=== PATIENT | male | born 1955 | race Caucasian/White ===

== ENCOUNTER → 2018-06-18 14:52 | Outpatient (POV) | payer MEDICARE, SELFPAY | DX: Z00.00 Encounter for general adult medical examination without abnormal findings (principal) ==

== ENCOUNTER 2019-03-17 19:58 | Observation (INO) ==
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
[2019-03-17 20:36] LABS: Basophils # 0.1 K/mm3 (0-0.2); Basophils % 0.9 % (0.1-2.0); Eosinophils # 0.1 K/mm3 (0.0-0.4); Eosinophils % 1.9 % (0.1-12.0); Hematocrit 51.6 % (42.0-52.0); Lymphocytes # 2.5 K/mm3 (0.7-4.5); Mean Corpuscular Volume 99.4 fl (80-94); Mean Platelet Volume 6.4 fl (7.4-10.4); Monocytes # 0.6 K/mm3 (0.1-1.0); Monocytes % 7.9 % (1.7-9.3); Neutrophils # 3.7 K/mm3 (1.8-7.8); Neutrophils % 53.3 % (37.0-80.0); Platelet Count 293 K/mm3 (142-424); Red Blood Count 5.19 M/mm3 (4.60-6.20); Red Cell Distribution Width 13.3 % (11.5-17.5)
[2019-03-17 20:40] LABS: Anion Gap 15.5 mEq/L (5-15); Calcium 9.8 mg/dL (8.5-10.1)
[2019-03-17 20:50] LABS: Ethyl Alcohol 288 mg/dL (0-99)
[2019-03-17 20:51] LABS: C-Reactive Protein < 0.2 mg/dL (0.0-0.9)
[2019-03-17 20:52] LABS: Albumin Level 4.2 gm/dL (3.4-5.0); Bilirubin,Direct 0.1 mg/dL (0.0-0.2); Bilirubin,Indirect 0.3 mg/dL (0.0-0.9); Bilirubin,Total 0.4 mg/dL (0.2-1.0); Total Protein,Serum 8.7 gm/dL (6.4-8.2)
[2019-03-17 20:53] LABS: Amphetamine/Metha Screen,Urine Negative ng/mL (<1000); Barbiturates Screen,Urine Negative ng/mL (<200); Benzodiazepines Screen,Urine Negative ng/mL (<200); Cannabinoid Screen,Urine Negative ng/mL (<50); Cocaine Screen,Urine Negative ng/mL (<300); Methadone Screen,Urine Negative ng/mL (<300); Opiate Screen,Urine Negative ng/mL (<300); Phencyclidine Screen,Urine Negative ng/mL (<25)
[2019-03-17 21:25] LABS: Chol/HDL Ratio 2.9 (1-3.5)
[2019-03-18 06:44] LABS: Eosinophils % 2.8 % (0.1-12.0); Hematocrit 44.8 % (42.0-52.0); Lymphocytes # 1.5 K/mm3 (0.7-4.5); Lymphocytes % 35.6 % (10-50); Mean Corpuscular HGB Conc 32.9 g/dL (31.8-35.4); Mean Corpuscular Volume 99.7 fl (80-94); Mean Platelet Volume 6.7 fl (7.4-10.4); Monocytes % 10.7 % (1.7-9.3); Neutrophils # 2.1 K/mm3 (1.8-7.8); Neutrophils % 49.9 % (37.0-80.0); Platelet Count 266 K/mm3 (142-424); Red Blood Count 4.49 M/mm3 (4.60-6.20); Red Cell Distribution Width 13.5 % (11.5-17.5); White Blood Count 4.2 K/mm3 (4.8-10.8)
[2019-03-18 07:01] LABS: Anion Gap 13.4 mEq/L (5-15)
[2019-03-18 07:04] LABS: Eosinophils # 0.1 K/mm3 (0.0-0.4); Monocytes # 0.4 K/mm3 (0.1-1.0)
[2019-03-18 07:16] LABS: Hemoglobin 14.8 g/dL (14.1-18.0)
[2019-03-18 07:18] LABS: Calcium 8.6 mg/dL (8.5-10.1)
--- NOTE | 2019-03-18 09:11 | Pharmacy Consult Notes ---
[facility] Pharmacy VTE Monitoring - Patient Demographics Admission date: 03/18/19 Report Date: 03/18/19 Time: 09:10 Allergies/Adverse Reactions: Patient Allergies Penicillins Allergy (Severe, Verified 03/18/19 08:09) Anaphylaxis codeine [CODEINE] Allergy (Mild, Verified 03/17/19 22:21) Rash Height: 1.73 m Weight: 71.356 kg Patient Problems: Current Active Problems Elevated ETOH level (Acute) Chest pain (Acute) Chronic obstructive airway disease (Acute) Tobacco dependence syndrome (Acute) History of coronary artery bypass graft (Acute) - VTE Risk Labs: VTE Related Lab Results Hgb 14.8 g/dL (14.1-18.0) D 03/18/19 05:24 Hct 44.8 % (42.0-52.0) 03/18/19 05:24 Plt Count 266 K/mm3 (142-424) 03/18/19 05:24 BUN 7 mg/dL (7-18) 03/18/19 05:24 Creatinine 0.74 mg/dL (0.70-1.30) 03/18/19 05:24 Estimated Creat Clear 78 mL/min (50-200) 03/18/19 05:24 VTE Score: 8 VTE Risk Level: Moderate Risk - Prophylaxis Types of VTE Prophylaxis: TEDS Knee High (STEPHANY HOSE ORDERED)
--- NOTE | 2019-03-18 10:19 | Consult Report ---
History of Present Illness Consult date: 03/18/19 Requesting physician: Eris Amezcua Consult reason: chest pain Chief complaint: Chest pain Additional Medical History:: 1. Coronary artery disease 2. Hypertension 3. Hyperlipidemia 4. Medical noncompliance 5. Alcoholism 6. Marijuana smoker 7. Tobacco user 8. COPD History of present illness: This is a 63-year-old gentleman who was admitted to the hospital with chest pain. The patient came into the hospital with a 3-day history of chest pressure and tightness in the center of his chest. The patient states that it did not radiate. His chest pain was associated with shortness of breath and diaphoresis. The patient states that it was constant and moderate in intensity. The patient states that he did take nitroglycerin at home to help improve the pain. He states that this did help but then he lost the nitroglycerin and was unable to take it again. The patient states that he has not taken his medication properly for the last several months. He states that he forgets to take his medicine and so he just stopped taking it. He also reports that he has been drinking alcohol heavily for the last 3 months. He also reports smoking marijuana and smoking 1 pack/day of cigarettes. The patient reports that he is just not been taking really good care of himself. He denies any fever, chills, nausea, vomiting, diarrhea, PND or orthopnea. He denies any edema. The patient does report a history of coronary artery disease with stenting back in 2016. His first 2 troponins are negative and has ruled out for an NE. [facility] History I have reviewed the patient's past medical history: Yes Medical History: Reports:: Chronic Obstructive Pulmonary Disease (COPD), Coronary Artery Disease, Hyperlipidemia, Hypertension Denies:: Diabetes Mellitus Type 1, Diabetes Mellitus Type 2, Internal Pacemaker *Have you ever received a pneumonia vaccine?: No *Have you received a flu vaccine this season?: No Laterality Cases: Bilateral: Arthroscopy Shoulder Other Surgeries: Yes: Other ([facility] 2016, Shoulder Sx, B wrist sx, Cyst removed). No: Pacemaker Amputation: No Fractures: No - *Social History Educational Level: Completed College Smoking Status: Current every day smoker Tobacco Type: cigarettes # Packs/Day (cigarettes): 1 Alcohol Intake: current Alcohol Intake Frequency:: 3 or more drinks per day Substance Use Type: marijuana *Occupational Status:: disabled *Travel in the last 8 weeks: None Family Hx:: Coronary Artery Disease, Diabetes Meds Home Medications Medication Instructions Recorded Confirmed Type furosemide 20 mg tablet 20 mg PO DAILY 07/29/17 03/18/19 History ipratropium bromide 17 2 inh INHALATION QID 07/29/17 03/17/19 History mcg/actuation HFA aerosol inhaler lisinopril 20 mg tablet 20 mg PO DAILY 07/29/17 03/18/19 History nitroglycerin 0.4 mg sublingual 0.4 mg SUBLINGUAL Q5MINP PRN 07/29/17 03/18/19 History tablet ondansetron HCl 4 mg tablet 4 mg PO Q8HP PRN tab 07/29/17 03/18/19 History Albuterol Sulfate [Albuterol HFA 2 puff INHALATION Q6H 03/17/19 03/17/19 History Inhaler] Aspirin [Low Dose Aspirin EC] 81 mg PO DAILY 03/17/19 03/17/19 History Carvedilol [Carvedilol 3.125mg Tab] 3.125 mg PO BID 03/17/19 03/17/19 History Clopidogrel Bisulfate [Plavix 75mg 75 mg PO DAILY 03/17/19 03/17/19 History Tab] Potassium Chloride [K-Tab ER 20 20 meq PO DAILY 03/17/19 03/17/19 History mEq] Allergies Allergy/AdvReac Type Severity Reaction Status Date / Time Penicillins Allergy Severe Anaphylaxis Verified 03/18/19 08:09 codeine [CODEINE] Allergy Mild Rash Verified 03/17/19 22:21 Review of Systems - Review of Systems Review of systems:: pertinent systems reviewed and negative unless documented below - *Cardiovascular Reports chest pain, Reports chest pain at rest, Reports chest pain with activity, Reports excessive sweating, Reports shortness of breath, Reports shortness of breath with activity - *Respiratory Reports shortness of breath, Reports shortness of breath with activity - *Neurologic Denies seizure-like activity Exam Vital signs and Labs for Last 24 Hours: Temp Pulse Resp BP Pulse Ox 98.2 F 84 17 149/57 H 95 03/18/19 08:00 03/18/19 08:00 03/18/19 08:00 03/18/19 08:00 03/18/19 08:00 Laboratory Results - last 24 hr 03/17/19 20:27: ESR 1 03/17/19 20:27: Troponin I < 0.02, C-Reactive Protein < 0.2, Plasma/Serum Al cohol 288 H 03/17/19 20:27: WBC 7.0, RBC 5.19, Hgb 17.0, Hct 51.6, MCV 99.4 H, MCH 32.8 H, MCHC 33.0, RDW 13.3, Plt Count 293, MPV 6.4 L, Neut % (Auto) 53.3, Lymph % (Auto) 36.0, [place] % (Auto) 7.9, Eos % (Auto) 1.9, Baso % (Auto) 0.9, Neut # (Auto) 3.7, Lymph # (Auto) 2.5, [place] # (Auto) 0.6, Eos # (Auto) 0.1, Baso # (Auto) 0.1 03/17/19 20:27: Sodium 141, Potassium 3.5, Chloride 101, Carbon Dioxide 28, Anion Gap 15.5 H, BUN 8, Creatinine 0.85, Estimated Creat Clear 77, Estimated GFR 92, Est GFR ( Amer) 111, Glucose 105, Calcium 9.8 03/17/19 20:27: Urine Opiates Screen Negative, Urine Methadone Screen Negative, Ur Barbituates Screen Negative, Ur Phencyclidine Scrn Negative, Ur Amphetamines Screen Negative, U Benzodiazepines Scrn Negative, Urine Cocaine Screen Negative, U Marijuana (THC) Screen Negative 03/17/19 20:27: Total Bilirubin 0.4, Direct Bilirubin 0.1, Indirect Bilirubin 0.3, AST 77 H, ALT 94 H, Alkaline Phosphatase 106, Total Protein 8.7 H, Albumin 4.2 03/17/19 20:27: Triglycerides 243 H, Cholesterol 232 H, LDL Cholesterol 102, VLDL Cholesterol 49 H, HDL Cholesterol 81 H, Cholesterol/HDL Ratio 2.9 03/18/19 00:35: Troponin I < 0.02 03/18/19 03:23: Troponin I 0.02 03/18/19 05:24: WBC 4.2 L D, RBC 4.49 L, Hgb 14.8 D, Hct 44.8, MCV 99.7 H, MCH 32.8 H, MCHC 32.9, RDW 13.5, Plt Count 266, MPV 6.7 L, Neut % (Auto) 49.9, Lymph % (Auto) 35.6, [place] % (Auto) 10.7 H, Eos % (Auto) 2.8, Baso % (Auto) 1.0, Neut # (Auto) 2.1, Lymph # (Auto) 1.5, [place] # (Auto) 0.4, Eos # (Auto) 0.1, Baso # (Auto) 0.0 03/18/19 05:24: Sodium 143, Potassium 3.4 L, Chloride 105, Carbon Dioxide 28, Anion Gap 13.4, BUN 7, Creatinine 0.74, Estimated Creat Clear 78, Estimated GFR 108, Est GFR ( Amer) 130, Glucose 88, Calcium 8.6 D, Magnesium 1.8 I & O for Last 24 hours: Intake & Output 03/15/19 03/16/19 03/17/19 03/18/19 23:59 23:59 23:59 23:59 Intake Total 338 / 338 Balance 338 / 338 Weight 157 lb 5 oz 157 lb 5 oz Narrative: EKG is sinus rhythm with incomplete right bundle branch block and nonspecific T wave abnormalities with a rate of 92. Preliminary echocardiogram shows an ejection fraction greater than 55%. - Constitutional no acute distress, average body habitus - *Routine HEENT Exam Head: Present: normocephalic, atraumatic Eye: Present: EOMI, PERRL ENT: Present: mucous membranes moist - *Routine Neck Exam Present: supple, full ROM, normal carotid upstroke. Absent: JVD, carotid bruit, lymphadenopathy - *Routine Respiratory Exam Present: decreased breath sounds, wheezes (Expiratory) - *Routine Cardiovascular Exam Present: RRR, Normal S1, Normal S2. Absent: murmur - *Routine Abdominal Exam Present: soft, normoactive bowel sounds. Absent: tenderness, distended - *Routine Extremities Exam Present: full ROM, pulses intact, normal capillary refill. Absent: cyanosis, clubbing, edema - *Routine Skin Exam Present: intact, warm. Absent: erythema, rash - *Routine Neurological Exam Present: alert, oriented X3, CN II-XII intact. Absent: sensory deficit, motor deficit - Routine Psychiatric Exam Present: normal affect, normal thought process - Detailed Eye Exam Eyelids: Left normal inspection Assessment and Plan (1) Angina pectoris Current visit: Yes Status: Acute Category: Medical Code(s): I20.9 - Angina pectoris, unspecified (2) Coronary artery disease Current visit: Yes Status: Acute Category: Medical Code(s): I25.10 - Atherosclerotic heart disease of [place] coronary artery without angina pectoris (3) Hypertension Current visit: Yes Status: Acute Category: Medical Code(s): I10 - Essential (primary) hypertension (4) Chronic obstructive airway disease Current visit: Yes Status: Acute Qualifiers: COPD type: unspecified COPD Qualified Code(s): J44.9 - Chronic obstructive pulmonary disease, unspecified Category: Medical Code(s): J44.9 - Chronic obstructive pulmonary disease, unspecified (5) Elevated ETOH level Current visit: Yes Status: Acute Qualifiers: Blood alcohol level: 240 mg/100 ml or more Qualified Code(s): Y90.8 - Blood alcohol level of 240 mg/100 ml or more Category: Medical Code(s): R78.0 - Finding of alcohol in blood (6) History of coronary artery bypass graft Current visit: Yes Status: Acute Category: Surgical Code(s): Z95.1 - Presence of aortocoronary bypass graft (7) Tobacco dependence syndrome Current visit: Yes Status: Acute Category: Medical Code(s): F17.200 - Nicotine dependence, unspecified, uncomplicated (8) Hyperlipidemia Current visit: No Status: Acute Category: Medical Code(s): E78.5 - Hyperlipidemia, unspecified - Assessment and plan all Dx Assessment and Plan for all problems:: Plan: 1. The patient was admitted to the hospital with chest pain. He is ruled out for an NE. No plans for invasive cardiac testing at this time. 2. The patient does have history of known coronary artery disease with his last work-up in 2016. The patient has been noncompliant with his medications for the last several months. He reports that he just forgets to take his medicine so he stopped taking them all. 3. The patient is having angina but he is off of all of his cardiac medications. He is ruled out for myocardial infarction. Dr. Zapien recommends getting the patient restarted on his cardiac medications to see if his symptoms improve and he would likely benefit from an ischemic evaluation on an outpatient basis. 4. Recommend aspirin 81 mg daily and Plavix 75 mg daily for dual antiplatelet therapy. 5. Stop Pravachol and start Lipitor 80 mg p.o. nightly. 6. Continue current dose of carvedilol. 7. Start isosorbide mononitrate 30 mg daily for angina. 8. Start Norvasc 5 mg daily for angina and better blood pressure control. 9. His preliminary EF shows an ejection fraction greater than 55%. 10. Tobacco cessation is highly advised and counseled. 11. Alcohol cessation is highly advised and counseled. 12. As mentioned above from a cardiac standpoint, recommend getting the patient restarted on all of his cardiac medications. As long as he is tolerating these medications well the patient can be discharged home today from a cardiac standpoint. We do recommend an outpatient ischemic evaluation. The patient should follow-up in outpatient cardiology clinic in 1 to 2 weeks. 13. No further recommendations at this time from cardiac standpoint. Thank you for the opportunity to help participate in care of this patient.
--- NOTE | 2019-03-18 11:22 | H&P/Discharge Summary ---
General - General Admission date:: 03/17/19 Discharge date: 03/18/19 *Admission Date: 03/18/19 *Chief complaint: chest pain *History of present illness: this wm presented to [facility] with 3 day af ant chest pain with hx of cad -stated has been having intense chest pain for the last 3 days. ptr described it as a pressure/tightness in the middle of his chestr. pt stated he has been drinking for the last 3 months straight and hasnt been taking his medications. pt stated he took a nitro pill a couple of days ago and got relief but he cant find them now. pt stated he is under the influence now wm with onset of episodes of chest pain over the last 3 days with pressure sensation - pt with tob use and etoh use and hx of cabg 2011 - pt was admitted for eval and serial enz [facility] History I have reviewed the patient's past medical history: Yes Medical History: Reports:: Chronic Obstructive Pulmonary Disease (COPD), Coronary Artery Disease, Hyperlipidemia, Hypertension Denies:: Diabetes Mellitus Type 1, Diabetes Mellitus Type 2, Internal Pacemaker *Have you ever received a pneumonia vaccine?: No *Have you received a flu vaccine this season?: No Laterality Cases: Bilateral: Arthroscopy Shoulder Other Surgeries: Yes: Other ([facility] 2016, Shoulder Sx, B wrist sx, Cyst removed). No: Pacemaker Amputation: No Fractures: No - *Social History Educational Level: Completed College Smoking Status: Current every day smoker Tobacco Type: cigarettes # Packs/Day (cigarettes): 1 Alcohol Intake: current Alcohol Intake Frequency:: 3 or more drinks per day Substance Use Type: marijuana *Occupational Status:: disabled *Travel in the last 8 weeks: None Family Hx:: Coronary Artery Disease, Diabetes Review of Systems - Review of Systems Review of systems:: pertinent systems reviewed and negative unless documented below - Constitutional Denies fever(s) - Eyes Denies change in vision - ENT Denies sore throat - *Cardiovascular Reports chest pain at rest - *Respiratory Denies cough - *Gastrointestinal Denies abdominal pain - *Genitourinary Denies blood in urine - *Musculoskeletal Denies joint swelling - Integumentary/Breasts Denies rash - *Neurologic Denies headache(s), Denies seizure-like activity - Psychiatric Denies anxiety Exam Vital signs and Labs for Last 24 Hours: Temp Pulse Resp BP Pulse Ox 98.2 F 84 17 149/57 H 95 03/18/19 08:00 03/18/19 08:00 03/18/19 08:00 03/18/19 08:00 03/18/19 08:00 Laboratory Results - last 24 hr 03/17/19 20:27: ESR 1 03/17/19 20:27: Troponin I < 0.02, C-Reactive Protein < 0.2, Plasma/Serum Alcohol 288 H 03/17/19 20:27: WBC 7.0, RBC 5.19, Hgb 17.0, Hct 51.6, MCV 99.4 H, MCH 32.8 H, MCHC 33.0, RDW 13.3, Plt Count 293, MPV 6.4 L, Neut % (Auto) 53.3, Lymph % (Auto) 36.0, [place] % (Auto) 7.9, Eos % (Auto) 1.9, Baso % (Auto) 0.9, Neut # (Auto) 3.7, Lymph # (Auto) 2.5, [place] # (Auto) 0.6, Eos # (Auto) 0.1, Baso # (Auto) 0.1 03/17/19 20:27: Sodium 141, Potassium 3.5, Chloride 101, Carbon Dioxide 28, Anion Gap 15.5 H, BUN 8, Creatinine 0.85, Estimated Creat Clear 77, Estimated GFR 92, Est GFR ( Amer) 111, Glucose 105, Calcium 9.8 03/17/19 20:27: Urine Opiates Screen Negative, Urine Methadone Screen Negative, Ur Barbituates Screen Negative, Ur Phencyclidine Scrn Negative, Ur Amphetamines Screen Negative, U Benzodiazepines Scrn Negative, Urine Cocaine Screen Negative, U Marijuana (THC) Screen Negative 03/17/19 20:27: Total Bilirubin 0.4, Direct Bilirubin 0.1, Indirect Bilirubin 0.3, AST 77 H, ALT 94 H, Alkaline Phosphatase 106, Total Protein 8.7 H, Albumin 4.2 03/17/19 20:27: Triglycerides 243 H, Cholesterol 232 H, LDL Cholesterol 102, VLDL Cholesterol 49 H, HDL Cholesterol 81 H, Cholesterol/HDL Ratio 2.9 03/18/19 00:35: Troponin I < 0.02 03/18/19 03:23: Troponin I 0.02 03/18/19 05:24: WBC 4.2 L D, RBC 4.49 L, Hgb 14.8 D, Hct 44.8, MCV 99.7 H, MCH 32.8 H, MCHC 32.9, RDW 13.5, Plt Count 266, MPV 6.7 L, Neut % (Auto) 49.9, Lymph % (Auto) 35.6, [place] % (Auto) 10.7 H, Eos % (Auto) 2.8, Baso % (Auto) 1.0, Neut # (Auto) 2.1, Lymph # (Auto) 1.5, [place] # (Auto) 0.4, Eos # (Auto) 0.1, Baso # (Auto) 0.0 03/18/19 05:24: Sodium 143, Potassium 3.4 L, Chloride 105, Carbon Dioxide 28, Anion Gap 13.4, BUN 7, Creatinine 0.74, Estimated Creat Clear 78, Estimated GFR 108, Est GFR ( Amer) 130, Glucose 88, Calcium 8.6 D, Magnesium 1.8 I & O for Last 24 hours: Intake & Output 03/15/19 03/16/19 03/17/19 03/18/19 11:59 11:59 11:59 11:59 Intake Total 338 / 338 Balance 338 / 338 Weight 157 lb 5 oz - Constitutional no acute distress - *Routine HEENT Exam Head: Present: normocephalic Eye: Present: EOMI, PERRL ENT: Present: mucous membranes dry - *Routine Neck Exam Absent: JVD - *Routine Respiratory Exam Present: CTA bilaterally - *Routine Cardiovascular Exam Present: RRR, murmur. Absent: rubs - *Routine Abdominal Exam Present: soft - *Routine Extremities Exam Present: full ROM - *Routine Skin Exam Present: intact - *Routine Neurological Exam Present: alert, oriented X3, CN II-XII intact - Routine Psychiatric Exam Present: normal affect Hospital Course Hospital Course: pt did well through night and has neg card enz - he was seen by card -oronary artery disease 2. Hypertension 3. Hyperlipidemia 4. Medical noncompliance 5. Alcoholism 6. Marijuana smoker 7. Tobacco user 8. COPD History of present illness: This is a 63-year-old gentleman who was admitted to the hospital with chest pa in. The patient came into the hospital with a 3-day history of chest pressure and tightness in the center of his chest. The patient states that it did not radiate. His chest pain was associated with shortness of breath and diaphoresis. The patient states that it was constant and moderate in intensity. The patient states that he did take nitroglycerin at home to help improve the pain. He states that this did help but then he lost the nitroglycerin and was unable to take it again. The patient states that he has not taken his medication properly for the last several months. He states that he forgets to take his medicine and so he just stopped taking it. He also reports that he has been drinking alcohol heavily for the last 3 months. He also reports smoking marijuana and smoking 1 pack/day of cigarettes. The patient reports that he is just not been taking really good care of himself. He denies any fever, chills, nausea, vomiting, diarrhea, PND or orthopnea. He denies any edema. The patient does report a history of coronary artery disease with stenting back in 2016. His first 2 troponins are negative and has ruled out for an CT. The patient was admitted to the hospital with chest pain. He is ruled out for an CT. No plans for invasive cardiac testing at this time. 2. The patient does have history of known coronary artery disease with his last work-up in 2016. The patient has been noncompliant with his medications for the last several months. He reports that he just forgets to take his medicine so he stopped taking them all. 3. The patient is having angina but he is off of all of his cardiac medications. He is ruled out for myocardial infarction. Dr. Zapien recommends getting the patient restarted on his cardiac medications to see if his symptoms improve and he would likely benefit from an ischemic evaluation on an outpatient basis. 4. Recommend aspirin 81 mg daily and Plavix 75 mg daily for dual antiplatelet therapy. 5. Stop Pravachol and start Lipitor 80 mg p.o. nightly. 6. Continue current dose of carvedilol. 7. Start isosorbide mononitrate 30 mg daily for angina. 8. Start Norvasc 5 mg daily for angina and better blood pressure control. 9. His preliminary EF shows an ejection fraction greater than 55%. 10. Tobacco cessation is highly advised and counseled. 11. Alcohol cessation is highly advised and counseled. 12. As mentioned above from a cardiac standpoint, recommend getting the patient restarted on all of his cardiac medications. As long as he is tolerating these medications well the patient can be discharged home today from a cardiac standpoint. We do recommend an outpatient ischemic evaluation. The patient should follow-up in outpatient cardiology clinic in 1 to 2 weeks. 13. No further recommendations at this time from cardiac standpoint. Results Labs on day of discharge: Labs from last 24 hours 03/18/19 03/18/19 03/18/19 05:24 05:24 03:23 WBC 4.2 L D RBC 4.49 L Hgb 14.8 D Hct 44.8 MCV 99.7 H MCH 32.8 H MCHC 32.9 RDW 13.5 Plt Count 266 MPV 6.7 L Neut % (Auto) 49.9 Lymph % (Auto) 35.6 [place] % (Auto) 10.7 H Eos % (Auto) 2.8 Baso % (Auto) 1.0 Neut # (Auto) 2.1 Lymph # (Auto) 1.5 [place] # (Auto) 0.4 Eos # (Auto) 0.1 Baso # (Auto) 0.0 ESR Sodium 143 Potassium 3.4 L Chloride 105 Carbon Dioxide 28 Anion Gap 13.4 BUN 7 Creatinine 0.74 Estimated Creat Clear 78 Estimated GFR 108 Est GFR ( Amer) 130 Glucose 88 Calcium 8.6 D Magnesium 1.8 Total Bilirubin Direct Bilirubin Indirect Bilirubin AST ALT Alkaline Phosphatase Troponin I 0.02 C-Reactive Protein Total Protein Albumin Triglycerides Cholesterol LDL Cholesterol VLDL Cholesterol HDL Cholesterol Cholesterol/HDL Ratio Urine Opiates Screen Urine Methadone Screen Ur Barbituates Screen Ur Phencyclidine Scrn Ur Amphetamines Screen U Benzodiazepines Scrn Urine Cocaine Screen U Marijuana (THC) Screen Plasma/Serum Alcohol 03/18/19 03/17/19 03/17/19 00:35 20:27 20:27 WBC RBC Hgb Hct MCV MCH MCHC RDW Plt Count MPV Neut % (Auto) Lymph % (Auto) [place] % (Auto) Eos % (Auto) Baso % (Auto) Neut # (Auto) Lymph # (Auto) [place] # (Auto) Eos # (Auto) Baso # (Auto) ESR Sodium Potassium Chloride Carbon Dioxide Anion Gap BUN Creatinine Estimated Creat Clear Estimated GFR Est GFR ( Amer) Glucose Calcium Magnesium Total Bilirubin 0.4 Direct Bilirubin 0.1 Indirect Bilirubin 0.3 AST 77 H ALT 94 H Alkaline Phosphatase 106 Troponin I < 0.02 C-Reactive Protein Total Protein 8.7 H Albumin 4.2 Triglycerides 243 H Cholesterol 232 H LDL Cholesterol 102 VLDL Cholesterol 49 H HDL Cholesterol 81 H Cholesterol/HDL Ratio 2.9 Urine Opiates Screen Urine Methadone Screen Ur Barbituates Screen Ur Phencyclidine Scrn Ur Amphetamines Screen U Benzodiazepines Scrn Urine Cocaine Screen U Marijuana (THC) Screen Plasma/Serum Alcohol 03/17/19 03/17/19 03/17/19 20:27 20:27 20:27 WBC 7.0 RBC 5.19 Hgb 17.0 Hct 51.6 MCV 99.4 H MCH 32.8 H MCHC 33.0 RDW 13.3 Plt Count 293 MPV 6.4 L Neut % (Auto) 53.3 Lymph % (Auto) 36.0 [place] % (Auto) 7.9 Eos % (Auto) 1.9 Baso % (Auto) 0.9 Neut # (Auto) 3.7 Lymph # (Auto) 2.5 [place] # (Auto) 0.6 Eos # (Auto) 0.1 Baso # (Auto) 0.1 ESR Sodium 141 Potassium 3.5 Chloride 101 Carbon Dioxide 28 Anion Gap 15.5 H BUN 8 Creatinine 0.85 Estimated Creat Clear 77 Estimated GFR 92 Est GFR ( Amer) 111 Glucose 105 Calcium 9.8 Magnesium Total Bilirubin Direct Bilirubin Indirect Bilirubin AST ALT Alkaline Phosphatase Troponin I C-Reactive Protein Total Protein Albumin Triglycerides Cholesterol LDL Cholesterol VLDL Cholesterol HDL Cholesterol Cholesterol/HDL Ratio Urine Opiates Screen Negative Urine Methadone Screen Negative Ur Barbituates Screen Negative Ur Phencyclidine Scrn Negative Ur Amphetamines Screen Negative U Benzodiazepines Scrn Negative Urine Cocaine Screen Negative U Marijuana (THC) Screen Negative Plasma/Serum Alcohol 03/17/19 03/17/19 20:27 20:27 WBC RBC Hgb Hct MCV MCH MCHC RDW Plt Count MPV Neut % (Auto) Lymph % (Auto) [place] % (Auto) Eos % (Auto) Baso % (Auto) Neut # (Auto) Lymph # (Auto) [place] # (Auto) Eos # (Auto) Baso # (Auto) ESR 1 Sodium Potassium Chloride Carbon Dioxide Anion Gap BUN Creatinine Estimated Creat Clear Estimated GFR Est GFR ( Amer) Glucose Calcium Magnesium Total Bilirubin Direct Bilirubin Indirect Bilirubin AST ALT Alkaline Phosphatase Troponin I < 0.02 C-Reactive Protein < 0.2 Total Protein Albumin Triglycerides Cholesterol LDL Cholesterol VLDL Cholesterol HDL Cholesterol Cholesterol/HDL Ratio Urine Opiates Screen Urine Methadone Screen Ur Barbituates Screen Ur Phencyclidine Scrn Ur Amphetamines Screen U Benzodiazepines Scrn Urine Cocaine Screen U Marijuana (THC) Screen Plasma/Serum Alcohol 288 H DS: Diagnosis - Discharge Diagnosis (1) Angina pectoris Status: Acute (2) Coronary artery disease Status: Acute (3) Hypertension Status: Acute (4) Chronic obstructive airway disease Status: Acute (5) Elevated ETOH level Status: Acute (6) History of coronary artery bypass graft Status: Acute (7) Tobacco dependence syndrome Status: Acute (8) Hyperlipidemia Status: Acute Discharge Plan - Patient Discharge Instructions ACTIVITY: Continue current activity DIET: continue same diet Patient Instructions: Blood Alcohol Level, Cigarette Addiction (Alternative Therapy), Chronic Obstructive Pulmonary Disease, DI for Chronic Obstructive Pulmonary Disease, DI for Chest Pain, How to Quit Tobacco Products - Follow up Plan Disposition: Home, Self-Alf Medications: Home Medications Medication Instructions Recorded Confirmed Type furosemide 20 mg tablet 20 mg PO DAILY 07/29/17 03/18/19 History ipratropium bromide 17 2 inh INHALATION QID 07/29/17 03/17/19 History mcg/actuation HFA aerosol inhaler lisinopril 20 mg tablet 20 mg PO DAILY 07/29/17 03/18/19 History nitroglycerin 0.4 mg sublingual 0.4 mg SUBLINGUAL Q5MINP PRN 07/29/17 03/18/19 History tablet ondansetron HCl 4 mg tablet 4 mg PO Q8HP PRN tab 07/29/17 03/18/19 History Albuterol Sulfate [Albuterol HFA 2 puff INHALATION Q6H 03/17/19 03/17/19 History Inhaler] Aspirin [Low Dose Aspirin EC] 81 mg PO DAILY 03/17/19 03/17/19 History Carvedilol [Carvedilol 3.125mg Tab] 3.125 mg PO BID 03/17/19 03/17/19 History Clopidogrel Bisulfate [Plavix 75mg 75 mg PO DAILY 03/17/19 03/17/19 History Tab] Potassium Chloride [K-Tab ER 20 20 meq PO DAILY 03/17/19 03/17/19 History mEq] Amlodipine Besylate [Norvasc 5mg 5 mg PO DAILY #90 tab 03/18/19 Rx tablet] Aspirin [Aspirin 81mg EC Tab] 81 mg PO DAILY #90 tablet. 03/18/19 Rx Atorvastatin Calcium [Lipitor 40mg 80 mg PO HS #90 tab 03/18/19 Rx Tablet] Carvedilol [Coreg 3.125mg Tablet] 3.125 mg PO BID #60 tab 03/18/19 Rx Clopidogrel Bisulfate [Plavix 75mg 75 mg PO DAILY #90 tab 03/18/19 Rx Tab] Isosorbide Mononitrate [Imdur 30mg 30 mg PO DAILY #90 tab 03/18/19 Rx ER tablet] Nicotine [Nicoderm 21mg/24hr 21 mg TD DAILYP PRN #30 patch.td24 03/18/19 Rx patch] Prescriptions/Medication Reconciliation: New Aspirin [Aspirin 81mg EC Tab] 81 mg PO DAILY #90 tablet. Carvedilol [Coreg 3.125mg Tablet] 3.125 mg PO BID #60 tab Isosorbide Mononitrate [Imdur 30mg ER tablet] 30 mg PO DAILY #90 tab Atorvastatin Calcium [Lipitor 40mg Tablet] 80 mg PO HS #90 tab Nicotine [Nicoderm 21mg/24hr patch] 21 mg TD DAILYP PRN #30 patch.td24 PRN Reason: Nicotine Cravings Amlodipine Besylate [Norvasc 5mg tablet] 5 mg PO DAILY #90 tab Clopidogrel Bisulfate [Plavix 75mg Tab] 75 mg PO DAILY #90 tab Continued ipratropium bromide 17 mcg/actuation HFA aerosol inhaler 2 inh INHALATION QID nitroglycerin 0.4 mg sublingual tablet 0.4 mg SUBLINGUAL Q5MINP PRN PRN Reason: chest pain Clopidogrel Bisulfate [Plavix 75mg Tab] 75 mg PO DAILY Carvedilol [Carvedilol 3.125mg Tab] 3.125 mg PO BID Aspirin [Low Dose Aspirin EC] 81 mg PO DAILY Albuterol Sulfate [Albuterol HFA Inhaler] 2 puff INHALATION Q6H Discontinued lisinopril 20 mg tablet 20 mg PO DAILY furosemide 20 mg tablet 20 mg PO DAILY ondansetron HCl 4 mg tablet 4 mg PO Q8HP PRN tab PRN Reason: Nausea Potassium Chloride [K-Tab ER 20 mEq] 20 meq PO DAILY - Problem Reconciliation Problems Reviewed?: Yes
--- NOTE | 2019-03-19 17:02 | Cardiology Report ---
APPROVED REPORT EXAM: Comprehensive 2D, Doppler, and color-flow Echocardiogram [employer] Attendant: Carrie Sosa CRT Ht: 5 ft 8 in Wt: 155lbs BSA: 1.83 BP: 160/101 mmHg Indications: Chest Pain, COPD, Hyperlipidemia, Hypertension/HDD, CABG x 3, alcohol binge x 3 months 2D Dimensions LVOT 2.00 cm (M/F) 1.5-2.5 M-Mode Dimensions RVDd 2.90 cm (0.9-2.6)LA Diam 4.00 cm (1.9-4.0) LVDd 4.50 cm (3.5-5.7)Ao Diam 3.40 cm (2.0-3.7) LVDs 2.80 cm (3.5-5.7)AV Cusp 2.00 cm (1.5-2.6) IVSd 1.40 cm (0.6-1.1)PWd 0.90 cm (0.6-1.1) EF (Teich) 68.00% FS 37.80% EDV (Teich) 92.40 mLESV (Teich) 29.60 mL LV Diastology E/A Ratio 0.90MED E' 8.08 (< 7 cm/sec) E'/MED E' Ratio8.20 (>14)LAT E' 8.38 (<10 cm/sec) E/LAT E' Ratio 7.90 (>14) Aortic Valve AoV Peak Billy. 109.00 (50-130 cm/s)AO Peak GR. 5.00 mmHg Mitral Valve MV E Max Billy. 66.60 (40-130 cm/s)MV A Velocity 71.10 (40-130 cm/s) E/A Ratio 0.90 Pulmonary Valve VA End VMAX 121.00 cm/s PA Accel Time 95.00 (>120 msec) Tricuspid Valve TR P. Jqhppelo149.00 cm/sRAP Estimate 10.00 mmHg RVSP 38.00 mmHg Left Ventricle Left atrium is mildly enlarged, left ventricle is normal size, mild concentric left ventricular hypertrophy, visually estimated ejection fraction 55% with no regional wall motion abnormality, grade 1 diastolic dysfunction seen without tissue Doppler evidence of raise left atrial pressure. Right Ventricle Right atrium and right ventricular mildly enlarged with normal contractility. Aortic Valve Aortic valve is minimally thickened and fibrosed. There is no aortic stenosis aortic insufficiency. Mitral Valve Mitral valve leaflets are minimally thickened, there is no mitral stenosis, there is mild mitral regurgitation. Tricuspid Valve Tricuspid valve is grossly normal, there is mild tricuspid regurgitation, calculated right ventricular systolic pressure is 41 mmHg which is moderately elevated. Inferior vena cava is normal size with normal inspiratory collapse. Pulmonic Valve Pulmonic valve is poorly visualized. Great Vessels Aortic root is normal size. Pericardium No significant pericardial effusion noted. Conclusion 1. Biatrial enlargement, normal left ventricular size, mild concentric left ventricular hypertrophy, visually estimated ejection fraction 55% with no regional wall motion abnormality, grade 1 diastolic dysfunction seen without tissue Doppler evidence of raise left atrial pressure. 2. Mildly enlarged right ventricle with normal contractility. 3. Mild mitral and tricuspid regurgitation, moderately elevated right ventricular systolic pressure of 41 mmHg. 4. Inferior vena cava is normal size with normal inspiratory collapse. 5. No significant pericardial effusion noted. Electronically signed by : Eyad Monroy, 03/19/2019 17:02:34
--- NOTE | 2019-03-19 21:09 | Electrocardiograph Report ---
APPROVED REPORT Exam: Resting ECG HR:92 bpm ECG Measurements Heart Rate 92 AXES CA 154 P 69 QRSd 98 QRS 76 QT 368 T-31 QTc 455 <Conclusion> Normal sinus rhythm Incomplete right bundle branch block Abnormal QRS-T angle, consider primary T wave abnormality Abnormal ECG Electronically signed by : Cornelio Shea, 03/19/2019 21:08:58
== END 2019-03-18 13:25 | disposition home or self-care (01) ==
LOC: 2ND 19:58 → ER 19:58 → 2ND 21:42
PROVIDERS: ADMIT Emergency Medicine; ATTEND Emergency Medicine
DX: R07.9 Chest pain, unspecified; I10 Essential (primary) hypertension; Z95.1 Presence of aortocoronary bypass graft; Z72.0 Tobacco use; Y90.8 Blood alcohol level of 240 mg/100 ml or more; J44.9 Chronic obstructive pulmonary disease, unspecified; I25.118 Atherosclerotic heart disease of native coronary artery with other forms of angina pectoris; F10.20 Alcohol dependence, uncomplicated
CPT/HCPCS: 36415; 71020; 71046; 80048; 80061; 80076; 80305; 82607; 82746; 83735; 84484; 85025; 85651; 86140; 93005; 93306; 99282; G0378

== ENCOUNTER → 2019-04-23 07:36 | Outpatient (CLI) | payer MEDICARE, SELFPAY ==
--- NOTE | 2019-04-23 | CA_ITS ---
APPROVED REPORT Exam: Pharmacologic Technologist: Rebel Huerta, Ht: 5 ft 8 in Wt: 152 lbs BSA: 1.82 m2 HR: 80 bpm BP: 151/93 mmHg Rhythm: NSR,RAD ICRBBB,ST-T ABNORMALITIES Indications: SOA, CHest pain, fatigue Medical History Medical History: Hyperlipidemia, HTN, Smoking Medications: Amiodarone,,,,, Potassium Chloride,,,,, Asa,,,,, Carvedilol,,,,, Montelukast,,,,, CloPIdogrel,,,,, AtorvastaIN,,,,, AmlodiNPINE,,,,, Isisorbide,,,,, Allergies: PCN,CODEINE Cardiac Risk Factors: HTN, Hyperlipidemia, FHX of CAD, Smoking Stress Test Details Test: LEXISCAN HR Resting HR: 79 bpm Max Heart Rate (APMHR): 158 bpm Max HR Achieved: 93 bpm Target HR (85% APMHR): 134 bpm % of APMHR: 58 Recovery HR: 85 bpm BP Resting BP: 151.0/93.0 mmHg Max BP: 151.0/93.0 mmHg Recovery BP: 141.0/78.0 mmHg ECG Resting ECG: NSR,RAD,ICRBBB,ST-TABNORMALITES Clinical Exercise duration: 04:01 min Highest Stage Achieved: Stress ECG Conclusion DURING INFUSION PATIENT HAD MILD MALAISE. NO CHEST PAIN. RARE PVC. EXAGGERATION OF BASELINE ST-T ABNORMALITIES. NON-DIAGNOSTIC LEXISCAN STRESS. MYOVIEW IMAGES REPORTED SEPARATELY Test Summary . . . . . Stop exercise at 04:01 . . . . Electronically signed by : Eyad Monroy, 04/23/2019 15:16:49
--- NOTE | 2019-04-23 07:37 | NM_ITS ---
APPROVED REPORT Exam: Nuclear Stress Test Indication: CHEST PAIN, SHORT OF AIR, FATIGUE Patient Location: Outpatient Stress Tech: Lorrie Weemsnkson [place] Tech:MORENO Burr RT(R)(N) Ht: 5 ft 8 in Wt: 165 lbs HR: 80 bpm BP: 151/93 mmHg BSA: 1.88 m2 BMI: 25.0 History: CHEST PAIN, SHORT OF AIR, FATIGUE Procedure: Patient received a 0.4 mg of intravenous Lexiscan, resting heart rate 80 bpm, resting blood pressure 151/93 mmHg, with Lexiscan maximum heart rate achived was 82 bpm which is Less than 85 % of the maximum predicted heart rate and blood pressure was 134/79 mmHg. Electrocardiogram Resting electro cardiogram showed sinus rhythm, with Lexiscan there is less than 1.[address] segment depression noted from the baseline EKG. The EKG portion of the Lexiscan Myoview is nondiagnostic. Cardiac Stress and Resting SPECT Images: Cardiac Stress and Resting SPECT images were obtained using technetium 99m Myoview 29.8 mCi stress and 10.74 mCi at rest. Gated SPECT with analysis of segmental wall motion and calculation of the ejection fraction also done. Cardiac stress and resting SPECT images show uniform myocardial activity without segmental perfusion abnormality, computer derived ejection fraction is over 65% with no regional wall motion abnormality, right ventricle is normal size and contractility. Conclusion: 1. The EKG portion of the Lexiscan Myoview is nondiagnostic. 2. No scintigraphic evidence of reversible ischemia seen, computer derived ejection fraction is over 65% with no regional wall motion abnormality, right ventricle is normal size and contractility. 3. Normal Lexiscan Myoview study. Electronically signed by : Eyad Monroy, 04/23/2019 15:20:24
--- NOTE | 2019-04-23 10:48 | HMH.ITSHM ---
Current Home Medications as stated by this patient Esteban Ramires or direct customer service representative. [] asa amlodipine clopidogrel paroxetine montelukast isisrbide carvedilol
== END ==
PROVIDERS: PCP Emergency Medicine; Visit Provider Nurse Practitioner Family
DX: R07.89 Other chest pain (principal)
CPT/HCPCS: 78452; 93017; A9502; J2785

== ENCOUNTER → 2019-06-09 11:55 | Outpatient (CLI) | payer MEDICARE, SELFPAY ==
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
== END ==
PROVIDERS: PCP Emergency Medicine; Visit Provider Emergency Medicine
DX: Z72.0 Tobacco use (principal)
CPT/HCPCS: 71250

== ENCOUNTER 2019-07-20 07:26 | Observation (INO) ==
[2019-07-20 07:42] LABS: Basophils % 0.5 % (0.1-2.0); Eosinophils # 0.4 K/mm3 (0.0-0.4); Eosinophils % 5.4 % (0.1-12.0); Hematocrit 42.7 % (42.0-52.0); Hemoglobin 14.3 g/dL (14.1-18.0); Lymphocytes # 2.3 K/mm3 (0.7-4.5); Lymphocytes % 30.4 % (10-50); Mean Corpuscular HGB Conc 33.5 g/dL (31.8-35.4); Mean Corpuscular Volume 95.4 fl (80-94); Mean Platelet Volume 7.8 fl (7.4-10.4); Monocytes # 0.4 K/mm3 (0.1-1.0); Neutrophils # 4.5 K/mm3 (1.8-7.8); Neutrophils % 58.7 % (37.0-80.0); Platelet Count 143 K/mm3 (142-424); Red Blood Count 4.48 M/mm3 (4.60-6.20); Red Cell Distribution Width 12.2 % (11.5-17.5); White Blood Count 7.7 K/mm3 (4.8-10.8)
[2019-07-20 07:53] LABS: Alanine Aminotransferase 34 U/L (12-78); Albumin Level 3.6 gm/dL (3.4-5.0); Alkaline Phosphatase 84 U/L (46-116); Anion Gap 16.2 mEq/L (5-15); Aspartate Amino Transferase 32 U/L (15-37); Bilirubin,Direct 0.2 mg/dL (0.0-0.2); Bilirubin,Indirect 0.2 mg/dL (0.0-0.9); Bilirubin,Total 0.4 mg/dL (0.2-1.0); Blood Urea Nitrogen 18 mg/dL (7-18); Calcium 8.6 mg/dL (8.5-10.1); Carbon Dioxide 23 mmol/L (21.0-32.0); Chloride 91 mmol/L (98-107); Ethyl Alcohol 290 mg/dL (0-99); Glucose 156 mg/dL (74-106); Sodium 127 mmol/L (136-145); Total Protein,Serum 7.5 gm/dL (6.4-8.2)
--- NOTE | 2019-07-20 07:57 | Emergency Department Note ---
ED Disposition Clinical Impression: Tobacco dependence syndrome, Falls frequently, Hyponatremia Chest pain Qualifiers: Chest pain type: precordial pain Qualified Code(s): R07.2 - Precordial pain Chronic obstructive airway disease Qualifiers: COPD type: unspecified COPD Qualified Code(s): J44.9 - Chronic obstructive pulmonary disease, unspecified Elevated ETOH level Qualifiers: Blood alcohol level: 240 mg/100 ml or more Qualified Code(s): Y90.8 - Blood alcohol level of 240 mg/100 ml or more Disposition: Admitted as Observation Condition on Discharge: Fair Referrals: Provider,Referral, [Referring] - - Critical Care Critical Care Time: No Attestation: On 07/20/19, the high probability of a clinically significant, sudden or life threatening deterioration of the following system(s) required my full and direct attention, intervention and personal management. The time I documented below is in addition to time spent performing reported procedures but includes the following listed in this critical care notation. Medical Decision Making - Medical Records Medical records reviewed: Yes: I reviewed the patient's medical records. - Juve Inquiry Pt receiving controlled substance: No Vital Signs: 07/20/19 07:28 07/20/19 08:32 Temperature 98.4 F Temperature Source Oral Pulse Rate [Left Radial] 85 78 Respiratory Rate 16 Blood Pressure [Right Arm] 124/61 130/78 Blood Pressure Mean [Right Arm] 82 95 Blood Pressure Position [Right Arm] Sitting 02 Sat by Pulse Oximetry 98 99 Oxygen Delivery Method Room Air - Lab Data Lab results reviewed: Yes: I reviewed the patient's lab results. Lab Results 07/20/19 07:31: WBC 7.7, RBC 4.48 L, Hgb 14.3, Hct 42.7, MCV 95.4 H, MCH 31.9 H, MCHC 33.5, RDW 12.2, Plt Count 143, MPV 7.8, Neut % (Auto) 58.7, Lymph % (Auto) 30.4, [place] % (Auto) 5.0, Eos % (Auto) 5.4, Baso % (Auto) 0.5, Neut # (Auto) 4.5, Lymph # (Auto) 2.3, [place] # (Auto) 0.4, Eos # (Auto) 0.4, Baso # (Auto) 0.0 07/20/19 07:31: Sodium 127 L, Potassium 3.2 L, Chloride 91 L, Carbon Dioxide 23, Anion Gap 16.2 H, BUN 18, Creatinine 0.95, Estimated Creat Clear 80, Estimated GFR 80, Est GFR ( Amer) 97, Glucose 156 H, Calcium 8.6, Total Bilirubin 0.4, Direct Bilirubin 0.2, Indirect Bilirubin 0.2, AST 32, ALT 34, Alkaline Phos phatase 84, Troponin I < 0.02, Total Protein 7.5, Albumin 3.6, Plasma/Serum Alcohol 290 H 07/20/19 07:31: PT 9.8, INR 0.94 Result diagrams: 07/20/19 07:31 07/20/19 07:31 Orders (Tests/Meds): ED MEDICATIONS Discontinued Medications Generic Name Dose Route Start Last Admin Trade Name Freq PRN Reason Stop Dose Admin Aspirin 324 mg 07/20/19 07:35 07/20/19 07:36 Aspirin 81mg Chewable Tablet PO 07/20/19 07:36 324 mg ONCE ONE Administration Nitroglycerin 1 gm 07/20/19 07:37 07/20/19 07:45 Nitroglycerin 1 Inch Oint Udp TD 07/20/19 07:38 1 gm ONCE ONE Administration ORDERS Category Date Time Status CT head/brain wo con Stat Cat Scan 07/20/19 07:34 Taken XR chest 2V Stat Exams 07/20/19 07:34 Ordered XR pelvis 1-2V Stat Exams 07/20/19 07:53 Ordered Troponin I Q3H Lab 07/20/19 10:45 Ordered Troponin I Q3H Lab 07/20/19 13:45 Ordered UA [Urinalysis and Microscopic] Stat Lab 07/20/19 08:31 Ordered UDS [Drug Screen,Urine] Stat Lab 07/20/19 08:01 Ordered - CT Data CT Scan: Head Time Received: 08:[address] Reviewed: Yes: I have viewed the radiologist's interpretation Preliminary Findings: Normal/NAD - ECG Data Tracing #1 Normal Sinus Rhythm: Yes Ischemic changes: non-specific ST-T wave changes Chest Pain HPI - General Chief Complaint: Chest Pain Stated Complaint: chest pain Time Seen by Provider: 07/20/19 07:30 Mode of Arrival: EMS Source of Information: Patient, EMS, Medical Record Limitations: No Limitations Description of Symptoms (Recalled from ER Triage Doc. by RN): to ed per squad with c/o chest pain x 3 days radiation lt arm, back, and neck , +sob starting today, +nausea, +diphoresis. pt admits to freq falls at home. pt admits to etoh use today. pt states he took 2 nitro and 1 81mg asa at home [employer] with no relief of pain. squad reports nitro x 2 pt denies any relief of symptoms. pt with bruising noted to lt eye and lt side chest from fall yesterday. - History of Present Illness HPI narrative: pt with lt sided chest pain over the last 3 days and worse today - no relief with ntg - pt has hx of freq falls and etoh abuse - pt has prev neg gxt - MD complaint: chest pain indicative of cardiac Onset (ago): day(s) Duration: intermittent Activity at onset: during rest Pain location: left chest Severity: moderate Treatments prior to or on arrival for Cardiac Chest Pain: aspirin, nitroglycerin - MARYLU Score for Non-Stemi Age of Patient: 60-69 years old Heart Rate: 70-89 bpm Systolic Blood Pressure: 120-139 mmhg Serum Creatinine: 0.80-1.19 mg/dl CHF [place] Class: I-No CHF Other Risk Factors: None Non-Stemi Risk Score: 108 - Related Data Prior Cardiac Testing/Procedures: Stress Test Home Medications Medication Instructions Recorded Confirmed nitroglycerin 0.4 mg sublingual 0.4 mg SUBLINGUAL Q5MINP PRN 07/29/17 07/20/19 tablet Clopidogrel Bisulfate [Plavix 75mg 75 mg PO DAILY 03/17/19 07/20/19 Tab] Amlodipine Besylate [Amlodipine 5 mg PO DAILY 07/20/19 07/20/19 5mg tab] Aspirin [Aspirin 81mg EC Tab] 81 mg PO DAILY 07/20/19 07/20/19 Atorvastatin Calcium [Lipitor 40mg 80 mg PO HS 07/20/19 07/20/19 Tablet] Fluticasone/Vilanterol [Breo 1 inh INHALATION DAILY 07/20/19 07/20/19 Ellipta] Gabapentin 600 mg PO TID 07/20/19 07/20/19 Isosorbide Mononitrate [Imdur 60mg 60 mg PO DAILY 07/20/19 07/20/19 ER tablet] Montelukast Sodium [Montelukast 10 mg PO QPM 07/20/19 07/20/19 10mg Tab] Previous Rx's Medication Instructions Recorded albuterol sulfate 90 mcg/actuation 2 puff INHALATION QID #18 g 04/06/19 aerosol inhaler carvedilol 3.125 mg tablet 3.125 mg PO BID #180 tab 06/03/19 Allergies Allergy/AdvReac Type Severity Reaction Status Date / Time Penicillins Allergy Severe Anaphylaxis Verified 06/24/19 14:20 codeine [CODEINE] Allergy Mild Rash Verified 06/24/19 14:20 [facility] History - Hepatitis A Screen Drug use history?: No High risk sexual behaviors?: No History of sexually transmitted infection?: No Currently employed?: No Childcare worker?: No Do you have indoor plumbing?: Yes Do you have electricity?: Yes Attestation statement:: This patient has been screened for Hepatitis A risk factors. I have reviewed the patient's past medical history: Yes Medical History: Reports:: Chronic Obstructive Pulmonary Disease (COPD), Coronary Artery Disease, Hyperlipidemia, Hypertension Denies:: Diabetes Mellitus Type 1, Diabetes Mellitus Type 2, Internal Pacemaker Laterality Cases: Bilateral: Arthroscopy Shoulder Other Surgeries: Yes: Cardiac Catheterization, Cardiac Surgery, Other ([facility] 2016, Shoulder Sx, B wrist sx, Cyst removed). No: Pacemaker Amputation: No Fractures: No Comment: cyst removal - Social History Smoking Status: Current every day smoker Tobacco Type: cigarettes # Packs/Day (cigarettes): 1 Alcohol Intake: current Alcohol Intake Frequency:: 3 or more drinks per day Substance Use Type: marijuana Occupational Status: disabled Family Hx:: Coronary Artery Disease, Diabetes ROS Obtained: Yes All systems reviewed & no additional complaints - Constitutional Constitutional: Denies fever(s) - Eyes Eyes: Denies change in vision - ENT Ears, Nose, Mouth, and Throat: Denies sore throat - Cardiovascular Cardiovascular: Reports as per HPI, Reports chest pain, Denies dyspnea - Respiratory Respiratory: No cough - Gastrointestinal Gastrointestingal: Reports: as per HPI. Denies: abdominal pain, nausea, vomiting - Genitourinary Male Genitourinary: Denies hematuria - Musculoskeletal Musculoskeletal: Denies joint pain, Denies joint swelling - Integumentary/Breasts Skin/Breast: Denies rash - Neurologic Neurologic: Reports as per HPI, Denies focal weakness, Reports frequent falls, Denies loss of vision, Denies seizure-like activity Physical Exam - General General appearance: alert - Head Head exam: normocephalic - Eye Eye exam: Present: PERRL, EOMI. Absent: scleral icterus, nystagmus - ENT ENT exam: Present: mucous membranes dry - Neck Neck exam: Present: trachea midline - Respiratory Respiratory exam: Present: normal lung sounds bilaterally. Absent: respiratory distress - Cardiovascular Cardiovascular exam: Present: regular rate, systolic murmur. Absent: +S4 - Abdominal Exam Abdominal exam: Present: soft. Absent: tenderness - Extremities Exam Extremities exam: Present: full ROM - Neurological Exam Neurological exam: Present: alert, CN II-XII intact - Psychiatric Psychiatric exam: Present: anxious - Skin Skin exam: Present: other (ecchymosis). Absent: rash
[2019-07-20 08:08] LABS: INR 0.94 (0.9-1.1); Prothrombin Time 9.8 seconds (9.4-11.8)
[2019-07-20 08:37] LABS: Microscopic, Urine URINE MICROSCOPIC (MICROSCOPIC)
[2019-07-20 08:40] LABS: Appearance,Urine CLEAR (Clear); Bilirubin,Urine Negative (Negative); Blood, Urine Negative (Negative); Color,Urine YELLOW (Yellow); Glucose,Urine (UA) Negative (Negative); Ketones,Urine Negative (Negative); Leukocyte Esterase,Urine Negative (Negative); Protein,Urine Negative (Negative); Specific Gravity, Urine <= 1.005 (1.005-1.030); Urobilinogen,Urine 0.2 EU/dl (0.2)
[2019-07-20 08:47] LABS: Amphetamine/Metha Screen,Urine Negative ng/mL (<1000); Barbiturates Screen,Urine Negative ng/mL (<200); Benzodiazepines Screen,Urine Negative ng/mL (<200); Cannabinoid Screen,Urine Negative ng/mL (<50); Cocaine Screen,Urine Negative ng/mL (<300); Methadone Screen,Urine Negative ng/mL (<300); Opiate Screen,Urine Negative ng/mL (<300); Phencyclidine Screen,Urine Negative ng/mL (<25)
[2019-07-20 09:19] LABS: Bacteria,Urine 1+ /lpf; Squamous Epithelial Cell,Urine Occasional #/hpf (0-5); WBC,Urine Occasional #/hpf (0-3)
--- NOTE | 2019-07-20 11:02 | Consult Report ---
History of Present Illness Consult date: 07/20/19 Requesting physician: Eris Amezcua Consult reason: chest pain Chief complaint: chest pain Additional Medical History:: 1. 4 Vessel CABG, 2013 A. Abnormal stress test, 02/2016 B. LHC, 02/2016, ANGIOGRAPHIC RESULTS: 1. The left main artery is a small caliber vessel with an ostial 80% stenosis 2. The left anterior descending artery proximally occluded 3. The circumflex artery is nondominant and gives rise to 2 small obtuse marginal arteries. Proximally the circumflex artery has long 90% stenosis. 4. The right coronary artery is a large dominant vessel has proximal 50-60% stenosis mid vessel 70% followed by an additional 80-90% stenosis followed by distal 80-90% stenosis. The posterior descending artery does not fill via antegrade flow. 5. The URIBE ventriculogram reveals normal 65% 6. The left ventricular end-diastolic pressure normal 10 mmHg 7. The left internal mammary artery is widely patent graft onto the mid LAD 8. The saphenous vein graft to the right coronary artery is a widely patent graft the makes its anastomosis on to the proximal posterior descending artery which then backfills a large posterior lateral ventricular branch. The [place] PDA has proximal mid vessel 50% stenoses 9. The saphenous vein graft to the circumflex system is widely patent IMPRESSION: 1. Severe [place] three-vessel coronary artery disease as described above 2. Complete surgical revascularization with patent ANN to LAD patent saphenous vein graft to the right coronary artery and patent saphenous vein graft to circumflex artery 3. Normal ejection fraction 4. Normal left ventricular end-diastolic pressure C. Sloan myoview, 04/2019, normal LVEF without ischemia 2. Tobacco use A. COPD 3. ETOH use 4. History of medication non-compliance 5. HTN 6. HLD 7. Marijuana use 8. Degenerative disc disease A. UE neuropathy 9. Dizziness/loss of balance/frequent falls, 07/[address] of head, 07/2019, periventricular ischemic gliotic changes of white matter. No acute findings. History of present illness: 64-year-old white male with known coronary artery disease and bypass surgery in 2013 with patent bypass arteries by cardiac cath in 2015 and recent stress test 04/2019 showed no ischemia with normal ejection fraction presented to the emergency department via ambulance for recurrent chest pain. Patient states chest pain will come on and last for days or weeks at a time without appreciable aggravating or alleviating factors. Pain was severe this morning with bilateral upper extremity numbness which prompted call to EMS and transportation to the hospital. Currently he is pain-free. His main complaint at this time seems to be related to dizziness/balance instability and frequent falls that have been occurring over the last 4 months and more frequently in the last month. Patient does continue to drink both beer and liquor excessively (he does not want to quantify). Initial EKG is sinus rhythm, right bundle branch block and nonspecific ST-T abnormalities with initial troponin normal. Patient was admitted for further evaluation. Patient relates not taking his medications from July 07, 2019 through July 15, 2019 due to a GI illness with associated loose stools (up to 10/day). He began feeling better and resumed medications on July 16, 2019. Being back on his medications did not seem to affect his chest pain or dizziness. Manual blood pressure sitting was 132/78 mmHg and did not drop with standing. [facility] History Medical History: Reports:: Chronic Obstructive Pulmonary Disease (COPD), Coronary Artery Disease, Hyperlipidemia, Hypertension Denies:: Diabetes Mellitus Type 1, Diabetes Mellitus Type 2, Internal Pacemaker *Have you ever received a pneumonia vaccine?: No *Have you received a flu vaccine this season?: Yes Laterality Cases: Bilateral: Arthroscopy Shoulder Other Surgeries: Yes: Cardiac Catheterization, Cardiac Surgery, Other ([facility] 2016, Shoulder Sx, B wrist sx, Cyst removed). No: Pacemaker Amputation: No Fractures: No - *Social History Smoking Status: Current every day smoker Tobacco Type: cigarettes # Packs/Day (cigarettes): 1 Alcohol Intake: current Alcohol Intake Frequency:: 3 or more drinks per day Substance Use Type: marijuana *Occupational Status:: disabled *Travel in the last 8 weeks: None Family Hx:: Coronary Artery Disease, Diabetes Meds Home Medications Medication Instructions Recorded Confirmed Type nitroglycerin 0.4 mg sublingual 0.4 mg SUBLINGUAL Q5MINP PRN 07/29/17 07/20/19 History tablet Clopidogrel Bisulfate [Plavix 75mg 75 mg PO DAILY 03/17/19 07/20/19 History Tab] albuterol sulfate 90 mcg/actuation 2 puff INHALATION QID #18 g 04/06/19 07/20/19 Rx aerosol inhaler carvedilol 3.125 mg tablet 3.125 mg PO BID #180 tab 06/03/19 07/20/19 Rx Amlodipine Besylate [Amlodipine 5 mg PO DAILY 07/20/19 07/20/19 History 5mg tab] Aspirin [Aspirin 81mg EC Tab] 81 mg PO DAILY 07/20/19 07/20/19 History Atorvastatin Calcium [Lipitor 40mg 40 mg PO HS 07/20/19 07/20/19 History Tablet] Fluticasone/Vilanterol [Breo 1 inh INHALATION DAILY 07/20/19 07/20/19 History Ellipta] Gabapentin 600 mg PO TID 07/20/19 07/20/19 History Isosorbide Mononitrate [Imdur 60mg 60 mg PO DAILY 07/20/19 07/20/19 History ER tablet] Montelukast Sodium [Montelukast 10 mg PO QPM 07/20/19 07/20/19 History 10mg Tab] Allergies Allergy/AdvReac Type Severity Reaction Status Date / Time Penicillins Allergy Severe Anaphylaxis Verified 06/24/19 14:20 codeine [CODEINE] Allergy Mild Rash Verified 06/24/19 14:20 Review of Systems - Review of Systems Review of systems:: pertinent systems reviewed and negative unless documented below - *Cardiovascular Reports chest pain, Reports shortness of breath with activity - *Respiratory Reports shortness of breath, Reports shortness of breath with activity - *Gastrointestinal Reports loose stools, Denies abdominal pain, Denies vomiting - *Genitourinary Denies blood in urine - *Musculoskeletal Reports joint pain, Reports back pain, Reports neck pain - *Neurologic Reports frequent falls, Denies localized weakness, Denies loss of vision, Denies seizure-like activity Exam Vital signs and Labs for Last 24 Hours: Temp Pulse Resp BP Pulse Ox 97.7 F 90 18 141/90 H 99 07/20/19 10:26 07/20/19 10:26 07/20/19 10:26 07/20/19 10:26 07/20/19 10:26 Laboratory Results - last 24 hr 07/20/19 07:31: WBC 7.7, RBC 4.48 L, Hgb 14.3, Hct 42.7, MCV 95.4 H, MCH 31.9 H, MCHC 33.5, RDW 12.2, Plt Count 143, MPV 7.8, Neut % (Auto) 58.7, Lymph % (Auto) 30.4, [place] % (Auto) 5.0, Eos % (Auto) 5.4, Baso % (Auto) 0.5, Neut # (Auto) 4.5, Lymph # (Auto) 2.3, [place] # (Auto) 0.4, Eos # (Auto) 0.4, Baso # (Auto) 0.0 07/20/19 07:31: Sodium 127 L, Potassium 3.2 L, Chloride 91 L, Carbon Dioxide 23, Anion Gap 16.2 H, BUN 18, Creatinine 0.95, Estimated Creat Clear 80, Estimated GFR 80, Est GFR ( Amer) 97, Glucose 156 H, Calcium 8.6, Total Bilirubin 0.4, Direct Bilirubin 0.2, Indirect Bilirubin 0.2, AST 32, ALT 34, Alkaline Phosphatase 84, Troponin I < 0.02, Total Protein 7.5, Albumin 3.6, Plasma/Serum Alcohol 290 H 07/20/19 07:31: PT 9.8, INR 0.94 07/20/19 08:30: Urine Color Yellow, Urine Appearance Clear, Urine pH 6.0, Ur Specific [place] <= 1.005, Urine Protein Negative, Urine Glucose (UA) Negative, Urine Ketones Negative, Urine Blood Negative, Urine Nitrate Negative, Urine Bilirubin Negative, Urine Urobilinogen 0.2, Ur Leukocyte Esterase Negative, Urine WBC Occasional, Ur Squamous Epith Cells Occasional, Urine Bacteria 1+ 07/20/19 08:30: Urine Opiates Screen Negative, Urine Methadone Screen Negative, Ur Barbituates Screen Negative, Ur Phencyclidine Scrn Negative, Ur Amphetamines Screen Negative, U Benzodiazepines Scrn Negative, Urine Cocaine Screen Negative, U Marijuana (THC) Screen Negative I & O for Last 24 hours: Intake & Output 07/17/19 07/18/19 07/19/19 07/20/19 11:59 11:59 11:59 11:59 Weight 163 lb - Constitutional thin, disheveled Comments: Patient smells of alcohol and body odor - *Routine HEENT Exam Head: Present: normocephalic Eye: Present: EOMI, PERRL ENT: Present: mucous membranes moist - *Routine Neck Exam Present: supple. Absent: JVD, carotid bruit - *Routine Respiratory Exam Present: CTA bilaterally, diminished air movement. Absent: accessory muscle use, rales, rhonchi, wheezes - *Routine Cardiovascular Exam Present: RRR. Absent: murmur, gallop, rubs - *Routine Abdominal Exam Present: soft. Absent: tenderness, distended, guarding - *Routine Extremities Exam Absent: edema, calf tenderness - *Routine Neurological Exam Present: alert, oriented X3, moving all extremities Assessment and Plan (1) Chest pain Current visit: Yes Status: Acute Qualifiers: Chest pain type: precordial pain Qualified Code(s): R07.2 - Precordial pain Category: Medical Code(s): R07.9 - Chest pain, unspecified (2) Chronic obstructive airway disease Current visit: Yes Status: Acute Qualifiers: COPD type: unspecified COPD Qualified Code(s): J44.9 - Chronic obstructive pulmonary disease, unspecified Category: Medical Code(s): J44.9 - Chronic obstructive pulmonary disease, unspecified (3) Elevated ETOH level Current visit: Yes Status: Acute Qualifiers: Blood alcohol level: 240 mg/100 ml or more Qualified Code(s): Y90.8 - Blood alcohol level of 240 mg/100 ml or more Category: Medical Code(s): R78.0 - Finding of alcohol in blood (4) Falls frequently Current visit: Yes Status: Acute Category: Medical Code(s): R29.6 - Repeated falls (5) Hyponatremia Current visit: Yes Status: Acute Category: Medical Code(s): E87.1 - Hypo- osmolality and hyponatremia (6) Tobacco dependence syndrome Current visit: Yes Status: Acute Category: Medical Code(s): F17.200 - Nicotine dependence, unspecified, uncomplicated (7) Atypical chest pain Current visit: No Status: Acute Category: Medical Code(s): R07.89 - Other chest pain (8) Coronary artery disease Current visit: No Status: Acute Qualifiers: Coronary Disease-Associated Artery/Lesion type: [place] artery [place] vs. transplanted heart: [place] heart Associated angina: with other forms of angina Qualified Code(s): I25.118 - Atherosclerotic heart disease of [place] coronary artery with other forms of angina pectoris Category: Medical Code(s): I25.10 - Atherosclerotic heart disease of [place] coronary artery without angina pectoris (9) History of coronary artery bypass graft Current visit: No Status: Acute Category: Surgical Code(s): Z95.1 - Presence of aortocoronary bypass graft (10) Hyperlipidemia Current visit: No Status: Acute Qualifiers: Hyperlipidemia type: mixed hyperlipidemia Qualified Code(s): E78.2 - Mixed hyperlipidemia Category: Medical Code(s): E78.5 - Hyperlipidemia, unspecified (11) Hypertension Current visit: No Status: Acute Category: Medical Code(s): I10 - Essential (primary) hypertension - Assessment and plan all Dx Assessment and Plan for all problems:: 1. Atypical chest pain in a patient with known coronary artery disease. Patient's recent stress test 3 months ago shows no ischemia with normal ejection fraction. With no acute EKG changes and normal initial troponin, would not recommend proceeding with cardiac testing at this time but rather continue serial enzymes. Would only pursue cardiac catheterization if troponins returned abnormal. Patient's CT of the chest does show coronary calcifications which is consistent with known coronary disease and prior bypass surgery. Echocardiogram has been performed and results are pending but with preliminary reading showing preserved ejection fraction and no significant valvular heart disease. Continue current medications including Coreg, Norvasc, isosorbide mononitrate, statin therapy, aspirin and Plavix. 2. Dizziness and recurrent falls with no evidence of orthostatic hypotension at this time. Questionable old CVA changes noted on CT of the head. Consider neurology evaluation and/or ENT evaluation. EKG with RBBB but unchanged since 03/2019 tracing. Continue telemetry to assess for higher grade arrhythmias. 3. Medication noncompliance and history of alcohol abuse complicates patient care. 4. Hypertension, controlled 5. Hyperlipidemia, on statin therapy
--- NOTE | 2019-07-20 11:17 | Pharmacy Consult Notes ---
[facility] Pharmacy VTE Monitoring - Patient Demographics Admission date: 07/20/19 Report Date: 07/20/19 Time: 11:17 Allergies/Adverse Reactions: Patient Allergies Penicillins Allergy (Severe, Verified 06/24/19 14:20) Anaphylaxis codeine [CODEINE] Allergy (Mild, Verified 06/24/19 14:20) Rash Height: 1.73 m Weight: 73.936 kg Patient Problems: Current Active Problems Elevated ETOH level (Acute) Chest pain (Acute) Falls frequently (Acute) Hyponatremia (Acute) Chronic obstructive airway disease (Acute) Tobacco dependence syndrome (Acute) - VTE Risk Labs: VTE Related Lab Results Hgb 14.3 g/dL (14.1-18.0) 07/20/19 07:31 Hct 42.7 % (42.0-52.0) 07/20/19 07:31 Plt Count 143 K/mm3 (142-424) 07/20/19 07:31 PT 9.8 seconds (9.4-11.8) 07/20/19 07:31 INR 0.94 (0.9-1.1) 07/20/19 07:31 BUN 18 mg/dL (7-18) 07/20/19 07:31 Creatinine 0.95 mg/dL (0.70-1.30) 07/20/19 07:31 Estimated Creat Clear 80 mL/min (50-200) 07/20/19 07:31 Clinical Trial Participant: No - Prophylaxis VTE Prophylaxis Ordered?: Yes Types of VTE Prophylaxis: TEDS Knee High
--- NOTE | 2019-07-20 22:43 | History & Physical Report ---
*Admission Date: 07/20/19 *Chief complaint: chest pain *History of present illness: this wm presented to the ed with chest pain -pt reports ongoing for a few days - worse this am- he has etoh and tob use - pt poor historian at this time - to ed per squad with c/o chest pain x 3 days radiation lt arm, back, and neck , +sob starting today, +nausea, +diphoresis. pt admits to freq falls at home. pt admits to etoh use today. 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 squad reports nitro x 2 pt denies any relief of symptoms. pt with bruising noted to lt eye and lt side chest from fall yesterday. pt with lt sided chest pain over the last 3 days and worse today - no relief with ntg - pt has hx of freq falls and etoh abuse - pt has prev neg gxt - pt was admitted for eval [facility] History I have reviewed the patient's past medical history: Yes Medical History: Reports:: Chronic Obstructive Pulmonary Disease (COPD), Coronary Artery Disease, Hyperlipidemia, Hypertension Denies:: Diabetes Mellitus Type 1, Diabetes Mellitus Type 2, Internal Pacemaker *Have you ever received a pneumonia vaccine?: No *Have you received a flu vaccine this season?: Yes Laterality Cases: Bilateral: Arthroscopy Shoulder Other Surgeries: Yes: Cardiac Catheterization, Cardiac Surgery, Other ([facility] 2016, Shoulder Sx, B wrist sx, Cyst removed). No: Pacemaker Amputation: No Fractures: No - *Social History Educational Level: Attended College Smoking Status: Current every day smoker Tobacco Type: cigarettes # Packs/Day (cigarettes): 2 Alcohol Intake: current Alcohol Intake Frequency:: 3 or more drinks per day Substance Use Type: marijuana *Occupational Status:: disabled *Travel in the last 8 weeks: None Family Hx:: Coronary Artery Disease, Diabetes Review of Systems - Review of Systems Review of systems:: pertinent systems reviewed and negative unless documented below - Constitutional Denies fever(s) - Eyes Denies change in vision - ENT Denies sore throat - *Cardiovascular Reports chest pain at rest, Reports shortness of breath - *Respiratory Denies cough - *Gastrointestinal Denies abdominal pain - *Genitourinary Denies blood in urine - *Musculoskeletal Denies joint pain, Denies joint swelling - Integumentary/Breasts Denies rash - *Neurologic Reports frequent falls, Denies localized weakness, Denies loss of vision, Denies seizure-like activity - Psychiatric Denies anxiety Meds Home Medications Medication Instructions Recorded Confirmed Type nitroglycerin 0.4 mg sublingual 0.4 mg SUBLINGUAL Q5MINP PRN 07/29/17 07/20/19 History tablet Clopidogrel Bisulfate [Plavix 75mg 75 mg PO DAILY 03/17/19 07/20/19 History Tab] albuterol sulfate 90 mcg/actuation 2 puff INHALATION QID #18 g 04/06/19 07/20/19 Rx aerosol inhaler carvedilol 3.125 mg tablet 3.125 mg PO BID #180 tab 06/03/19 07/20/19 Rx Albuterol Sulfate [Albuterol 2.5 mg IH QIDP PRN 07/20/19 07/20/19 History 0.083% 2.5mg/3mL neb] Amlodipine Besylate [Amlodipine 5 mg PO DAILY 07/20/19 07/20/19 History 5mg tab] Aspirin [Aspirin 81mg EC Tab] 81 mg PO DAILY 07/20/19 07/20/19 History Atorvastatin Calcium [Lipitor 40mg 40 mg PO HS 07/20/19 07/20/19 History Tablet] Fluticasone/Vilanterol [Breo 1 inh INHALATION DAILY 07/20/19 07/20/19 History Ellipta] Gabapentin 600 mg PO TID 07/20/19 07/20/19 History Isosorbide Mononitrate [Imdur 60mg 60 mg PO DAILY 07/20/19 07/20/19 History ER tablet] Montelukast Sodium [Montelukast 10 mg PO QPM 07/20/19 07/20/19 History 10mg Tab] PARoxetine HCl [Paxil] 20 mg PO DAILY 07/20/19 07/20/19 History Allergies Allergy/AdvReac Type Severity Reaction Status Date / Time Penicillins Allergy Severe Anaphylaxis Verified 06/24/19 14:20 codeine [CODEINE] Allergy Mild Rash Verified 06/24/19 14:20 Exam Vital signs and Labs for Last 24 Hours: Temp Pulse Resp BP Pulse Ox 99.0 F 97 H 18 116/72 95 07/20/19 20:00 07/20/19 20:00 07/20/19 20:00 07/20/19 20:00 07/20/19 20:00 Laboratory Results - last 24 hr 07/20/19 07:31: WBC 7.7, RBC 4.48 L, Hgb 14.3, Hct 42.7, MCV 95.4 H, MCH 31.9 H, MCHC 33.5, RDW 12.2, Plt Count 143, MPV 7.8, Neut % (Auto) 58.7, Lymph % (Auto) 30.4, [place] % (Auto) 5.0, Eos % (Auto) 5.4, Baso % (Auto) 0.5, Neut # (Auto) 4.5, Lymph # (Auto) 2.3, [place] # (Auto) 0.4, Eos # (Auto) 0.4, Baso # (Auto) 0.0 07/20/19 07:31: Sodium 127 L, Potassium 3.2 L, Chloride 91 L, Carbon Dioxide 23, Anion Gap 16.2 H, BUN 18, Creatinine 0.95, Estimated Creat Clear 80, Estimated GFR 80, Est GFR ( Amer) 97, Glucose 156 H, Calcium 8.6, Total Bilirubin 0.4, Direct Bilirubin 0.2, Indirect Bilirubin 0.2, AST 32, ALT 34, Alkaline Phosphatase 84, Troponin I < 0.02, Total Protein 7.5, Albumin 3.6, Plasma/Serum Alcohol 290 H 07/20/19 07:31: PT 9.8, INR 0.94 07/20/19 08:30: Urine Color Yellow, Urine Appearance Clear, Urine pH 6.0, Ur Specific [place] <= 1.005, Urine Protein Negative, Urine Glucose (UA) Negative, Urine Ketones Negative, Urine Blood Negative, Urine Nitrate Negative, Urine Bilirubin Negative, Urine Urobilinogen 0.2, Ur Leukocyte Esterase Negative, Urine WBC Occasional, Ur Squamous Epith Cells Occasional, Urine Bacteria 1+ 07/20/19 08:30: Urine Opiates Screen Negative, Urine Methadone Screen Negative, Ur Barbituates Screen Negative, Ur Phencyclidine Scrn Negative, Ur Amphetamines Screen Negative, U Benzodiazepines Scrn Negative, Urine Cocaine Screen Negative, U Marijuana (THC) Screen Negative 07/20/19 10:45: Troponin I < 0.02 07/20/19 13:42: Troponin I < 0.02 I & O for Last 24 hours: Intake & Output 07/18/19 07/19/19 07/20/19 07/21/19 11:59 11:59 11:59 11:59 Intake Total 2197 / 2197 Output Total 2400 / 2400 Balance -203 / -203 Weight 163 lb - Constitutional no acute distress - *Routine HEENT Exam Head: Present: normocephalic Eye: Present: EOMI, PERRL ENT: Present: mucous membranes dry - *Routine Neck Exam Absent: JVD - *Routine Respiratory Exam Present: CTA bilaterally - *Routine Cardiovascular Exam Present: RRR, murmur - *Routine Abdominal Exam Present: soft - *Routine Extremities Exam Absent: calf tenderness - *Routine Skin Exam Present: intact - *Routine Neurological Exam Present: alert, CN II-XII intact - Routine Psychiatric Exam Present: normal affect Assessment and Plan (1) Chest pain Current visit: Yes Status: Acute Qualifiers: Chest pain type: precordial pain Qualified Code(s): R07.2 - Precordial pain Category: Medical Code(s): R07.9 - Chest pain, unspecified (2) Chronic obstructive airway disease Current visit: Yes Status: Acute Qualifiers: COPD type: unspecified COPD Qualified Code(s): J44.9 - Chronic obstructive pulmonary disease, unspecified Category: Medical Code(s): J44.9 - Chronic obstructive pulmonary disease, unspecified (3) Elevated ETOH level Current visit: Yes Status: Acute Qualifiers: Blood alcohol level: 240 mg/100 ml or more Qualified Code(s): Y90.8 - Blood alcohol level of 240 mg/100 ml or more Category: Medical Code(s): R78.0 - Finding of alcohol in blood (4) Falls frequently Current visit: Yes Status: Acute Category: Medical Code(s): R29.6 - Repeated falls (5) Hyponatremia Current visit: Yes Status: Acute Category: Medical Code(s): E87.1 - Hypo- osmolality and hyponatremia (6) Tobacco dependence syndrome Current visit: Yes Status: Acute Category: Medical Code(s): F17.200 - Nicotine dependence, unspecified, uncomplicated (7) Atypical chest pain Current visit: No Status: Acute Category: Medical Code(s): R07.89 - Other chest pain (8) Coronary artery disease Current visit: No Status: Acute Qualifiers: Coronary Disease-Associated Artery/Lesion type: [place] artery [place] vs. transplanted heart: [place] heart Associated angina: with other forms of angina Qualified Code(s): I25.118 - Atherosclerotic heart disease of [place] coronary artery with other forms of angina pectoris Category: Medical Code(s): I25.10 - Atherosclerotic heart disease of [place] coronary artery without angina pectoris (9) History of coronary artery bypass graft Current visit: No Status: Acute Category: Surgical Code(s): Z95.1 - Presence of aortocoronary bypass graft (10) Hyperlipidemia Current visit: No Status: Acute Qualifiers: Hyperlipidemia type: mixed hyperlipidemia Qualified Code(s): E78.2 - Mixed hyperlipidemia Category: Medical Code(s): E78.5 - Hyperlipidemia, unspecified (11) Hypertension Current visit: No Status: Acute Category: Medical Code(s): I10 - Essential (primary) hypertension
[2019-07-21 05:40] LABS: Basophils % 0.6 % (0.1-2.0); Eosinophils # 0.2 K/mm3 (0.0-0.4); Eosinophils % 3.5 % (0.1-12.0); Hematocrit 41.2 % (42.0-52.0); Hemoglobin 13.8 g/dL (14.1-18.0); Lymphocytes # 1.9 K/mm3 (0.7-4.5); Lymphocytes % 32.2 % (10-50); Mean Corpuscular HGB Conc 33.5 g/dL (31.8-35.4); Mean Corpuscular Volume 94.7 fl (80-94); Mean Platelet Volume 8.1 fl (7.4-10.4); Monocytes # 0.5 K/mm3 (0.1-1.0); Monocytes % 8.6 % (1.7-9.3); Neutrophils # 3.3 K/mm3 (1.8-7.8); Platelet Count 131 K/mm3 (142-424); Red Blood Count 4.35 M/mm3 (4.60-6.20); Red Cell Distribution Width 12.3 % (11.5-17.5)
[2019-07-21 05:46] LABS: Anion Gap 12.5 mEq/L (5-15); Calcium 8.3 mg/dL (8.5-10.1); Chol/HDL Ratio 2.5 (1-3.5)
--- NOTE | 2019-07-21 06:00 | Cardiology Report ---
APPROVED REPORT EXAM: Comprehensive 2D, Doppler, and color-flow Echocardiogram Director Decision Support: Carrie Sosa CRT Ht: 5 ft 9 in Wt: 163lbs BSA: 1.89 BP: 130/78 mmHg Indications: CP, COPD, SMOKER, HTN, HLD, CABG X3, ETOH ABUSE 2D Dimensions LVOT 1.84 cm (M/F) 1.5-2.5 M-Mode Dimensions RVDd 3.29 cm (0.9-2.6)LVDd 4.62 cm (3.5-5.7) LVDs 2.68 cm (3.5-5.7)IVSd 1.41 cm (0.6-1.1) PWd 0.65 cm (0.6-1.1)EF (Teich) 73.00% FS 42.00% EDV (Teich) 98.30 mL ESV (Teich) 26.50 mL LV Diastology E/A Ratio 1.16 Mitral Valve MV A Velocity 61.00 (40-130 cm/s) Left Ventricle Left atrium is mildly enlarged, left ventricle is normal size, mild concentric left ventricular hypertrophy, visually estimated ejection fraction 50%, there is mild hypokinesis involving the distal septum and apical wall. Grade 1 diastolic dysfunction seen without tissue Doppler evidence of raise left atrial pressure. Right Ventricle Right atrium and right ventricle mildly enlarged with normal contractility. Aortic Valve Aortic valve is thickened and calcified leaflet chordae display mobility, there is no aortic stenosis or aortic insufficiency. Mitral Valve Mitral valve is grossly normal, there is mild mitral regurgitation. Tricuspid Valve Tricuspid valve is grossly normal, there is mild tricuspid regurgitation, calculated right ventricular systolic pressure is 37 mmHg. Pulmonic Valve Pulmonic valve is poorly visualized. Great Vessels Aortic root is normal size. Pericardium No significant pericardial effusion noted. Conclusion 1. Mild biatrial enlargement, normal left ventricular size, mild concentric left ventricular hypertrophy, visually estimated ejection fraction 50% with segmental wall motion abnormality described above, grade 1 diastolic dysfunction seen without tissue Doppler evidence of raise left atrial pressure. 2. Mildly enlarged right ventricle with normal contractility. 3. Thickened and calcified aortic valve without aortic stenosis or aortic insufficiency. 4. Mild mitral and tricuspid regurgitation, calculated right ventricular systolic pressure is 37 mmHg. 5. No significant pericardial effusion noted. Electronically signed by : Eyad Monroy, 07/21/2019 06:00:41
--- NOTE | 2019-07-21 08:57 | Discharge Summary ---
General - General Admission date:: 07/20/19 Discharge date: 07/21/19 HPI HPI: 64-year-old male patient lying in bed resting quietly. He states that he did have a little discomfort in the chest during the night, but nothing like when he came to the ER. Importance of alcohol cessation and medication compliance stressed. Patient will be discharged home today and is in agreement with this. 64-year-old white male with known coronary artery disease and bypass surgery in 2013 with patent bypass arteries by cardiac cath in 2015 and recent stress test 04/2019 showed no ischemia with normal ejection fraction presented to the emergency department via ambulance for recurrent chest pain. Patient states chest pain will come on and last for days or weeks at a time without appreciable aggravating or alleviating factors. Pain was severe this morning with bilateral upper extremity numbness which prompted call to EMS and transportation to the hospital. Currently he is pain-free. His main complaint at this time seems to be related to dizziness/balance instability and frequent falls that have been occurring over the last 4 months and more frequently in the last month. Patient does continue to drink both beer and liquor excessively (he does not want to quantify). Initial EKG is sinus rhythm, right bundle branch block and nonspecific ST-T abnormalities with initial troponin normal. Patient was admitted for further evaluation. Patient relates not taking his medications from July 07, 2019 through July 15, 2019 due to a GI illness with associated loose stools (up to 10/day). He began feeling better and resumed medications on July 16, 2019. Being back on his medications did not seem to affect his chest pain or dizziness. Manual blood pressure sitting was 132/78 mmHg and did not drop with standing (Per Kathryn MORALEZ). Hospital Course Hospital Course: 64-year-old white male with known coronary artery disease and bypass surgery in 2013 with patent bypass arteries by cardiac cath in 2015 and recent stress test 04/2019 showed no ischemia with normal ejection fraction presented to the emergency department via ambulance for recurrent chest pain. Patient states chest pain will come on and last for days or weeks at a time without appreciable aggravating or alleviating factors. Pain was severe this morning with bilateral upper extremity numbness which prompted call to EMS and transportation to the hospital. Currently he is pain-free. His main complaint at this time seems to be related to dizziness/balance instability and frequent falls that have been occurring over the last 4 months and more frequently in the last month. Patient does continue to drink both beer and liquor excessively (he does not want to quantify). Initial EKG is sinus rhythm, right bundle branch block and nonspecific ST-T abnormalities with initial troponin normal. Patient was admitted for further evaluation. Patient relates not taking his medications from July 07, 2019 through July 15, 2019 due to a GI illness with associated loose stools (up to 10/day). He began feeling better and resumed medications on July 16, 2019. Being back on his medications did not seem to affect his chest pain or dizziness. Manual blood pressure sitting was 132/78 mmHg and did not drop with standing (Per Kathryn MORALEZ). 07/20 CXR: IMPRESSION: Chronic changes, no change with no acute finding Dictated by: Dr. Gamble 07/20 ECHO: Conclusion 1. Mild biatrial enlargement, normal left ventricular size, mild concentric left ventricular hypertrophy, visually estimated ejection fraction 50% with segmental wall motion abnormality described above, grade 1 diastolic dysfunction seen without tissue Doppler evidence of raise left atrial pressure. 2. Mildly enlarged right ventricle with normal contractility. 3. Thickened and calcified aortic valve without aortic stenosis or aortic insufficiency. 4. Mild mitral and tricuspid regurgitation, calculated right ventricular systolic pressure is 37 mmHg. 5. No significant pericardial effusion noted. Electronically signed by : Eyad Monroy Troponins been negative x3, Cards has seen and Rec: 1. Atypical chest pain in a patient with known coronary artery disease. Patient's recent stress test 3 months ago shows no ischemia with normal ejection fraction. With no acute EKG changes and normal initial troponin, would not rec ommend proceeding with cardiac testing at this time but rather continue serial enzymes. Would only pursue cardiac catheterization if troponins returned abnormal. Patient's CT of the chest does show coronary calcifications which is consistent with known coronary disease and prior bypass surgery. Echocardiogram has been performed and results are pending but with preliminary reading showing preserved ejection fraction and no significant valvular heart disease. Continue current medications including Coreg, Norvasc, isosorbide mononitrate, statin therapy, aspirin and Plavix. 2. Dizziness and recurrent falls with no evidence of orthostatic hypotension at this time. Questionable old CVA changes noted on CT of the head. Consider neurology evaluation and/or ENT evaluation. EKG with RBBB but unchanged since 03/2019 tracing. Continue telemetry to assess for higher grade arrhythmias. 3. Medication noncompliance and history of alcohol abuse complicates patient care. 4. Hypertension, controlled 5. Hyperlipidemia, on statin therapy Objective Vital signs: Temp Pulse Resp BP Pulse Ox 98.2 F 78 18 153/93 H 96 07/21/19 08:00 07/21/19 08:00 07/21/19 08:00 07/21/19 08:00 07/21/19 08:00 no acute distress - *Routine HEENT Exam Head: Present: normocephalic, atraumatic Eye: Present: EOMI, PERRL, normal accommodation ENT: Present: mucous membranes moist - *Routine Neck Exam Present: supple, full ROM, trachea midline. Absent: tracheal deviation - *Routine Respiratory Exam Present: accessory muscle use, CTA bilaterally, diminished air movement. Absent: wheezes - *Routine Cardiovascular Exam Present: RRR, murmur. Absent: JVD - *Routine Abdominal Exam Present: soft, normoactive bowel sounds. Absent: tenderness, firm - *Routine Extremities Exam Present: full ROM, pulses intact. Absent: calf tenderness - Routine Back/Spine/Pelvis Exam Back/Spine: Present: full ROM. Absent: CVA tenderness - *Routine Skin Exam Present: intact, warm. Absent: erythema - *Routine Neurological Exam Present: alert, oriented X3, CN II-XII intact. Absent: altered mental status - Routine Psychiatric Exam Present: normal affect, normal thought process. Absent: suicidal ideation, homicidal ideation Results Labs on day of discharge: Labs from last 24 hours 07/21/19 07/21/19 07/20/19 05:10 05:10 13:42 WBC 6.0 RBC 4.35 L Hgb 13.8 L Hct 41.2 L MCV 94.7 H MCH 31.7 H MCHC 33.5 RDW 12.3 Plt Count 131 L MPV 8.1 Neut % (Auto) 55.0 Lymph % (Auto) 32.2 [place] % (Auto) 8.6 Eos % (Auto) 3.5 Baso % (Auto) 0.6 Neut # (Auto) 3.3 Lymph # (Auto) 1.9 [place] # (Auto) 0.5 Eos # (Auto) 0.2 Baso # (Auto) 0.0 Sodium 138 Potassium 3.5 Chloride 103 Carbon Dioxide 26 Anion Gap 12.5 BUN 11 D Creatinine 0.62 L D Estimated Creat Clear 80 Estimated GFR 131 Est GFR ( Amer) 159 D Glucose 95 D Calcium 8.3 L Magnesium 2.3 H Troponin I < 0.02 Triglycerides 24 L Cholesterol 158 LDL Cholesterol 90 VLDL Cholesterol 5 HDL Cholesterol 63 Cholesterol/HDL Ratio 2.5 Urine WBC Ur Squamous Epith Cells Urine Bacteria 07/20/19 07/20/19 10:45 08:30 WBC RBC Hgb Hct MCV MCH MCHC RDW Plt Count MPV Neut % (Auto) Lymph % (Auto) [place] % (Auto) Eos % (Auto) Baso % (Auto) Neut # (Auto) Lymph # (Auto) [place] # (Auto) Eos # (Auto) Baso # (Auto) Sodium Potassium Chloride Carbon Dioxide Anion Gap BUN Creatinine Estimated Creat Clear Estimated GFR Est GFR ( Amer) Glucose Calcium Magnesium Troponin I < 0.02 Triglycerides Cholesterol LDL Cholesterol VLDL Cholesterol HDL Cholesterol Cholesterol/HDL Ratio Urine WBC Occasional Ur Squamous Epith Cells Occasional Urine Bacteria 1+ - Additional Comments Rounded with Dr. Amezcua, all orders per Dr. Amezcua 1. We will discharge home today 2. We will follow-up in office in 2 weeks DS: Diagnosis - Discharge Diagnosis (1) Chest pain Status: Acute (2) Chronic obstructive airway disease Status: Acute (3) Elevated ETOH level Status: Acute (4) Falls frequently Status: Acute (5) Hyponatremia Status: Acute (6) Tobacco dependence syndrome Status: Acute (7) Atypical chest pain Status: Acute (8) Coronary artery disease Status: Acute (9) History of coronary artery bypass graft Status: Acute (10) Hyperlipidemia Status: Acute (11) Hypertension Status: Acute Discharge Plan - Patient Discharge Instructions ACTIVITY: Continue current activity DIET: continue same diet Patient Instructions: How to Prevent Falls, DI for Chest Pain - Follow up Plan Follow up with: Santo Alfaro APRN [Advanced Practice Nurse] - Disposition: Home, Self-Retirement Medications: Home Medications Medication Instructions Recorded Confirmed Type nitroglycerin 0.4 mg sublingual 0.4 mg SUBLINGUAL Q5MINP PRN 07/29/17 07/20/19 History tablet Clopidogrel Bisulfate [Plavix 75mg 75 mg PO DAILY 03/17/19 07/20/19 History Tab] albuterol sulfate 90 mcg/actuation 2 puff INHALATION QID #18 g 04/06/19 07/20/19 Rx aerosol inhaler carvedilol 3.125 mg tablet 3.125 mg PO BID #180 tab 06/03/19 07/20/19 Rx Albuterol Sulfate [Albuterol 2.5 mg IH QIDP PRN 07/20/19 07/20/19 History 0.083% 2.5mg/3mL neb] Amlodipine Besylate [Amlodipine 5 mg PO DAILY 07/20/19 07/20/19 History 5mg tab] Aspirin [Aspirin 81mg EC Tab] 81 mg PO DAILY 07/20/19 07/20/19 History Atorvastatin Calcium [Lipitor 40mg 40 mg PO HS 07/20/19 07/20/19 History Tablet] Fluticasone/Vilanterol [Breo 1 inh INHALATION DAILY 07/20/19 07/20/19 History Ellipta] Gabapentin 600 mg PO TID 07/20/19 07/20/19 History Isosorbide Mononitrate [Imdur 60mg 60 mg PO DAILY 07/20/19 07/20/19 History ER tablet] Montelukast Sodium [Montelukast 10 mg PO QPM 07/20/19 07/20/19 History 10mg Tab] PARoxetine HCl [Paxil] 20 mg PO DAILY 07/20/19 07/20/19 History Prescriptions/Medication Reconciliation: Continued nitroglycerin 0.4 mg sublingual tablet 0.4 mg SUBLINGUAL Q5MINP PRN PRN Reason: chest pain albuterol sulfate 90 mcg/actuation aerosol inhaler 2 puff INHALATION QID #18 g carvedilol 3.125 mg tablet 3.125 mg PO BID #180 tab Clopidogrel Bisulfate [Plavix 75mg Tab] 75 mg PO DAILY Montelukast Sodium [Montelukast 10mg Tab] 10 mg PO QPM Isosorbide Mononitrate [Imdur 60mg ER tablet] 60 mg PO DAILY Fluticasone/Vilanterol [Breo Ellipta] 1 inh INHALATION DAILY Amlodipine Besylate [Amlodipine 5mg tab] 5 mg PO DAILY Albuterol Sulfate [Albuterol 0.083% 2.5mg/3mL neb] 2.5 mg IH QIDP PRN PRN Reason: BRONCHOSPASM PARoxetine HCl [Paxil] 20 mg PO DAILY Gabapentin 600 mg PO TID Atorvastatin Calcium [Lipitor 40mg Tablet] 40 mg PO HS Aspirin [Aspirin 81mg EC Tab] 81 mg PO DAILY - Problem Reconciliation Problems Reviewed?: Yes
--- NOTE | 2019-07-21 09:08 | Electrocardiograph Report ---
APPROVED REPORT Exam: Resting ECG HR:85 bpm ECG Measurements Heart Rate 85 AXES OK 166 P 80 QRSd 96 QRS 76 QT 402 T85 QTc 478 <Conclusion> Normal sinus rhythm Incomplete right bundle branch block Nonspecific ST abnormality Abnormal ECG Electronically signed by : Rakesh Dillard, 07/21/2019 09:08:20
== END 2019-07-21 10:54 | disposition home or self-care (01) ==
LOC: 2ND 07:26 → ER 07:26 → 2ND 09:43
PROVIDERS: ADMIT Emergency Medicine; ATTEND Emergency Medicine
CPT/HCPCS: 36415; 70450; 71020; 71046; 72170; 80048; 80061; 80076; 80305; 81001; 83735; 84484; 85025; 85610; 93005; 93306; 96374; 99284; G0378

== ENCOUNTER 2019-08-04 10:56 | Outpatient (RCR) | payer MEDICARE, SELFPAY ==
--- NOTE | 2019-08-04 11:31 | [facility].PTOPEV ---
PT Outpatient Evaluation Rehab PT Outpatient Evaluation Start: 08/04/19 11:18 Freq: Status: Active Protocol: Document 08/04/19 11:19 JOSE J (Rec: 08/04/19 11:30 JOSE J [id number]) Electronically Signed By Bakari Hill, PT 08/04/19 11:19 Outpatient Therapy Subjective History Subjective History Pt reports recurrent falls since 2016, reports ~15 falls in the last 6 months. Pt reports 'sometimes it feels like my legs just quit working . They think I might be having mini strokes'. Pt reports decreased standing/walking endurance due to B LE weakness , and reports h/o chronic B knee pain and LBP. Chief Complaint Pain,Gives out/Unstable, Weakness Symptom Type Ache,Throb,Sharp,Dull,Stabbing ,Burning,Numbness,Tingling Symptoms Relieved By Nothing Symptoms Aggravated By Standing,Physical Activity, Walking Prior Functional Limitations Housework,Standing,Walking, Stairs,Balance Current Functional Limitations Housework,Standing,Walking, Stairs,Balance Hip/Knee Eval Gait Observation General Gait Pattern Observation Wide Based Gait,Ataxic Gait, Shuffling Step Assistive Device Assistive Devices Standard Walker MMT bilateral Hip Flexion Strength Grade 3+ Fair+ Hip Abduction Strength Grade 4- Good- Hip Adduction Strength Grade 4- Good- Hip Extension Strength Grade 4- Good- Knee Extension Strength Grade 4- Good- Knee Flexion Strength Grade 4- Good- Tinetti Sitting Balance Sitting Balance Steady, safe Arising from Chair Ability to Arise Able, w/o using arms Attempts to Arise Arises on 1st attempt Standing Balance Immediate Standing Balance Steady with support Standing Balance Steady, wide stance Nudged Response Staggers, catches self Standing with Eyes Closed Unsteady Turning Step Pattern Turning 360 Degrees Discontinuous steps Stability Turning 360 Degrees Unsteady, grabs/staggers Sitting Down Sitting Down Safe, steady Gait and Step Initiation of Gait Hesitancy, mult. attempts Right Foot Step Length Does pass stance foot Right Foot Step Height Completely clears floor Left Foot Step Length Does pass stance foot Left Foot Step Height Completely clears floor Step Description St
== END 2019-08-04 10:58 | disposition home or self-care (01) ==
LOC: PT 10:56
PROVIDERS: PCP Emergency Medicine; Visit Provider Emergency Medicine
DX: R29.6 Repeated falls (principal)
CPT/HCPCS: 97110; 97163

== ENCOUNTER → 2019-08-08 11:22 | Outpatient (CLI) | payer MEDICARE, SELFPAY ==
[2019-08-08 11:35] LABS: Basophils # 0.1 K/mm3 (0-0.2); Basophils % 1.8 % (0.1-2.0); Eosinophils # 0.3 K/mm3 (0.0-0.4); Eosinophils % 4.9 % (0.1-12.0); Hemoglobin 16.7 g/dL (14.1-18.0); Lymphocytes # 2.6 K/mm3 (0.7-4.5); Lymphocytes % 42.3 % (10-50); Mean Corpuscular HGB Conc 31.6 g/dL (31.8-35.4); Mean Corpuscular Hemoglobin 31.9 pg (27.0-31.2); Mean Platelet Volume 6.9 fl (7.4-10.4); Monocytes # 0.4 K/mm3 (0.1-1.0); Monocytes % 6.3 % (1.7-9.3); Neutrophils # 2.7 K/mm3 (1.8-7.8); Neutrophils % 44.7 % (37.0-80.0); Platelet Count 345 K/mm3 (142-424); Red Blood Count 5.25 M/mm3 (4.60-6.20); Red Cell Distribution Width 12.9 % (11.5-17.5); White Blood Count 6.1 K/mm3 (4.8-10.8)
[2019-08-08 11:45] LABS: INR 1.01 (0.9-1.1); Prothrombin Time 10.5 seconds (9.4-11.8)
[2019-08-08 15:00] LABS: Alanine Aminotransferase 22 U/L (12-78); Albumin Level 4.3 gm/dL (3.4-5.0); Albumin/Globulin Ratio 1.2 (1.1-1.8); Alkaline Phosphatase 65 U/L (46-116); Anion Gap 14.7 mEq/L (5-15); Aspartate Amino Transferase 15 U/L (15-37); Bilirubin,Total 0.2 mg/dL (0.2-1.0); Blood Urea Nitrogen 13 mg/dL (7-18); Calcium 8.7 mg/dL (8.5-10.1); Carbon Dioxide 27 mmol/L (21.0-32.0); Chloride 106 mmol/L (98-107); Creatinine,Serum 0.96 mg/dL (0.70-1.30); Estimated Glomerular Filt Rate 79 ml/min (>60); GFR (African American) 96 ML/MIN (>60); Globulin 3.5 gm/dl (1.3-3.2); Glucose 111 mg/dL (74-106); Potassium 4.7 mmoL/L (3.5-5.1); Sodium 143 mmol/L (136-145); Total Protein,Serum 7.8 gm/dL (6.4-8.2)
== END ==
PROVIDERS: Visit Provider Surgery
DX: R10.9 Unspecified abdominal pain (principal); L72.3 Sebaceous cyst
CPT/HCPCS: 36415; 80053; 85025; 85610

== ENCOUNTER 2019-09-09 17:56 | Observation (INO) ==
--- NOTE | 2019-09-09 18:33 | Emergency Department Note ---
ED Disposition Clinical Impression: Dehydration, Alcoholic encephalopathy Alcohol intoxication Qualifiers: Complication of substance-induced condition: uncomplicated Qualified Code(s): F10.920 - Alcohol use, unspecified with intoxication, uncomplicated Disposition: Admitted as Observation Condition on Discharge: Fair Time of Disposition: 19:41 - Critical Care Critical Care Time: No Attestation: On 09/09/19, the high probability of a clinically significant, sudden or life threatening deterioration of the following system(s) required my full and direct attention, intervention and personal management. The time I documented below is in addition to time spent performing reported procedures but includes the following listed in this critical care notation. Medical Decision Making - Juve Inquiry Pt receiving controlled substance: No Vital Signs: 09/09/19 17:57 09/09/19 19:57 09/09/19 21:00 Temperature 98 F Temperature Source Oral Pulse Rate Pulse Rate [Left Radial] 84 90 Respiratory Rate 18 16 Blood Pressure Blood Pressure [Right Arm] 140/82 149/86 H Blood Pressure Mean [Right Arm] 101 107 Blood Pressure Source Blood Pressure Source [Right Arm] Automatic Cuff Automatic Cuff Blood Pressure Position Blood Pressure Position [Right Arm] Sitting Sitting 02 Sat by Pulse Oximetry 98 100 Oxygen Delivery Method Room Air Room Air Room Air 09/09/19 21:06 Temperature 98.2 F Temperature Source Oral Pulse Rate 86 Pulse Rate [Left Radial] Respiratory Rate 16 Blood Pressure 146/87 H Blood Pressure [Right Arm] Blood Pressure Mean [Right Arm] Blood Pressure Source Automatic Cuff Blood Pressure Source [Right Arm] Blood Pressure Position Sitting Blood Pressure Position [Right Arm] 02 Sat by Pulse Oximetry Oxygen Delivery Method Room Air - Lab Data Lab results reviewed: Yes: I reviewed the patient's lab results. Lab Results 09/09/19 18:00: WBC 5.0, RBC 5.48, Hgb 17.3, Hct 53.2 H, MCV 96.9 H, MCH 31.6 H, MCHC 32.6, RDW 13.2, Plt Count 296, MPV 7.0 L, Neut % (Auto) 44.3, Lymph % (Auto) 41.1, [place] % (Auto) 8.5, Eos % (Auto) 4.7, Baso % (Auto) 1.4, Neut # (Auto) 2.2, Lymph # (Auto) 2.1, [place] # (Auto) 0.4, Eos # (Auto) 0.2, Baso # (Auto) 0.1 09/09/19 18:00: Sodium 145, Potassium 3.8, Chloride 106, Carbon Dioxide 30, Anion Gap 12.8, BUN 5 L D, Creatinine 0.70, Estimated Creat Clear 82, Estimated GFR 114, Est GFR ( Amer) 138, Glucose 114 H D, Calcium 8.9, Total Bilirubin 0.3, AST 35, ALT 23, Alkaline Phosphatase 59, Total Protein 8.2, Albumin 4.6, Globulin 3.6 H, Albumin/Globulin Ratio 1.3 09/09/19 18:00: Plasma/Serum Alcohol 341 H 09/09/19 18:00: Troponin I < 0.01, Lipase 28 09/09/19 18:00: PT 10.0, INR 0.96 Result diagrams: 09/10/19 06:15 09/10/19 06:15 Orders (Tests/Meds): ED MEDICATIONS Generic Name Dose Route Start Last Admin Trade Name Freq PRN Reason Stop Dose Admin Al Hydrox/Mg Hydrox/Simethicone 30 ml 09/09/19 20:33 Maalox 30ml Udc PO 10/09/19 20:32 QIDP PRN Dyspepsia Nicotine 21 mg 09/09/19 21:00 09/09/19 22:13 Nicoderm 21mg/24hr Patch TD 10/09/19 20:59 21 mg DAILY MAZIN Administration Ondansetron HCl 4 mg 09/09/19 20:33 Zofran 4mg/2ml Vial IV 10/09/19 20:32 Q8HP PRN Nausea Pantoprazole Sodium 40 mg 09/09/19 20:33 09/09/19 22:13 Protonix 40mg Tablet PO 10/09/19 20:32 40 mg DAILY MAZIN Administration Sodium Chloride 10 ml 09/10/19 07:50 Saline Flush 10ml Syringe IV 10/10/19 07:49 NEEDED PRN Maintain IV Site Discontinued Medications Generic Name Dose Route Start Last Admin Trade Name Freq PRN Reason Stop Dose Admin Folic Acid 1 mg 09/09/19 18:34 09/09/19 18:46 Folic Acid 1mg Tablet PO 09/09/19 18:35 1 mg ONCE ONE Administration Folic Acid 1 mg 09/09/19 23:30 03/04/20 22:30 Folic Acid 1mg Tablet PO 09/09/19 23:31 1 mg ONCE ONE Administration Multivitamins 10 ml/ Thiamine 1,015 mls @ 150 mls/hr 09/09/19 18:45 09/09/19 18:46 HCl 100 mg/ Magnesium Sulfate IV 09/10/19 01:30 150 mls/hr 2 gm/ Lactated Ringer's .Q6H46M MAZIN Administration Multivitamins 10 ml/ Thiamine 1,015 mls @ 150 mls/hr 09/09/19 20:33 09/09/19 20:49 HCl 100 mg/ Magnesium Sulfate IV 09/10/19 01:30 Not Given 2 gm/ Lactated Ringer's .Q6H46M MAZIN Magnesium Sulfate 2 gm/ 1,015 mls @ 125 mls/hr 09/09/19 23:30 09/09/19 22:30 Thiamine HCl 100 mg/ IV 09/10/19 07:37 125 mls/hr Multivitamins 10 ml/ Lactated ONCE ONE Administration Ringer's ORDERS Category Date Time Status ECG Request by /Nse Stat Y 09/09/19 19:34 Stop Req - Physician Consults Physician Consulted: Dr. Amezcua Time: 19:30 Reason -: Admission Comment/Response: Discussed with Dr. Amezcua regarding the patient and plan to get the patient admitted to the floor. - Reevaluation(s) Time: 19:30 Reevaluation #1: Patient has been stable while in the emergency department. His blood alcohol level is too high to be discharged home from the emergency department. I do not feel it is safe for him to be going home right now. I would prefer to discuss the case with the primary care provider and plan to admit the patient for observation. Discussed the lab findings with the patient and plan to get the patient admitted to the floor. Weakness HPI - General Chief complaint: Weakness Stated complaint: WEAKNESS Time Seen by Provider: 09/09/19 18:15 Mode of Arrival: EMS Source of Information: Patient Limitations: No Limitations Description of Symptoms (Recalled from ER Triage Doc. by RN): TO ED PER SQUAD WITH C/O "I DON'T FEEL GOOD" PT CAN'T GIVE ANY DETAILS ON C/O. PT SMELLS OF ETOH STATES ONLY DRANK 2 BEERS TODAY. PT ALERT AND ORIENTED X 4. - History of Present Illness HPI Narrative: 64-year-old male presents with chief complaint of having generalized weakness and not feeling well. He was in the emergency department yesterday and his blood alcohol was 390. He went home and started drinking again. According to t he he has not been feeling well. The thinks that the patient needs to be admitted in the hospital and does not feel he safe to be at home. Patient is not a good historian. Complains of having some chest discomfort. MD Complaint: generalized weakness Onset (ago): day(s) - Related Data Home Medications Medication Instructions Recorded Confirmed Atorvastatin Calcium [Lipitor 40mg 40 mg PO HS 07/20/19 09/09/19 Tablet] Gabapentin 600 mg PO TID 07/20/19 09/09/19 Albuterol Sulfate [Albuterol HFA 2 puffs INHALATION Q4HP PRN 09/10/19 09/10/19 Inhaler] Amlodipine Besylate [Amlodipine 5 mg PO DAILY 09/10/19 09/09/19 5mg tab] Montelukast Sodium [Singulair] 10 mg PO HS 09/10/19 09/10/19 carvediloL [Carvedilol 3.125mg Tab] 3.125 mg PO BID 09/10/19 09/09/19 Previous Rx's Medication Instructions Recorded aspirin 81 mg tablet,delayed 81 mg PO DAILY #90 tab 07/31/19 release clopidogrel 75 mg tablet 75 mg PO DAILY #90 tab 07/31/19 isosorbide mononitrate 60 mg 60 mg PO DAILY #30 tab 07/31/19 tablet,extended release 24 hr paroxetine HCl 20 mg tablet 20 mg PO DAILY #90 tab 07/31/19 Allergies Allergy/AdvReac Type Severity Reaction Status Date / Time Penicillins Allergy Severe Anaphylaxis Verified 09/04/19 13:33 codeine [CODEINE] Allergy Mild Rash Verified 09/04/19 13:33 [facility] History - Hepatitis A Screen Drug use history?: No High risk sexual behaviors?: No History of sexually transmitted infection?: No Currently employed?: No Childcare worker?: No Do you have indoor plumbing?: Yes Do you have electricity?: Yes Attestation statement:: This patient has been screened for Hepatitis A risk factors. I have reviewed the patient's past medical history: Yes Medical History: Reports:: Cancer, Chronic Obstructive Pulmonary Disease (COPD), Coronary Artery Disease, Hyperlipidemia, Hypertension Denies:: Diabetes Mellitus Type 1, Diabetes Mellitus Type 2, Internal Pacemaker, MRSA, Seizures Other Medical History: Denies: Blood Transfusion Reaction Laterality Cases: Bilateral: Arthroscopy Shoulder, Tonsillectomy Other Surgeries: Yes: Cardiac Catheterization, Cardiac Surgery, Cholecystectomy, Other. No: Pacemaker Amputation: No Fractures: No Comment: MAYELIN wrist cyst removal and back, bypass, nose sx - Social History Smoking Status: Current every day smoker Tobacco Type: cigarettes # Packs/Day (cigarettes): 1 Alcohol Intake: current Alcohol Intake Frequency:: 3 or more drinks per day Substance Use Type: marijuana Occupational Status: other Family Hx:: Coronary Artery Disease, Diabetes ROS Obtained: Yes unobtainable due to mental condition Physical Exam - General General appearance: appears intoxicated, other (Patient is drowsy. He follows commands well. He smells of alcohol.) - Head Head exam: atraumatic, normocephalic, normal inspection - Eye Eye exam: Present: normal appearance, PERRL, EOMI - ENT ENT exam: Present: normal exam, normal oropharynx, mucous membranes moist, normal external ear exam - Neck Neck exam: Present: normal inspection, full ROM, trachea midline - Chest Chest inspection: Present: normal inspection, symmetric chest wall rise. Absent: tenderness - Respiratory Respiratory exam: Present: normal lung sounds bilaterally. Absent: respiratory distress - Cardiovascular Cardiovascular exam: Present: regular rate, normal rhythm. Absent: JVD - Abdominal Exam Abdominal exam: Present: soft, normal bowel sounds. Absent: distention, tenderness, guarding - Extremities Exam Extremities exam: Present: normal inspection, full ROM, normal capillary refill. Absent: calf tenderness - Back Exam Back exam: Present: normal inspection, full ROM. Absent: tenderness - Neurological Exam Neurological exam: Present: alert, oriented X3, CN II-XII intact - Psychiatric Psychiatric exam: Present: depressed - Skin Skin exam: Present: warm, dry, intact, normal color
[2019-09-09 18:38] LABS: Basophils # 0.1 K/mm3 (0-0.2); Basophils % 1.4 % (0.1-2.0); Eosinophils # 0.2 K/mm3 (0.0-0.4); Eosinophils % 4.7 % (0.1-12.0); Hematocrit 53.2 % (42.0-52.0); Hemoglobin 17.3 g/dL (14.1-18.0); Lymphocytes # 2.1 K/mm3 (0.7-4.5); Lymphocytes % 41.1 % (10-50); Mean Corpuscular HGB Conc 32.6 g/dL (31.8-35.4); Mean Corpuscular Volume 96.9 fl (80-94); Monocytes # 0.4 K/mm3 (0.1-1.0); Monocytes % 8.5 % (1.7-9.3); Neutrophils # 2.2 K/mm3 (1.8-7.8); Neutrophils % 44.3 % (37.0-80.0); Platelet Count 296 K/mm3 (142-424); Red Blood Count 5.48 M/mm3 (4.60-6.20); Red Cell Distribution Width 13.2 % (11.5-17.5)
[2019-09-09 18:47] LABS: Albumin Level 4.6 g/dl (3.5-5.0); Albumin/Globulin Ratio 1.3 (1.1-1.8); Anion Gap 12.8 mEq/L (5-15); Bilirubin,Total 0.3 mg/dl (0.2-1.3); Calcium 8.9 mg/dl (8.4-10.2); Globulin 3.6 g/dL (1.3-3.2); Total Protein,Serum 8.2 g/dl (6.3-8.2)
[2019-09-09 20:51] LABS: INR 0.96 (0.9-1.1)
[2019-09-10 06:48] LABS: Basophils # 0.1 K/mm3 (0-0.2); Eosinophils # 0.3 K/mm3 (0.0-0.4); Eosinophils % 4.5 % (0.1-12.0); Hematocrit 50.2 % (42.0-52.0); Hemoglobin 16.4 g/dL (14.1-18.0); Lymphocytes # 1.7 K/mm3 (0.7-4.5); Lymphocytes % 27.7 % (10-50); Mean Corpuscular HGB Conc 32.6 g/dL (31.8-35.4); Mean Corpuscular Volume 98.4 fl (80-94); Mean Platelet Volume 7.2 fl (7.4-10.4); Monocytes # 0.6 K/mm3 (0.1-1.0); Monocytes % 9.1 % (1.7-9.3); Neutrophils # 3.6 K/mm3 (1.8-7.8); Neutrophils % 57.7 % (37.0-80.0); Platelet Count 282 K/mm3 (142-424); Red Cell Distribution Width 13.3 % (11.5-17.5); White Blood Count 6.2 K/mm3 (4.8-10.8)
[2019-09-10 06:53] LABS: Anion Gap 11.6 mEq/L (5-15); Calcium 8.4 mg/dl (8.4-10.2)
--- NOTE | 2019-09-10 08:35 | H&P/Discharge Summary ---
General - General Admission date:: 09/09/19 Discharge date: 09/10/19 *Admission Date: 09/09/19 *Chief complaint: weakness *History of present illness: this wm presented to the ed with weakness and not feeling well- 64-year-old male presents with chief complaint of having generalized weakness and not feeling well. He was in the emergency department yesterday and his blood alcohol was 390. He went home and started drinking again. According to the he has not been feeling well. The thinks that the patient needs to be admitted in the hospital and does not feel he safe to be at home. Patient is not a good historian. Complains of having some chest discomfort.pt with weakness and admits to ongoing etoh issues and reports wants help - we will have social service see pt to help and asked pt to use AA also- [facility] History I have reviewed the patient's past medical history: Yes Medical History: Reports:: Cancer, Chronic Obstructive Pulmonary Disease (COPD), Coronary Artery Disease, Hyperlipidemia, Hypertension Denies:: Diabetes Mellitus Type 1, Diabetes Mellitus Type 2, Internal Pacemaker, MRSA, Seizures *Have you ever received a pneumonia vaccine?: Yes *Have you received a flu vaccine this season?: Yes Other Medical History: Denies: Blood Transfusion Reaction Laterality Cases: Bilateral: Arthroscopy Shoulder, Tonsillectomy Other Surgeries: Yes: Cardiac Catheterization, Cardiac Surgery, Cholecystectomy, Other. No: Pacemaker Amputation: No Fractures: No - *Social History Educational Level: Completed College Smoking Status: Current every day smoker Tobacco Type: cigarettes # Packs/Day (cigarettes): 1 Alcohol Intake: current Alcohol Intake Frequency:: 3 or more drinks per day Substance Use Type: marijuana *Occupational Status:: disabled *Travel in the last 8 weeks: None Family Hx:: Cancer, Coronary Artery Disease Review of Systems - Review of Systems Review of systems:: pertinent systems reviewed and negative unless documented below - Constitutional Reports weakness, Denies chills, Denies fever(s), Denies headache(s) - Eyes Denies change in vision - ENT Denies ear discharge, Denies headache(s) - *Cardiovascular Reports chest pain at rest, Denies shortness of breath, Denies leg sores, Denies radiating jaw, neck or arm pain - *Respiratory Denies cough, Denies shortness of breath with activity - *Gastrointestinal Denies abdominal pain - *Genitourinary Denies blood in urine - *Musculoskeletal Denies joint pain, Denies joint swelling, Denies neck pain - Integumentary/Breasts Denies hair loss, Denies lesions, Denies rash - *Neurologic Denies confusion, Denies dizziness, Denies localized weakness, Denies lack of coordination, Denies loss of vision, Denies seizure-like activity - Psychiatric Reports other (etoh use daily) Exam Vital signs and Labs for Last 24 Hours: Temp Pulse Resp BP Pulse Ox 97.9 F 95 H 20 175/96 H 99 09/10/19 08:00 09/10/19 08:00 09/10/19 08:00 09/10/19 08:00 09/10/19 08:00 Laboratory Results - last 24 hr 09/09/19 18:00: WBC 5.0, RBC 5.48, Hgb 17.3, Hct 53.2 H, MCV 96.9 H, MCH 31.6 H, MCHC 32.6, RDW 13.2, Plt Count 296, MPV 7.0 L, Neut % (Auto) 44.3, Lymph % (Auto) 41.1, [place] % (Auto) 8.5, Eos % (Auto) 4.7, Baso % (Auto) 1.4, Neut # (Auto) 2.2, Lymph # (Auto) 2.1, [place] # (Auto) 0.4, Eos # (Auto) 0.2, Baso # (Auto) 0.1 09/09/19 18:00: Sodium 145, Potassium 3.8, Chloride 106, Carbon Dioxide 30, Anion Gap 12.8, BUN 5 L D, Creatinine 0.70, Estimated Creat Clear 82, Estimated GFR 114, Est GFR ( Amer) 138, Glucose 114 H D, Calcium 8.9, Total Bilirubin 0.3, AST 35, ALT 23, Alkaline Phosphatase 59, Total Protein 8.2, Albumin 4.6, Globulin 3.6 H, Albumin/Globulin Ratio 1.3 09/09/19 18:00: Plasma/Serum Alcohol 341 H 09/09/19 18:00: Troponin I < 0.01, Lipase 28 09/09/19 18:00: PT 10.0, INR 0.96 09/09/19 23:01: Troponin I < 0.01 09/10/19 01:35: Troponin I < 0.01 09/10/19 06:15: WBC 6.2, RBC 5.10, Hgb 16.4, Hct 50.2, MCV 98.4 H, MCH 32.1 H, MCHC 32.6, RDW 13.3, Plt Count 282, MPV 7.2 L, Neut % (Auto) 57.7, Lymph % (Auto) 27.7, [place] % (Auto) 9.1, Eos % (Auto) 4.5, Baso % (Auto) 1.0, Neut # (Auto) 3.6, Lymph # (Auto) 1.7, [place] # (Auto) 0.6, Eos # (Auto) 0.3, Baso # (Auto) 0.1 09/10/19 06:15: Sodium 139, Potassium 3.6, Chloride 103, Carbon Dioxide 28, Anion Gap 11.6, BUN 4 L, Creatinine 0.70, Estimated Creat Clear 81, Estimated GFR 114, Est GFR ( Amer) 138, Glucose 96, Calcium 8.4, Magnesium 2.4 H I & O for Last 24 hours: Intake & Output 09/07/19 09/08/19 09/09/19 09/10/19 11:59 11:59 11:59 11:59 Intake Total 840 / 840 Balance 840 / 840 Weight 165 lb - Constitutional no acute distress - *Routine HEENT Exam Head: Present: normocephalic Eye: Present: EOMI, PERRL. Absent: conjunctival icterus, nystagmus ENT: Present: mucous membranes dry - *Routine Neck Exam Present: supple. Absent: JVD - *Routine Respiratory Exam Present: decreased breath sounds - *Routine Cardiovascular Exam Present: RRR, murmur, S4. Absent: rubs - *Routine Abdominal Exam Present: soft. Absent: tenderness, organomegaly - *Routine Extremities Exam Present: full ROM - *Routine Skin Exam Present: intact - *Routine Neurological Exam Present: alert, oriented X3, CN II-XII intact. Absent: altered mental status - Routine Psychiatric Exam Absent: suicidal ideation, auditory hallucinations, visual hallucinations, tactile hallucinations, good insight Hospital Course Hospital Course: pt with ivf and feels better this am - discussed with social service and declined to go to rehab [facility], [facility] - will encourage op treatment and AA-appears at baseline - no chest pain this am and has neg serial enz -stable vital signs and labs Results Labs on day of discharge: Labs from last 24 hours 09/10/19 09/10/19 09/10/19 06:15 06:15 01:35 WBC 6.2 RBC 5.10 Hgb 16.4 Hct 50.2 MCV 98.4 H MCH 32.1 H MCHC 32.6 RDW 13.3 Plt Count 282 MPV 7.2 L Neut % (Auto) 57.7 Lymph % (Auto) 27.7 [place] % (Auto) 9.1 Eos % (Auto) 4.5 Baso % (Auto) 1.0 Neut # (Auto) 3.6 Lymph # (Auto) 1.7 [place] # (Auto) 0.6 Eos # (Auto) 0.3 Baso # (Auto) 0.1 PT INR Sodium 139 Potassium 3.6 Chloride 103 Carbon Dioxide 28 Anion Gap 11.6 BUN 4 L Creatinine 0.70 Estimated Creat Clear 81 Estimated GFR 114 Est GFR ( Amer) 138 Glucose 96 Calcium 8.4 Magnesium 2.4 H Total Bilirubin AST ALT Alkaline Phosphatase Troponin I < 0.01 Total Protein Albumin Globulin Albumin/Globulin Ratio Lipase Plasma/Serum Alcohol 09/09/19 09/09/19 09/09/19 23:01 18:00 18:00 WBC RBC Hgb Hct MCV MCH MCHC RDW Plt Count MPV Neut % (Auto) Lymph % (Auto) [place] % (Auto) Eos % (Auto) Baso % (Auto) Neut # (Auto) Lymph # (Auto) [place] # (Auto) Eos # (Auto) Baso # (Auto) PT 10.0 INR 0.96 Sodium Potassium Chloride Carbon Dioxide Anion Gap BUN Creatinine Estimated Creat Clear Estimated GFR Est GFR ( Amer) Glucose Calcium Magnesium Total Bilirubin AST ALT Alkaline Phosphatase Troponin I < 0.01 < 0.01 Total Protein Albumin Globulin Albumin/Globulin Ratio Lipase 28 Plasma/Serum Alcohol 09/09/19 09/09/19 09/09/19 18:00 18:00 18:00 WBC 5.0 RBC 5.48 Hgb 17.3 Hct 53.2 H MCV 96.9 H MCH 31.6 H MCHC 32.6 RDW 13.2 Plt Count 296 MPV 7.0 L Neut % (Auto) 44.3 Lymph % (Auto) 41.1 [place] % (Auto) 8.5 Eos % (Auto) 4.7 Baso % (Auto) 1.4 Neut # (Auto) 2.2 Lymph # (Auto) 2.1 [place] # (Auto) 0.4 Eos # (Auto) 0.2 Baso # (Auto) 0.1 PT INR Sodium 145 Potassium 3.8 Chloride 106 Carbon Dioxide 30 Anion Gap 12.8 BUN 5 L D Creatinine 0.70 Estimated Creat Clear 82 Estimated GFR 114 Est GFR ( Amer) 138 Glucose 114 H D Calcium 8.9 Magnesium Total Bilirubin 0.3 AST 35 ALT 23 Alkaline Phosphatase 59 Troponin I Total Protein 8.2 Albumin 4.6 Globulin 3.6 H Albumin/Globulin Ratio 1.3 Lipase Plasma/Serum Alcohol 341 H DS: Diagnosis - Discharge Diagnosis (1) Alcohol intoxication Status: Acute (2) Tobacco dependence syndrome Status: Acute (3) Alcoholic Status: Chronic Discharge Plan - Patient Discharge Instructions Patient Instructions: DI for Dehydration -- Adult - Follow up Plan Home Medications: Home Medications Medication Instructions Recorded Confirmed Type Atorvastatin Calcium [Lipitor 40mg 40 mg PO HS 07/20/19 09/09/19 History Tablet] Gabapentin 600 mg PO TID 07/20/19 09/09/19 History aspirin 81 mg tablet,delayed 81 mg PO DAILY #90 tab 07/31/19 09/09/19 Rx release clopidogrel 75 mg tablet 75 mg PO DAILY #90 tab 07/31/19 09/09/19 Rx isosorbide mononitrate 60 mg 60 mg PO DAILY #30 tab 07/31/19 09/09/19 Rx tablet,extended release 24 hr paroxetine HCl 20 mg tablet 20 mg PO DAILY #90 tab 07/31/19 09/09/19 Rx Albuterol Sulfate [Albuterol HFA 2 puffs INHALATION Q4HP PRN 09/10/19 09/10/19 History Inhaler] Amlodipine Besylate [Amlodipine 5 mg PO DAILY 09/10/19 09/09/19 History 5mg tab] Montelukast Sodium [Singulair] 10 mg PO HS 09/10/19 09/10/19 History carvediloL [Carvedilol 3.125mg Tab] 3.125 mg PO BID 09/10/19 09/09/19 History Prescriptions/Medication Reconciliation: No Action aspirin 81 mg tablet,delayed release 81 mg PO DAILY #90 tab paroxetine HCl 20 mg tablet 20 mg PO DAILY #90 tab clopidogrel 75 mg tablet 75 mg PO DAILY #90 tab isosorbide mononitrate 60 mg tablet,extended release 24 hr 60 mg PO DAILY #30 tab Albuterol Sulfate [Albuterol HFA Inhaler] 2 puffs INHALATION Q4HP PRN PRN Reason: SHORTNESS OF AIR carvediloL [Carvedilol 3.125mg Tab] 3.125 mg PO BID Amlodipine Besylate [Amlodipine 5mg tab] 5 mg PO DAILY Gabapentin 600 mg PO TID Atorvastatin Calcium [Lipitor 40mg Tablet] 40 mg PO HS Montelukast Sodium [Singulair] 10 mg PO HS - Problem Reconciliation Problems Reviewed?: Yes
== END 2019-09-10 11:24 | disposition home or self-care (01) ==
LOC: 2ND 17:56 → ER 17:56 → 2ND 21:08
PROVIDERS: ADMIT Emergency Medicine; ATTEND Emergency Medicine
CPT/HCPCS: 36415; 80048; 80053; 80305; 81001; 83690; 83735; 84484; 85025; 85610; 96365; 99282; 99283; G0378

== ENCOUNTER 2019-12-13 03:34 | Emergency (ER) | payer MEDICARE, MEDICAID, SELFPAY ==
[2019-12-13 03:20] VITALS: BP 118/74; PULSE 68; RESP 14; TEMP 36.6; O2SAT 96; BMI 25.0
--- NOTE | 2019-12-13 03:57 | [facility].EDNVD ---
ED Disposition Clinical Impression: Cholecystitis Alcohol intoxication Qualifiers: Complication of substance-induced condition: uncomplicated Qualified Code(s): F10.920 - Alcohol use, unspecified with intoxication, uncomplicated Disposition: Home, Self-Care Condition on Discharge: Good Instructions: DI for General Gallbladder Conditions Additional Instructions: see pcp saturday Referrals: Eris Amezcua MD [Primary Care Provider] - - Critical Care Critical Care Time: No Attestation: On 12/13/19, the high probability of a clinically significant, sudden or life threatening deterioration of the following system(s) required my full and direct attention, intervention and personal management. The time I documented below is in addition to time spent performing reported procedures but includes the following listed in this critical care notation. Medical Decision Making - Medical Records Medical records reviewed: Yes: I reviewed the patient's medical records. - Juve Inquiry Pt receiving controlled substance: No Vital Signs: 12/13/19 03:20 Temperature 97.9 F Temperature Source Oral Pulse Rate [Right Radial] 68 Respiratory Rate 14 Blood Pressure [Right Arm] 118/74 Blood Pressure Mean [Right Arm] 88 Blood Pressure Source [Right Arm] Automatic Cuff Blood Pressure Position [Right Arm] Supine 02 Sat by Pulse Oximetry 96 Oxygen Delivery Method Room Air - Lab Data Lab results reviewed: Yes: I reviewed the patient's lab results. Lab Results 12/13/19 03:15: WBC 8.3, RBC 4.79, Hgb 15.9, Hct 47.4, MCV 99.0 H, MCH 33.3 H, MCHC 33.6, RDW 13.8, Plt Count 311, MPV 6.8 L, Neut % (Auto) 56.3, Lymph % (Auto) 28.6, [place] % (Auto) 6.3, Eos % (Auto) 7.5, Baso % (Auto) 1.2, Neut # (Auto) 4.7, Lymph # (Auto) 2.4, [place] # (Auto) 0.5, Eos # (Auto) 0.6 H, Baso # (Auto) 0.1 12/13/19 03:15: Sodium 143, Potassium 3.7, Chloride 105, Carbon Dioxide 24, Anion Gap 17.7 H, BUN 9, Creatinine 0.70, Estimated Creat Clear 81, Estimated GFR 114, Est GFR ( Amer) 138, Glucose 243 H, Calcium 8.8, Total Bilirubin 0.3, AST 34, ALT 18, Alkaline Phosphatase 66, Troponin I < 0.01, Total Protein 7.9, Albumin 4.5, Globulin 3.4 H, Albumin/Globulin Ratio 1.3, Amylase 44, Lipase 41 12/13/19 03:15: Plasma/Serum Alcohol 242 H 12/13/19 05:20: Urine Color Yellow, Urine Appearance Clear, Urine pH 6.5, Ur Specific [place] 1.020, Urine Protein Negative, Urine Glucose (UA) Negative, Urine Ketones Negative, Urine Blood Negative, Urine Nitrate Negative, Urine Bilirubin Negative, Urine Urobilinogen 2.0, Ur Leukocyte Esterase Negative, Urine WBC Occasional, Amorphous Sediment Trace Result diagrams: 12/13/19 03:15 12/13/19 03:15 Orders (Tests/Meds): ED MEDICATIONS Discontinued Medications Generic Name Dose Route Start Last Admin Trade Name Freq PRN Reason Stop Dose Admin Ioversol 75 ml 12/13/19 05:30 12/13/19 05:31 Rad-Optiray 350 100ml Vial IV 12/13/19 05:31 75 ml ONCE ONE Administration Protocol Ketorolac Tromethamine 30 mg 12/13/19 03:59 12/13/19 04:05 Toradol 30mg/Ml Vial IV 12/13/19 04:00 30 mg ONCE ONE Administration Sodium Chloride 10 ml 12/13/19 05:30 12/13/19 05:31 Rad-Saline Flush 10ml Syringe IV 12/13/19 05:31 10 ml ONCE ONE Administration ORDERS Category Date Time Status CT abdomen pelvis w con Stat Cat Scan 12/13/19 04:04 Taken Troponin I Q3H Lab 12/13/19 07:15 Ordered Troponin I Q3H Lab 12/13/19 10:15 Ordered - CT Data CT Scan: Abdomen, Pelvis Time Received: 06:[address] Reviewed: Yes: I have viewed the radiologist's interpretation Preliminary Findings: Abnormal Nausea/Vomiting/Diarrhea HPI - General Chief complaint: Abdominal Pain Stated complaint: abdominal pain with radiation to back Time Seen by Provider: 12/13/19 03:35 Mode of Arrival: EMS Source of Information: Patient, EMS, Medical Record Limitations: No Limitations Description of Symptoms (Recalled from ER Triage
--- NOTE | 2019-12-13 04:04 | CT_ITS ---
PROCEDURE: CT ABDOMEN PELVIS W CON CLINICAL INDICATION: ABDOMINAL PAIN Right-sided posterior abdominal pain, previous smoker COMPARISON: No exams were available for comparison TECHNIQUE: IV Contrast: 75ML OPTIRAY 350 Oral Contrast none given Axial images obtained with sagittal and coronal reformats. All CT scans at the facility use one or more dose reduction, viz: automated exposure control, ma/kV adjustment per patient size (including targeted exams where dose is matched to indication, i.e. head), or iterative reconstruction technique. FINDINGS: Lower thorax: The lower lung kaba are clear except for minimal atelectasis at the left base. Sternal wire sutures are seen, there is mild or borderline cardiomegaly. There is prominent coronary artery calcification. ABDOMEN: Liver: The liver is normal in size. There are few scattered small hypodense lesions likely representing hepatic cysts. Gallbladder: The gallbladder is normal in size showing mild diffuse enhancement of the gallbladder wall. There is subtle heterogenic appearance to the bile raising the possibility of biliary sludge or possibly nonopaque stones. Pancreas: No masses or peripancreatic fluid collections. Spleen: unremarkable Adrenals: unremarkable Kidneys/ureters: The kidneys are normal size and show symmetrical function with a small benign-appearing cortical cyst midpole right kidney. The kidneys otherwise appear normal. ABDOMEN & PELVIS: Stomach bowel: The stomach and small bowel appear normal. There is moderate scattered stool and gas seen throughout the colon. Peritoneum: No abnormal fluid collections. No obvious inflammatory changes. No free air. There are small bilateral inguinal hernias containing fat only. Lymph nodes: No enlarged lymph nodes apparent. Vasculature: There is prominent diffuse arthrosclerotic calcification of the diarrhea abdominal aorta and proximal common iliac arteries, there is no definite aneurysm identified. Bones: There is an old mild compression fracture of L2 along with mild degenerate disc disease at the L5-S1 level. PELVIS: Reproductive: unremarkable Bladder: The urinary bladder is moderately distended with urine appears normal, the prostate is moderately enlarged. Appendix: Not definitely identified but there are no findings to suggest appendicitis. IMPRESSION: Findings suggesting acute cholecystitis and consider follow-up ultrasound right upper quadrant for additional evaluation Dictated by: Dr. Tyrese Hutchinson MD 12/13/2019 08:[address] Tyrese Hutchinson MD in [place] 12/13/2019 08:51
[2019-12-13 04:23] LABS: Basophils # 0.1 K/mm3 (0-0.2); Basophils % 1.2 % (0.1-2.0); Eosinophils # 0.6 K/mm3 (0.0-0.4); Eosinophils % 7.5 % (0.1-12.0); Hematocrit 47.4 % (42.0-52.0); Hemoglobin 15.9 g/dL (14.1-18.0); Lymphocytes # 2.4 K/mm3 (0.7-4.5); Lymphocytes % 28.6 % (10-50); Mean Corpuscular HGB Conc 33.6 g/dL (31.8-35.4); Mean Corpuscular Hemoglobin 33.3 pg (27.0-31.2); Mean Platelet Volume 6.8 fl (7.4-10.4); Monocytes # 0.5 K/mm3 (0.1-1.0); Monocytes % 6.3 % (1.7-9.3); Neutrophils # 4.7 K/mm3 (1.8-7.8); Neutrophils % 56.3 % (37.0-80.0); Platelet Count 311 K/mm3 (142-424); Red Blood Count 4.79 M/mm3 (4.60-6.20); Red Cell Distribution Width 13.8 % (11.5-17.5); White Blood Count 8.3 K/mm3 (4.8-10.8)
[2019-12-13 04:28] LABS: Ethyl Alcohol 242 mg/dl (0-10)
[2019-12-13 04:29] LABS: Alanine Aminotransferase 18 U/L (12-78); Albumin Level 4.5 g/dl (3.5-5.0); Albumin/Globulin Ratio 1.3 (1.1-1.8); Alkaline Phosphatase 66 U/L (38-126); Amylase 44 U/L (30-110); Anion Gap 17.7 mEq/L (5-15); Aspartate Amino Transferase 34 U/L (17-59); Bilirubin,Total 0.3 mg/dl (0.2-1.3); Blood Urea Nitrogen 9 mg/dl (9-20); Calcium 8.8 mg/dl (8.4-10.2); Carbon Dioxide 24 mmol/L (22.0-30.0); Chloride 105 mmol/L (98-107); Creatinine Clearance Estimated 81 mL/min (50-200); Estimated Glomerular Filt Rate 114 ml/min (>60); GFR (African American) 138 ML/MIN (>60); Globulin 3.4 g/dL (1.3-3.2); Glucose 243 mg/dl (74-100); Lipase 41 U/L (23-300); Potassium 3.7 mmoL/L (3.5-5.1); Sodium 143 mmol/L (136-145); Total Protein,Serum 7.9 g/dl (6.3-8.2)
--- NOTE | 2019-12-13 05:13 | PC.NURSE ---
Pt back from CT
[2019-12-13 05:32] LABS: Troponin I < 0.01 ng/ml (0.00-0.034)
[2019-12-13 05:33] LABS: Appearance,Urine CLEAR (Clear); Bilirubin,Urine Negative (Negative); Blood, Urine Negative (Negative); Color,Urine YELLOW (Yellow); Glucose,Urine (UA) Negative (Negative); Ketones,Urine Negative (Negative); Leukocyte Esterase,Urine Negative (Negative); Microscopic, Urine URINE MICROSCOPIC (MICROSCOPIC); Nitrate,Urine Negative (Negative); PH,Urine 6.5 (5.0-8.5); Protein,Urine Negative (Negative)
[2019-12-13 05:38] LABS: Amorphous Sediment,Urine Trace /lpf; WBC,Urine Occasional #/hpf (0-3)
[2019-12-13 06:55] VITALS: BP 118/74; PULSE 68; RESP 14; TEMP 36.6; O2SAT 96
--- NOTE | 2019-12-13 06:57 | PC.NURSE ---
PATIENT AMBULATORY WITH A STEADY GATE
== END 2019-12-13 06:58 | disposition home or self-care (01) ==
PROVIDERS: Emergency Provider Emergency Medicine; PCP Emergency Medicine
DX: K81.9 Cholecystitis, unspecified (principal); F10.920 Alcohol use, unspecified with intoxication, uncomplicated; J44.9 Chronic obstructive pulmonary disease, unspecified; I25.10 Atherosclerotic heart disease of native coronary artery without angina pectoris; I10 Essential (primary) hypertension; E78.5 Hyperlipidemia, unspecified; F17.210 Nicotine dependence, cigarettes, uncomplicated
CPT/HCPCS: 74177; 80053; 81001; 82150; 83690; 84484; 85025; 96365; 96374; 96375; 99283; Q9967

== ENCOUNTER → 2019-12-21 08:55 | Outpatient (CLI) | payer MEDICARE, MEDICAID, SELFPAY ==
--- NOTE | 2019-12-21 10:07 | US_ITS ---
PROCEDURE: US ABDOMEN COMPLETE CLINICAL INDICATION: Abdominal pain COMPARISON: CT ABDOMEN PELVIS W CON from 12/13/2019 FINDINGS: PANCREAS: Pancreas is not well delineated due to overlying bowel gas. CT or MRI without and with contrast with pancreatic protocol may provide further evaluation if clinically desired. LIVER: No focal liver lesions demonstrated. Homogeneous echogenicity. No intrahepatic biliary ductal dilatation evident. There is appropriate direction of blood flow within a non dilated portal vein RIGHT KIDNEY: Unremarkable. Normal size and echogenicity. No hydronephrosis LEFT KIDNEY: Unremarkable. Normal size and echogenicity. No hydronephrosis GALLBLADDER: No gallstones, gallbladder wall thickening, pericholecystic fluid, or biliary dilatation. AORTA: No evidence of aneurysmal dilatation. SPLEEN: Unremarkable. Normal size and echogenicity ASCITES: None demonstrated. IMPRESSION: Unremarkable ultrasound the abdomen. Poor visualization of the pancreas due to overlying bowel gas Dictated by: Addison Gamble MD 12/21/2019 17:39 Electronically signed by Addison Gamble MD in [place] 12/21/2019 17:39
== END ==
PROVIDERS: PCP Emergency Medicine; Visit Provider Emergency Medicine
DX: R10.9 Unspecified abdominal pain (principal)
CPT/HCPCS: 76700

== ENCOUNTER → 2019-12-25 14:49 | Outpatient (CLI) | payer MEDICARE, MEDICAID, SELFPAY ==
--- NOTE | 2019-12-25 14:55 | CT_ITS ---
PROCEDURE: CT CHEST WO CON CLINICAL INDICATION: lung nodule Follow-up lung nodule COMPARISON: CT CHEST WO CON from 06/09/2019 CT ABDOMEN PELVIS W CON from 12/13/2019 TECHNIQUE: Axial images obtained with sagittal and coronal reformats. All CT scans at the facility use one or more dose reduction, viz: automated exposure control, ma/kV adjustment per patient size (including targeted exams where dose is matched to indication, i.e. head), or iterative reconstruction technique. FINDINGS: HEART AND MEDIASTINAL STRUCTURES: Prior CABG. Extensive coronary artery calcifications. No mediastinal or hilar mass or adenopathy LUNGS AND PLEURAL SPACES: COPD. there is nodularity in the subpleural region in the right upper lobe anteriorly unchanged. Pleural thickening/pleural plaque also noted in the left upper lobe anterior laterally unchanged. There is calcified granuloma in the left lower lobe. There is a noncalcified 8 mm nodule in the left lower lobe in the extreme lung base along the hemidiaphragm not significantly changed. There are 2 smaller nodules in this region as well at approximately 3 and 4 mm unchanged. No effusions or infiltrates. No new nodules apparent BONY STRUCTURES: There are old bilateral rib fractures UPPER ABDOMEN: Slight increased density within the gallbladder is could be due to sludge and/or small stones. There is a 7 mm hypodensity in the right hepatic lobe anteriorly unchanged. Hypodensity right kidney posteriorly at 1 cm not indeterminate. ADDITIONAL FINDINGS: No other significant abnormalities. IMPRESSION: 1. Overall stable CT appearance of the chest. There are multiple small subpleural nodules. The 8 mm nodule in the left lung base represents a subpleural nodule and is unchanged. There are some pleural plaques also noted. Is there an lung occupational exposure history? 2. COPD with extensive coronary artery calcifications and other nonacute findings as described above. 3. Increased density of the gallbladder which may be due to sludge and/or stones Dictated by: Addison Gamble MD 12/26/2019 05:58 Electronically signed by Addison Gamble MD in [place] 12/26/2019 05:58
== END ==
PROVIDERS: PCP Emergency Medicine; Visit Provider Emergency Medicine
DX: R91.1 Solitary pulmonary nodule (principal)
CPT/HCPCS: 71250

== ENCOUNTER → 2020-01-19 17:57 | Outpatient (CLI) | payer MEDICARE, MEDICAID, SELFPAY ==
[2020-01-19 19:01] LABS: Basophils % 0.5 % (0.1-2.0); Eosinophils # 0.2 K/mm3 (0.0-0.4); Eosinophils % 2.1 % (0.1-12.0); Hematocrit 50.3 % (42.0-52.0); Hemoglobin 17.3 g/dL (14.1-18.0); Lymphocytes # 1.3 K/mm3 (0.7-4.5); Lymphocytes % 16.5 % (10-50); Mean Corpuscular HGB Conc 34.5 g/dL (31.8-35.4); Mean Corpuscular Hemoglobin 32.2 pg (27.0-31.2); Mean Corpuscular Volume 93.4 fl (80-94); Mean Platelet Volume 7.8 fl (7.4-10.4); Monocytes # 0.4 K/mm3 (0.1-1.0); Monocytes % 5.3 % (1.7-9.3); Neutrophils # 5.7 K/mm3 (1.8-7.8); Neutrophils % 75.5 % (37.0-80.0); Platelet Count 188 K/mm3 (142-424); Red Blood Count 5.39 M/mm3 (4.60-6.20); Red Cell Distribution Width 13.6 % (11.5-17.5); White Blood Count 7.6 K/mm3 (4.8-10.8)
[2020-01-19 19:06] LABS: Chloride 95 mmol/L (98-107); Sodium 138 mmol/L (136-145)
[2020-01-19 19:09] LABS: Alanine Aminotransferase 60 U/L (12-78); Albumin Level 4.8 g/dl (3.5-5.0); Albumin/Globulin Ratio 1.1 (1.1-1.8); Alkaline Phosphatase 121 U/L (38-126); Aspartate Amino Transferase 67 U/L (17-59); Bilirubin,Total 1.1 mg/dl (0.2-1.3); Blood Urea Nitrogen 7 mg/dl (9-20); Calcium 9.3 mg/dl (8.4-10.2); Carbon Dioxide 30 mmol/L (22.0-30.0); Estimated Glomerular Filt Rate 114 ml/min (>60); GFR (African American) 138 ML/MIN (>60); Globulin 4.2 g/dL (1.3-3.2); Glucose 126 mg/dl (74-100)
[2020-01-21 11:18] LABS: Hep A Ab, IgM Negative (Negative); Hep A Ab, Total Positive (Negative); Hep B Core Ab, Total Negative (Negative)
[2020-01-21 12:34] LABS: HIV Screen 4th Generation wRfx Non Reactive (Non Reactive); Hep B Surface Ab, Qual Non Reactive (.); Hepatitis C Antibody <0.1 s/co ratio (0.0-0.9)
== END ==
LOC: LAB.CARL 17:57 → LAB.DROPOF 01-20 08:47
PROVIDERS: Physician Assistant; Visit Provider Emergency Medicine
DX: F10.20 Alcohol dependence, uncomplicated (principal); R53.83 Other fatigue; R10.9 Unspecified abdominal pain; R73.09 Other abnormal glucose; Z11.4 Encounter for screening for human immunodeficiency virus [HIV]
CPT/HCPCS: 80053; 83036; 85025; 86703; 86704; 86706; 86708; 87380; G0432

== ENCOUNTER 2020-04-15 16:26 | Emergency (ER) | payer MEDICARE, MEDICAID, SELFPAY ==
[2020-04-15 16:27] VITALS: BP 143/86; PULSE 89; RESP 19; TEMP 36.8; O2SAT 94; BMI 25.0
--- NOTE | 2020-04-15 16:40 | HMH.EDGENADL ---
ED Disposition Clinical Impression: Pain, dental, Loose, teeth, Dental caries, Periodontal disease Disposition: Home, Self-Care Condition on Discharge: Good Instructions: DI for Tooth Decay, DI for Dental Pain Additional Instructions: Follow-up with a dentist, call for appointment (Dr. Bravo's info provided). Dental balls as needed. Ibuprofen for pain. Clindamycin (antibiotic) as prescribed Additional instructions for DENTAL PROBLEMS: See a dentist as soon as possible for further evaluation. Return immediately if you have an uncontrollable fever greater than 102 degrees, difficulty breathing or shortness of breath, persistent vomiting, or inability to swallow. Prescriptions: Ibuprofen [Ibuprofen 600mg Tab] 600 mg PO Q6HP PRN #20 tab PRN Reason: Moderate Pain Transmission Status: Received by [facility] clindamycin HCL [Clindamycin HCl 300mg Cap] 300 mg PO Q6 #40 cap Transmission Status: Received by [facility] Referrals: Casey Bravo [Referring] - - Critical Care Critical Care Time: No Attestation: On , the high probability of a clinically significant, sudden or life threatening deterioration of the following system(s) required my full and direct attention, intervention and personal management. The time I documented below is in addition to time spent performing reported procedures but includes the following listed in this critical care notation. Medical Decision Making - Medical Records Medical records reviewed: Yes: I reviewed the patient's medical records. - Juve Inquiry Pt receiving controlled substance: No Vital Signs: 04/15/20 16:27 Temperature 98.2 F Temperature Source Oral Pulse Rate [Left Radial] 89 Respiratory Rate 19 Blood Pressure [Right Arm] 143/86 H Blood Pressure Mean [Right Arm] 105 Blood Pressure Source [Right Arm] Automatic Cuff Blood Pressure Position [Right Arm] Sitting 02 Sat by Pulse Oximetry 94 L Oxygen Delivery Method Room Air Orders (Tests/Meds): ED MEDICATIONS Discontinued Medications Generic Name Dose Route Start Last Admin Trade Name Freq PRN Reason Stop Dose Admin Benzocaine/Butamben/Tetracaine HCl 1 gm 04/15/20 16:38 04/15/20 16:55 Tetracaine/Benzocaine/Butamben 56 Gm Foley TP 04/15/20 16:39 1 gm ONCE ONE Administration Clindamycin HCl 300 mg 04/15/20 16:47 04/15/20 16:56 Clindamycin 150mg Capsule PO 04/15/20 16:48 300 mg ONCE ONE Administration Protocol Ketorolac Tromethamine 30 mg 04/15/20 16:38 04/15/20 16:56 Ketorolac 30mg/Ml Vial IV 04/15/20 16:39 Not Given ONCE ONE Ketorolac Tromethamine 60 mg 04/15/20 16:47 04/15/20 16:51 Ketorolac 60mg/2ml Vial IM 04/15/20 16:48 60 mg ONCE ONE Administration Lidocaine HCl 15 ml 04/15/20 16:38 04/15/20 16:55 Lidocaine 2% Viscous Earnestine 15ml Udc PO 04/15/20 16:39 15 ml ONCE ONE Administration General Adult HPI - General Chief complaint: Dental/Oral Stated complaint: dental pain Time Seen by Provider: 04/15/20 16:41 Mode of Arrival: EMS Limitations: No Limitations Description of Symptoms (Recalled from ER Triage Doc. by RN): c/o dental pain in his front bottom teeth. States they started hurting this am and has increased with pain t/o the day. He has been drinking alcohol to try to relieve the pain but it hasnt helped - History of Present Illness HPI narrative: Brought in by ambulance for dental pain. States that his 4 bottom anterior teeth have been hurting all day. Tender to touch. No facial or gum swelling. No fever. No drainage. States that he has problems with all of his teeth. He generally pulls them himself with pliers. He says he is pulled for of his bottom right teeth with pliers and 4 of his bottom left teeth with pliers. He has not seen a dentist in many years. He has been drinking alcohol today to try and help the pain. Patient states he does not want any narcotic medication. He has a
[2020-04-15 17:18] VITALS: BP 135/70; PULSE 85; RESP 15; TEMP 36.8; O2SAT 99
== END 2020-04-15 17:18 | disposition home or self-care (01) ==
PROVIDERS: Emergency Provider Emergency Medicine; PCP Emergency Medicine
DX: K05.6 Periodontal disease, unspecified (principal); K02.9 Dental caries, unspecified; F10.10 Alcohol abuse, uncomplicated; J44.9 Chronic obstructive pulmonary disease, unspecified; I25.10 Atherosclerotic heart disease of native coronary artery without angina pectoris; I73.9 Peripheral vascular disease, unspecified; E78.5 Hyperlipidemia, unspecified; I10 Essential (primary) hypertension; Z88.0 Allergy status to penicillin; Z88.5 Allergy status to narcotic agent
CPT/HCPCS: 96372; 99281

== ENCOUNTER 2020-04-17 01:18 | Emergency (ER) | payer MEDICARE, MEDICAID, SELFPAY ==
[2020-04-17 01:18] VITALS: BP 165/99; PULSE 99; RESP 17; TEMP 36.7; O2SAT 97; BMI 25.5
[2020-04-17 01:28] VITALS: BP 157/95; PULSE 95; RESP 17; TEMP 36.7; O2SAT 94
--- NOTE | 2020-04-17 01:29 | HMH.EDDENT ---
ED Disposition Clinical Impression: Dental caries, Alcohol abuse Disposition: Home, Self-Care Condition on Discharge: Good Instructions: DI for Dental Pain Additional Instructions: call pcp for discuss rehab - Critical Care Critical Care Time: No Attestation: On , the high probability of a clinically significant, sudden or life threatening deterioration of the following system(s) required my full and direct attention, intervention and personal management. The time I documented below is in addition to time spent performing reported procedures but includes the following listed in this critical care notation. Medical Decision Making - Medical Records Medical records reviewed: Yes: I reviewed the patient's medical records. - Juve Inquiry Pt receiving controlled substance: No Vital Signs: 04/17/20 01:18 Temperature 98.1 F Temperature Source Oral Pulse Rate [Right Brachial] 99 H Respiratory Rate 17 Blood Pressure [Right Arm] 165/99 H Blood Pressure Mean [Right Arm] 121 Blood Pressure Source [Right Arm] Automatic Cuff Blood Pressure Position [Right Arm] Sitting 02 Sat by Pulse Oximetry 97 Oxygen Delivery Method Room Air Dental HPI - General Chief complaint: Dental/Oral Stated complaint: Dental pain Time Seen by Provider: 04/17/20 01:25 Mode of Arrival: EMS Source of Information: Patient, EMS, Medical Record Limitations: No Limitations Description of Symptoms (Recalled from ER Triage Doc. by RN): Patient reports dental pain. Patient was seen in the ED saturday for the same thing. Patient was given toradol, dental balls and an antibiotic but pt reports the medications have not. Pt has not seen or called a dentist because he cant get there. Patient also says he has had 8-10 beers tonight. - History of Present Illness HPI Narrative: pt has ongoing dental issues - pt has hx of etoh use and wants rehab Severity: mild Context: history of dental caries, poor dental care Treatment prior to arrival: none - Related Data Home Medications Medication Instructions Recorded Confirmed cyclobenzaprine 10 mg tablet 10 mg PO BID PRN 01/05/20 01/19/20 Previous Rx's Medication Instructions Recorded albuterol sulfate 90 mcg/actuation 2 inh INHALATION Q4HP PRN #18 g 12/10/19 aerosol inhaler aspirin 81 mg tablet,delayed See Rx Instructions .ROUTE 12/28/19 release .COMPLEX #90 tab carvedilol 3.125 mg tablet See Rx Instructions .ROUTE 01/06/20 .COMPLEX #60 tab amlodipine 5 mg tablet 5 mg PO DAILY #90 tab 01/19/20 loratadine 10 mg tablet 10 mg PO DAILY #90 tab 01/19/20 oxycodone 5 mg tablet 5 mg PO QHS #14 tab 01/19/20 fluticasone furoate 100 1 inh INHALATION DAILY #60 each 01/25/20 mcg-vilanterol 25 mcg/dose inhalation powder isosorbide mononitrate 60 mg 60 mg PO DAILY #90 tab 02/22/20 tablet,extended release 24 hr pantoprazole 40 mg tablet,delayed 40 mg PO DAILY #90 tab 02/23/20 release albuterol sulfate 2.5 mg INHALATION QIDP PRN #180 ml 03/21/20 atorvastatin 40 mg tablet 40 mg PO HS #90 tab 03/21/20 clopidogrel 75 mg tablet 75 mg PO DAILY #90 tab 03/21/20 montelukast 10 mg tablet 10 mg PO HS #90 tab 03/21/20 paroxetine HCl 20 mg tablet 20 mg PO DAILY #90 tab 03/21/20 Ibuprofen [Ibuprofen 600mg Tab] 600 mg PO Q6HP PRN #20 tab 04/15/20 clindamycin HCL [Clindamycin HCl 300 mg PO Q6 #40 cap 04/15/20 300mg Cap] Allergies Allergy/AdvReac Type Severity Reaction Status Date / Time Penicillins Allergy Severe Anaphylaxis Verified 01/19/20 14:41 milk Allergy Intermediate Verified 01/19/20 14:41 codeine [CODEINE] Allergy Mild Rash Verified 01/19/20 14:41 [facility] History - Hepatitis A Screen Drug use history?: No High risk sexual behaviors?: No History of sexually transmitted infection?: No Currently employed?: No Childcare worker?: No Do you have indoor plumbing?: Yes Do you have electricity?: Yes Attestation statement:: This patient has been screened for Hepatitis A risk factors.
== END 2020-04-17 01:45 | disposition home or self-care (01) ==
PROVIDERS: Emergency Provider Emergency Medicine
DX: K02.9 Dental caries, unspecified (principal); F10.10 Alcohol abuse, uncomplicated; J44.9 Chronic obstructive pulmonary disease, unspecified; I25.10 Atherosclerotic heart disease of native coronary artery without angina pectoris; I10 Essential (primary) hypertension; E78.5 Hyperlipidemia, unspecified; F17.210 Nicotine dependence, cigarettes, uncomplicated; Z88.0 Allergy status to penicillin; Z88.5 Allergy status to narcotic agent; Z79.899 Other long term (current) drug therapy; Z90.49 Acquired absence of other specified parts of digestive tract
CPT/HCPCS: 99281

== ENCOUNTER 2021-04-07 16:22 | Emergency (ER) | payer MEDICARE, MEDICAID, SELFPAY ==
[2021-04-07 16:29] VITALS: BP 139/79; PULSE 94; RESP 18; TEMP 37.1; O2SAT 95; BMI 25.0
--- NOTE | 2021-04-07 16:35 | HMH.EDMCLR ---
ED Disposition Clinical Impression: Medical clearance for incarceration Disposition: Home, Self-Care Condition on Discharge: Good Instructions: DI for Alcohol Use Disorder Additional Instructions: see pcp for follow up Referrals: Provider,Referral, [Primary Care Provider] - - Critical Care Critical Care Time: No Attestation: On 04/07/21, the high probability of a clinically significant, sudden or life threatening deterioration of the following system(s) required my full and direct attention, intervention and personal management. The time I documented below is in addition to time spent performing reported procedures but includes the following listed in this critical care notation. Medical Decision Making - Medical Records Medical records reviewed: Yes: I reviewed the patient's medical records. - Juve Inquiry Pt receiving controlled substance: No Vital Signs: 04/07/21 16:29 Temperature 98.7 F Temperature Source Oral Pulse Rate [Left Radial] 94 H Respiratory Rate 18 Blood Pressure [Left Arm] 139/79 Blood Pressure Mean [Left Arm] 99 Blood Pressure Source [Left Arm] Automatic Cuff Blood Pressure Position [Left Arm] Sitting 02 Sat by Pulse Oximetry 95 Oxygen Delivery Method Room Air Medical Clearance HPI - General Chief complaint: Medical Clearance Stated complaint: medical clearance Time Seen by Provider: 04/07/21 16:35 Mode of Arrival: Ambulatory Source of Information: Patient, Medical Record Limitations: No Limitations Description of Symptoms (Recalled from ER Triage Doc. by RN): Pt here for medical clearance r/t ETOH use approx 1 hour ago. pt alert and oriented x3 - History of Present Illness HPI Narrative: no specific c/o per pt at this time complaint: medical clearance requested Onset (ago): hour(s) Reason for Medical Clearance: medical condition Place: home Traumatic Symptoms: denies traumatic injury Associated Symptoms: denies other symptoms Treatments Prior to Arrival: none Home medications: Previous Rx's Medication Instructions Recorded oxycodone 5 mg tablet 5 mg PO QHS #14 tab 01/19/20 Ibuprofen [Ibuprofen 600mg Tab] 600 mg PO Q6HP PRN #20 tab 04/15/20 clindamycin HCL [Clindamycin HCl 300 mg PO Q6 #40 cap 04/15/20 300mg Cap] albuterol sulfate 90 mcg/actuation 2 inh INHALATION Q4HP PRN #18 g 06/13/20 aerosol inhaler amlodipine 5 mg tablet 5 mg PO DAILY #90 tab 06/13/20 aspirin 81 mg tablet,delayed See Rx Instructions .ROUTE 06/13/20 release .COMPLEX #90 tab atorvastatin 40 mg tablet 40 mg PO HS #90 tab 06/13/20 clopidogrel 75 mg tablet 75 mg PO DAILY #90 tab 06/13/20 fluticasone furoate 100 See Rx Instructions .ROUTE 06/13/20 mcg-vilanterol 25 mcg/dose .COMPLEX #28 each inhalation powder isosorbide mononitrate 60 mg 60 mg PO DAILY #90 tab 06/13/20 tablet,extended release 24 hr loratadine 10 mg tablet 10 mg PO DAILY #90 tab 06/13/20 montelukast 10 mg tablet 10 mg PO HS #90 tab 06/13/20 pantoprazole 40 mg tablet,delayed See Rx Instructions .ROUTE 06/13/20 release .COMPLEX #90 tab paroxetine HCl 20 mg tablet 20 mg PO DAILY #90 tab 06/13/20 albuterol sulfate 2.5 mg INHALATION QIDP PRN #180 ml 06/23/20 carvedilol 3.125 mg tablet See Rx Instructions .ROUTE 08/30/20 .COMPLEX #180 tab cyclobenzaprine 10 mg tablet See Rx Instructions .ROUTE 08/30/20 .COMPLEX #60 tab Allergies/Adverse reactions: Allergies Allergy/AdvReac Type Severity Reaction Status Date / Time Penicillins Allergy Severe Anaphylaxis Verified 01/19/20 14:41 milk Allergy Intermediate Verified 01/19/20 14:41 codeine [CODEINE] Allergy Mild Rash Verified 01/19/20 14:41 [facility] History - Hepatitis A Screen Drug use history?: No High risk sexual behaviors?: No History of sexually transmitted infection?: No Currently employed?: No Childcare worker?: No Do you have indoor plumbing?: Yes Do you have electricity?: Yes Attestation statement:: This patient has been screened for Hepati
[2021-04-07 16:48] VITALS: BP 139/79; PULSE 94; RESP 18; TEMP 37.1; O2SAT 95
== END 2021-04-07 16:49 | disposition home or self-care (01) ==
PROVIDERS: Emergency Provider Emergency Medicine
DX: F10.10 Alcohol abuse, uncomplicated (principal); J44.9 Chronic obstructive pulmonary disease, unspecified; I25.10 Atherosclerotic heart disease of native coronary artery without angina pectoris; I10 Essential (primary) hypertension; E78.5 Hyperlipidemia, unspecified; Z79.899 Other long term (current) drug therapy
CPT/HCPCS: 99282

== ENCOUNTER 2021-06-16 14:49 | Emergency (ER) | payer MEDICARE, MEDICAID, SELFPAY ==
[2021-06-16 15:10] VITALS: BP 121/76; PULSE 70; RESP 19; TEMP 36.6; O2SAT 98; BMI 25.0
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
[2021-06-16 16:57] VITALS: BP 121/76; PULSE 70; RESP 19; TEMP 36.6; O2SAT 98
== END 2021-06-16 17:02 | disposition home or self-care (01) ==
PROVIDERS: Emergency Provider Nurse Practitioner Family
DX: S40.212A Abrasion of left shoulder, initial encounter (principal); Y04.0XXA Assault by unarmed brawl or fight, initial encounter; Y92.9 Unspecified place or not applicable; Z23 Encounter for immunization; E78.5 Hyperlipidemia, unspecified; I10 Essential (primary) hypertension; J44.9 Chronic obstructive pulmonary disease, unspecified; F17.210 Nicotine dependence, cigarettes, uncomplicated; Z79.899 Other long term (current) drug therapy; I25.10 Atherosclerotic heart disease of native coronary artery without angina pectoris
CPT/HCPCS: 73000; 73030; 90471; 90715; 99202; G0463

== ENCOUNTER → 2021-10-25 09:32 | Outpatient (CLI) | payer MEDICARE, SELFPAY ==
--- NOTE | 2021-10-25 09:40 | XR_ITS ---
FINAL REPORT CLINICAL HISTORY: hip pain FINDINGS: RIGHT HIP 3 views were obtained. There is no acute fracture or dislocation. There are mild degenerative changes of both hips and the lower lumbar spine. There are mild vascular calcifications. Postoperative changes are seen in the medial left thigh. IMPRESSION: Degenerative changes with no acute bony abnormality. Reviewed, Interpreted and Dictated by Shiv Rico III, MD Transcribed by Romina Blankenship Authenticated by Shiv Rico III, MD on 10/25/2021 01:37:[address] [facility]
== END ==
PROVIDERS: Visit Provider Orthopaedic Surgery
DX: M25.551 Pain in right hip (principal)
CPT/HCPCS: 73502

== ENCOUNTER 2022-09-19 13:44 | Emergency (ER) | payer MEDICARE, SELFPAY ==
--- NOTE | 2022-09-19 14:01 | EXP.UTC ---
Discharge Plan Disposition Patient Disposition: Home, Self-Care Condition: Good Prescriptions Prescriptions: New prednisone 10 mg tablet 10 mg PO DIRECTED 9 Days Qty: 21 0RF Rx Instructions: Take 4 tablets daily for 3 days, then take 2 tablets daily for 3 days, then take 1 tablet daily for 3 days, then stop. azithromycin [Zithromax] 250 mg tablet 250 mg PO UD DOSE PK Qty: 6 0RF Rx Instructions: Take two (2) tablets today, then one (1) tablet days #2 thru #5 No Action oxycodone 5 mg tablet 5 mg PO QHS Qty: 14 0RF albuterol sulfate 90 mcg/actuation HFA aerosol inhaler 2 inh inhalation Q4HP PRN (Reason: SHORTNESS OF AIR) Qty: 18 2RF aspirin 81 mg tablet,delayed release (DR/EC) See Rx Instructions .ROUTE .COMPLEX Qty: 90 3RF Dose Instruction: TAKE ONE TABLET BY MOUTH ONCE A DAY FOR HEART DISEASE Rx Instructions: TAKE ONE TABLET BY MOUTH ONCE A DAY FOR HEART DISEASE atorvastatin 40 mg tablet 40 mg PO HS Qty: 90 0RF clopidogrel 75 mg tablet 75 mg PO DAILY Qty: 90 0RF Breo Ellipta 100-25 mcg/dose blister with device See Rx Instructions .ROUTE .COMPLEX Qty: 28 3RF Dose Instruction: INHALE 1 PUFF BY MOUTH ONCE A DAY Rx Instructions: INHALE 1 PUFF BY MOUTH ONCE A DAY loratadine 10 mg tablet 10 mg PO DAILY Qty: 90 0RF montelukast 10 mg tablet 10 mg PO HS Qty: 90 0RF pantoprazole 40 mg tablet,delayed release (DR/EC) See Rx Instructions .ROUTE .COMPLEX Qty: 90 0RF Dose Instruction: TAKE ONE TABLET BY MOUTH ONCE A DAY FOR GERD Rx Instructions: TAKE ONE TABLET BY MOUTH ONCE A DAY FOR GERD paroxetine HCl 20 mg tablet 20 mg PO DAILY Qty: 90 0RF isosorbide mononitrate 60 mg tablet extended release 24 hr 60 mg PO DAILY Qty: 90 3RF amlodipine 5 mg tablet 5 mg PO DAILY Qty: 90 3RF albuterol sulfate 2.5 mg /3 mL (0.083 %) solution for nebulization 2.5 mg INHALATION QIDP PRN (Reason: Shortness Of Breath) Qty: 180 4RF carvedilol 3.125 mg tablet See Rx Instructions .ROUTE .COMPLEX Qty: 180 0RF Dose Instruction: TAKE ONE TABLET BY MOUTH 2 TIMES A DAY FOR HYPERTENSION Rx Instructions: TAKE ONE TABLET BY MOUTH 2 TIMES A DAY FOR HYPERTENSION cyclobenzaprine 10 mg tablet See Rx Instructions .ROUTE .COMPLEX Qty: 60 2RF Dose Instruction: TAKE ONE TABLET BY MOUTH 2 TIMES A DAY Rx Instructions: TAKE ONE TABLET BY MOUTH 2 TIMES A DAY ibuprofen 600 MG tablet 600 mg PO Q6HP PRN (Reason: Moderate Pain) Qty: 20 0RF mupirocin 22 GM ointment 1 applicatio TP TID 7 Days Qty: 1 0RF Referrals Follow up/Referrals: Provider,Referral, MD [Primary Care Provider] - See instructions Activity Restrictions/Add. Instructions Additional Instructions/Restrictions: Drink plenty of fluids. Take tylenol or ibuprofen for pain or fever. Take the medications as directed. Follow up with your regular doctor. GO TO THE ER FOR ANY WORSENING SYMPTOMS Don't start the oral steroids until tomorrow, since you had the shot here today. Clinical Impressions Clinical Impression: Otitis media Instructions Patient Instructions: Middle Ear Infection Discharge ED [place]: Gurvinder Barron [facility] [place] General Stated complaint: Rt ear and jaw pain Time Seen by Provider: 09/19/22 14:01 History of Present Illness Provider Complaint: He states that for the past 3 days he has had worsening bilateral ear pain and sinus congestion Related Data Previous Rx's Medication Instructions Recorded oxycodone 5 mg tablet 5 mg PO QHS #14 tabs 01/19/20 ibuprofen 600 mg tablet 600 mg PO Q6HP PRN Moderate Pain 04/15/20 #20 tabs albuterol sulfate 90 mcg/actuation 2 inh inhalation Q4HP PRN 06/13/20 aerosol inhaler SHORTNESS OF AIR #18 grams amlodipine 5 mg tablet 5 mg PO DAILY Hypertension #90 tabs 06/13/20 aspirin 81 mg tablet,delayed See Rx Instructions .Route 06/13/20 release .COM
[2022-09-19 14:35] VITALS: BP 149/92; PULSE 79; RESP 20; TEMP 36.7; O2SAT 100; BMI 25.0
[2022-09-19 15:37] VITALS: BP 149/92; PULSE 79; RESP 20; TEMP 36.7; O2SAT 100
== END 2022-09-19 15:37 | disposition home or self-care (01) ==
PROVIDERS: Emergency Provider Nurse Practitioner Family
DX: H66.93 Otitis media, unspecified, bilateral (principal); R68.84 Jaw pain; R50.9 Fever, unspecified; F17.210 Nicotine dependence, cigarettes, uncomplicated; I10 Essential (primary) hypertension; E78.5 Hyperlipidemia, unspecified
CPT/HCPCS: 96372; 99212; 99214; G0463

== ENCOUNTER → 2022-10-02 13:08 | Outpatient (CLI) | payer MEDICARE, SELFPAY ==
[2022-10-02 14:36] LABS: Basophils # 0.1 K/mm3 (0-0.2); Basophils % 1.3 % (0.1-2.0); Eosinophils # 0.1 K/mm3 (0.0-0.4); Eosinophils % 1.2 % (0.1-12.0); Hematocrit 53.8 % (42.0-52.0); Lymphocytes # 2.1 K/mm3 (0.7-4.5); Lymphocytes % 32.4 % (10-50); Mean Corpuscular HGB Conc 31.6 g/dL (31.8-35.4); Mean Corpuscular Volume 101.2 fl (80-94); Mean Platelet Volume 8.1 fl (7.4-10.4); Monocytes # 0.5 K/mm3 (0.1-1.0); Monocytes % 7.2 % (1.7-9.3); Neutrophils # 3.7 K/mm3 (1.8-7.8); Platelet Count 298 K/mm3 (142-424); Red Blood Count 5.32 M/mm3 (4.60-6.20); Red Cell Distribution Width 13.7 % (11.5-17.5); White Blood Count 6.4 K/mm3 (4.8-10.8)
[2022-10-02 15:10] LABS: Alanine Aminotransferase 19 U/L (12-78); Albumin Level 4.4 g/dl (3.5-5.0); Alkaline Phosphatase 44 U/L (38-126); Anion Gap 9.7 mEq/L (5-15); Aspartate Amino Transferase 25 U/L (17-59); Bilirubin,Indirect 0.8 mg/dL (0.0-0.9); Bilirubin,Total 0.8 mg/dl (0.2-1.3); Bilirubin,Unconjugated 0.9 mg/dL (0.0-1.1); Blood Urea Nitrogen 19 mg/dl (9-20); Calcium 8.4 mg/dl (8.4-10.2); Carbon Dioxide 29 mmol/L (22.0-30.0); Chloride 102 mmol/L (98-107); Chol/HDL Ratio 3.9 (1-3.5); Cholesterol 216 mg/dl (140-200); Estimated Glomerular Filt Rate 113 ml/min (>60); GFR (African American) 137 ML/MIN (>60); Glucose 84 mg/dl (74-100); HDL Cholesterol 55 mg/dl (40-60); Magnesium 2.3 mg/dl (1.6-2.3); Potassium 4.7 mmoL/L (3.5-5.1); Sodium 136 mmol/L (136-145); Total Protein,Serum 7.1 g/dl (6.3-8.2); Triglycerides 128 mg/dl (30-150); VLDL Cholesterol 26 mg/dL (0-40)
[2022-10-02 15:21] LABS: Direct LDL Cholesterol 140.86 mg/dL (100-129)
[2022-10-02 15:26] LABS: Free T4 (Free Thyroxine) 0.96 ng/dl (0.78-2.19)
[2022-10-02 15:40] LABS: Thyroid Stimulating Hormone 1.22 uIU/mL (0.465-4.68)
== END ==
PROVIDERS: Visit Provider Physician Assistant
DX: F10.10 Alcohol abuse, uncomplicated (principal); I25.10 Atherosclerotic heart disease of native coronary artery without angina pectoris; Z01.818 Encounter for other preprocedural examination; Z95.1 Presence of aortocoronary bypass graft; I10 Essential (primary) hypertension; F17.200 Nicotine dependence, unspecified, uncomplicated; J44.9 Chronic obstructive pulmonary disease, unspecified
CPT/HCPCS: 36415; 80048; 80061; 80076; 83735; 84439; 84443; 85025

== ENCOUNTER → 2022-10-05 12:16 | Outpatient (CLI) | payer MEDICARE, MEDICAID, SELFPAY ==
--- NOTE | 2022-10-05 12:23 | US_ITS ---
FINAL REPORT CLINICAL HISTORY: current smoker, history of CABG, hyperlipidemia, previous angioplasty, bilateral claudication, bilateral rest pain. FINDINGS: ANKLE-BRACHIAL PRESSURE INDICES Pressure indices are as follows: RIGHT LOWER EXTREMITY: Ankle-brachial pressure index: 0.7 Comments: Abnormally low LEFT LOWER EXTREMITY: Ankle-brachial pressure index: 1.1 Comments: Normal CONCLUSION: 1. Abnormally low ROSIO on the right suggesting mild to moderate peripheral arterial disease. 2. No evidence of significant obstructive peripheral vascular disease of the left lower extremity. Reviewed, Interpreted and Dictated by Kait Phillips MD Transcribed by Afsaneh Lion Authenticated and [facility]
== END ==
PROVIDERS: Visit Provider Physician Assistant
DX: R94.31 Abnormal electrocardiogram [ECG] [EKG] (principal); I70.213 Atherosclerosis of native arteries of extremities with intermittent claudication, bilateral legs
CPT/HCPCS: 93306; 93923

== ENCOUNTER → 2022-10-25 10:59 | Outpatient (CLI) | payer MEDICARE, MEDICAID, SELFPAY ==
--- NOTE | 2022-10-25 11:05 | XR_ITS ---
FINAL REPORT CLINICAL HISTORY: neck pain FINDINGS: CERVICAL SPINE Four views were obtained. There is no acute fracture. There is no malalignment. There are moderate degenerative changes in the lower cervical spine with multilevel osteophytes. There is mild bilateral C6-7 and right C5-6 neural foraminal narrowing. There is a calcification posterior to C5. There is no soft tissue abnormality. IMPRESSION: Degenerative changes with no acute bony abnormality. Reviewed, Interpreted and Dictated by Shiv Rico III, MD Transcribed by Afsaneh Lion Authenticated and [facility]
== END ==
PROVIDERS: PCP Family Medicine; Visit Provider Family Medicine
DX: M54.10 Radiculopathy, site unspecified (principal); M54.2 Cervicalgia
CPT/HCPCS: 72050

== ENCOUNTER 2022-11-06 11:59 | Observation (INO) | payer MEDICARE, MEDICAID, SELFPAY ==
[2022-11-06] VITALS (34 sets, daily range): BP systolic 105–159; BP diastolic 58–93; PULSE 59–79; RESP 15–18; TEMP 36.6–36.8; O2SAT 92–100; BMI 25.7
--- NOTE | 2022-11-06 07:06 | IR_ITS ---
APPROVED REPORT Patient Location: Outpatient PROCEDURES Right femoral arterial access Catheter placement in the abdominal aorta Abdominal aortography with bilateral iliofemoral angiogram Left femoral arterial access Intravascular lithotripsy to the right common iliac artery Bare-metal stent deployment to the distal abdominal aorta extending into the right common iliac artery Bare-metal stent deployment to the distal abdominal aorta extending into the left common iliac artery Reconstruction of the abdominal aortic INDICATION Chronically occluded right common iliac artery, Abnormal ROSIO, Adolfo claudication class III, Severe distal abdominal aortic stenosis, Informed consent was obtained prior to the procedure. COMPLICATIONS None Estimated Blood Loss: Less than 10mls TECHNIQUE 1% lidocaine used anesthetize the left groin left femoral artery was accessed via the Salinger technique and a 5 Turkish sheath is placed in the left femoral artery. A pigtail catheter was advanced to the distal abdominal aorta and abdominal aortography was performed. The catheter was then repositioned and bilateral iliofemoral angiography was performed. Following this 1% lidocaine was used anesthetize the right groin and the right femoral artery was accessed via the Salinger technique. A 7 Turkish sheath was placed in the right femoral artery. Therapeutic heparin was administered giving a therapeutic ACT and a long advantage wire was advanced through the chronically occluded right common iliac artery with the assistance of a trailblazer. The catheter and wire were pushed through the occlusion into the lumen of the distal abdominal aorta. Following this two 8 mm x 57 mm balloon mounted stents were placed in the distal abdominal aorta extending into the right and left common iliac artery respectively. Both stents were deployed at 12 crow. Following this an additional 8 mm x 60 mm self-expanding stent was then placed in the distal portion of the right common iliac artery extending just proximal to the right internal iliac artery and then deployed. An 8 mm x 40 mm balloon was then advanced and deployed at 12 crow to post dilate. Excellent angiographic results were obtained and the apparatus was removed the patient was transferred the postop putting in stable condition ANGIOGRAPHIC RESULTS Bilateral renal arteries are singular normal Distal abdominal aorta is heavily moderately calcified and atheromatous Right common iliac artery is chronically occluded Right internal and external iliac arteries are patent Right common femoral artery is atheromatous and patent with 30% stenosis Left common iliac artery has a concentric ostial 60 to 70% stenosis while the left internal iliac artery is patent as is the left external iliac artery. Left common femoral artery has mild atheromatous plaque IMPRESSION Peripheral artery disease as described above Successful reconstruction of the distal abdominal aorta as described above Successful stenting of the right common iliac artery 10 percent occlusion reduced to 0% with 2 bare-metal stents 1 balloon mounted and the other one self-expanding as described above PLAN 1. Dual antiplatelet therapy 2. LDL less than 55 but she with high intensity statin 3. Avoidance of tobacco products 4. Risk factor modification 5. Admission overnight due to bilateral 7 Turkish sheaths 6. Evaluation for ischemic heart disease if this has not already been obtained Electronically signed by : Sergio Zapien MD 11/06/2022 13:19:33
[2022-11-06 09:04] LABS: Basophils # 0.1 K/mm3 (0-0.2); Basophils % 0.9 % (0.1-2.0); Eosinophils # 0.2 K/mm3 (0.0-0.4); Eosinophils % 2.8 % (0.1-12.0); Hematocrit 48.5 % (42.0-52.0); Lymphocytes # 2.4 K/mm3 (0.7-4.5); Lymphocytes % 36.4 % (10-50); Mean Corpuscular HGB Conc 32.9 g/dL (31.8-35.4); Mean Corpuscular Hemoglobin 32.6 pg (27.0-31.2); Mean Platelet Volume 7.1 fl (7.4-10.4); Monocytes # 0.4 K/mm3 (0.1-1.0); Monocytes % 5.9 % (1.7-9.3); Neutrophils # 3.5 K/mm3 (1.8-7.8); Neutrophils % 54.1 % (37.0-80.0); Platelet Count 282 K/mm3 (142-424); White Blood Count 6.5 K/mm3 (4.8-10.8)
[2022-11-06 09:09] LABS: Chloride 100 mmol/L (98-107); Sodium 140 mmol/L (136-145)
[2022-11-06 09:12] LABS: Blood Urea Nitrogen 11 mg/dl (9-20); Creatinine Clearance Estimated 80 mL/min (50-200); Estimated Glomerular Filt Rate 97 ml/min (>60); GFR (African American) 117 ML/MIN (>60)
[2022-11-06 09:13] LABS: Calcium 8.7 mg/dl (8.4-10.2); Carbon Dioxide 27 mmol/L (22.0-30.0); Glucose 99 mg/dl (74-100)
[2022-11-06 13:48] LABS: CATHL Activated Clotting Time 326 SEC (74-125)
--- NOTE | 2022-11-06 14:24 | EXP.HP ---
History of Present Illness *Admission Date: 11/06/22 *Reason for visit:: PAD, post procedural monitoring *History of present illness: Patient is a 67-year-old male with history of tobacco use, alcohol dependence, and significant peripheral artery disease. Taken to the [facility] Support Specialist earlier today for stenting of iliac and femoral arteries to treat peripheral artery disease. No complications during procedure. However given the need for observation, extensive use of contrast, and need for patient to lay flat for an extended period of time, cardiology requested admission for observation overnight and close monitoring with serial labs in the morning. Patient denies any chest pain or shortness of breath. Does complain of some back pain lying flat. He is hemodynamically stable at the time of evaluation. On room air. [facility] Disclaimer: The information contained in this section may have been updated after the patient was seen, as this information can be updated by other users. Medical History Arteriosclerosis of coronary artery Chest pain Chronic obstructive pulmonary disease COPD (chronic obstructive pulmonary disease) Coronary artery disease Dehydration Diastolic dysfunction Eustachian tube dysfunction Hearing loss Hyperlipidemia Hypertension Otalgia, right ear Pulmonary hypertension Recurrent falls Rheumatoid arthritis Tinnitus TMJ dysfunction Surgical History History of coronary artery bypass surgery Hx of tonsillectomy S/P colonoscopy Family History Diabetes Father Coronary artery disease Father Hyperlipidemia Father Heart attack Father Cancer Mother Stroke Mother Social History Smoking Status: Current every day smoker tobacco type: cigarettes packs per day: 1 years smoked: 57 alcohol intake: current substance use type: marijuana current occupational status: other Travel in the last 8 weeks: None household members: none housing: other marital status: number of children: 3 caffeine: Yes Review of Systems Review of Systems Review of systems (narrative): 14 point review of systems performed, pertinent positives and negatives as per [facility] Meds Home Medications and Allergies Home Medications Medication Instructions Recorded Confirmed Type calcium carbonate 600 mg calcium 600 mg PO DAILY . 10/05/22 11/06/22 History (1,500 mg) tablet (Calcium) cyanocobalamin (vitamin B-12) 1,000 mcg PO DAILY . 10/05/22 11/06/22 History 1,000 mcg tablet,extended release (Vitamin B-12 ER) multivitamin 1 tab PO DAILY . 10/05/22 11/06/22 History nitroglycerin 0.4 mg sublingual 0.4 mg sublingual Q5M PRN chest 10/11/22 11/06/22 Rx tablet pain #20 tabs ascorbic acid (vitamin C) 500 mg 500 mg PO DAILY Supplement 10/25/22 11/06/22 History tablet,extended release methocarbamol 750 mg tablet 750 mg PO Q8H PRN neck pain #60 10/25/22 11/06/22 Rx tabs Saccharomyces boulardii 250 mg 250 mg PO DAILY . 11/02/22 11/06/22 History capsule (Daily Probiotic (S. boulardii)) vitamin E (dl, acetate) 450 mg 600 mg PO DAILY . 11/02/22 11/06/22 History (1,000 unit) capsule aspirin 81 mg tablet,delayed See Rx Instructions .Route 11/06/22 11/06/22 History release .COMPLEX . atorvastatin 40 mg tablet (Lipitor) 40 mg PO DAILY . 11/06/22 11/06/22 History clopidogrel 75 mg tablet (Plavix) 75 mg PO DAILY 30 days #30 tabs 11/06/22 Rx desloratadine 5 mg tablet 5 mg PO DAILY . 11/06/22 11/06/22 History fluticasone propionate 50 2 spray intranasal DAILY . 11/06/22 11/06/22 History mcg/actuation nasal spray,suspension (Flonase Allergy Relief) New Prescriptions to Start Prescriptions: clopidogrel [Plavix] Sergio Zapien Allergies Allergy/AdvReac Type Se
[2022-11-06 16:20] LABS: Coronavirus 19, PCR Not Detected (NotDetected); Influenza A, PCR Not Detected (NotDetected); Influenza B, PCR Not Detected (NotDetected)
--- NOTE | 2022-11-06 18:10 | PC.NURSE ---
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 He is alert and oriented x4. Lungs are clear, he remains on RA. Dressings to right and left groin are clean, dry and intact. Some dried blood noted to skin under dressings. +1 bilateral pedal pulses noted. He reports chronic back pain that is rated never less than an 8. . MD notified. PRN pain meds ordered and administered x1. Pt was resting with his eyes closed on reassessment. He is currently lying in bed with his significant other at the bedside. His bed is locked and in the lowest position, call light is within reach.
[2022-11-07] VITALS: BP 128/76; PULSE 83; PULSE 84; RESP 18; TEMP 37.2; O2SAT 95
[2022-11-07 04:00] VITALS: BP 112/74; PULSE 73; PULSE 79; RESP 18; TEMP 37.1; O2SAT 97; BMI 25.6
--- NOTE | 2022-11-07 04:56 | PC.NURSE ---
Pt c/o pain 8/10 in bilateral groin sites, prn norco administered per SEP. Upon reassessment pt resting quietly with eyes closed.
[2022-11-07 06:47] LABS: Basophils # 0.1 K/mm3 (0-0.2); Basophils % 0.5 % (0.1-2.0); Eosinophils # 0.1 K/mm3 (0.0-0.4); Eosinophils % 1.6 % (0.1-12.0); Lymphocytes # 2.2 K/mm3 (0.7-4.5); Lymphocytes % 23.1 % (10-50); Mean Corpuscular Hemoglobin 31.8 pg (27.0-31.2); Mean Corpuscular Volume 99.4 fl (80-94); Mean Platelet Volume 7.1 fl (7.4-10.4); Monocytes # 0.9 K/mm3 (0.1-1.0); Monocytes % 9.6 % (1.7-9.3); Neutrophils # 6.1 K/mm3 (1.8-7.8); Neutrophils % 65.2 % (37.0-80.0); Platelet Count 260 K/mm3 (142-424); Red Blood Count 4.73 M/mm3 (4.60-6.20); Red Cell Distribution Width 12.8 % (11.5-17.5); White Blood Count 9.3 K/mm3 (4.8-10.8)
[2022-11-07 06:53] LABS: Chloride 98 mmol/L (98-107); Sodium 136 mmol/L (136-145)
[2022-11-07 06:55] LABS: Blood Urea Nitrogen 11 mg/dl (9-20); Creatinine Clearance Estimated 80 mL/min (50-200); Estimated Glomerular Filt Rate 85 ml/min (>60); GFR (African American) 102 ML/MIN (>60)
[2022-11-07 06:56] LABS: Alanine Aminotransferase 18 U/L (12-78); Albumin/Globulin Ratio 1.5 (1.1-1.8); Alkaline Phosphatase 49 U/L (38-126); Aspartate Amino Transferase 22 U/L (17-59); Bilirubin,Total 0.6 mg/dl (0.2-1.3); Calcium 8.4 mg/dl (8.4-10.2); Carbon Dioxide 29 mmol/L (22.0-30.0); Globulin 2.7 g/dL (1.3-3.2); Glucose 98 mg/dl (74-100); Total Protein,Serum 6.7 g/dl (6.3-8.2)
--- NOTE | 2022-11-07 07:37 | HMH.PHAINT1 ---
Pharmacy Intervention Comments: MEDICATION RECONCILIATION COMPLETED ON PATIENT USING EXTERNAL FILL HISTORY FROM PHARMACY AND LIST FROM PCP OFFICE. -MON[place]NA CALHOUN, AVINASHD
--- NOTE | 2022-11-07 07:43 | EXP.DC.SUM ---
General Admission date:: 11/06/22 Discharge date: 11/07/22 HPI HPI HPI: Patient is a 67-year-old male with history of tobacco use, alcohol dependence, and significant peripheral artery disease. Taken to the [facility] Phys[facility] earlier today for stenting of iliac and femoral arteries to treat peripheral artery disease. No complications during procedure. However given the need for observation, extensive use of contrast, and need for patient to lay flat for an extended period of time, cardiology requested admission for observation overnight and close monitoring with serial labs in the morning. Patient denies any chest pain or shortness of breath. Does complain of some back pain lying flat. He is hemodynamically stable at the time of evaluation. On room air. Hospital Course Hospital Course Hospital Course: 67-year-old male admitted for monitoring after stenting lower extremities for peripheral artery disease.? Problems addressed as follows: Peripheral artery disease Hypertension Hyperlipidemia -Successful reconstruction of distal abdominal aorta and stenting of right common iliac artery. Continue Plavix and aspirin. History of coronary artery disease. Denies any chest pain at this time. No plan for invasive left heart cath. Continue statin for cholesterol control. LDL goal less than 55. Repeat labs when follows up with cardiology. Discussed tobacco cessation. Patient is a daily smoker and does not have any plan to quit at this time. Kidney function remained stable during admission. Creatinine 0.9 on day of discharge. Plan to follow-up with cardiology in 1 to 2 weeks for repeat labs and reevaluation. Stable for discharge home. Alcohol dependence: Daily drinker, monitored for signs of withdrawal during admission. No signs of tremor or withdrawal symptoms. Exam Data for Last 24 hours Vital signs and Labs for Last 24 Hours: Temp Pulse Resp BP Pulse Ox 98.7 F 79 18 112/74 97 11/07/22 04:00 11/07/22 04:00 11/07/22 04:00 11/07/22 04:00 11/07/22 04:00 Laboratory Results - last 24 hr 11/06/22 09:00: WBC 6.5, RBC 4.90, Hgb 16.0, Hct 48.5, MCV 99.0 H, MCH 32.6 H, MCHC 32.9, RDW 13.0, Plt Count 282, MPV 7.1 L, Neut % (Auto) 54.1, Lymph % (Auto) 36.4, Florence % (Auto) 5.9, Eos % (Auto) 2.8, Baso % (Auto) 0.9, Neut # (Auto) 3.5, Lymph # (Auto) 2.4, Florence # (Auto) 0.4, Eos # (Auto) 0.2, Baso # (Auto) 0.1 11/06/22 09:00: Sodium 140, Potassium 4.0, Chloride 100, Carbon Dioxide 27, Anion Gap 17.0 H, BUN 11, Creatinine 0.80, Estimated Creat Clear 80, Estimated GFR 97, Est GFR ( Amer) 117, Glucose 99, Calcium 8.7 11/06/22 11:31: Activated Clotting Time 326 H* 11/06/22 16:00: SARS-CoV-2 (PCR) Not detected, Influenza A Untype (PCR) Not detected, Influenza Type B (PCR) Not detected 11/07/22 05:44: WBC 9.3 D, RBC 4.73, Hgb 15.0, Hct 47.0, MCV 99.4 H, MCH 31.8 H, MCHC 32.0, RDW 12.8, Plt Count 260, MPV 7.1 L, Neut % (Auto) 65.2, Lymph % (Auto) 23.1, Florence % (Auto) 9.6 H, Eos % (Auto) 1.6, Baso % (Auto) 0.5, Neut # (Auto) 6.1, Lymph # (Auto) 2.2, Florence # (Auto) 0.9, Eos # (Auto) 0.1, Baso # (Auto) 0.1 11/07/22 05:44: Sodium 136, Potassium 4.0, Chloride 98, Carbon Dioxide 29, Anion Gap 13.0, BUN 11, Creatinine 0.90, Estimated Creat Clear 80, Estimated GFR 85, Est GFR ( Amer) 102, Glucose 98, Calcium 8.4, Magnesium 2.0, Total Bilirubin 0.6, AST 22, ALT 18, Alkaline Phosphatase 49, Total Protein 6.7, Albumin 4.0, Globulin 2.7, Albumin/Globulin Ratio 1.5 I & O for Last 24 hours: Intake & Output 11/04/22 11/05/22 11/06/22 11/07/22 23:59 23:59 23:59 23:59 Intake Total 240 / 240 Output Total 1125 / 1125 0 / 0 Balance -885 / -885 0 / 0 Weight 76.657 kg 76.6 kg Constitutional Constitutional: no acute distress and average body habitus *Routine HEENT Exam Head: Present normocephalic Eye: Present EOMI and PERRL ENT: Present mucous membranes moist *Routine Neck Exam Neck: Present supple; Absent lymphadenopathy *Routine Resp
[2022-11-07 08:00] VITALS: BP 124/71; PULSE 79; PULSE 80; RESP 18; TEMP 36.8; O2SAT 95
--- NOTE | 2022-11-07 08:28 | SW/DCPLANNER ---
I have provided a resource list to this patient and his family. Patient/family had no further questions at this time.
--- NOTE | 2022-11-07 10:18 | EXP.CARD.PN ---
Subjective Subjective Date: 11/07/22 Time: 08:30 Principal diagnosis: PAD s/p stenting Interval history: This is a 67-year-old white gentleman who presented to [facility] for outpatient runoff. The patient underwent reconstruction of the distal abdominal aorta and stenting to the right common iliac artery. The patient tolerated the procedure well. However, he was given an excessive amount of contrast and was kept overnight to get IV fluids to avoid contrast nephropathy. This morning the patient denies any chest pain or pressure. He denies any shortness of breath or edema. He denies any fever, chills, nausea, vomiting, diarrhea, PND orthopnea. He denies any leg pain at this time. Exam Data for Last 24 hours Vital signs and Labs for Last 24 Hours: Temp Pulse Resp BP Pulse Ox 98.2 F 79 18 124/71 95 11/07/22 08:00 11/07/22 08:00 11/07/22 08:00 11/07/22 08:00 11/07/22 08:00 Laboratory Results - last 24 hr 11/06/22 11:31: Activated Clotting Time 326 H* 11/06/22 16:00: SARS-CoV-2 (PCR) Not detected, Influenza A Untype (PCR) Not detected, Influenza Type B (PCR) Not detected 11/07/22 05:44: WBC 9.3 D, RBC 4.73, Hgb 15.0, Hct 47.0, MCV 99.4 H, MCH 31.8 H, MCHC 32.0, RDW 12.8, Plt Count 260, MPV 7.1 L, Neut % (Auto) 65.2, Lymph % (Auto) 23.1, Noble % (Auto) 9.6 H, Eos % (Auto) 1.6, Baso % (Auto) 0.5, Neut # (Auto) 6.1, Lymph # (Auto) 2.2, Noble # (Auto) 0.9, Eos # (Auto) 0.1, Baso # (Auto) 0.1 11/07/22 05:44: Sodium 136, Potassium 4.0, Chloride 98, Carbon Dioxide 29, Anion Gap 13.0, BUN 11, Creatinine 0.90, Estimated Creat Clear 80, Estimated GFR 85, Est GFR ( Amer) 102, Glucose 98, Calcium 8.4, Magnesium 2.0, Total Bilirubin 0.6, AST 22, ALT 18, Alkaline Phosphatase 49, Total Protein 6.7, Albumin 4.0, Globulin 2.7, Albumin/Globulin Ratio 1.5 I & O for Last 24 hours: Intake & Output 11/04/22 11/05/22 11/06/22 11/07/22 23:59 23:59 23:59 23:59 Intake Total 240 / 240 480 / 480 Output Total 1125 / 1125 0 / 0 Balance -885 / -885 480 / 480 Weight 169 lb 168 lb 13.985 oz Constitutional Constitutional: no acute distress and average body habitus *Routine HEENT Exam Head: Present normocephalic and atraumatic ENT: Present mucous membranes moist *Routine Neck Exam Neck: Present supple, full ROM and normal carotid upstroke; Absent JVD, carotid bruit or lymphadenopathy *Routine Respiratory Exam Respiratory: Present CTA bilaterally, normal respiratory effort, able to speak in complete sentences and symmetric chest movement *Routine Cardiovascular Exam Cardiovascular: Present RRR, Normal S1 and Normal S2; Absent murmur or gallop *Routine Abdominal Exam Abdominal: Present soft and normoactive bowel sounds; Absent tenderness, distended or organomegaly *Routine Extremities Exam Extremities: Present full ROM, pulses intact and normal capillary refill; Absent cyanosis, clubbing or edema *Routine Skin Exam Skin: Present intact and warm; Absent erythema *Routine Neurological Exam Neurological: Present alert, oriented X3 and CN II-XII intact; Absent sensory deficit or motor deficit Routine Psychiatric Exam Psychiatric: Present normal affect Progress Note: A&P Assessment and plan (1) Peripheral arterial disease: Status: Acute (2) Hypertensive disorder: Status: Chronic (3) Hyperlipidemia: Status: Chronic (4) History of coronary artery bypass graft: Status: Chronic (5) Coronary artery disease: Status: Chronic (6) Chronic obstructive airway disease: Status: Chronic (7) Tobacco dependence syndrome: Status: Chronic Assessment and Plan Assessment and Plan for All Diagnoses:: Plan: 1. This is a 67-year-old gentleman who presented to the hospital to undergo runoff. The patient had reconstruction of the distal abdominal aorta and stenting to the right common iliac artery. The patient will be on Plavix and aspirin for dual antiplatelet therapy. 2. The patient does
--- NOTE | 2022-11-09 10:53 | CARE MANAGER ---
Attempted to contact patient x2 related to hospital discharge. No VM option. NEHA Gutierrez
== END 2022-11-07 11:17 | disposition home or self-care (01) ==
LOC: 2ND 12:00
PROVIDERS: Internal Medicine; Admitting Provider Internal Medicine Adolescent Medicine; PCP Family Medicine; Visit Provider Internal Medicine Adolescent Medicine
DX: I10 Essential (primary) hypertension (principal); F17.210 Nicotine dependence, cigarettes, uncomplicated; Z95.1 Presence of aortocoronary bypass graft; J44.9 Chronic obstructive pulmonary disease, unspecified; I25.10 Atherosclerotic heart disease of native coronary artery without angina pectoris; I77.1 Stricture of artery; I70.211 Atherosclerosis of native arteries of extremities with intermittent claudication, right leg; Z79.899 Other long term (current) drug therapy; R29.6 Repeated falls; I27.20 Pulmonary hypertension, unspecified; Z20.822 Contact with and (suspected) exposure to COVID-19; I77.811 Abdominal aortic ectasia
CPT/HCPCS: G0378; 36415; 37221; 80048; 80053; 83735; 85025; 85347; 99152; 99153; C1725; C1769; C1876; C1894; C9765; C9803; J1644; J2720; Q9967; U0003; U0005

== ENCOUNTER → 2022-11-13 13:13 | Outpatient (CLI) | payer MEDICARE, MEDICAID, SELFPAY ==
[2022-11-13 14:24] LABS: Alanine Aminotransferase 18 U/L (12-78); Albumin Level 3.9 g/dl (3.5-5.0); Albumin/Globulin Ratio 1.5 (1.1-1.8); Alkaline Phosphatase 51 U/L (38-126); Anion Gap 15.1 mEq/L (5-15); Aspartate Amino Transferase 23 U/L (17-59); Bilirubin,Total 0.6 mg/dl (0.2-1.3); Blood Urea Nitrogen 12 mg/dl (9-20); Calcium 8.4 mg/dl (8.4-10.2); Carbon Dioxide 27 mmol/L (22.0-30.0); Chloride 101 mmol/L (98-107); Chol/HDL Ratio 2.6 (1-3.5); Cholesterol 131 mg/dl (140-200); Estimated Glomerular Filt Rate 113 ml/min (>60); GFR (African American) 137 ML/MIN (>60); Globulin 2.6 g/dL (1.3-3.2); Glucose 93 mg/dl (74-100); HDL Cholesterol 51 mg/dl (40-60); Potassium 4.1 mmoL/L (3.5-5.1); Sodium 139 mmol/L (136-145); Total Protein,Serum 6.5 g/dl (6.3-8.2); Triglycerides 83 mg/dl (30-150); VLDL Cholesterol 17 mg/dL (0-40)
[2022-11-13 14:26] LABS: Basophils # 0.1 K/mm3 (0-0.2); Basophils % 0.6 % (0.1-2.0); Eosinophils # 0.5 K/mm3 (0.0-0.4); Eosinophils % 6.8 % (0.1-12.0); Hematocrit 44.5 % (42.0-52.0); Hemoglobin 14.6 g/dL (14.1-18.0); Lymphocytes # 2.3 K/mm3 (0.7-4.5); Lymphocytes % 28.6 % (10-50); Mean Corpuscular HGB Conc 32.8 g/dL (31.8-35.4); Mean Corpuscular Hemoglobin 32.2 pg (27.0-31.2); Mean Corpuscular Volume 98.1 fl (80-94); Mean Platelet Volume 7.2 fl (7.4-10.4); Monocytes # 0.5 K/mm3 (0.1-1.0); Monocytes % 6.6 % (1.7-9.3); Neutrophils # 4.5 K/mm3 (1.8-7.8); Neutrophils % 57.3 % (37.0-80.0); Platelet Count 342 K/mm3 (142-424); Red Blood Count 4.53 M/mm3 (4.60-6.20); Red Cell Distribution Width 12.7 % (11.5-17.5); White Blood Count 7.9 K/mm3 (4.8-10.8)
[2022-11-13 14:35] LABS: Direct LDL Cholesterol 70.59 mg/dL (100-129)
[2022-11-13 14:54] LABS: Prostate Specific Ag Screen 1.5 ng/ml (0.0-4.0)
== END ==
PROVIDERS: PCP Family Medicine; Visit Provider Family Medicine
DX: I25.10 Atherosclerotic heart disease of native coronary artery without angina pectoris; Z12.5 Encounter for screening for malignant neoplasm of prostate; Z00.00 Encounter for general adult medical examination without abnormal findings; M54.9 Dorsalgia, unspecified
CPT/HCPCS: 36415; 80053; 80061; 85025; G0103

== ENCOUNTER → 2022-11-14 12:55 | Outpatient (CLI) | payer MEDICARE, MEDICAID, SELFPAY ==
[2022-11-14 12:58] LABS: Microscopic, Urine URINE MICROSCOPIC (MICROSCOPIC)
[2022-11-14 13:10] LABS: Appearance,Urine CLEAR (Clear); Bilirubin,Urine Negative (Negative); Blood, Urine Negative (Negative); Color,Urine YELLOW (Yellow); Glucose,Urine (UA) Negative (Negative); Ketones,Urine Negative (Negative); Leukocyte Esterase,Urine Negative (Negative); Nitrate,Urine Negative (Negative); Protein,Urine Negative (Negative); Urobilinogen,Urine 0.2 EU/dl (0.2)
[2022-11-14 13:44] LABS: Bacteria,Urine Trace /lpf; Squamous Epithelial Cell,Urine Occasional #/hpf (0-5)
== END ==
PROVIDERS: PCP Family Medicine; Visit Provider Family Medicine
DX: M54.9 Dorsalgia, unspecified (principal); Z00.00 Encounter for general adult medical examination without abnormal findings
CPT/HCPCS: 81001; 87086

== ENCOUNTER → 2022-11-19 08:30 | Outpatient (CLI) | payer MEDICARE, MEDICAID, SELFPAY ==
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
--- NOTE | 2022-11-19 08:53 | XR_ITS ---
FINAL REPORT TECHNIQUE: Bone densitometry calculations of the lumbar spine and left hip were obtained. CLINICAL HISTORY: back fractures FINDINGS: Using L1-4, the bone mineral density of the spine is 1.069 g/cm2, corresponding to T-score of -0.2. This is within the normal range but likely falsely elevated secondary to hypertrophic changes peer Using the left hip, the bone mineral density of the femoral neck is 0.696 g/cm2, corresponding to a T-score of -1.7. NOTE: T-score: Standard deviation compared with peak bone mass of young adult mean. *Following the recommendations of the International Society of Bone densitometry, classification of hip BMD is based on the lower of two T-scores; total hip or femoral neck. IMPRESSION: Normal bone mineral density of the lumbar spine may be falsely elevated secondary to hypertrophic changes. Low bone density in the left hip. Reviewed, Interpreted and Dictated by Shiv Rico III, MD Transcribed by Romina Blankenship Authenticated and [facility]
== END ==
PROVIDERS: PCP Family Medicine; Visit Provider Family Medicine
DX: Z87.891 Personal history of nicotine dependence (principal); M85.88 Other specified disorders of bone density and structure, other site; Z12.2 Encounter for screening for malignant neoplasm of respiratory organs
CPT/HCPCS: 71271; 77080

== ENCOUNTER → 2022-11-23 13:39 | Outpatient (CLI) | payer MEDICARE, MEDICAID, SELFPAY ==
--- NOTE | 2022-11-23 13:50 | XR_ITS ---
FINAL REPORT CLINICAL HISTORY: bilateral hand pain for awhile, increased last night FINDINGS: Left hand Three views were obtained. There is no acute fracture or dislocation. There are mild degenerative changes. There is chronic calcification lateral to the 1st carpometacarpal joint. A cyst is seen in the distal pole of the scaphoid. IMPRESSION: Degenerative and chronic appearing findings. Reviewed, Interpreted and Dictated by Shiv Rico III, MD Transcribed by Heather Damon Authenticated and [facility]
--- NOTE | 2022-11-23 13:50 | XR_ITS ---
FINAL REPORT CLINICAL HISTORY: bilateral hand pain for awhile, increase last night FINDINGS: Right hand Three views were obtained. There is no acute fracture or dislocation. There are mild and moderate degenerative changes, worst involving the 1st metacarpophalangeal. There is chronic deformity of the distal 5th metacarpal, may represent sequela of prior fracture. There is chronic calcification at the dorsal aspect of the wrist. IMPRESSION: Degenerative and chronic appearing findings. Reviewed, Interpreted and Dictated by Shiv Rico III, MD Transcribed by Heather Damon Authenticated and [facility]
[2022-11-23 14:59] LABS: Uric Acid 5.1 mg/dl (3.5-8.5)
[2022-11-23 15:04] LABS: C-Reactive Protein 2.1 mg/L (0-4)
[2022-11-23 17:17] LABS: Erythrocyte Sedimentation Rate 19 mm/hr (0-20)
[2022-11-25 08:12] LABS: RA Latex Turbid. <10.0 IU/mL (<14.0)
[2022-11-26 15:09] LABS: Anti-Centromere B Antibodies <0.2 AI (0.0-0.9); Anti-DNA (DS) Ab Qn <1 IU/mL (0-9); Anti-Jo-1 <0.2 AI (0.0-0.9); Anti-Smith Antibody <0.2 AI (0.0-0.9); Antichromatin Antibodies <0.2 AI (0.0-0.9); Antiscleroderma-70 Antibodies <0.2 AI (0.0-0.9); RNP Antibodies 0.4 AI (0.0-0.9); Sjogren's Anti-SS-A <0.2 AI (0.0-0.9); Sjogren's Anti-SS-B <0.2 AI (0.0-0.9)
[2022-11-27 12:23] LABS: Antinuclear Antibodies, IFA Negative (.)
== END ==
PROVIDERS: PCP Family Medicine; Visit Provider Family Medicine
DX: M79.641 Pain in right hand (principal); M79.642 Pain in left hand
CPT/HCPCS: 36415; 73130; 84550; 85651; 86038; 86140; 86225; 86235; 86431

== ENCOUNTER → 2022-11-27 11:38 | Outpatient (CLI) | payer MEDICARE, MEDICAID, SELFPAY ==
--- NOTE | 2022-11-27 | CA_ITS ---
APPROVED REPORT Exam: Pharmacologic Technologist: NIC MARTINEZ, Ht: 5 ft 8 in Wt: 174 lbs BSA: 1.93 m2 HR: 63 bpm BP: 154/83 mmHg Rhythm: NSR, incomplete RBBB Indications: CAD SOA ABN EKG OH HTN HLP Medical History Medications: Asa,,,,, Flonase,,,,, Lipitor,,,,, Calcium,,,,, Plavix,,,,, Vit e,,,,, Vit C,,,,, Vit B12,,,,, CoQ10,,,,, Nitro,,,,, Desloratadine,,,,, Methocarbomol,,,,, Cardiac Risk Factors: HTN, Hyperlipidemia, Smoking Stress Test Details Test: LEXISCAN HR Resting HR: 64 bpm Max Heart Rate (APMHR): 155 bpm Max HR Achieved: 83 bpm Target HR (85% APMHR): 132 bpm % of APMHR: 54 Recovery HR: 78 bpm BP Resting BP: 154/83 mmHg Max BP: 154/83 mmHg Recovery BP: 141.0/78.0 mmHg ECG Resting ECG: NSR, incomplete RBBB Stress ECG: No change Clinical Exercise duration: 03:59 min Highest Stage Achieved: Stress ECG Conclusion During lexiscan pt experinced mild stomach discomfort. No CP noted. No arrhythmias noted. No significant ST changes. Unremarkable lexiscan stress. Myoview images reported separately. Test Summary REST . . . . . . . Resting Sitting REST 05:42 . . 64 . 154/ 83 . . Stage 1 01:00 . . 73 . . . . Stage 2 01:00 . . 81 . 143/ 81 . . Stage 3 01:00 . . 79 . 134/ 85 . . Stage 4 00:59 . . 76 . 121/ 79 . Stop exercise at 03:59 RECOVERY 01:00 . . 78 . . . . RECOVERY 02:00 . . 74 . . . . RECOVERY 03:00 . . 75 . 141/ 78 . . RECOVERY 04:00 . . 73 . 141/ 78 . . Electronically signed by : Lolita Small, 11/27/2022 23:40:53
--- NOTE | 2022-11-27 11:38 | NM_ITS ---
APPROVED REPORT Exam: Nuclear Stress Test Indication: soa..fatigue Patient Location: Outpatient Stress Tech: Geneva Escudero [place] Tech:MORENO Song RT (R)(N)(M) Ht: 5 ft 8 in Wt: 173 lbs HR: 63 bpm BP: 154/83 mmHg BSA: 1.92 m2 TID: 1.06 BMI: 26.3 History: soa..fatigue Procedure: Patient received 0.4 mg of intravenous Lexiscan, resting heart rate 63 bpm, resting blood pressure 154/83 mmHg, with Lexiscan maximum heart rate achieved was 81 bpm which is 85 % of the maximum predicted heart rate and blood pressure was 143/81 mmHg. With Lexiscan, patient denied any complaint of chest pain. Cardiac Stress and Resting SPECT Images: Cardiac Stress and Resting SPECT images were obtained using technetium 99m Myoview 32.1 mCi stress and 10.98 mCi at rest. Resting and stress imaging in both supine and prone positions demonstrate a medium-sized, mild, fixed perfusion defect in the basal to mid inferoseptal LV wall. Gated imaging demonstrates a low-normal global LV systolic function. There is mild hypokinesis in the basal to mid inferoseptal LV wall. LVEF is calculated at 50%. There is RV dilation on planar imaging Conclusion: Medium-sized, mild, fixed perfusion defect in the basal to mid inferoseptal LV wall. No evidence of reversible Low-normal global LV systolic function with mild hypokinesis in the basal to mid inferoseptal LV wall. LVEF is calculated at 50%. RV dilation is present Electronically signed by : Lolita Small, 11/27/2022 23:59:18
== END ==
PROVIDERS: PCP Family Medicine; Visit Provider Nurse Practitioner
DX: F17.200 Nicotine dependence, unspecified, uncomplicated (principal); I25.10 Atherosclerotic heart disease of native coronary artery without angina pectoris; I73.9 Peripheral vascular disease, unspecified; R68.89 Other general symptoms and signs; Z01.810 Encounter for preprocedural cardiovascular examination; Z95.1 Presence of aortocoronary bypass graft
CPT/HCPCS: 78452; 93017; 93306; A9502; J2785

== ENCOUNTER 2022-12-27 08:19 | Day surgery (SDC) | payer MEDICARE, MEDICAID, SELFPAY ==
[2022-12-27] VITALS (16 sets, daily range): BP systolic 115–154; BP diastolic 70–91; PULSE 62–75; RESP 16–18; O2SAT 94–99; BMI 26.6
--- NOTE | 2022-12-27 07:03 | IR_ITS ---
APPROVED REPORT Patient Location: Outpatient PROCEDURES Right heart catheterization Left heart catheterization Left ventriculogram Selective coronary angiogram Left internal mammary angiography Selective engagement of saphenous vein graft to circumflex artery Selective engage the saphenous vein graft to the right coronary INDICATION Coronary artery disease, Pulmonary artery hypertension, History of coronary artery bypass surgery, Angina pectoris Informed consent was obtained prior to the procedure. COMPLICATIONS NONE Estimated Blood Loss: LESS THAN 10 ML TECHNIQUE One percent lidocaine was used to anesthetize the right groin. The right femoral artery was accessed via the Seldinger technique. A 4-Mauritian and 7 chinese sheath was placed in the right femoral artery and vein respectfully. A 7 Mauritian sheath was introduced and a Lowell-Nevaeh catheter was floated using hemodynamic waveforms in the pulmonary artery, right ventricle , and right atrium. Saturations were obtained in the pulmonary artery and the right atrium. The JR-4 and JL-4 catheter was also used to perform left heart catheterization, left ventriculography and selective coronary angiogram. At the end of the procedure the patient was transferred to the post-op holding area in stable condition for arterial sheath removal. ANGIOGRAPHIC RESULTS The left main artery Distally occluded The right coronary artery Is dominant and subtotally occluded in its proximal to mid segment The URIBE ventriculogram reveals Preserved at 55% The left ventricular end-diastolic pressure 20 mmHg ANN graft to LAD is widely patent makes anastomosis on the small caliber mid LAD and then skips to a medium sized first diagonal artery Saphenous vein graft circumflex artery widely patent Saphenous vein graft to distal right coronary widely patent Right atrial pressure 15 mmHg Pulmonary pressure 42/22 mmHg Pulmonary occlusion pressure 20 mmHg Hemoglobin 15.4 Aortic saturation 98% Pulmonary saturation 87% Right atrial saturation 89% Cardiac output 10.6 Cardiac index 5.5 IMPRESSION Adequate four-vessel coronary bypass surgery revascularization as described above Preserved ejection fraction Moderately elevated LVEDP Evidence of diastolic dysfunction based on elevated left-sided filling pressures High cardiac output PLAN 1. Standard therapy for ischemic heart disease 2. Diuretics to treat diastolic dysfunction 3. LDL less than 55 to be achieved with high intensity statin 4. Recommend multivitamin daily 5. Have additional discussion with patient to determine if significant alcohol usage is present and then treat accordingly 6. Recommend sleep study Electronically signed by : Sergio Zapien MD 12/27/2022 12:21:52
[2022-12-27 09:02] LABS: Basophils # 0.1 K/mm3 (0-0.2); Basophils % 0.9 % (0.1-2.0); Eosinophils # 0.3 K/mm3 (0.0-0.4); Eosinophils % 5.5 % (0.1-12.0); Hematocrit 47.2 % (42.0-52.0); Hemoglobin 15.4 g/dL (14.1-18.0); Mean Corpuscular HGB Conc 32.5 g/dL (31.8-35.4); Mean Corpuscular Hemoglobin 31.8 pg (27.0-31.2); Mean Corpuscular Volume 97.7 fl (80-94); Mean Platelet Volume 7.5 fl (7.4-10.4); Monocytes # 0.4 K/mm3 (0.1-1.0); Monocytes % 7.8 % (1.7-9.3); Neutrophils # 2.7 K/mm3 (1.8-7.8); Neutrophils % 49.8 % (37.0-80.0); Platelet Count 229 K/mm3 (142-424); Red Blood Count 4.83 M/mm3 (4.60-6.20); Red Cell Distribution Width 12.9 % (11.5-17.5); White Blood Count 5.5 K/mm3 (4.8-10.8)
[2022-12-27 09:07] LABS: Chloride 105 mmol/L (98-107)
[2022-12-27 09:08] LABS: Potassium 4.2 mmoL/L (3.5-5.1); Sodium 140 mmol/L (136-145)
[2022-12-27 09:11] LABS: Anion Gap 12.2 mEq/L (5-15); Blood Urea Nitrogen 15 mg/dl (9-20); Calcium 8.3 mg/dl (8.4-10.2); Carbon Dioxide 27 mmol/L (22.0-30.0); Creatinine Clearance Estimated 83 mL/min (50-200); Estimated Glomerular Filt Rate 113 ml/min (>60); GFR (African American) 137 ML/MIN (>60); Glucose 90 mg/dl (74-100)
[2022-12-27 09:13] LABS: INR 1.04 (0.9-1.1); Prothrombin Time 11.2 seconds (10.1-12.5)
[2022-12-27 14:52] LABS: CATHL Arterial O2 SAT 87.1 % (90-100); CATHL Venous O2 SAT 89.4 % (75-80)
== END 2022-12-27 16:17 | disposition home or self-care (01) ==
PROVIDERS: PCP Family Medicine; Visit Provider Internal Medicine
DX: I25.118 Atherosclerotic heart disease of native coronary artery with other forms of angina pectoris (principal); I27.20 Pulmonary hypertension, unspecified; R94.39 Abnormal result of other cardiovascular function study; E78.5 Hyperlipidemia, unspecified; F17.200 Nicotine dependence, unspecified, uncomplicated; I73.9 Peripheral vascular disease, unspecified
CPT/HCPCS: 80048; 82810; 85025; 85610; 93460; 99152; C1725; C1769; C1894; Q9967

== ENCOUNTER 2022-12-28 23:13 | Emergency (ER) | payer MEDICARE, MEDICAID, SELFPAY ==
[2022-12-28 23:13] VITALS: BP 152/83; PULSE 77; RESP 19; TEMP 36.8; O2SAT 98; BMI 25.0
--- NOTE | 2022-12-28 23:15 | ECG_ITS ---
APPROVED REPORT Exam: Resting ECG HR:77 bpm ECG Measurements Heart Rate 77 AXES VT 189 P 55 QRSd 146 QRS 78 QT 412 T 57 QTc 443 Conclusion SINUS RHYTHM RIGHT BUNDLE BRANCH BLOCK [120+ ms QRS DURATION, UPRIGHT V1, 40+ ms S IN I/aVL/V4/V5/V6] ABNORMAL ECG UNCONFIRMED REPORT Electronically signed by : Cornelio Shea MD 12/29/2022 07:47:18
[2022-12-28 23:23] VITALS: BMI 25.0
--- NOTE | 2022-12-28 23:24 | XR_ITS ---
PROCEDURE INFORMATION: Exam: XR Chest Exam date and time: 12/28/2022 11:25 PM Age: 67 years old Clinical indication: Pain; Chest pressure; Additional info: Cp TECHNIQUE: Imaging protocol: Radiologic exam of the chest. Views: 2 views. COMPARISON: CT LUNG SCREENING 11/19/2022 8:41 AM FINDINGS: Lungs: Unremarkable. No consolidation. Calcified lower lobar pulmonary granulomata. Pleural spaces: Unremarkable. No pleural effusion. No pneumothorax. Heart/Mediastinum: Unremarkable. No cardiomegaly. Bones/joints: Unremarkable. Soft tissues: Radiopaque foreign body projected over left axillary region. IMPRESSION: No acute findings. Radiopaque foreign body projected over left axillary region.
[2022-12-28 23:31] VITALS: BP 128/79; PULSE 77; RESP 14; O2SAT 95
--- NOTE | 2022-12-28 23:33 | PC.NURSE ---
patient gone to RAD at this time.
[2022-12-28 23:34] LABS: Basophils # 0.1 K/mm3 (0-0.2); Basophils % 0.8 % (0.1-2.0); Eosinophils # 0.3 K/mm3 (0.0-0.4); Eosinophils % 5.5 % (0.1-12.0); Hematocrit 47.3 % (42.0-52.0); Hemoglobin 15.2 g/dL (14.1-18.0); Lymphocytes # 2.8 K/mm3 (0.7-4.5); Lymphocytes % 45.8 % (10-50); Mean Corpuscular HGB Conc 32.1 g/dL (31.8-35.4); Mean Corpuscular Hemoglobin 31.6 pg (27.0-31.2); Mean Corpuscular Volume 98.7 fl (80-94); Mean Platelet Volume 7.3 fl (7.4-10.4); Monocytes # 0.4 K/mm3 (0.1-1.0); Monocytes % 6.6 % (1.7-9.3); Neutrophils # 2.6 K/mm3 (1.8-7.8); Neutrophils % 41.3 % (37.0-80.0); Platelet Count 222 K/mm3 (142-424); Red Blood Count 4.79 M/mm3 (4.60-6.20); Red Cell Distribution Width 12.8 % (11.5-17.5); White Blood Count 6.2 K/mm3 (4.8-10.8)
[2022-12-28 23:35] LABS: Blood Urea Nitrogen 10 mg/dl (9-20); Calcium 8.7 mg/dl (8.4-10.2); Carbon Dioxide 29 mmol/L (22.0-30.0); Chloride 103 mmol/L (98-107); Creatinine Clearance Estimated 78 mL/min (50-200); Estimated Glomerular Filt Rate 85 ml/min (>60); GFR (African American) 102 ML/MIN (>60); Glucose 105 mg/dl (74-100); Sodium 143 mmol/L (136-145)
--- NOTE | 2022-12-28 23:35 | HMH.EDCP ---
Discharge Plan Disposition Patient Disposition: Home, Self-Care Prescriptions Prescriptions: New isosorbide mononitrate 30 mg tablet extended release 24 hr 30 mg PO DAILY Qty: 30 0RF No Action cyanocobalamin (vitamin B-12) [Vitamin B-12] 1,000 mcg tablet extended release 1,000 mcg PO DAILY multivitamin Tablet 1 tab PO DAILY calcium carbonate [Calcium 600] 600 mg calcium (1,500 mg) tablet 1,200 mg PO DAILY ascorbic acid (vitamin C) 500 mg tablet extended release 500 mg PO DAILY methocarbamol 750 mg tablet 750 mg PO Q8H PRN (Reason: neck pain) Qty: 60 0RF nitroglycerin 0.4 mg tablet, sublingual 0.4 mg sublingual Q5M PRN (Reason: chest pain) Qty: 20 0RF Rx Instructions: do not exceed 3 doses per episode Saccharomyces boulardii [Daily Probiotic (S. boulardii)] 250 mg capsule 250 mg PO DAILY vitamin E (dl, acetate) 450 mg (1,000 unit) capsule 800 mg PO DAILY coenzyme Q10 [Co Q-10] 200 mg capsule 200 mg PO DAILY clopidogrel [Plavix] 75 mg tablet 75 mg PO DAILY diclofenac sodium 1 % gel 2 g topical QID Rx Instructions: apply to bilateral hands to includes palm/fingers/back of hand atorvastatin [Lipitor] 40 mg tablet 40 mg PO DAILY aspirin 81 mg tablet,delayed release (DR/EC) 81 mg PO DAILY desloratadine 5 mg tablet 5 mg PO DAILY fluticasone propionate [Flonase Allergy Relief] 50 mcg/actuation spray,suspension 2 spray intranasal DAILY Referrals Follow up/Referrals: Nemo Cox DO [Primary Care Provider] - See instructions Sergio Zapien MD [Staff Physician] - See instructions Clinical Impressions Clinical Impression: Coronary artery disease, Angina pectoris Instructions Patient Instructions: DI for Angina Discharge ED Provider: Goldie (ED)Eris Chest Pain HPI General Chief Complaint: Chest Pain Stated Complaint: cp Time Seen by Provider: 12/28/22 23:20 Mode of Arrival: Family Vehicle Source of Information: Patient and Medical Record Limitations: No Limitations Description of Symptoms (Recalled from ER Triage Doc. by RN): Pt c/o left sided chest pain and left arm pain that radiates up to the L side of his neck. Reports the pain began 2 hrs ago and he took 2 nitros tablets that were relieving his pain, he took the 2nd tab @ 2245. Pt had a heart cath yesterday, no stents placed. He also reports another cath were Dr Zapien placed 3 stents, 2 stents to the R common iliac artery and 1 to his distal ABD aorta. History of Present Illness HPI narrative: pt with lt sided chest pain with rad to lt upper ext - took ntg at home with some relief MD complaint: chest pain indicative of cardiac Onset (ago): hour(s) Duration: intermittent Activity at onset: during rest Pain location: left chest Severity: moderate Quality: tightness Pain radiation: LUE Relieving factors: nitroglycerin Risk Factors for CAD: Hypertension, Family Hx of CAD and Smoking Treatments prior to or on arrival for Cardiac Chest Pain: none MARYLU Score for Non-Stemi Age of Patient: 60-69 years old Heart Rate: 70-89 bpm Systolic Blood Pressure: 140-159 mmHg Serum Creatinine: 0.80-1.19 mg/dl CHF Killip Class: I-No CHF Other Risk Factors: None Non-Stemi Risk Score: 98 Risk Stratification: 1-108 = Low Risk Related Data Prior Cardiac Testing/Procedures: Cardiac Angiogram and CABG Home Medications Medication Instructions Recorded Confirmed cyanocobalamin (vitamin B-12) 1,000 mcg PO DAILY Supplement 10/05/22 12/28/22 1,000 mcg tablet,extended release (Vitamin B-12 ER) multivitamin 1 tab PO DAILY Supplement 10/05/22 12/28/22 ascorbic acid (vitamin C) 500 mg 500 mg PO DAILY Supplement 10/25/22 12/28/22 tablet,extended release Saccharomyces boulardii 250 mg 250 mg PO DAILY PROBIOTIC 11/02/22 12/28/22 capsule (Daily Probiotic (S. boulardii)) aspirin 81 mg tablet,delayed 81 mg PO DAILY HEART HEALTH 11/06/22 12/28/22
--- NOTE | 2022-12-28 23:37 | PC.NURSE ---
patient back in room at this time.
--- NOTE | 2022-12-28 23:40 | PC.NURSE ---
pt's pain is decreasing with nitro paste, reports it to be 5/10 now. Also he was given a warm blanket for comfort. He asked staff to get her girlfriend as she was waiting in her car.
[2022-12-28 23:47] LABS: Troponin I < 0.01 ng/ml (0.00-0.034)
[2022-12-29] VITALS: BP 132/79; PULSE 74; RESP 13; O2SAT 94
--- NOTE | 2022-12-29 | PC.NURSE ---
Dr. Amezcua s/w Dr. Zapien
[2022-12-29 00:28] VITALS: BP 123/79; PULSE 70; PULSE 80; RESP 19; TEMP 36.7; O2SAT 99
== END 2022-12-29 00:30 | disposition home or self-care (01) ==
PROVIDERS: Emergency Provider Emergency Medicine; PCP Family Medicine
DX: I25.10 Atherosclerotic heart disease of native coronary artery without angina pectoris (principal); I45.19 Other right bundle-branch block; F17.210 Nicotine dependence, cigarettes, uncomplicated; J44.9 Chronic obstructive pulmonary disease, unspecified; I10 Essential (primary) hypertension; E78.5 Hyperlipidemia, unspecified; R07.89 Other chest pain
CPT/HCPCS: 71046; 80048; 84484; 85025; 93005; 99284

== ENCOUNTER → 2023-03-13 09:20 | Outpatient (CLI) | payer MEDICARE, SELFPAY ==
[2023-03-13 10:01] LABS: Basophils # 0.3 K/mm3 (0-0.2); Basophils % 5.5 % (0.1-2.0); Eosinophils # 0.2 K/mm3 (0.0-0.4); Eosinophils % 3.8 % (0.1-12.0); Hematocrit 57.7 % (42.0-52.0); Hemoglobin 17.3 g/dL (14.1-18.0); Lymphocytes # 2.4 K/mm3 (0.7-4.5); Lymphocytes % 39.3 % (10-50); Mean Corpuscular Hemoglobin 29.5 pg (27.0-31.2); Mean Corpuscular Volume 98.1 fl (80-94); Mean Platelet Volume 7.2 fl (7.4-10.4); Monocytes # 0.6 K/mm3 (0.1-1.0); Neutrophils # 2.9 K/mm3 (1.8-7.8); Neutrophils % 47.8 % (37.0-80.0); Platelet Count 242 K/mm3 (142-424); Red Blood Count 5.88 M/mm3 (4.60-6.20); Red Cell Distribution Width 13.5 % (11.5-17.5); White Blood Count 6.1 K/mm3 (4.8-10.8)
[2023-03-13 10:07] LABS: INR 1.06 (0.9-1.1); Prothrombin Time 11.4 seconds (10.1-12.5)
[2023-03-13 11:09] LABS: Alanine Aminotransferase 24 U/L (12-78); Albumin Level 4.5 g/dl (3.5-5.0); Albumin/Globulin Ratio 1.3 (1.1-1.8); Alkaline Phosphatase 53 U/L (38-126); Anion Gap 11.4 mEq/L (5-15); Aspartate Amino Transferase 29 U/L (17-59); Bilirubin,Total 0.7 mg/dl (0.2-1.3); Blood Urea Nitrogen 14 mg/dl (9-20); Calcium 9.2 mg/dl (8.4-10.2); Carbon Dioxide 27 mmol/L (22.0-30.0); Chloride 104 mmol/L (98-107); Estimated Glomerular Filt Rate 85 ml/min (>60); GFR (African American) 102 ML/MIN (>60); Globulin 3.4 g/dL (1.3-3.2); Glucose 98 mg/dl (74-100); Potassium 4.4 mmoL/L (3.5-5.1); Sodium 138 mmol/L (136-145); Total Protein,Serum 7.9 g/dl (6.3-8.2)
[2023-03-13 11:31] LABS: Erythrocyte Sedimentation Rate 6 mm/hr (0-20)
[2023-03-13 11:39] LABS: Thyroid Stimulating Hormone 2.08 uIU/mL (0.465-4.68)
[2023-03-13 12:29] LABS: Folate > 20.00 ng/mL; Vitamin B12 > 1000 pg/mL (239-931)
[2023-03-14 12:14] LABS: Rapid Plasma Reagin Ab Titer Non Reactive (NonRea<1:1)
[2023-03-16 11:34] LABS: Vitamin B1 141.2 nmol/L (66.5-200.0)
[2023-03-25 11:51] LABS: Antinuclear Antibodies (ANA) Negative
== END ==
LOC: LAB 09:21
PROVIDERS: PCP Nurse Practitioner Family; Visit Provider Specialist
DX: F10.10 Alcohol abuse, uncomplicated (principal); F15.11 Other stimulant abuse, in remission; H92.09 Otalgia, unspecified ear; R51.9 Headache, unspecified; I10 Essential (primary) hypertension; I25.10 Atherosclerotic heart disease of native coronary artery without angina pectoris
CPT/HCPCS: 36415; 80053; 82607; 82746; 84425; 84443; 85025; 85610; 85651; 86038; 86140; 86225; 86235; 86593

== ENCOUNTER → 2023-03-26 15:33 | Outpatient (CLI) | payer MEDICARE, SELFPAY ==
--- NOTE | 2023-03-26 15:38 | XR_ITS ---
FINAL REPORT CLINICAL HISTORY: Cervical occipital neuralgia FINDINGS: SPINE CERVICAL COMPLETE/FLEXION & EXT Seven views demonstrate no acute fracture. There is moderate disc space narrowing at C5-6 and C6-7. There is small anterior and posterior osteophyte formation. Mild neural foraminal narrowing is seen bilaterally. There is no malalignment. IMPRESSION: Degenerative changes as detailed above. Reviewed, Interpreted and Dictated by Jose Rafael Perez MD Transcribed by Heather Damon Authenticated and [facility]
== END ==
PROVIDERS: PCP Nurse Practitioner Family; Visit Provider Specialist
DX: M54.81 Occipital neuralgia (principal)
CPT/HCPCS: 72052

== ENCOUNTER → 2023-03-28 12:56 | Outpatient (CLI) | payer MEDICARE, SELFPAY | PROVIDERS: PCP Nurse Practitioner Family; Visit Provider Internal Medicine Pulmonary Disease | DX: R06.09 Other forms of dyspnea (principal) | CPT/HCPCS: 94060; 94618; 94726; 94729 ==

== ENCOUNTER → 2023-03-29 08:47 | Outpatient (CLI) | payer MEDICARE, SELFPAY ==
--- NOTE | 2023-03-29 08:47 | CT_ITS ---
FINAL REPORT TECHNIQUE: Thin-section axial CT images were performed through the temporal bones before and after contrast administration. Coronal and sagittal reformatted images were submitted. This study was performed with techniques to keep radiation doses as low as reasonably achievable, (ALARA). Individualized dose reduction techniques using automated exposure control or adjustment of mA and/or kV according to the patient's size were employed. CLINICAL HISTORY: new headache, mastoid pain COMPARISON: None FINDINGS: Right: The internal and external auditory canals are normal. The inner ear structures are within normal limits. The middle ear cavity is unremarkable. The ossicles are intact. The mastoid antrum and mastoid air cells are unremarkable. There is advanced osteoarthritic change in the right temporomandibular joint with sclerosis and degenerative cyst formation. These are best seen on images 155 through 165. Left: The internal and external auditory canals are normal. The inner ear structures are within normal limits. The middle ear cavity is unremarkable. The ossicles are intact. There is sclerosis in the mastoid air cells, worrisome for chronic mastoiditis.. IMPRESSION: Sclerosis in the left mastoid air cells, likely chronic mastoiditis. Advanced osteoarthritic change right TMJ. Reviewed, Interpreted and Dictated by Jose Rafael Perez MD Transcribed by Yesi Stack Authenticated and [facility]
--- NOTE | 2023-03-29 08:47 | CT_ITS ---
FINAL REPORT TECHNIQUE: thin section axial CT with and without IV contrast supplemented with multiplanar 3-D reconstruction of the head. This study was performed with techniques to keep radiation doses as low as reasonably achievable, (ALARA)individualized dose reduction techniques using automated exposure control or adjustment of mA and/or kV according to the patient's size were employed. CLINICAL HISTORY: . headaches, dizziness COMPARISON: None FINDINGS: HEAD CT: The ventricles are normal in size. There is no evidence of hemorrhage. No masses are identified. No extra-axial fluid is seen. The sinuses are normal. CTA: The cranial circulation is unremarkable. There is no significant stenosis, aneurysm or occlusion. IMPRESSION: No acute process. Reviewed, Interpreted and Dictated by Jose Rafael Perez MD Transcribed by Yesi Stack Authenticated and [facility]
== END ==
PROVIDERS: PCP Nurse Practitioner Family; Visit Provider Specialist
DX: F10.10 Alcohol abuse, uncomplicated (principal); F15.11 Other stimulant abuse, in remission; H92.09 Otalgia, unspecified ear; R51.9 Headache, unspecified
CPT/HCPCS: 70470; 70496; Q9967

== ENCOUNTER → 2023-04-11 14:45 | Outpatient (POV) | payer MEDICARE, SELFPAY ==
[2023-04-11 15:34] VITALS: BP 143/89; PULSE 76; RESP 20; O2SAT 96; BMI 28.1
--- NOTE | 2023-04-11 15:40 | EXP.PAIN.OV ---
HPI Data of Consult Patient: new to practice Consult date: 04/11/23 Requesting Physician: Caridad Sorenson APRN Primary Care Provider: Krissy Khan APRN Consult Narrative Reason for consult: Neck pain, headache, back pain, right thumb pain History of present illness: Mr. Ramires is a 68 year old male who presents today as a new patient. He is a referral from Dr. Bull's office. Today he rates his pain a 9 out of 10. Patient states his pain is worse in his neck along the right side and into the back of his head and does cause significant headaches. Patient states this has been going on for the last 3 months and unrelated to any specific injury or trauma. Patient does describe it as a throbbing, achy sensation with occasional sharp shooting pains. He states that nothing seems to help. He has tried [id number] Tylenol and ibuprofen along with heat and ice and topicals with no additional relief. Patient denies any previous surgery or injection history. Patient does also state in the past he has had a back fracture at 3 different places and does have chronic pain in this area. He also states that he has had previous fractures in his right thumb and does have daily aches and pains in this location and believes it is related to arthritis. Patient is not on any scheduled medications. His Juve is [phone]. Its been reviewed and appropriate. CC: Caridad Sorenson APRN [facility] Disclaimer: The information contained in this section may have been updated after the patient was seen, as this information can be updated by other users. Medical History (Updated 04/11/23 @ 15:43 by Caridad Sorenson APRN) Abnormal cardiovascular stress test Alcoholic encephalopathy Angina pectoris Annual physical exam Arteriosclerosis of coronary artery Asthma Bleeding from right ear Chest pain Chronic obstructive pulmonary disease COPD (chronic obstructive pulmonary disease) Coronary artery disease Dehydration Diastolic dysfunction Dyspnea on exertion Encounter for pre-operative cardiovascular clearance Eustachian tube dysfunction Family history of asthma Headache Hearing loss History of asthma Hyperlipidemia Hypertension Living will, counseling/discussion Methamphetamine intoxication Multiple lung nodules on CT Nodule of left lung Otalgia of right ear Otalgia, right ear Pulmonary emphysema Pulmonary hypertension Pulmonary hypertension Recurrent falls Rheumatoid arthritis Screening for AAA (abdominal aortic aneurysm) Screening for colon cancer Screening for lung cancer Screening for prostate cancer Tinnitus TMJ (temporomandibular joint disorder) TMJ dysfunction Trauma of ear canal Surgical History History of coronary artery bypass surgery Hx of tonsillectomy S/P colonoscopy Family History Father Heart attack Hyperlipidemia Coronary artery disease Diabetes Mother Cancer brain Stroke Social History (Updated 04/11/23 @ 15:35 by Maria Esther Vinson RN) Smoking Status: Current every day smoker tobacco type: cigarettes packs per day: 1 years smoked: 57 alcohol intake: current substance use type: marijuana current occupational status: other Travel in the last 8 weeks: None household members: none housing: other marital status: number of children: 3 caffeine: Yes Review of Systems Review of Systems Review of systems:: pertinent systems reviewed and negative unless documented below Review of systems (narrative): Review of Systems: General: No recent weight changes, no fever, no sleep disturbances Respiratory: No cough, no shortness of air, no recurring pulmonary infections Cardiovascular/peripheral vascular: No chest pain, no palpitations, no edema, no shortness of breath Gastrointestinal: No new onset incontinence, normal bowel movements reported Genitourinary: No new onset incontinen
== END ==
PROVIDERS: PCP Nurse Practitioner Family; Visit Provider Nurse Practitioner Family
DX: M50.30 Other cervical disc degeneration, unspecified cervical region (principal); R51.9 Headache, unspecified; M54.81 Occipital neuralgia; M79.18 Myalgia, other site; M54.50 Low back pain, unspecified; G89.29 Other chronic pain
CPT/HCPCS: 99202; G0463

== ENCOUNTER 2023-04-30 11:08 | Day surgery (SDC) | payer MEDICARE, SELFPAY ==
[2023-04-30 11:30] VITALS: BP 138/87; PULSE 67; RESP 16; TEMP 36.5; O2SAT 97; BMI 27.6
[2023-04-30 11:35] VITALS: BP 144/93; PULSE 63; PULSE 66; RESP 18; O2SAT 95
[2023-04-30 11:40] VITALS: BP 147/85; PULSE 62; RESP 18; O2SAT 97
--- NOTE | 2023-04-30 12:04 | EXP.PAIN.PRO ---
Procedure Date: 04/30/23 Time: 11:50 Anesthesiologist:: Lisandro Seo CRNA Complications:: None Pre-procedure Diagnosis:: Right occipital neuralgia. Post-procedure Diagnosis:: Same. Indications for Procedure:: Patient is a very pleasant 68-year-old male who comes our clinic today for a right occipital nerve block. Patient complains of right occipital headaches that he describes as intermittent, dull, sharp. Patient has normal flexion, extension, left and right rotation of the cervical spine. He rates his pain 8/10. Procedure Details:: Details of the procedure explained to the patient. The patient taken to procedure room placed in the sitting position. The area over the right greater occipital nerve was cleaned using chlorhexidine as a cleansing solution. The area of the right occipital nerve was accessed using a 25-gauge inch needle. In a fanning fashion the area was injected after negative aspiration with 8 mL of a solution containing 0.25% Marcaine +1% lidocaine and 40 mg of Depo-Medrol. Patient tolerated the procedure without difficulty. There are no complications. Plan and Disposition:: Patient was discharged without incident.
== END 2023-04-30 11:40 | disposition home or self-care (01) ==
LOC: SC.PAINP 11:09
PROVIDERS: PCP Nurse Practitioner Family; Visit Provider Nurse Anesthetist, Certified Registered
DX: M54.81 Occipital neuralgia (principal)
CPT/HCPCS: 64405; J1040

== ENCOUNTER → 2023-05-02 10:06 | Outpatient (CLI) | payer MEDICARE, SELFPAY ==
[2023-05-02 12:57] LABS: Chol/HDL Ratio 4.2 (1-3.5); Cholesterol 207 mg/dl (140-200); HDL Cholesterol 49 mg/dl (40-60); Triglycerides 78 mg/dl (30-150); VLDL Cholesterol 16 mg/dL (0-40)
[2023-05-02 13:08] LABS: Direct LDL Cholesterol 142.67 mg/dL (100-129)
== END ==
PROVIDERS: PCP Nurse Practitioner Family; Visit Provider Physician Assistant
DX: E78.5 Hyperlipidemia, unspecified (principal); F17.200 Nicotine dependence, unspecified, uncomplicated; I10 Essential (primary) hypertension; I25.10 Atherosclerotic heart disease of native coronary artery without angina pectoris; I27.20 Pulmonary hypertension, unspecified; I73.9 Peripheral vascular disease, unspecified; Z95.1 Presence of aortocoronary bypass graft
CPT/HCPCS: 36415; 80061

== ENCOUNTER → 2023-05-15 13:29 | Outpatient (POV) | payer MEDICARE, SELFPAY ==
--- NOTE | 2023-05-15 14:04 | EXP.PAIN.SOA ---
[facility] Pain Management SOAP Note Subjective:: Patient is a pleasant 68-year-old male who presents today for follow-up of right occipital nerve block on 04/30/2023. We are currently treating the patient for degenerative disc disease of cervical spine with cervical radiculopathy symptoms, low back pain, right thumb pain, headache, occipital neuralgia. Today he rates his pain an 8 out of 10. Patient denies any new trauma or change to the location or type of pain he experiences. He does state that he had approximately 80% relief following his right occipital nerve block. He states he had improved pain symptoms and had no headaches lasting approximately a week and a half. Patient does state today he is back to his baseline and states it is a throbbing, achy sensation with occasional sharp shooting pains. He does state the pain interferes with his ability perform activities of daily living such as cooking and cleaning. He does state the headaches have also came back and do feel like they are along both sides of his head. Patient also states he continues to have significant pain in his right. Patient denies any previous orthopedic intervention for this digit. He has tried and failed conservative therapy such as oral medications, heat and ice, topicals, at home stretching exercise for longer than 6 weeks. At her last visit we did order compounded cream however he states this was not covered by his insurance and he did not proceed forward with it. His Juve has been reviewed and is appropriate. Review of Systems: General: No recent weight changes, no fever, no sleep disturbances Respiratory: No cough, no shortness of air, no recurring pulmonary infections Cardiovascular/peripheral vascular: No chest pain, no palpitations, no edema, no shortness of breath Gastrointestinal: No new onset incontinence, normal bowel movements reported Genitourinary: No new onset incontinence Musculoskeletal: Neck pain, headache Psychiatric: [Normal mood/affect] Neurological: [Denies weakness in extremities], [denies balance issues] Objective:: Physical Exam: General: Alert and oriented x3, no acute distress, pleasant and cooperative Lungs: Respirations even and unlabored, symmetrical chest expansion Eyes: PERRL Musculoskeletal: Flexion and extension of cervical [spine] somewhat guarded secondary to pain, [antalgic gait noted] Neurological: Speech clear, no gross sensory deficit Assessment:: Degenerative disc disease of cervical spine with cervical radiculopathy symptoms, low back pain, right thumb pain, headache, occipital neuralgia Plan:: Patient is back to his baseline today with significant pain in his neck and headache. Patient did have limited range of motion of his cervical spine during today's visit. I have discussed with the patient since he did get significant improvement of at least 80% with his occipital nerve block that he may benefit from repeat injection. Risk and benefits were discussed with patient and he would like to proceed forward with this plan of care. I will also send him to a hand specialist for possible intervention for his right thumb pain. Patient will be scheduled for bilateral occipital nerve block. Patient has been instructed to contact the clinic with any concerns before the next appointment. Dr. Felix has reviewed this note and agrees with this plan of care. This note was dictated using voice recognition software and make contain errors or omissions. [facility] Disclaimer: The information contained in this section may have been updated after the patient was seen, as this information can be updated by other users. Medical History Abnormal cardiovascular stress test Alcoholic encephalopathy Angina pectoris Annual physical exam Arteriosclerosis of coronary artery Asthma Bleeding from right ear Chest pain Chronic obstructive pulmonary disease COPD (chronic obstructive pulmonary disease) C
[2023-05-15 15:21] VITALS: BP 129/85; PULSE 73; RESP 18; O2SAT 95; BMI 28.1
== END ==
PROVIDERS: PCP Nurse Practitioner Family; Visit Provider Nurse Practitioner Family
DX: M54.81 Occipital neuralgia (principal); M50.10 Cervical disc disorder with radiculopathy, unspecified cervical region; M79.644 Pain in right finger(s); R51.9 Headache, unspecified
CPT/HCPCS: 99212; G0463

== ENCOUNTER 2023-05-24 11:21 | Day surgery (SDC) | payer MEDICARE, SELFPAY ==
[2023-05-24 11:37] VITALS: BP 139/75; PULSE 82; RESP 18; TEMP 36.5; O2SAT 97; BMI 28.1
[2023-05-24 11:47] VITALS: RESP 20
[2023-05-24 11:48] VITALS: BP 121/73; PULSE 73; RESP 16; O2SAT 97
--- NOTE | 2023-05-24 15:01 | EXP.PAIN.PRO ---
Procedure Date: 05/24/23 Time: 15:01 Anesthesiologist:: Kenton Felix MD Complications:: None Pre-procedure Diagnosis:: Occipital neuralgia Post-procedure Diagnosis:: Same Indications for Procedure:: The patient is a pleasant 68-year-old white male who we are treating for bilateral occipital neuralgia. He had these injections approximate 1 month ago they provided agent 90% relief his pain is just now starting to return. We will do repeat bilateral occipital nerve blocks today. Procedure Details:: Bilateral occipital nerve block Informed consent was obtained and the risk and benefits of the procedure was explained to the patient. The patient was taken to the procedure room. The occiput was cleansed using ChloraPrep. A 25-gauge needle was used first on the left side and advanced until it contacted the left occiput. After negative aspiration we injected 5 mL bupivacaine 0.25% Depo-Medrol 40 mg. The same was done for the right side again advancing a 25-gauge needle until it contacted occiput. After negative aspiration, we injected 5 mL bupivacaine 0.25% and Depo-Medrol 40 mg. Patient tolerated procedure well with no complications. Plan and Disposition:: We will follow-up with this patient in 2 weeks. Will reevaluate symptoms at that time.
== END 2023-05-24 11:48 | disposition home or self-care (01) ==
LOC: SC.PAINP 11:22
PROVIDERS: PCP Nurse Practitioner Family; Visit Provider Anesthesiology
DX: M54.81 Occipital neuralgia (principal)
CPT/HCPCS: 64405; J1040

== ENCOUNTER → 2023-06-06 09:09 | Outpatient (POV) | payer MEDICARE, SELFPAY ==
--- NOTE | 2023-06-06 09:36 | EXP.PAIN.SOA ---
[facility] Pain Management SOAP Note Subjective:: Patient is a pleasant 68-year-old male who presents today for follow-up of bilateral occipital nerve blocks on 05/24/2023. We are currently treating the patient for occipital neuralgia. Today he rates his pain 4 out of 10. Patient states he has had almost 100% relief and that the injection is still currently providing significant improvement. He states he has been able to increase his activity with decreased pain and decreased headaches. His Juve has been reviewed and is appropriate. Review of Systems: General: No recent weight changes, no fever, no sleep disturbances Respiratory: No cough, no shortness of air, no recurring pulmonary infections Cardiovascular/peripheral vascular: No chest pain, no palpitations, no edema, no shortness of breath Gastrointestinal: No new onset incontinence, normal bowel movements reported Genitourinary: No new onset incontinence Musculoskeletal: Neck pain Psychiatric: [Normal mood/affect] Neurological: [Denies weakness in extremities], [denies balance issues] Objective:: Physical Exam: General: Alert and oriented x3, no acute distress, pleasant and cooperative Lungs: Respirations even and unlabored, symmetrical chest expansion Eyes: PERRL Musculoskeletal: Flexion and extension of cervical [spine] somewhat guarded secondary to pain Neurological: Speech clear, no gross sensory deficit Assessment:: Occipital neuralgia, neck pain Plan:: Patient has had significant improvement following his occipital nerve block and does not require any additional injection therapy. Patient will return to clinic in 1 month for reevaluation of symptoms and plan of care. Patient has been instructed to contact the clinic with any concerns before the next appointment. Dr. Felix has reviewed this note and agrees with this plan of care. This note was dictated using voice recognition software and make contain errors or omissions. [facility] Disclaimer: The information contained in this section may have been updated after the patient was seen, as this information can be updated by other users. Medical History Abnormal cardiovascular stress test Alcoholic encephalopathy Angina pectoris Annual physical exam Arteriosclerosis of coronary artery Asthma Bleeding from right ear Asymptomatic already seen and evaluated by ENT 03/13/2023 Chest pain Chronic obstructive pulmonary disease COPD (chronic obstructive pulmonary disease) Coronary artery disease Dehydration Diastolic dysfunction Dyspnea on exertion Encounter for pre-operative cardiovascular clearance Eustachian tube dysfunction Family history of asthma Headache Hearing loss History of asthma Hyperlipidemia Hypertension Living will, counseling/discussion Methamphetamine intoxication Multiple lung nodules on CT Nodule of left lung Otalgia of right ear Otalgia, right ear Pulmonary emphysema Pulmonary hypertension Pulmonary hypertension Recurrent falls Rheumatoid arthritis Screening for AAA (abdominal aortic aneurysm) Screening for colon cancer Screening for lung cancer Screening for prostate cancer Tinnitus TMJ (temporomandibular joint disorder) TMJ dysfunction Trauma of ear canal Surgical History History of coronary artery bypass surgery Hx of tonsillectomy S/P colonoscopy Family History Father Heart attack Hyperlipidemia Coronary artery disease Diabetes Mother Cancer brain Stroke Social History Smoking Status: Current every day smoker tobacco type: cigarettes packs per day: 1 years smoked: 57 alcohol intake: current substance use type: marijuana current occupational status: other Travel in the last 8 weeks: None household members: none housing: other marital status: number of children: 3 caffeine: Yes
[2023-06-06 10:08] VITALS: BP 137/78; PULSE 65; RESP 18; O2SAT 99; BMI 27.9
[2023-06-06 12:30] LABS: Adenovirus,PCR Not Detected (NotDetected); Coronavirus 19, PCR Not Detected (NotDetected); Coronavirus 229E Not Detected (NotDetected); Coronavirus NL63 Not Detected (NotDetected); Coronavirus OC43 Not Detected (NotDetected); Coronovirus HKU1,PCR Not Detected (NotDetected); Human Metapneumovirus Not Detected (NotDetected); Influenza A, PCR Not Detected (NotDetected); Influenza AH1, 2009 Not Detected (NotDetected); Influenza AH1, PCR Not Detected (NotDetected); Influenza AH3,PCR Not Detected (NotDetected); Influenza B, PCR Not Detected (NotDetected); Parainfluenza 1, PCR Not Detected (NotDetected); Parainfluenza 2, PCR Not Detected (NotDetected); Parainfluenza 3, PCR Not Detected (NotDetected); Parainfluenza 4, PCR Not Detected (NotDetected); Respiratory Syncytial Virus Not Detected (NotDetected); Rhinovirus/Enterovirus Not Detected (NotDetected)
== END ==
LOC: SC.PAIN 09:09
PROVIDERS: Internal Medicine; PCP Nurse Practitioner Family; Visit Provider Nurse Practitioner Family
DX: R05.8 Other specified cough (principal); R09.82 Postnasal drip; R09.89 Other specified symptoms and signs involving the circulatory and respiratory systems; R51.9 Headache, unspecified; R06.02 Shortness of breath; M54.81 Occipital neuralgia; M54.2 Cervicalgia; F17.210 Nicotine dependence, cigarettes, uncomplicated; J44.9 Chronic obstructive pulmonary disease, unspecified
CPT/HCPCS: 87632; 87635; 99212; G0463

== ENCOUNTER → 2023-06-07 14:53 | Outpatient (CLI) | payer MEDICARE, SELFPAY ==
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
== END ==
PROVIDERS: PCP Nurse Practitioner Family; Visit Provider Internal Medicine Pulmonary Disease
DX: R91.8 Other nonspecific abnormal finding of lung field (principal)
CPT/HCPCS: 71250

== ENCOUNTER → 2023-07-02 14:28 | Outpatient (POV) | payer MEDICARE, SELFPAY ==
[2023-07-02 14:48] VITALS: BP 151/86; PULSE 79; RESP 18; O2SAT 95; BMI 27.9
--- NOTE | 2023-07-02 14:49 | A.OFFVIS_ITS ---
[facility] Pain Management SOAP Note Subjective:: Patient is a very pleasant 68-year-old male comes our clinic today for follow-up visit regarding chronic occipital headaches. Patient has had 2 rounds of occipital nerve blocks. The last being 05/24/2023. Patient reports 1 month of significant improvement terms of his overall occipital nerve pain and headache. Patient requesting third round of injections. I think this is reasonable. Patient reports being able to increase ADLs. The patient's Juve #[id number] has been reviewed and appropriate. Objective:: Patient is awake alert Philo x 3. In no acute distress. Flexion-extension cervical spine somewhat guarded secondary to pain. Deep tendon reflexes upper lower extremities normal. Motor strength upper and lower extremities normal. There is no gross sensory deficit. Gait is normal. 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 Assessment:: Occipital neuralgia bilaterally. Chronic headaches. Plan:: We will plan repeat bilateral occipital nerve block. Discussed in detail with the patient regarding the injections. Answered his questions. [facility] Disclaimer: The information contained in this section may have been updated after the patient was seen, as this information can be updated by other users. Medical History (Updated 06/13/23 @ 11:11 by Violet Ramos, RT) Abnormal cardiovascular stress test Alcoholic encephalopathy Angina pectoris Annual physical exam Arteriosclerosis of coronary artery Asthma Bleeding from right ear Chest pain Chronic obstructive pulmonary disease COPD (chronic obstructive pulmonary disease) Coronary artery disease Dehydration Diastolic dysfunction Dyspnea on exertion Encounter for pre-operative cardiovascular clearance Eustachian tube dysfunction Family history of asthma Headache Hearing loss History of asthma Hyperlipidemia Hypertension Living will, counseling/discussion Methamphetamine intoxication Multiple lung nodules on CT Nodule of left lung Otalgia of right ear Otalgia, right ear Pulmonary emphysema Pulmonary hypertension Pulmonary hypertension Recurrent falls Rheumatoid arthritis Screening for AAA (abdominal aortic aneurysm) Screening for colon cancer Screening for lung cancer Screening for prostate cancer Tinnitus TMJ (temporomandibular joint disorder) TMJ dysfunction Trauma of ear canal Surgical History History of coronary artery bypass surgery Hx of tonsillectomy S/P colonoscopy Family History Father Heart attack Hyperlipidemia Coronary artery disease Diabetes Mother Cancer brain Stroke Social History Smoking Status: Current every day smoker tobacco type: cigarettes packs per day: 1 years smoked: 57 alcohol intake: current substance use type: marijuana current occupational status: retired Travel in the last 8 weeks: None household members: none housing: other marital status: number of children: 3 caffeine: Yes
== END ==
LOC: SC.PAIN 14:28
PROVIDERS: PCP Nurse Practitioner Family; Visit Provider Nurse Anesthetist, Certified Registered
DX: M54.81 Occipital neuralgia (principal); R51.9 Headache, unspecified
CPT/HCPCS: 99212; G0463

== ENCOUNTER 2023-08-06 12:02 | Day surgery (SDC) | payer MEDICARE, SELFPAY ==
[2023-08-06 12:11] VITALS: BP 159/89; PULSE 89; RESP 18; TEMP 36.3; O2SAT 98; BMI 29.6
[2023-08-06 12:17] VITALS: BP 149/90; PULSE 77; RESP 16; O2SAT 98
--- NOTE | 2023-08-06 12:20 | P.PCN_ITS ---
Procedure Date: 08/06/23 Time: 12:15 Anesthesiologist:: Lisandro Seo CRNA Complications:: None Pre-procedure Diagnosis:: Bilateral occipital neuralgia Post-procedure Diagnosis:: Same. Indications for Procedure:: Patient is a very pleasant 68-year-old male comes our clinic today for repeat bilateral occipital nerve block. Patient reports 60 to 80% improvement terms of his overall chronic headache since receiving previous occipital nerve blocks. He rates his pain 6/10. However, pain is intermittent. Procedure Details:: Details of the procedure explained to the patient. Patient taken the procedure room placed in the sitting position. The area over the occipital was cleansed using chlorhexidine as a cleansing solution. Using a 25-gauge inch and half needle the left greater occipital nerve was accessed with ease. 6 cc of a solu tion containing 3 cc of 1% lidocaine +3 cc of 0.25% Marcaine and 20 mg of Depo- Medrol was injected after negative aspiration in a fanning fashion over the left greater occipital nerve. The same procedure was carried out over the right occipital nerve in a similar fashion. Patient tolerated the procedure without difficulty. There are no complications. Plan and Disposition:: Patient was discharged without incident.
[2023-08-06] MEDS: BUPIVACAINE 0.25% 10ML INJ 25 MG IJ (12:22)
[2023-08-06 12:23] VITALS: BP 154/89; PULSE 80; RESP 18; O2SAT 97
[2023-08-06] MEDS: LIDOCAINE 1% 5ML PF VIAL 5 ML (12:23)
[2023-08-06] MEDS: methylPREDNISolone ACETATE 80MG/ML VIAL 80 MG (12:23)
[2023-08-06 12:24] VITALS: BP 154/89; PULSE 80; RESP 18; O2SAT 97
== END 2023-08-06 12:17 | disposition home or self-care (01) ==
PROVIDERS: PCP Nurse Practitioner Family; Visit Provider Nurse Anesthetist, Certified Registered
DX: M54.81 Occipital neuralgia (principal); R51.9 Headache, unspecified
CPT/HCPCS: 64405; J1040

== ENCOUNTER 2023-08-14 08:58 | Outpatient (CLI) | payer MEDICARE, SELFPAY ==
--- NOTE | 2023-08-14 09:03 | XR_ITS ---
FINAL REPORT CLINICAL HISTORY: Rt Hip Pain COMPARISON: 10/25/2021 FINDINGS: RIGHT HIP Two views of the right hip demonstrate no acute fracture or dislocation. There is mild degenerative change. The visualized bony structures are well aligned. There are mild vascular calcifications. No acute soft tissue abnormality is seen. IMPRESSION: Mild degenerative change without acute bony abnormality. Reviewed, Interpreted and Dictated by Shiv Rico III, MD Transcribed by Nayely Cotton Authenticated and . [facility]
== END 2023-08-14 23:59 ==
LOC: RAD 09:00
PROVIDERS: PCP Nurse Practitioner Family; Visit Provider Orthopaedic Surgery
DX: M25.551 Pain in right hip (principal)
CPT/HCPCS: 73502

== ENCOUNTER → 2023-08-23 14:27 | Outpatient (POV) | payer MEDICARE, SELFPAY ==
[2023-08-23 15:14] VITALS: BP 143/80; PULSE 82; RESP 18; O2SAT 96; BMI 29.6
--- NOTE | 2023-08-23 15:20 | A.OFFVIS_ITS ---
[facility] Pain Management SOAP Note Subjective:: Patient is a pleasant 68-year-old male who presents today for follow-up of bilateral occipital nerve block on 08/06/2023. We are currently treating the patient for occipital neuralgia bilaterally, chronic headaches. Today he rates his pain a 6 out of 10. Patient denies any new trauma or injury. He does state that he has had significant improvement. He does state that the difference in his headaches went from having 2-3 headaches daily down to only having 1 every so often. He does also feel like overall it does help with his general aches and pains in and around his neck and even down into his hands. Patient states that he is more manageable and feels overall improved function following these injections. He does still state that he feels like occasionally he has increased sweating after having these injections. His Juve has been reviewed and is appropriate. Review of Systems: General: No recent weight changes, no fever, no sleep disturbances Respiratory: No cough, no shortness of air, no recurring pulmonary infections Cardiovascular/peripheral vascular: No chest pain, no palpitations, no edema, no shortness of breath Gastrointestinal: No new onset incontinence, normal bowel movements reported Genitourinary: No new onset incontinence Musculoskeletal: Neck pain Psychiatric: [Normal mood/affect] Neurological: [Denies weakness in extremities], [denies balance issues] Objective:: Physical Exam: General: Alert and oriented x3, no acute distress, pleasant and cooperative Lungs: Respirations even and unlabored, symmetrical chest expansion Eyes: PERRL Musculoskeletal: Flexion and extension of cervical [spine] somewhat guarded secondary to pain, [antalgic gait noted] Neurological: Speech clear, no gross sensory deficit Assessment:: Occipital neuralgia, chronic headaches, neck pain with cervical radiculopathy symptoms Plan:: Patient has had significant improvement following this injection and does not require any additional injection therapy. Patient will return to clinic in 1 month for reevaluation of symptoms and plan of care. Patient has been instructed to contact the clinic with any concerns before the n ext appointment. Dr. Felix has reviewed this note and agrees with this plan of care. This note was dictated using voice recognition software and make contain errors or omissions. [facility] Disclaimer: The information contained in this section may have been updated after the patient was seen, as this information can be updated by other users. Medical History Abnormal ankle brachial index (ROSIO) Abnormal cardiovascular stress test Abnormal leg movement Alcoholic encephalopathy Angina pectoris Annual physical exam Arteriosclerosis of coronary artery Asthma Bilateral hand pain Bleeding from right ear Asymptomatic already seen and evaluated by ENT 03/13/2023 Broken or cracked tooth, nontraumatic Chest pain Chronic obstructive pulmonary disease COPD (chronic obstructive pulmonary disease) Coronary artery disease Dehydration Diastolic dysfunction Dyspnea on exertion Encounter for pre-operative cardiovascular clearance Eustachian tube dysfunction External otitis of right ear Family history of asthma Headache Hearing loss History of amphetamine abuse History of asthma Hyperlipidemia Hypertension Living will, counseling/discussion Low back pain Mastoid pain Methamphetamine intoxication Multiple lung nodules on CT Myofascial pain Nodule of left lung Otalgia of right ear Otalgia, right ear Pain of molar Pulmonary emphysema Pulmonary hypertension Pulmonary hypertension Pulmonary nodules Recurrent falls Rheumatoid arthritis Screening for AAA (abdominal aortic aneurysm) Screening for colon cancer Screening for lung cancer Screening for prostate cancer Tinnitus TMJ (temporomandibular joint disorder) TMJ dysfunction Trauma of ear canal Upper respiratory infection Surgical History History of coronary artery bypass surgery Hx of tonsillectomy S/P colonoscopy Family History Father Heart attack Hyperlipidemia Coronary artery disease Diabetes Mother Cancer brain Stroke Social History Smoking Status: Current every day smoker tobacco type: cigarettes packs per day: 1 years smoked: 57 alcohol intake: current substance use type: marijuana current occupational status: retired Travel in the last 8 weeks: None household members: none housing: other marital status: number of children: 3 caffeine: Yes
== END ==
LOC: SC.PAIN 14:28
PROVIDERS: PCP Nurse Practitioner Family; Visit Provider Nurse Practitioner Family
DX: M54.81 Occipital neuralgia (principal); R51.9 Headache, unspecified; M54.12 Radiculopathy, cervical region
CPT/HCPCS: 99212; G0463

== ENCOUNTER 2023-09-05 12:47 | Outpatient (CLI) | payer MEDICARE, MEDICAID, SELFPAY ==
--- NOTE | 2023-09-05 12:48 | MR_ITS ---
FINAL REPORT CLINICAL HISTORY: Rt Hip Pain chronic pain no injury FINDINGS: Multiplanar and multisequence imaging of the right hip were obtained without contrast. There is no acute fracture. Subchondral foci of T2 abnormality demonstrating subtle double line signs are present along the anterior, subchondral portion of the humeral heads. The necrotic fragment is larger on the right than on the left. There is no subchondral collapse. There is degenerative joint disease. Remaining bone marrow signal intensity is within normal limits. The labrum is intact. No convincing labral tear is identified. Signal intensity within the muscular structure is within normal limits. There is no joint effusion. Remaining soft tissues are without acute abnormality. IMPRESSION: 1. Bilateral mild femoral head AVN, right greater than left without subchondral collapse. 2. Degenerative joint disease. Authenticated and [facility]
== END 2023-09-05 23:59 ==
LOC: RAD 12:48
PROVIDERS: PCP Nurse Practitioner Family; Visit Provider Orthopaedic Surgery
DX: S79.911A Unspecified injury of right hip, initial encounter (principal); M25.551 Pain in right hip
CPT/HCPCS: 73721

== ENCOUNTER 2023-09-17 14:08 | Outpatient (CLI) | payer MEDICARE, MEDICAID, SELFPAY ==
[2023-09-17 15:29] LABS: Blood Urea Nitrogen 14 mg/dl (9-20); Estimated Glomerular Filt Rate 97 ml/min (>60); GFR (African American) 117 ML/MIN (>60)
[2023-09-17 16:02] LABS: Prostate Specific Ag Screen 1.2 ng/ml (0.0-4.0)
== END 2023-09-17 23:59 ==
LOC: LAB 14:09
PROVIDERS: PCP Nurse Practitioner Family; Visit Provider Urology
DX: N40.0 Benign prostatic hyperplasia without lower urinary tract symptoms (principal); Z12.5 Encounter for screening for malignant neoplasm of prostate
CPT/HCPCS: 82565; 84520; G0103

== ENCOUNTER 2023-09-23 13:27 | Outpatient (POV) | payer MEDICARE, SELFPAY ==
--- NOTE | 2023-09-23 13:48 | EXP.PAIN.SOA ---
[facility] Pain Management SOAP Note Subjective:: Patient is a pleasant 68-year-old male who presents today for follow-up. We are currently treating the patient for occipital neuralgia, chronic headaches. Today he rates his pain an 8 out of 10. Patient states that he is back to his baseline and is back to experiencing 2-3 headaches a day. Patient states this is a chronic achy sensation that goes in and around his neck and does affect his ability to perform activities of daily living such as cooking and cleaning. Patient did previously have bilateral occipital nerve blocks back in July and they did provide more than 50% relief including decrease of headaches down from the 2-3 daily to only 1 every so often. Patient is interested in repeating these injections. He does also state that he will be having hip surgery in the future however he does not have a date as of yet. His Juve has been reviewed and is appropriate. Review of Systems: General: No recent weight changes, no fever, no sleep disturbances Respiratory: No cough, no shortness of air, no recurring pulmonary infections Cardiovascular/peripheral vascular: No chest pain, no palpitations, no edema, no shortness of breath Gastrointestinal: No new onset incontinence, normal bowel movements reported Genitourinary: No new onset incontinence Musculoskeletal: Neck pain, headache, pressure Psychiatric: [Normal mood/affect] Neurological: [Denies weakness in extremities], [denies balance issues] Objective:: Physical Exam: General: Alert and oriented x3, no acute distress, pleasant and cooperative Lungs: Respirations even and unlabored, symmetrical chest expansion Eyes: PERRL Musculoskeletal: Flexion and extension of cervical [spine] somewhat guarded secondary to pain Neurological: Speech clear, no gross sensory deficit Assessment:: Bilateral occipital neuralgia, chronic headaches Plan:: Patient is experiencing worsening pain in his neck pressure and headaches daily. I have discussed with the patient that he may benefit from repeat occipital nerve blocks. Risk and benefits were discussed with patient and he would like to proceed forward with this plan of care. Patient has tried and failed conservative therapy. Will schedule the patient for bilateral occipital nerve blocks. He did previously get more than 50% relief from these last injections. Patient has been instructed to contact the clinic with any concerns before the next appointment. Dr. Felix has reviewed this note and agrees with this plan of care. This note was dictated using voice recognition software and make contain errors or omissions. [facility] Disclaimer: The information contained in this section may have been updated after the patient was seen, as this information can be updated by other users. Medical History Upper respiratory infection Broken or cracked tooth, nontraumatic Pain of molar Low back pain Myofascial pain TMJ (temporomandibular joint disorder) Asthma Otalgia of right ear History of amphetamine abuse Mastoid pain Headache Bleeding from right ear Asymptomatic already seen and evaluated by ENT 03/13/2023 Trauma of ear canal External otitis of right ear Dyspnea on exertion Nodule of left lung Multiple lung nodules on CT History of asthma Family history of asthma Pulmonary emphysema Pulmonary hypertension Angina pectoris Abnormal cardiovascular stress test Pulmonary nodules Bilateral hand pain Encounter for pre-operative cardiovascular clearance Abnormal leg movement Living will, counseling/discussion Screening for AAA (abdominal aortic aneurysm) Screening for lung cancer Screening for prostate cancer Screening for colon cancer Annual physical exam Eustachian tube dysfunction Tinnitus TMJ dysfunction Hearing loss Otalgia, right ear Abnormal ankle brachial index (RSOIO) Rheumatoid arthritis Arteriosclerosis of coronary artery Chest pain Chronic obstructive pulmonary disease Coronary artery disease Hyperlipidemia Hypertension Recurrent falls Dehydration Diastolic dysfunction Pulmonary hypertension COPD (chronic obstructive pulmonary disease) Alcoholic encephalopathy Methamphetamine intoxication Surgical History Hx of tonsillectomy S/P colonoscopy History of coronary artery bypass surgery Family History Father Heart attack Hyperlipidemia Coronary artery disease Diabetes Mother Cancer brain Stroke Social History Smoking Status: Current every day smoker tobacco type: cigarettes packs per day: 1 years smoked: 57 alcohol intake: current substance use type: marijuana current occupational status: retired Travel in the last 8 weeks: None household members: none housing: other marital status: number of children: 3 caffeine: Yes
[2023-09-23 14:00] VITALS: BP 146/89; PULSE 92; RESP 18; O2SAT 98; BMI 29.6
== END 2023-09-23 23:59 ==
LOC: SC.PAIN 13:27
PROVIDERS: PCP Nurse Practitioner Family; Visit Provider Nurse Practitioner Family
DX: M54.81 Occipital neuralgia (principal); R51.9 Headache, unspecified
CPT/HCPCS: 99212; G0463

== ENCOUNTER 2023-10-15 10:01 | Day surgery (SDC) | payer MEDICARE, MEDICAID, SELFPAY ==
[2023-10-15 10:20] VITALS: BP 186/107; PULSE 94; RESP 18; TEMP 36.2; O2SAT 97; BMI 29.6
[2023-10-15 10:27] VITALS: BP 159/95; PULSE 75; RESP 20; O2SAT 97
[2023-10-15] MEDS: LIDOCAINE 1% 5ML PF VIAL 5 ML (10:27)
[2023-10-15] MEDS: BUPIVACAINE 0.25% 10ML INJ 25 MG IJ (10:27)
[2023-10-15] MEDS: methylPREDNISolone ACETATE 80MG/ML VIAL 80 MG (10:27)
[2023-10-15 10:42] VITALS: BP 117/87; PULSE 77; RESP 18; O2SAT 97
--- NOTE | 2023-10-15 10:43 | P.PCN_ITS ---
Procedure Date: 10/15/23 Time: 10:35 Anesthesiologist:: Lisandro Seo CRNA Complications:: None Pre-procedure Diagnosis:: Bilateral occipital neuralgia Post-procedure Diagnosis:: Same Indications for Procedure:: Patient is a pleasant 68-year-old male comes to our clinic today for repeat gunner ateral occipital nerve block. He had 2 to 3 months of significant improvement after his initial round of injections. He rates his pain today 7/10. His main complaint is headaches frequently. Procedure Details:: Details of the procedure explained to the patient. Patient taken the procedure room placed in the sitting position. The area over the occipital was cleansed using chlorhexidine as a cleansing solution. Using a 25-gauge inch and half needle the left greater occipital nerve was accessed with ease. 6 cc of a solution containing 3 cc of 1% lidocaine +3 cc of 0.25% Marcaine and 20 mg of Depo-Medrol was injected after negative aspiration in a fanning fashion over the left greater occipital nerve. The same procedure was carried out over the right occipital nerve in a similar fashion. Patient tolerated the procedure without difficulty. There are no complications. Plan and Disposition:: Patient was discharged without incident.
== END 2023-10-15 10:42 | disposition home or self-care (01) ==
PROVIDERS: PCP Nurse Practitioner Family; Visit Provider Nurse Anesthetist, Certified Registered
DX: M54.81 Occipital neuralgia (principal)
CPT/HCPCS: 64405; J1010

== ENCOUNTER 2023-10-30 09:11 | Outpatient (POV) | payer MEDICARE, MEDICAID, SELFPAY ==
[2023-10-30 09:29] VITALS: BP 155/87; PULSE 69; RESP 16; O2SAT 98; BMI 31.9
--- NOTE | 2023-10-30 09:41 | EXP.PAIN.SOA ---
[facility] Pain Management SOAP Note Subjective:: Patient is a pleasant 68-year-old male who presents today for follow-up of bilateral occipital nerve block on 10/15/2023. Today he rates his pain an 8 out of 10. Patient states that he feels like he did not get any relief following these injections. Patient does state his pain is still all related to chronic headaches as well as neck pain with radiating symptoms into his upper extremities and some numbness and tingling to his hands. Patient states the pain is interfering with his ability to perform activities of daily living such as cooking and cleaning. Patient does state that this prevents him from doing a lot due to the pain. He is interested in any help we may be able to provide. Patient has tried and failed conservative therapies such as oral medication, heat and ice, topicals, continued exercise and stretching for longer than 12 weeks. Patient does state today that he is scheduled for follow-up with his orthopedic doctor on December 10 regarding his hip replacement. He states that they do not have a date yet because he had to reschedule the last time he was having this replacement due to other things interfering with the date. Patient does state that he has seen a provider in [place] for this. Patient is currently on Plavix by Dr. Zapien. His Juve has been reviewed and is appropriate. Review of Systems: General: No recent weight changes, no fever, no sleep disturbances Respiratory: No cough, no shortness of air, no recurring pulmonary infections Cardiovascular/peripheral vascular: No chest pain, no palpitations, no edema, no shortness of breath Gastrointestinal: No new onset incontinence, normal bowel movements reported Genitourinary: No new onset incontinence Musculoskeletal: Headaches, neck pain, bilateral arm numbness tingling Psychiatric: [Normal mood/affect] Neurological: [Denies weakness in extremities], [denies balance issues] Objective:: Physical Exam: General: Alert and oriented x3, no acute distress, pleasant and cooperative Lungs: Respirations even and unlabored, symmetrical chest expansion Eyes: PERRL Musculoskeletal: Flexion and extension of cervical [spine] somewhat guarded secondary to pain, [antalgic gait noted] positive Spurling's test Neurological: Speech clear, no gross sensory deficit FINDINGS: CERVICAL SPINE Four views were obtained. There is no acute fracture. There is no malalignment. There are moderate degenerative changes in the lower cervical spine with multilevel osteophytes. There is mild bilateral C6-7 and right C5-6 neural foraminal narrowing. There is a calcification posterior to C5. There is no soft tissue abnormality. IMPRESSION: Degenerative changes with no acute bony abnormality. Reviewed, Interpreted and Dictated by Shiv Rico III, MD Transcribed by Afsaneh Lion Authenticated and . [facility] Assessment:: Degenerative disc disease of cervical spine. Cervical radiculopathy symptoms, chronic headache, occipital neuralgia Plan:: Patient is experiencing worsening pain in his neck with radiating symptoms to his upper extremities and chronic headaches. Patient did have limited range of motion of his cervical spine with a positive Spurling's test. I have discussed with the patient that he may benefit from a cervical epidural steroid injection. Risk and benefits were discussed with the patient and he would like to proceed forward with this plan of care. I have discussed with the patient that we will have to reach out to Dr. Zapien's office and confirm that he can stop this medication prior to this injection. Patient agrees with this plan of care. I also discussed with the patient due to his possible upcoming hip replacement that I do want him to reach out to this provider and confirm that he has no contraindications for the steroid injection. Patient acknowledges understanding and agrees with this plan of care. Will schedule the patient for a KYAW C6-C7 under fluoroscopy. Patient has been instructed to contact the clinic with any concerns before the next appointment. Dr. Felix has reviewed this note and agrees with this plan of care. This note was dictated using voice recognition software and make contain errors or omissions. [facility] Disclaimer: The information contained in this section may have been updated after the patient was seen, as this information can be updated by other users. Medical History Upper respiratory infection Broken or cracked tooth, nontraumatic Pain of molar Low back pain Myofascial pain TMJ (temporomandibular joint disorder) Asthma Otalgia of right ear History of amphetamine abuse Mastoid pain Headache Bleeding from right ear Asymptomatic already seen and evaluated by ENT 03/13/2023 Trauma of ear canal External otitis of right ear Dyspnea on exertion Nodule of left lung Multiple lung nodules on CT History of asthma Family history of asthma Pulmonary emphysema Pulmonary hypertension Angina pectoris Abnormal cardiovascular stress test Pulmonary nodules Bilateral hand pain Encounter for pre-operative cardiovascular clearance Abnormal leg movement Living will, counseling/discussion Screening for AAA (abdominal aortic aneurysm) Screening for lung cancer Screening for prostate cancer Screening for colon cancer Annual physical exam Eustachian tube dysfunction Tinnitus TMJ dysfunction Hearing loss Otalgia, right ear Abnormal ankle brachial index (ROSIO) Rheumatoid arthritis Arteriosclerosis of coronary artery Chest pain Chronic obstructive pulmonary disease Coronary artery disease Hyperlipidemia Hypertension Recurrent falls Dehydration Diastolic dysfunction Pulmonary hypertension COPD (chronic obstructive pulmonary disease) Alcoholic encephalopathy Methamphetamine intoxication Surgical History Hx of tonsillectomy S/P colonoscopy History of coronary artery bypass surgery Family History Father Heart attack Hyperlipidemia Coronary artery disease Diabetes Mother Cancer brain Stroke Social History Smoking Status: Current every day smoker tobacco type: cigarettes packs per day: 1 years smoked: 57 alcohol intake: current substance use type: marijuana current occupational status: other Travel in the last 8 weeks: None household members: none housing: other marital status: number of children: 3 caffeine: Yes
== END 2023-10-30 23:59 | disposition home or self-care (01) ==
LOC: SC.PAIN 09:11
PROVIDERS: PCP Nurse Practitioner Family; Visit Provider Nurse Practitioner Family
DX: M50.123 Cervical disc disorder at C6-C7 level with radiculopathy (principal); R51.9 Headache, unspecified; M54.81 Occipital neuralgia
CPT/HCPCS: 99212; G0463

== ENCOUNTER 2023-11-07 12:00 | Outpatient (CLI) | payer MEDICARE, MEDICAID, SELFPAY ==
[2023-11-07 12:11] LABS: Microscopic, Urine URINE MICROSCOPIC (MICROSCOPIC)
[2023-11-07 12:41] LABS: Appearance,Urine CLEAR (Clear); Basophils # 0.1 K/mm3 (0-0.2); Bilirubin,Urine Negative (Negative); Blood, Urine Negative (Negative); Color,Urine YELLOW (Yellow); Eosinophils # 0.4 K/mm3 (0.0-0.4); Eosinophils % 5.8 % (0.1-12.0); Glucose,Urine (UA) Negative (Negative); Hematocrit 48.5 % (42.0-52.0); Hemoglobin 15.7 g/dL (14.1-18.0); Ketones,Urine Negative (Negative); Leukocyte Esterase,Urine Negative (Negative); Lymphocytes # 2.1 K/mm3 (0.7-4.5); Lymphocytes % 32.3 % (10-50); Mean Corpuscular HGB Conc 32.5 g/dL (31.8-35.4); Mean Corpuscular Hemoglobin 33.4 pg (27.0-31.2); Mean Corpuscular Volume 102.7 fl (80-94); Mean Platelet Volume 7.4 fl (7.4-10.4); Monocytes # 0.4 K/mm3 (0.1-1.0); Monocytes % 6.3 % (1.7-9.3); Neutrophils # 3.5 K/mm3 (1.8-7.8); Neutrophils % 54.6 % (37.0-80.0); Nitrate,Urine Negative (Negative); Platelet Count 229 K/mm3 (142-424); Protein,Urine Negative (Negative); Red Blood Count 4.72 M/mm3 (4.60-6.20); Red Cell Distribution Width 13.7 % (11.5-17.5); Specific Gravity, Urine 1.025 (1.005-1.030); Urobilinogen,Urine 0.2 EU/dl (0.2); White Blood Count 6.5 K/mm3 (4.8-10.8)
[2023-11-07 12:51] LABS: Bacteria,Urine Trace /lpf; Squamous Epithelial Cell,Urine Occasional #/hpf (0-5)
[2023-11-07 13:04] LABS: Alanine Aminotransferase 27 U/L (12-78); Albumin Level 4.4 g/dl (3.5-5.0); Albumin/Globulin Ratio 1.8 (1.1-1.8); Alkaline Phosphatase 55 U/L (38-126); Anion Gap 9.3 mEq/L (5-15); Aspartate Amino Transferase 27 U/L (17-59); Bilirubin,Total 0.9 mg/dl (0.2-1.3); Blood Urea Nitrogen 8 mg/dl (9-20); Calcium 9.4 mg/dl (8.4-10.2); Carbon Dioxide 26 mmol/L (22.0-30.0); Chloride 108 mmol/L (98-107); Chol/HDL Ratio 1.9 (1-3.5); Cholesterol 124 mg/dl (140-200); Estimated Glomerular Filt Rate 97 ml/min (>60); GFR (African American) 117 ML/MIN (>60); Globulin 2.5 g/dL (1.3-3.2); Glucose 99 mg/dl (74-100); HDL Cholesterol 66 mg/dl (40-60); Potassium 4.3 mmoL/L (3.5-5.1); Sodium 139 mmol/L (136-145); Total Protein,Serum 6.9 g/dl (6.3-8.2); Triglycerides 60 mg/dl (30-150); VLDL Cholesterol 12 mg/dL (0-40)
[2023-11-07 13:14] LABS: Hemoglobin A1C 6.1 % (4.0-6.0)
[2023-11-07 13:14] LABS: Iron 123 ug/dL (49-181)
[2023-11-07 13:15] LABS: Direct LDL Cholesterol 63.99 mg/dL (100-129)
[2023-11-07 13:20] LABS: Free T4 (Free Thyroxine) 0.89 ng/dl (0.78-2.19)
[2023-11-07 13:21] LABS: 25-OH Vitamin D, Total 60.4 ng/mL (30-100)
[2023-11-07 13:23] LABS: Total Iron Binding Capacity 345 ug/dL (261-462)
[2023-11-07 13:35] LABS: Thyroid Stimulating Hormone 2.03 uIU/mL (0.465-4.68)
[2023-11-07 14:02] LABS: Vitamin B12 > 1000 pg/mL (239-931)
[2023-11-08 11:33] LABS: HBsAg Screen Negative (Negative); HCV Ab Non Reactive (Non Reactive); HIV Screen 4th Generation wRfx Non Reactive (Non Reactive); Hep A Ab, IGM Negative (Negative); Hep B Core Ab, IgM Negative (Negative); Testosterone,Total 285 ng/dL (264-916)
[2023-11-08 12:30] LABS: Rapid Plasma Reagin Ab Titer Non Reactive titer (NonRea<1:1)
[2023-11-09 08:07] LABS: Neisseria gonorrhoeae, NAA Negative (Negative)
== END 2023-11-07 23:59 | disposition home or self-care (01) ==
LOC: LAB 12:02
PROVIDERS: PCP Nurse Practitioner Family; Visit Provider Physician Assistant
DX: Z11.4 Encounter for screening for human immunodeficiency virus [HIV]; I10 Essential (primary) hypertension; D64.9 Anemia, unspecified; E78.2 Mixed hyperlipidemia; R73.03 Prediabetes; N52.9 Male erectile dysfunction, unspecified; E55.9 Vitamin D deficiency, unspecified; N40.0 Benign prostatic hyperplasia without lower urinary tract symptoms; R33.9 Retention of urine, unspecified
CPT/HCPCS: 80050; 80053; 80061; 80074; 81001; 82306; 82607; 82728; 83036; 83540; 83550; 84156; 84403; 84439; 84443; 85025; 86593; 86703; 87086; 87491; 87591; G0432

== ENCOUNTER 2023-11-11 11:45 | Outpatient (CLI) | payer MEDICARE, MEDICAID, SELFPAY ==
--- NOTE | 2023-11-11 11:52 | NM_ITS ---
APPROVED REPORT Exam: Nuclear Stress Test Indication: pre-op..fatigue Patient Location: Outpatient Stress Tech: Ashleigh Mejia AR Tech:Mita Parker MORENO RT(R)(N) Ht: 5 ft 8 in Wt: 198 lbs HR: 70 bpm BP: 142/85 mmHg BSA: 2.03 m2 TID: 1.29 BMI: 30.1 History: pre-op..fatigue Procedure: Patient received 0.4 mg of intravenous Lexiscan, resting heart rate 70 bpm, resting blood pressure 142/85 mmHg, with Lexiscan maximum heart rate achieved was 85 bpm which is 85 % of the maximum predicted heart rate and blood pressure was 148/77 mmHg. With Lexiscan, patient denied any complaint of chest pain. Cardiac Stress and Resting SPECT Images: Cardiac Stress and Resting SPECT images were obtained using technetium 99m Myoview 31.7 mCi stress and 10.46 mCi at rest. Resting and stress imaging in supine and prone positions demonstrate no evidence of fixed or reversible perfusion defects. There is increased transient ischemic dilatation ratio (TID 1.29), suggestive of possible multivessel disease or balanced ischemia. Gated imaging demonstrates normal global and regional LV systolic function. The septum appears asynchronous. LVEF is calculated at 58%. Conclusion: No evidence of fixed or reversible perfusion defects. There is increased transient ischemic dilatation ratio (TID 1.29), suggestive of possible multivessel disease or balanced ischemia. Gated imaging demonstrates normal global and regional LV systolic function. The septum appears asynchronous. LVEF is calculated at 58%. Electronically signed by : Lolita Small MD 11/13/2023 11:28:27
--- NOTE | 2023-11-11 12:51 | CA_ITS ---
APPROVED REPORT EXAM: Comprehensive 2D, Doppler, and color-flow Echocardiogram Svp Digital [employer] Sales: Luz Guo RDCS Ht: 5 ft 8 in Wt: 202lbs BSA: 2.05 BP: 140/88 mmHg Indications: PRE OPASSESSMENT,CP,PHTN,CABG,COPD,CAD,HTN,HLP,CARTWRIGHT M-Mode Dimensions RVDd 2.98 cm (0.9-2.6) LA Diam 4.35 cm (1.9-4.0) LVDd 4.09 cm (3.5-5.7) LVDs 2.86 cm (3.5-5.7) IVSd 0.86 cm (0.6-1.1) PWd 0.90 cm (0.6-1.1) EF (Teich) 57.90% FS 30.10% EDV (Teich) 73.80 mL ESV (Teich) 31.10 mL LV Diastology E Decel Time 167 (160-240 msec) E/A Ratio 2.1 Aortic Valve MARIBELL Index 1.40 cm2/m2 AoV Peak Billy. 111.0 (50-130 cm/s) AO Peak GR. 5.00 mmHg AO Mean GR. 2.50 (<5 mmHg) AO VTI 20.8 (18-25 cm) MARIBELL (VTI) 2.94 (2.5-4.5 cm2) Mitral Valve MV E Max Billy. 78.0 (40-130 cm/s) MV A Velocity 38.0 (40-130 cm/s) E/A Ratio 2.08 MV PHT 49.0 ms Tricuspid Valve TR P. Velocity 275.00 cm/s RAP Estimate 10.00 mmHg RVSP 40.30 mmHg Left Ventricle The left ventricle is normal size. The left ventricular systolic function is normal. The left ventricular ejection fraction is within the normal range. There is increased LV wall thickness. There is normal LV segmental wall motion. The left ventricular diastolic function is normal. LVEF is 60%. Right Ventricle Right ventricle is mildly dilated. Right ventricle is mildly hypokinetic. Atria The left atrium size is normal. Right atrium is mildly dilated. There is no Doppler evidence of interatrial shunt. Aortic Valve The aortic valve is mildly thickened. There is no aortic valvular stenosis. No aortic regurgitation is present. Mitral Valve The mitral valve is normal in structure. No evidence of mitral valve stenosis. There is no mitral valve regurgitation noted. Tricuspid Valve The tricuspid valve leaflets are thin and pliable. Moderate tricuspid regurgitation. RVSP 30-35 mmHg. Pulmonic Valve The pulmonary valve is normal in structure. Trace pulmonic regurgitation. Great Vessels The aortic root is normal in size. The ascending aorta is normal size. IVC is normal in size and collapses >50% with inspiration. Pericardium There is no pericardial effusion. Other Information Study Quality: Fair Conclusion Normal LV systolic function. Mild RV dilation with mild reduction in RV function. Mild RA dilation. Moderate TR. RVSP 30-35 mmHg. Electronically signed by : Lolita Small MD 11/15/2023 00:49:59
[2023-11-11] MEDS: ISOTOPE MYOVIEW (PER STUDY) 1 DOSE IV (14:06)
[2023-11-11] MEDS: REGADENOSON 0.4MG/5ML SYRINGE 0.400000000000000022 MG IV (14:06)
[2023-11-11] MEDS: SODIUM CHLORIDE 0.9% 10ML SYR (RAD ONLY) 10 ML IV ×2 (14:06)
--- NOTE | 2023-11-11 15:32 | CA_ITS ---
APPROVED REPORT Exam: Pharmacologic Technologist: Ashleigh Mejia Ht: 5 ft 8 in Wt: 202 lbs BSA: 2.05 m2 HR: 69 bpm BP: 142/85 mmHg Indications: Pre Op clearance, shortness of air Medical History Medications: Aspirin,,,,, Vitamin C,,,,, Vitamin E,,,,, Flomax,,,,, Losartan,,,,, Zetia,,,,, Atorvastatin,,,,, Flonase,,,,, Duoneb,,,,, Calcium,,,,, Diclofenac,,,,, Plavix,,,,, Stress Test Details Test: LEXISCAN HR Resting HR: 70 bpm Max Heart Rate (APMHR): 154 bpm Max HR Achieved: 85 bpm Target HR (85% APMHR): 131 bpm % of APMHR: 55 Recovery HR: 82 bpm BP Resting BP: 142.0/85.0 mmHg Max BP: 148.0/77.0 mmHg Recovery BP: 144.0/71.0 mmHg ECG Resting ECG: Normal sinus rhythm Stress ECG: No significant ST changes Arrhythmia: PACs, PVCs Clinical Exercise duration: 03:57 min Highest Stage Achieved: Stress ECG Conclusion Symptoms: No shortness of air or chest pain. Arrhythmias/Ectopy: Rare PVC, Rare PAC ST-T Changes: No significant ST changes Conclusion: Unremarkable Lexiscan stress test. Myoview images reported separately. Test Summary REST . . . . . . . Resting REST 05:51 . . 70 . 142/ 85 . . Stage 1 . . . . . . . Myoview Injected Stage 1 01:00 . . 79 . . . . Stage 2 01:00 . . 82 . 137/ 93 . . Stage 3 01:00 . . 80 . 145/ 75 . . Stage 4 00:57 . . 78 . 143/ 78 . Stop exercise at 03:57 RECOVERY 01:00 . . 79 . . . . RECOVERY 02:00 . . 77 . 148/ 77 . . RECOVERY 03:00 . . 79 . 144/ 71 . . RECOVERY 03:14 . . 78 . 144/ 71 . . Electronically signed by : Lolita Small MD 11/13/2023 11:27:03
== END 2023-11-11 23:59 | disposition home or self-care (01) ==
LOC: RAD 11:46
PROVIDERS: PCP Nurse Practitioner Family; Visit Provider Physician Assistant
DX: Z01.810 Encounter for preprocedural cardiovascular examination (principal); I73.9 Peripheral vascular disease, unspecified; I25.10 Atherosclerotic heart disease of native coronary artery without angina pectoris; F17.200 Nicotine dependence, unspecified, uncomplicated; E78.2 Mixed hyperlipidemia; Z95.1 Presence of aortocoronary bypass graft; I10 Essential (primary) hypertension; I51.89 Other ill-defined heart diseases; I27.20 Pulmonary hypertension, unspecified
CPT/HCPCS: 78452; 93017; 93018; 93306; A9502; J2785

== ENCOUNTER 2023-11-19 08:28 | Day surgery (SDC) | payer MEDICARE, MEDICAID, SELFPAY ==
[2023-11-19 08:44] VITALS: BP 142/82; PULSE 80; RESP 18; TEMP 36.5; O2SAT 96; BMI 30.1
--- NOTE | 2023-11-19 09:13 | P.PCN_ITS ---
Procedure Date: 11/19/23 Time: 09:00 Anesthesiologist:: Lisandro Seo CRNA Complications:: None Pre-procedure Diagnosis:: Degenerative disc cervical spine multilevels. Cervical radiculopathy. Cervical spondylosis. Post-procedure Diagnosis:: Same. Indications for Procedure:: Patient is a very pleasant 68-year-old male comes our clinic today for cervical epidural steroid injection. Patient reports posterior cervical neck pain as well as bilateral arm radicular symptoms to the fingers. He rates his pain 7/10. Procedure Details:: Procedure:Cervical epidural steroid injection Informed consent was obtained and the risks and benefits of the procedure were explained to the patient. The patient was taken to the procedure room and noninvasive monitors placed, including noninvasive blood pressure cuff and pulse oximeter. The neck was prepped using Chloraprep as a cleansing solution. The C6- C7 interspace was viewed using fluroscopy. The skin and subcutaneous tissues were anesthetized using lidocaine 1.5% and a 25-gauge needle. After this an 18- gauge Touhy epidural needle was placed into the C6-C7 interspace under fluroscopy guidance and advanced using loss of resistance to air until the epidural space was encountered. After confirmation of needle placement in the epidural space using contrast dye, a solution containing normal saline, 2 mL and Depo-Medrol 80 mg was incrementally injected into the cervical epidural space.~ The patient tolerated the procedure well with no complications. The patient was observed in the Pain Clinic and then discharged home neurologically intact. Plan and Disposition:: Patient was discharged without incident.
[2023-11-19 09:15] VITALS: BP 156/90; PULSE 78; RESP 18; O2SAT 97
[2023-11-19 09:16] VITALS: BP 156/90; PULSE 78; RESP 18; O2SAT 97
[2023-11-19] MEDS: IOPAMIDOL-200 (41%);10ML VIAL 10 ML IV (09:18)
[2023-11-19 09:20] VITALS: BP 165/96; PULSE 74; RESP 18; O2SAT 96
== END 2023-11-19 09:20 | disposition home or self-care (01) ==
PROVIDERS: PCP Nurse Practitioner Family; Visit Provider Nurse Anesthetist, Certified Registered
DX: M50.123 Cervical disc disorder at C6-C7 level with radiculopathy (principal); M47.22 Other spondylosis with radiculopathy, cervical region
CPT/HCPCS: 62321; Q9966

== ENCOUNTER 2023-12-05 07:48 | Day surgery (SDC) | payer MEDICARE, MEDICAID, SELFPAY ==
[2023-12-05] VITALS (25 sets, daily range): BP systolic 125–163; BP diastolic 73–105; PULSE 54–82; RESP 15–18; TEMP 36.7; O2SAT 92–99; BMI 31.1
--- NOTE | 2023-12-05 07:15 | IR_ITS ---
APPROVED REPORT Patient Location: Outpatient General Sales Manager: MORENO Tejada RT (R) PROCEDURES Left heart catheterization Left ventriculogram Selective coronary angiogram Left internal mammary angiography Selective engagement of the saphenous vein graft to the circumflex artery Selective engagement of saphenous vein graft to the right coronary INDICATION Coronary artery disease, History of coronary artery bypass surgery, Preoperative evaluation Informed consent was obtained prior to the procedure. COMPLICATIONS None Estimated Blood Loss: Less than 10 mls TECHNIQUE One percent lidocaine used to anesthetize the right groin. The right femoral artery was accessed via the Seldinger technique and a 5 Burkinan sheath was placed in the right femoral artery. A JL 4, JR4 catheter were used to perform left heart catheterization, left ventriculogram selective coronary angiography as well as selective engagement of the 2 vein grafts and nonselective engagement of the the left internal mammary artery. At the end of the procedure the patient was transferred to the postop holding area in stable condition for sheath removal. ANGIOGRAPHIC RESULTS The left main artery Ostially occluded The right coronary artery Proximally occluded The URIBE ventriculogram reveals Normal 60% The left ventricular end-diastolic pressure 10 mmHg ANN to LAD patent Saphenous to circumflex artery patent Saphenous to right coronary patent IMPRESSION Coronary disease as described above Normal ejection fraction Normal left ventricular end-diastolic pressure PLAN 1. Patient is a low and acceptable risk to proceed with elective total hip replacement 2. Continue medical management for coronary disease with risk factor modification Electronically signed by : Sergio Zapien MD 12/05/2023 12:00:44
[2023-12-05 08:39] LABS: Basophils # 0.1 K/mm3 (0-0.2); Basophils % 0.8 % (0.1-2.0); Eosinophils # 0.2 K/mm3 (0.0-0.4); Hematocrit 47.5 % (42.0-52.0); Lymphocytes # 1.8 K/mm3 (0.7-4.5); Lymphocytes % 21.9 % (10-50); Mean Corpuscular HGB Conc 31.6 g/dL (31.8-35.4); Mean Corpuscular Hemoglobin 33.4 pg (27.0-31.2); Mean Corpuscular Volume 105.7 fl (80-94); Mean Platelet Volume 7.1 fl (7.4-10.4); Monocytes # 0.6 K/mm3 (0.1-1.0); Monocytes % 7.8 % (1.7-9.3); Neutrophils # 5.5 K/mm3 (1.8-7.8); Neutrophils % 66.4 % (37.0-80.0); Platelet Count 226 K/mm3 (142-424); Red Blood Count 4.49 M/mm3 (4.60-6.20); Red Cell Distribution Width 14.1 % (11.5-17.5); White Blood Count 8.2 K/mm3 (4.8-10.8)
[2023-12-05 08:56] LABS: Chloride 108 mmol/L (98-107); Sodium 141 mmol/L (136-145)
[2023-12-05 08:57] LABS: Potassium 4.1 mmoL/L (3.5-5.1)
[2023-12-05 08:59] LABS: Blood Urea Nitrogen 17 mg/dl (9-20); Creatinine Clearance Estimated 96 mL/min (50-200); Estimated Glomerular Filt Rate 113 ml/min (>60); GFR (African American) 137 ML/MIN (>60)
[2023-12-05 09:00] LABS: Anion Gap 12.1 mEq/L (5-15); Calcium 9.5 mg/dl (8.4-10.2); Carbon Dioxide 25 mmol/L (22.0-30.0); Glucose 121 mg/dl (74-100)
[2023-12-05] MEDS: diphenhydrAMINE 50MG/ML VIAL 50 MG IV (09:38)
[2023-12-05] MEDS: 0.9 % SODIUM CHLORIDE 500 ML 25 ML IV (09:39)
[2023-12-05] MEDS: HEPARIN 1,000 UNITS/500ML NS (CATH LAB) 3000 UNIT IV (09:39)
[2023-12-05] MEDS: MIDAZOLAM HCL 1MG/1ML 5ML VIAL 1 MG IV (10:08)
[2023-12-05] MEDS: FENTANYL 100MCG/2ML VIAL 50 MCG IV (10:08)
--- NOTE | 2023-12-05 11:53 | SUR.PHASEII ---
Patient taken to post op for recovery at this time, report called to benja SOLOMON.
[2023-12-05] MEDS: IOPAMIDOL-370 (76%);100ML BOTTLE 50 ML IV (14:37)
== END 2023-12-05 13:46 | disposition home or self-care (01) ==
PROVIDERS: PCP Nurse Practitioner Family; Visit Provider Internal Medicine
DX: R93.1 Abnormal findings on diagnostic imaging of heart and coronary circulation (principal); Z95.1 Presence of aortocoronary bypass graft; Z79.899 Other long term (current) drug therapy; Z79.01 Long term (current) use of anticoagulants; I25.10 Atherosclerotic heart disease of native coronary artery without angina pectoris; I10 Essential (primary) hypertension; R29.6 Repeated falls; J44.9 Chronic obstructive pulmonary disease, unspecified; F17.210 Nicotine dependence, cigarettes, uncomplicated; I27.20 Pulmonary hypertension, unspecified
CPT/HCPCS: 80048; 85025; 93459; 99152; C1725; C1769; C1894; J1644; Q9967

== ENCOUNTER 2023-12-06 08:59 | Outpatient (POV) | payer MEDICARE, MEDICAID, SELFPAY ==
[2023-12-06 09:16] VITALS: BP 155/83; PULSE 70; RESP 16; O2SAT 97; BMI 31.1
--- NOTE | 2023-12-06 09:32 | A.OFFVIS_ITS ---
[facility] Pain Management SOAP Note Subjective:: Patient is a pleasant 68-year-old male that comes our clinic today for follow-up visit after receiving cervical epidural C6-7 level. Patient reporting 70% improvement terms of his overall posterior cervical neck pain as well as bilateral shoulder and arm radiculopathy. Patient rates his pain today 8/10. However, this is regarding his left hip. Patient is pending left hip replacement within the next 30 days. Otherwise, regarding his cervical spine he is doing very well. He is very pleased with the injection. Patient describes pain prior to the injection as constant, dull, aching in the posterior cervical spine. Also, bilateral shoulder and arm radicular symptoms. Objective:: Patient is awake alert [place] x 3. No acute distress. Flexion-extension cervical lumbar spine normal. Deep tendon reflexes upper lower extremities normal. Motor strength upper and lower extremities normal. There is no gross sensory deficit. Gait is normal. Assessment:: Degenerative disc cervical spine multilevels. Cervical radiculopathy. DJD left hip. Chronic left hip pain. Plan:: Patient will give us a call at the office regarding further injections following hip replacement surgery. [facility] Disclaimer: The information contained in this section may have been updated after the patient was seen, as this information can be updated by other users. Medical History Abnormal nuclear cardiac imaging test Upper respiratory infection Broken or cracked tooth, nontraumatic Pain of molar Low back pain Myofascial pain TMJ (temporomandibular joint disorder) Asthma Otalgia of right ear History of amphetamine abuse Mastoid pain Headache Bleeding from right ear Trauma of ear canal External otitis of right ear Dyspnea on exertion Nodule of left lung Multiple lung nodules on CT History of asthma Family history of asthma Pulmonary emphysema Pulmonary hypertension Angina pectoris Abnormal cardiovascular stress test Pulmonary nodules Bilateral hand pain Encounter for pre-operative cardiovascular clearance Abnormal leg movement Living will, counseling/discussion Screening for AAA (abdominal aortic aneurysm) Screening for lung cancer Screening for prostate cancer Screening for colon cancer Annual physical exam Eustachian tube dysfunction Tinnitus TMJ dysfunction Hearing loss Otalgia, right ear Abnormal ankle brachial index (ROSIO) Rheumatoid arthritis Arteriosclerosis of coronary artery Chest pain Chronic obstructive pulmonary disease Coronary artery disease Hyperlipidemia Hypertension Recurrent falls Dehydration Diastolic dysfunction Pulmonary hypertension COPD (chronic obstructive pulmonary disease) Alcoholic encephalopathy Methamphetamine intoxication Surgical History Hx of tonsillectomy S/P colonoscopy History of coronary artery bypass surgery Family History Father Heart attack Hyperlipidemia Coronary artery disease Diabetes Mother Cancer brain Stroke Social History Smoking Status: Current every day smoker tobacco type: cigarettes packs per day: 1 years smoked: 57 alcohol intake: current alcohol intake frequency: 3 or more drinks per day substance use type: marijuana current occupational status: other Travel in the last 8 weeks: None household members: none housing: other marital status: number of children: 3 caffeine: Yes
== END 2023-12-06 23:59 | disposition home or self-care (01) ==
LOC: SC.PAIN 09:00
PROVIDERS: PCP Nurse Practitioner Family; Visit Provider Nurse Anesthetist, Certified Registered
DX: M50.123 Cervical disc disorder at C6-C7 level with radiculopathy (principal); M16.12 Unilateral primary osteoarthritis, left hip; M25.552 Pain in left hip; G89.29 Other chronic pain
CPT/HCPCS: 99212; G0463

== ENCOUNTER 2024-02-22 13:00 | Emergency (ER) | payer MEDICARE, MEDICAID, SELFPAY ==
[2024-02-22 14:20] VITALS: BP 142/95; PULSE 87; RESP 20; TEMP 36.5; O2SAT 97; BMI 29.2
--- NOTE | 2024-02-22 14:37 | EXP.UTC ---
Discharge Plan Disposition Patient Disposition: Home, Self-Care Condition: Good Prescriptions Prescriptions: New cephalexin 500 mg tablet 500 mg PO BID 10 Days Qty: 20 0RF fluticasone propionate 50 mcg/actuation spray,suspension 1 spray intranasal DAILY Qty: 9.9 0RF omeprazole 20 mg capsule,delayed release(DR/EC) 20 mg PO DAILY Qty: 30 0RF No Action multivitamin Tablet 1 tab PO DAILY calcium carbonate [Calcium 600] 600 mg calcium (1,500 mg) tablet 1,200 mg PO DAILY ascorbic acid (vitamin C) 500 mg tablet extended release 500 mg PO DAILY nortriptyline 10 mg capsule 10 mg PO HS Qty: 90 1RF oxybutynin chloride 10 mg tablet extended release 24hr 10 mg PO DAILY 90 Days Qty: 90 1RF tadalafil [Cialis] 5 mg tablet 5 mg PO DAILY Qty: 30 2RF tamsulosin [Flomax] 0.4 mg capsule 0.4 mg PO DAILY Qty: 30 3RF Gemtesa 75 mg tablet 75 mg PO DAILY Qty: 30 2RF ezetimibe 10 mg tablet 10 mg PO DAILY vitamin E (dl, acetate) 450 mg (1,000 unit) capsule 800 mg PO DAILY coenzyme Q10 [Co Q-10] 200 mg capsule 200 mg PO DAILY ipratropium-albuterol 0.5 mg-3 mg(2.5 mg base)/3 mL solution for nebulization 3 ml inhalation QID PRN (Reason: shortness of breath or wheezing) 90 Days Qty: 270 3RF varenicline [Chantix Continuing Month Box] 1 mg tablet 1 mg PO BID Qty: 56 5RF varenicline [Chantix Starting Month Box] 0.5 mg (11)- 1 mg (42) tablets,dose pack See Rx Instructions PO PER PKG DIR Qty: 53 0RF Rx Instructions: PO PER PKG DIR fluticasone propionate [Flonase Allergy Relief] 50 mcg/actuation spray,suspension 2 spray intranasal DAILY Qty: 16 11RF clopidogrel [Plavix] 75 mg tablet 75 mg PO DAILY Qty: 90 1RF atorvastatin 80 mg tablet 80 mg PO DAILY Qty: 90 1RF losartan 25 mg tablet See Rx Instructions .ROUTE .COMPLEX Qty: 30 0RF Dose Instruction: TAKE ONE TABLET BY MOUTH ONCE A DAY Rx Instructions: TAKE ONE TABLET BY MOUTH ONCE A DAY desloratadine 5 mg tablet See Rx Instructions .ROUTE .COMPLEX Qty: 90 2RF Dose Instruction: TAKE ONE TABLET BY MOUTH ONCE A DAY Rx Instructions: TAKE ONE TABLET BY MOUTH ONCE A DAY diclofenac sodium 1 % gel 2 g topical QID Rx Instructions: apply to bilateral hands to includes palm/fingers/back of hand aspirin 81 mg tablet,delayed release (DR/EC) 81 mg PO DAILY Referrals Follow up/Referrals: Krissy Khan APRN [Primary Care Provider] - See instructions Activity Restrictions/Add. Instructions Additional Instructions/Restrictions: Start antibiotic patient to take as ordered for a full length of time even if you feel better. Sinus infections do not get better overnight. It may take 2-3 days to notice much improvement so be sure to use conservative measures as discussed for symptoms. Flonase 1 spray each nostril daily to help with nasal congestion, sinus and ear pressure/information Increase fluids Humidifier/vaporizer as needed Tylenol and ibuprofen as needed for fever or pain. If symptoms do not improve or get worse return or be seen in the ER Follow-up with primary care this week Clinical Impressions Clinical Impression: Acute maxillary sinusitis, Acid reflux Instructions Patient Instructions: DI for Sinusitis, DI for Gastroesophageal Reflux Disease (GERD) Print Language Print Language: Slovak Discharge ED Provider: Angelina ([facility] [place] HPI General Stated complaint: heartburn, congestion Mode of Arrival: Ambulatory Source of Information: Patient Limitations: No Limitations Time Seen by Provider: 02/22/24 14:37 Description of Symptoms (Recalled from Triage Doc. by RN): PATIENT C/O COUGH X 3 WEEKS, NASAL CONGESTION, AND HEARTBURN X 4 DAYS HEENT Symptoms (Recalled from RN notes): Yes Resp Symptoms (Recalled from RN notes): Yes Skin Symptoms (Recalled from RN notes): No MS Symptoms (Recalled from RN notes): No Functional Status (Recalled from RN notes): WNL History of Present Illness Provider Complaint: 68 yr old male presents for cough x 3 weeks, thick green nasal drainage, congestion, sinus pressure, pain, and increase in acid reflux the last 4-5 days. denies cp,pressure Related Data Home Medications ?Medication ?Instructions ?Recorded ?Confirmed multivitamin 1 tab PO DAILY Supplement 10/05/22 12/26/23 ascorbic acid (vitamin C) 500 mg 500 mg PO DAILY Supplement 10/25/22 12/26/23 tablet,extended release aspirin 81 mg tablet,delayed 81 mg PO DAILY HEART HEALTH 11/06/22 12/26/23 release calcium carbonate (Calcium 600) 1,200 mg PO DAILY Supplement 11/14/22 12/26/23 coenzyme Q10 200 mg capsule (Co 200 mg PO DAILY Supplement 11/14/22 12/26/23 Q-10) vitamin E (dl, acetate) 450 mg 800 mg PO DAILY Supplement 11/14/22 12/26/23 (1,000 unit) capsule diclofenac sodium 1 % topical gel 2 g topical QID Pain 12/28/22 12/26/23 ezetimibe 10 mg tablet 10 mg PO DAILY 12/26/23 12/26/23 Previous Rx's ?Medication ?Instructions ?Recorded ipratropium 0.5 mg-albuterol 3 mg 3 ml inhalation QID PRN shortness 01/07/23 (2.5 mg base)/3 mL nebulization of breath or wheezing 90 days #270 soln mL fluticasone propionate 50 2 spray intranasal DAILY Allergy 04/30/23 mcg/actuation nasal symptoms #16 grams spray,suspension (Flonase Allergy Relief) nortriptyline 10 mg capsule 10 mg PO HS #90 caps 08/27/23 clopidogrel 75 mg tablet (Plavix) 75 mg PO DAILY Blood thinner #90 10/14/23 tabs atorvastatin 80 mg tablet 80 mg PO DAILY #90 tabs 11/13/23 varenicline 0.5 mg (11)-1 mg (42) See Rx Instructions PO PER PKG DIR 12/12/23 tablets in a dose pack (Chantix #53 tabs Starting Month Box) varenicline 1 mg tablet (Chantix 1 mg PO BID #56 tabs 12/12/23 Continuing Month Box) oxybutynin chloride 10 mg 10 mg PO DAILY 90 days #90 tabs 12/23/23 tablet,extended release 24 hr tadalafil 5 mg tablet (Cialis) 5 mg PO DAILY #30 tabs 12/23/23 tamsulosin 0.4 mg capsule (Flomax) 0.4 mg PO DAILY #30 caps 12/23/23 vibegron 75 mg tablet (Gemtesa) 75 mg PO DAILY #30 tabs 12/23/23 losartan 25 mg tablet See Rx Instructions .Route 01/30/24 .COMPLEX #30 tabs desloratadine 5 mg tablet See Rx Instructions .Route 02/10/24 .COMPLEX #90 tabs cephalexin 500 mg tablet 500 mg PO BID 10 days #20 tabs 02/22/24 fluticasone propionate 50 1 spray intranasal DAILY #9.9 mL 02/22/24 mcg/actuation nasal spray,suspension omeprazole 20 mg capsule,delayed 20 mg PO DAILY #30 caps 02/22/24 release Allergies Allergy/AdvReac Type Severity Reaction Status Date / Time Penicillins Allergy Severe Anaphylaxis Verified 12/26/23 08:58 milk Allergy Intermediate Verified 12/26/23 08:58 codeine [CODEINE] Allergy Mild Rash Verified 12/26/23 08:58 Worker's Comp Is this a Worker's Comp case?: No [facility] Disclaimer: The information contained in this section may have been updated after the patient was seen, as this information can be updated by other users. Medical History (Reviewed 02/22/24 @ 14:43 by Santo Alfaro ([facility]), [facility]) Abnormal nuclear cardiac imaging test Upper respiratory infection Broken or cracked tooth, nontraumatic Pain of molar Low back pain Myofascial pain TMJ (temporomandibular joint disorder) Asthma Otalgia of right ear History of amphetamine abuse Mastoid pain Headache Bleeding from right ear Trauma of ear canal External otitis of right ear Dyspnea on exertion Nodule of left lung Multiple lung nodules on CT History of asthma Family history of asthma Pulmonary emphysema Pulmonary hypertension Angina pectoris Abnormal cardiovascular stress test Pulmonary nodules Bilateral hand pain Encounter for pre-operative cardiovascular clearance Abnormal leg movement Living will, counseling/discussion Screening for AAA (abdominal aortic aneurysm) Screening for lung cancer Screening for prostate cancer Screening for colon cancer Annual physical exam Eustachian tube dysfunction Tinnitus TMJ dysfunction Hearing loss Otalgia, right ear Abnormal ankle brachial index (ROSIO) Rheumatoid arthritis Arteriosclerosis of coronary artery Chest pain Chronic obstructive pulmonary disease Coronary artery disease Hyperlipidemia Hypertension Recurrent falls Dehydration Diastolic dysfunction Pulmonary hypertension COPD (chronic obstructive pulmonary disease) Alcoholic encephalopathy Methamphetamine intoxication Surgical History (Reviewed 02/22/24 @ 14:43 by Santo Alfaro ([facility]), [facility]) Hx of tonsillectomy S/P colonoscopy History of coronary artery bypass surgery Family History (Reviewed 02/22/24 @ 14:43 by Santo Alfaro ([facility]), [facility]) Diabetes Father Coronary artery disease Father Hyperlipidemia Father Heart attack Father Cancer Mother Stroke Mother Social History (Reviewed 02/22/24 @ 14:43 by Santo Alfaro ([facility]) Smoking Status: Current every day smoker tobacco type: cigarettes packs per day: 1 years smoked: 57 alcohol intake: current alcohol intake frequency: 3 or more drinks per day substance use type: marijuana current occupational status: other Travel in the last 8 weeks: None household members: none housing: other marital status: number of children: 3 caffeine: Yes ROS Obtained: Yes All systems reviewed & no additional complaints except as documented Constitutional Constitutional: Reports system reviewed and no additional complaints, except as documented and Reports as per HPI Eyes Eyes: Reports system reviewed and no additional complaints, except as documented ENT Ears, Nose, Mouth, and Throat: Reports system reviewed and no additional complaints, except as documented, Reports as per HPI, Reports nasal congestion, Reports nasal discharge, Reports post nasal drip, Reports sinus pain and Reports sinus pressure Cardiovascular Cardiovascular: Reports system reviewed and no additional complaints, except as documented Respiratory Respiratory: Reports system reviewed and no additional complaints, except as documented, Reports as per HPI, Reports chest congestion and Reports cough Gastrointestinal Gastrointestingal: Reports system reviewed and no additional complaints, except as documented, as per HPI and heartburn Musculoskeletal Musculoskeletal: Reports system reviewed and no additional complaints, except as documented Integumentary/Breasts Skin/Breast: Reports system reviewed and no additional complaints, except as documented Neurologic Neurologic: Reports system reviewed and no additional complaints, except as documented Endocrine Endocrine: Reports system reviewed and no additional complaints, except as documented Hematologic/Lymphatic Henatologic/Lymphatic: Reports system reviewed and no additional complaints, except as documented Allergic/Immunologic Allergic/Immunologic: Reports system reviewed and no additional complaints, except as documented Physical Exam General General appearance: alert and in no apparent distress Head Head exam: atraumatic Eye Eye exam: Present normal appearance and PERRL ENT ENT exam: Present normal oropharynx, mucous membranes moist and TM's normal bilaterally Expanded ENT Exam Nose exam: Present sinus tenderness Respiratory Respiratory exam: Present normal lung sounds bilaterally Cardiovascular Cardiovascular exam: Present regular rate and normal rhythm Neurological Exam Neurological exam: Present alert and oriented X3 Skin Skin exam: Present warm and intact Medical Decision Making Medical Records Medical records reviewed: Yes I reviewed the patient's medical records. Juve Inquiry Pt receiving controlled substance: No Juve was queried for this patient: No Vital Signs: 02/22/24 14:20 Temperature 97.7 F Temperature Source Oral Pulse Rate [Left Brachial] 87 Respiratory Rate 20 Blood Pressure [Left Arm] 142/95 H Blood Pressure Mean [Left Arm] 110 Blood Pressure Source [Left Arm] Automatic Cuff Blood Pressure Position [Left Arm] Sitting 02 Sat by Pulse Oximetry 97 Oxygen Delivery Method Room Air Medical Decision Narrative: pt states he does not want to go to ed for eval or have chest xray
[2024-02-22 14:53] VITALS: BP 142/95; PULSE 87; RESP 20; TEMP 36.5; O2SAT 97
== END 2024-02-22 14:56 | disposition home or self-care (01) ==
PROVIDERS: Emergency Provider Nurse Practitioner Family; PCP Nurse Practitioner Family
DX: J01.00 Acute maxillary sinusitis, unspecified (principal); K21.9 Gastro-esophageal reflux disease without esophagitis; R05.9 Cough, unspecified; R09.82 Postnasal drip; R09.81 Nasal congestion
CPT/HCPCS: 99212; 99214; G0463

== ENCOUNTER 2024-03-02 12:57 | Outpatient (CLI) | payer MEDICARE, MEDICAID, SELFPAY ==
--- NOTE | 2024-03-02 13:00 | CT_ITS ---
FINAL REPORT TECHNIQUE: Axial images through the chest were performed by computed tomography. This study was performed with techniques to keep radiation doses as low as reasonably achievable, (ALARA). Individualized dose reduction techniques using automated exposure control or adjustment of mA and/or kV according to the patient's size were employed. CLINICAL HISTORY: 6-month follow-up COMPARISON: 06/07/2023 FINDINGS: CT CHEST WITHOUT CONTRAST: The patient has undergone a prior midline sternotomy. Dense vascular calcifications are noted in the aortic arch and the coronary arteries bilaterally. The heart size is normal. There is no pericardial or pleural effusion. Limited images of the upper abdomen are unremarkable. There is a calcified granuloma present in the medial lung base. There is a noncalcified nodule in the left lung base, contiguous with the diaphragm, that corresponds to the nodule seen on the prior CT of June 2023, stable in size and appearance. Once again this nodule measures 11 mm in size. IMPRESSION: Stable noncalcified nodule in the left lung base when compared to the prior CT of June 2023. Recommend 1 year follow-up CT without contrast for further evaluation. Reviewed, Interpreted and Dictated by Jose Rafael Perez MD Transcribed by Yesi Stack Authenticated and [facility]
== END 2024-03-02 23:59 | disposition home or self-care (01) ==
LOC: RAD 12:58
PROVIDERS: PCP Nurse Practitioner Family; Visit Provider Internal Medicine Pulmonary Disease
DX: R91.8 Other nonspecific abnormal finding of lung field (principal)
CPT/HCPCS: 71250

== ENCOUNTER 2024-03-31 13:52 | Emergency (ER) | payer MEDICARE, MEDICAID, SELFPAY ==
[2024-03-31] VITALS (19 sets, daily range): BP systolic 120–162; BP diastolic 71–96; PULSE 74–93; RESP 18–20; TEMP 36.8; O2SAT 93–97; BMI 29.6
--- NOTE | 2024-03-31 | ECG_ITS ---
APPROVED REPORT Exam: Resting ECG HR:87 bpm ECG Measurements Heart Rate 87 AXES [place] 193 P 106 QRSd 145 QRS 86 QT 380 T 43 QTc 424 Conclusion SINUS RHYTHM WITH FREQUENT SUPRAVENTRICULAR PREMATURE COMPLEXES RIGHT BUNDLE BRANCH BLOCK [120+ ms QRS DURATION, UPRIGHT V1, 40+ ms S IN I/aVL/V4/V5/V6] ABNORMAL ECG UNCONFIRMED REPORT Electronically signed by : Gurvinder Dai, 03/31/2024 15:29:41
--- NOTE | 2024-03-31 14:17 | ED_ITS ---
<Statement entered by Suzie Dai MD - 04/09/24 22:50> I was consulted by the BRENDA, and we discussed the complexity of the problems being addressed. I approved the treatment and management plan for this patient's care in the emergency department, thus performing a substantive portion of the medical decision making. Suzie Dai MD, ADWOA, FACEP Discharge Plan Disposition Patient Disposition: Home, Self-Care Condition: Good Prescriptions Prescriptions: New famotidine 40 mg tablet 40 mg PO DAILY Qty: 14 0RF Rx Instructions: Do not take with omeprazole, taken for GERD type symptoms once daily No Action multivitamin Tablet 1 tab PO DAILY calcium carbonate [Calcium 600] 600 mg calcium (1,500 mg) tablet 1,200 mg PO DAILY ascorbic acid (vitamin C) 500 mg tablet extended release 500 mg PO DAILY fluticasone furoate-vilanterol [Breo Ellipta] 100-25 mcg/dose blister with device 1 inh inhalation DAILY Qty: 90 2RF oxybutynin chloride 10 mg tablet extended release 24hr 10 mg PO DAILY 90 Days Qty: 90 1RF tadalafil [Cialis] 5 mg tablet 5 mg PO DAILY Qty: 30 2RF tamsulosin [Flomax] 0.4 mg capsule 0.4 mg PO DAILY Qty: 30 3RF Gemtesa 75 mg tablet 75 mg PO DAILY Qty: 30 2RF vitamin E (dl, acetate) 450 mg (1,000 unit) capsule 800 mg PO DAILY coenzyme Q10 [Co Q-10] 200 mg capsule 200 mg PO DAILY ipratropium-albuterol 0.5 mg-3 mg(2.5 mg base)/3 mL solution for nebulization 3 ml inhalation QID PRN (Reason: shortness of breath or wheezing) 90 Days Qty: 270 3RF fluticasone propionate [Flonase Allergy Relief] 50 mcg/actuation spray,suspension 2 spray intranasal DAILY Qty: 16 11RF clopidogrel [Plavix] 75 mg tablet 75 mg PO DAILY Qty: 90 1RF atorvastatin 80 mg tablet 80 mg PO DAILY Qty: 90 1RF desloratadine 5 mg tablet See Rx Instructions .ROUTE .COMPLEX Qty: 90 2RF Dose Instruction: TAKE ONE TABLET BY MOUTH ONCE A DAY Rx Instructions: TAKE ONE TABLET BY MOUTH ONCE A DAY ezetimibe 10 mg tablet 10 mg PO DAILY 90 Days Qty: 90 0RF losartan 25 mg tablet See Rx Instructions .ROUTE .COMPLEX Qty: 30 0RF Dose Instruction: TAKE ONE TABLET BY MOUTH ONCE A DAY Rx Instructions: TAKE ONE TABLET BY MOUTH ONCE A DAY nortriptyline 10 mg capsule See Rx Instructions .ROUTE .COMPLEX Qty: 90 1RF Dose Instruction: TAKE ONE CAPSULE BY MOUTH AT BEDTIME Rx Instructions: TAKE ONE CAPSULE BY MOUTH AT BEDTIME diclofenac sodium 1 % gel 2 g topical QID Rx Instructions: apply to bilateral hands to includes palm/fingers/back of hand cephalexin 500 mg tablet 500 mg PO BID 10 Days Qty: 20 0RF fluticasone propionate 50 mcg/actuation spray,suspension 1 spray intranasal DAILY Qty: 9.9 0RF omeprazole 20 mg capsule,delayed release(DR/EC) 20 mg PO DAILY Qty: 30 0RF aspirin 81 mg tablet,delayed release (DR/EC) 81 mg PO DAILY Referrals Follow up/Referrals: Krissy Khan APRN [Primary Care Provider] - See instructions Activity Restrictions/Add. Instructions Additional Instructions/Restrictions: Return to the emergency department any worsening signs or symptoms-,- or any symptoms similar to previous heart attack, follow-up with primary care provider, take new medication as prescribed, do not take with any other antacid medication such as omeprazole. Clinical Impressions Clinical Impression: Acid reflux Qualifiers: Esophagitis presence: without esophagitis Qualified Code(s): K21.9 - Gastro- esophageal reflux disease without esophagitis Instructions Patient Instructions: DI for Shortness of Breath, DI for Gastroesophageal Reflux Disease (GERD), DI for Chest Pain Print Language Print Language: Mauritian Discharge ED Provider: Michael Lee General Adult HPI General Chief complaint: Shortness of Breath/Dyspnea Stated complaint: acid refulx soa clamy Time Seen by Provider: 03/31/24 14:17 Mode of Arrival: Ambulatory Source of Information: Patient Limitations: No Limitations Description of Symptoms (Recalled from ER Triage Doc. by RN): shortness of breath,heartburn History of Present Illness HPI narrative: 69-year-old male presents emergency department with chest tightness, chest pain, shortness of breath, and acid reflux , type symptoms, patient states that started approximately 1 hour ago, patient does have a history of GERD, used to take medicine for this, he cannot remember which kind the medicine is, however he is out of the medication that helps . He denies any fever chills abdominal pain, nausea vomiting, missed constipation, denies urinary type symptomatology, denies any melena, hematochezia, hematemesis. He is a current everyday smoker, admits to current everyday alcohol use, last drink was last night, patient does he drink several beers , denies any drug use for occasional marijuana use. Other past medical history consistent with CABG, BPH, data deficient lung nodule, emphysema, pulmonary hypertension, peripheral artery disease, hyperlipidemia, hypertension, distress vitals grossly unremarkable. Onset (ago): hour(s) Related Data Home Medications ?Medication ?Instructions ?Recorded ?Confirmed multivitamin 1 tab PO DAILY Supplement 10/05/22 03/02/24 ascorbic acid (vitamin C) 500 mg 500 mg PO DAILY Supplement 10/25/22 03/02/24 tablet,extended release aspirin 81 mg tablet,delayed 81 mg PO DAILY HEART HEALTH 11/06/22 03/02/24 release calcium carbonate (Calcium 600) 1,200 mg PO DAILY Supplement 11/14/22 03/02/24 coenzyme Q10 200 mg capsule (Co 200 mg PO DAILY Supplement 11/14/22 03/02/24 Q-10) vitamin E (dl, acetate) 450 mg 800 mg PO DAILY Supplement 11/14/22 03/02/24 (1,000 unit) capsule diclofenac sodium 1 % topical gel 2 g topical QID Pain 12/28/22 03/02/24 Previous Rx's ?Medication ?Instructions ?Recorded ipratropium 0.5 mg-albuterol 3 mg 3 ml inhalation QID PRN shortness 01/07/23 (2.5 mg base)/3 mL nebulization of breath or wheezing 90 days #270 soln mL fluticasone propionate 50 2 spray intranasal DAILY Allergy 04/30/23 mcg/actuation nasal symptoms #16 grams spray,suspension (Flonase Allergy Relief) clopidogrel 75 mg tablet (Plavix) 75 mg PO DAILY Blood thinner #90 10/14/23 tabs atorvastatin 80 mg tablet 80 mg PO DAILY #90 tabs 11/13/23 oxybutynin chloride 10 mg 10 mg PO DAILY 90 days #90 tabs 12/23/23 tablet,extended release 24 hr tadalafil 5 mg tablet (Cialis) 5 mg PO DAILY #30 tabs 12/23/23 tamsulosin 0.4 mg capsule (Flomax) 0.4 mg PO DAILY #30 caps 12/23/23 vibegron 75 mg tablet (Gemtesa) 75 mg PO DAILY #30 tabs 12/23/23 desloratadine 5 mg tablet See Rx Instructions .Route 02/10/24 .COMPLEX #90 tabs cephalexin 500 mg tablet 500 mg PO BID 10 days #20 tabs 02/22/24 fluticasone propionate 50 1 spray intranasal DAILY #9.9 mL 02/22/24 mcg/actuation nasal spray,suspension omeprazole 20 mg capsule,delayed 20 mg PO DAILY #30 caps 02/22/24 release ezetimibe 10 mg tablet 10 mg PO DAILY 90 days #90 tabs 03/02/24 fluticasone furoate 100 1 inh inhalation DAILY #90 ea 03/02/24 mcg-vilanterol 25 mcg/dose inhalation powder (Breo Ellipta) losartan 25 mg tablet See Rx Instructions .Route 03/27/24 .COMPLEX #30 tabs nortriptyline 10 mg capsule See Rx Instructions .Route 03/28/24 .COMPLEX #90 caps famotidine 40 mg tablet 40 mg PO DAILY #14 tabs 03/31/24 Allergies Allergy/AdvReac Type Severity Reaction Status Date / Time Penicillins Allergy Severe Anaphylaxis Verified 03/02/24 13:25 milk Allergy Intermediate Verified 03/02/24 13:25 codeine [CODEINE] Allergy Mild Rash Verified 03/02/24 13:25 [facility] Disclaimer: The information contained in this section may have been updated after the patient was seen, as this information can be updated by other users. Medical History (Updated 03/31/24 @ 18:05 by NAOMY Ramos) Abnormal nuclear cardiac imaging test Upper respiratory infection Broken or cracked tooth, nontraumatic Pain of molar Low back pain Myofascial pain TMJ (temporomandibular joint disorder) Asthma Otalgia of right ear History of amphetamine abuse Mastoid pain Headache Bleeding from right ear Trauma of ear canal External otitis of right ear Dyspnea on exertion Nodule of left lung Multiple lung nodules on CT History of asthma Family history of asthma Pulmonary emphysema Pulmonary hypertension Angina pectoris Abnormal cardiovascular stress test Pulmonary nodules Bilateral hand pain Encounter for pre-operative cardiovascular clearance Abnormal leg movement Living will, counseling/discussion Screening for AAA (abdominal aortic aneurysm) Screening for lung cancer Screening for prostate cancer Screening for colon cancer Annual physical exam Eustachian tube dysfunction Tinnitus TMJ dysfunction Hearing loss Otalgia, right ear Abnormal ankle brachial index (ROSIO) Rheumatoid arthritis Arteriosclerosis of coronary artery Chest pain Chronic obstructive pulmonary disease Coronary artery disease Hyperlipidemia Hypertension Recurrent falls Dehydration Diastolic dysfunction Pulmonary hypertension COPD (chronic obstructive pulmonary disease) Alcoholic encephalopathy Methamphetamine intoxication Surgical History (Updated 03/02/24 @ 13:26 by Lillian Kulkarni) History of hip surgery Hx of tonsillectomy S/P colonoscopy History of coronary artery bypass surgery Family History Father Heart attack Hyperlipidemia Coronary artery disease Diabetes Mother Cancer brain Stroke Social History Smoking Status: Current every day smoker tobacco type: cigarettes packs per day: 1 years smoked: 57 alcohol intake: current alcohol intake frequency: 3 or more drinks per day substance use type: marijuana current occupational status: other Travel in the last 8 weeks: None household members: none housing: other marital status: number of children: 3 caffeine: Yes ROS Obtained: Yes All systems reviewed & no additional complaints except as documented Physical Exam General General appearance: alert and in no apparent distress Head Head exam: atraumatic and normocephalic Eye Eye exam: Present normal appearance, PERRL and EOMI Neck Neck exam: Present full ROM; Absent meningismus Chest Chest inspection: Present normal inspection Respiratory Respiratory exam: Absent respiratory distress, wheezes, stridor, accessory muscle use or prolonged expiratory phase Cardiovascular Cardiovascular exam: Present normal rhythm and other (Pulses equal and symmetric in bilateral upper and lower extremities) Abdominal Exam Abdominal exam: Absent distention, tenderness, guarding, rebound or rigidity Extremities Exam Extremities exam: Absent edema Neurological Exam Neurological exam: Present alert Psychiatric Psychiatric exam: Present normal affect Skin Skin exam: Present warm and dry Medical Decision Making Medical Records Medical records reviewed: Yes I reviewed the patient's medical records. Screening: Per USPSTF and CDC recommendations, given the prevalence of disease in our region, it is our hospital?s policy to screen for HIV and viral Hepatitis for all patients aged 18 and over and those with ongoing risk factors. Juve Inquiry Pt receiving controlled substance: No Vital Signs: 03/31/24 13:54 03/31/24 15:32 03/31/24 15:40 Temperature 98.2 F Temperature Source Oral Pulse Rate 91 H 90 Pulse Rate [Right] 87 Respiratory Rate 20 Blood Pressure 120/86 129/77 Blood Pressure [Right Arm] 162/92 H Blood Pressure Mean [Right Arm] 115 02 Sat by Pulse Oximetry 95 95 94 L Oxygen Delivery Method Room Air Room Air 03/31/24 15:50 03/31/24 16:00 03/31/24 16:10 Temperature Temperature Source Pulse Rate 89 89 91 H Pulse Rate [Right] Respiratory Rate Blood Pressure 124/90 127/80 126/91 H Blood Pressure [Right Arm] Blood Pressure Mean [Right Arm] 02 Sat by Pulse Oximetry 96 94 L 94 L Oxygen Delivery Method 03/31/24 16:20 03/31/24 16:30 03/31/24 16:41 Temperature Temperature Source Pulse Rate 90 93 H 89 Pulse Rate [Right] Respiratory Rate Blood Pressure 147/90 H 141/78 H 148/71 H Blood Pressure [Right Arm] Blood Pressure Mean [Right Arm] 02 Sat by Pulse Oximetry 93 L 95 95 Oxygen Delivery Method 03/31/24 16:50 03/31/24 17:00 Temperature Temperature Source Pulse Rate 87 88 Pulse Rate [Right] Respiratory Rate Blood Pressure 147/90 H 132/96 H Blood Pressure [Right Arm] Blood Pressure Mean [Right Arm] 02 Sat by Pulse Oximetry 94 L 95 Oxygen Delivery Method Lab Data Lab results reviewed: Yes I reviewed the patient's lab results. Lab Results 03/31/24 14:05: WBC 5.5, RBC 5.05, Hgb 15.1, Hct 48.6, MCV 96.1 H, MCH 29.9, M CHC 31.1 L, RDW 14.4, Plt Count 286, MPV 6.3 L, Neut % (Auto) 58.7, Lymph % (Auto) 30.4, [place] % (Auto) 8.2, Eos % (Auto) 2.0, Baso % (Auto) 0.6, Neut # (Auto) 3.2, Lymph # (Auto) 1.7, [place] # (Auto) 0.5, Eos # (Auto) 0.1, Baso # (Auto) 0.0, PT 10.9, INR 0.97, D-Dimer 0.84 H, Sodium 138, Potassium 3.8, C hloride 108 H, Carbon Dioxide 25, Anion Gap 8.8, BUN 15, Creatinine 0.70, Estimated Creat Clear 90, Estimated GFR 112, Est GFR ( Amer) 136, Glucose 133 H, Calcium 9.7, Magnesium 2.0, Total Bilirubin 0.7, AST 35, ALT 30, Alkaline Phosphatase 71, Troponin I < 0.01, NT-Pro-B Natriuret Pep 222 H, Total Protein 7.8, Albumin 4.6, Globulin 3.2, Albumin/Globulin Ratio 1.4, HIV 1&2 Antibody Rapid Nonreactive 03/31/24 16:50: Troponin I < 0.01 03/31/24 14:05 03/31/24 14:05 Orders (Tests/Meds): ED MEDICATIONS Generic Name Dose Route Start Last Admin Trade Name Freq PRN Reason Stop Dose Admin Sodium Chloride 10 ml 03/31/24 14:07 Sodium Chloride 0.9% 10ml Flush Syringe IV 04/30/24 14:06 NEEDED PRN Maintain IV Site Sodium Chloride 10 ml 03/31/24 16:06 Sodium Chloride 0.9% 10ml Vial IV 04/30/24 16:05 NEEDED PRN dilute protonix Discontinued Medications Generic Name Dose Route Start Last Admin Trade Name Freq PRN Reason Stop Dose Admin Belladonna Alkaloids 60 ml 03/31/24 14:26 03/31/24 14:31 Belladonna Alkaloids 60 Ml Ml PO 03/31/24 14:27 60 ml ONCE ONE Administration Pantoprazole Sodium 40 mg 03/31/24 16:06 03/31/24 16:23 Pantoprazole 40mg Vial IV 03/31/24 16:07 40 mg ONCE ONE Administration ORDERS Category Date Time Status XR chest portable Stat Exams 03/31/24 14:22 Completed Complete Blood Count Auto Diff Stat Lab 03/31/24 14:05 Completed Comprehensive Metabolic Panel Stat Lab 03/31/24 14:05 Completed D-Dimer Stat Lab 03/31/24 14:05 Completed HIV (1&2) Antibody Rapid Stat Lab 03/31/24 14:05 Completed Hep C Ab with Reflex to RNA Stat Lab 03/31/24 14:05 Received Magnesium Stat Lab 03/31/24 14:05 Completed NT Pro Brain Natriuretic Pep. Stat Lab 03/31/24 14:05 Completed PT INR [Prothrombin Time INR] Stat Lab 03/31/24 14:05 Completed Troponin I Q3H Lab 03/31/24 16:50 Completed Troponin I Q3H Lab 03/31/24 20:30 Ordered Troponin I Stat Lab 03/31/24 14:05 Completed Medical Decision Narrative: Sixty 9-year-old male presents emergency department with chest pain, chest tightness, acid reflux type symptoms with shortness of breath, for 1 hour, different diagnose include not limited to, ACS, GERD, gastritis, COPD exacerbation, CHF exacerbation, pneumonia, costochondritis, anxiety type reaction, arctic rhythm, electrolyte disturbance. dissCussed patient case with attending physician Dr. Dai and Dr. Lee Obtain CBC CMP, magnesium, proBNP, troponin, EKG, CXR, will give GI cocktail for dyspepsia, D-dimer CBC is notable for elevated MCV at 96.1, mean platelet volume is decreased 6.3, which is appear chronic D-dimer 0.84, utilizing years criteria, pulmonary embolism is excluded Troponin within normal limits CMP notable for elevated minimally proBNP at 222, otherwise unremarkable. I along with the attending physician reviewed the patient's EKG, NSR at 87 bpm, OK within normals, QT interval within normal vascular is no STEMI. There appears to be a chronic right bundle branch block I reviewed the patient's chest x-ray along the corresponding radiologic report, there is no acute abnormality Reassessment the patient, patient states that his dyspepsia/chest pain is improved, after GI cocktail, however it is slowly coming back, will give IV Protonix 40 mg for dyspepsia, his pain is located more in the esophageal region, added to the differential diagnosis esophageal disorder such as esophagitis, reflux esophagitis, pill induced esophagitis. Reexamination of the patient at 6 PM, patient is chest pain-free, his dyspepsia is improved, will prescribe p.o. famotidine as needed for GERD type symptoms, patient will follow with PCP as directed, patient's repeat EKG reviewed by myself and the attending physician, there is no ischemic changes, no ST segment changes, patient normal sinus rhythm, has chronic right bundle branch block. Strict ED return precaution discussed with the patient at the bedside, patient in agreement current treatment plan/discharge plan, and voiced understanding. Critical Care Critical Care Time Critical Care Time: No
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
[2024-03-31] MEDS: BELLADONNA ALKALOIDS 60 ML ML PO (14:31)
[2024-03-31 14:32] LABS: Basophils % 0.6 % (0.1-2.0); Eosinophils # 0.1 K/mm3 (0.0-0.4); Hematocrit 48.6 % (42.0-52.0); Hemoglobin 15.1 g/dL (14.1-18.0); Lymphocytes # 1.7 K/mm3 (0.7-4.5); Lymphocytes % 30.4 % (10-50); Mean Corpuscular HGB Conc 31.1 g/dL (31.8-35.4); Mean Corpuscular Hemoglobin 29.9 pg (27.0-31.2); Mean Corpuscular Volume 96.1 fl (80-94); Mean Platelet Volume 6.3 fl (7.4-10.4); Monocytes # 0.5 K/mm3 (0.1-1.0); Monocytes % 8.2 % (1.7-9.3); Neutrophils # 3.2 K/mm3 (1.8-7.8); Neutrophils % 58.7 % (37.0-80.0); Platelet Count 286 K/mm3 (142-424); Red Blood Count 5.05 M/mm3 (4.60-6.20); Red Cell Distribution Width 14.4 % (11.5-17.5); White Blood Count 5.5 K/mm3 (4.8-10.8)
[2024-03-31 14:36] LABS: Albumin Level 4.6 g/dl (3.5-5.0); Chloride 108 mmol/L (98-107); Potassium 3.8 mmoL/L (3.5-5.1); Sodium 138 mmol/L (136-145)
[2024-03-31 14:38] LABS: INR 0.97 (0.9-1.1); Prothrombin Time 10.9 seconds (10.1-12.5)
[2024-03-31 14:39] LABS: Alanine Aminotransferase 30 U/L (12-78); Albumin/Globulin Ratio 1.4 (1.1-1.8); Alkaline Phosphatase 71 U/L (38-126); Anion Gap 8.8 mEq/L (5-15); Aspartate Amino Transferase 35 U/L (17-59); Bilirubin,Total 0.7 mg/dl (0.2-1.3); Blood Urea Nitrogen 15 mg/dl (9-20); Carbon Dioxide 25 mmol/L (22.0-30.0); Creatinine Clearance Estimated 90 mL/min (50-200); Estimated Glomerular Filt Rate 112 ml/min (>60); GFR (African American) 136 ML/MIN (>60); Globulin 3.2 g/dL (1.3-3.2); Total Protein,Serum 7.8 g/dl (6.3-8.2)
[2024-03-31 14:40] LABS: Calcium 9.7 mg/dl (8.4-10.2); Glucose 133 mg/dl (74-100)
[2024-03-31 14:49] LABS: NT Pro Brain Natriuretic Pep. 222 pg/mL (0-125)
[2024-03-31 14:52] LABS: Troponin I < 0.01 ng/ml (0.00-0.034)
[2024-03-31 14:54] LABS: D-Dimer 0.84 ug/mL (0.0-0.5)
[2024-03-31 15:40] LABS: HIV (1&2) Antibody Rapid NONREACTIVE (NONREACTIVE)
[2024-03-31] MEDS: PANTOPRAZOLE 40MG VIAL 40 MG IV (16:23)
[2024-03-31 17:25] LABS: Troponin I < 0.01 ng/ml (0.00-0.034)
--- NOTE | 2024-03-31 17:57 | ECG_ITS ---
APPROVED REPORT Exam: Resting ECG HR:87 bpm ECG Measurements Heart Rate 87 AXES AL 176 P 43 QRSd 142 QRS 86 QT 387 T 38 QTc 432 Conclusion SINUS RHYTHM Right bundle branch block Electronically signed by : DARLING SHORT, 03/31/2024 21:15:43
[2024-04-03 05:12] LABS: HCV Ab Non Reactive (Non Reactive)
== END 2024-03-31 18:14 | disposition home or self-care (01) ==
PROVIDERS: Physician Assistant; Student in an Organized Health Care Education/Training Program; Emergency Provider Emergency Medicine; PCP Nurse Practitioner Family
DX: R06.02 Shortness of breath (principal); K21.9 Gastro-esophageal reflux disease without esophagitis; R07.89 Other chest pain; I45.19 Other right bundle-branch block
CPT/HCPCS: 71045; 80053; 83735; 83880; 84484; 85025; 85378; 85610; 86803; 87389; 93005; 96374; 99284

== ENCOUNTER 2024-07-21 09:26 | Outpatient (CLI) | payer MEDICARE, MEDICAID, SELFPAY ==
[2024-07-21 09:47] LABS: Basophils # 0.1 K/mm3 (0-0.2); Eosinophils # 0.3 K/mm3 (0.0-0.4); Eosinophils % 4.1 % (0.1-12.0); Hematocrit 47.9 % (42.0-52.0); Hemoglobin 15.6 g/dL (14.1-18.0); Lymphocytes # 1.4 K/mm3 (0.7-4.5); Lymphocytes % 22.8 % (10-50); Mean Corpuscular HGB Conc 32.6 g/dL (31.8-35.4); Mean Corpuscular Hemoglobin 28.9 pg (27.0-31.2); Mean Corpuscular Volume 88.9 fl (80-94); Mean Platelet Volume 8.5 fl (7.4-10.4); Monocytes # 0.8 K/mm3 (0.1-1.0); Monocytes % 12.9 % (1.7-9.3); Neutrophils # 3.7 K/mm3 (1.8-7.8); Platelet Count 242 K/mm3 (142-424); Red Blood Count 5.39 M/mm3 (4.60-6.20); Red Cell Distribution Width 15.7 % (11.5-17.5); White Blood Count 6.3 K/mm3 (4.8-10.8)
[2024-07-21 11:43] LABS: Albumin Level 4.5 g/dl (3.5-5.0); Chloride 101 mmol/L (98-107); Potassium 4.5 mmoL/L (3.5-5.1); Sodium 136 mmol/L (136-145)
[2024-07-21 11:45] LABS: Blood Urea Nitrogen 13 mg/dl (9-20); Estimated Glomerular Filt Rate 96 ml/min (>60); GFR (African American) 117 ML/MIN (>60)
[2024-07-21 11:46] LABS: Alanine Aminotransferase 28 U/L (12-78); Alkaline Phosphatase 69 U/L (38-126); Anion Gap 10.5 mEq/L (5-15); Aspartate Amino Transferase 34 U/L (17-59); Bilirubin,Direct 0.3 mg/dl (0.0-0.4); Bilirubin,Indirect 0.2 mg/dL (0.0-0.9); Bilirubin,Total 0.5 mg/dl (0.2-1.3); Bilirubin,Unconjugated 0.2 mg/dL (0.0-1.1); Calcium 9.2 mg/dl (8.4-10.2); Carbon Dioxide 29 mmol/L (22.0-30.0); Cholesterol 140 mg/dl (140-200); Glucose 104 mg/dl (74-100); HDL Cholesterol 46 mg/dl (40-60); Magnesium 1.8 mg/dl (1.6-2.3); Total Protein,Serum 7.1 g/dl (6.3-8.2); Triglycerides 118 mg/dl (30-150); VLDL Cholesterol 24 mg/dL (0-40)
[2024-07-21 11:50] LABS: Free T4 (Free Thyroxine) 1.11 ng/dl (0.78-2.19)
[2024-07-21 11:58] LABS: Direct LDL Cholesterol 72.05 mg/dL (100-129)
[2024-07-21 12:16] LABS: Thyroid Stimulating Hormone 3.63 uIU/mL (0.465-4.68)
[2024-07-21 13:11] LABS: Coronavirus 19, PCR Not Detected (NotDetected); Human Rhinovirus Not Detected (NotDetected); Influenza A, PCR Not Detected (NotDetected); Influenza B, PCR Not Detected (NotDetected); Respiratory Syncytial Virus Not Detected (NotDetected)
== END 2024-07-21 23:59 | disposition home or self-care (01) ==
PROVIDERS: Nurse Practitioner Family; PCP Nurse Practitioner Family; Visit Provider Physician Assistant
DX: E78.5 Hyperlipidemia, unspecified (principal); Z95.1 Presence of aortocoronary bypass graft; F17.200 Nicotine dependence, unspecified, uncomplicated; I11.9 Hypertensive heart disease without heart failure; I25.10 Atherosclerotic heart disease of native coronary artery without angina pectoris; I27.20 Pulmonary hypertension, unspecified; I73.9 Peripheral vascular disease, unspecified; F10.20 Alcohol dependence, uncomplicated; R05.9 Cough, unspecified; R06.2 Wheezing; R06.02 Shortness of breath; R09.81 Nasal congestion
CPT/HCPCS: 36415; 80048; 80061; 80076; 83735; 84439; 84443; 85025; 87631

== ENCOUNTER 2024-07-27 14:19 | Emergency (ER) | payer MEDICARE, MEDICAID, SELFPAY ==
[2024-07-27] VITALS (21 sets, daily range): BP systolic 105–154; BP diastolic 48–105; PULSE 75–101; RESP 18; TEMP 36.7–36.9; O2SAT 87–97; BMI 31.1
--- NOTE | 2024-07-27 14:37 | ED_ITS ---
Discharge Plan Disposition Patient Disposition: Home, Self-Care Condition: Good Prescriptions Prescriptions: New hydrocodone-acetaminophen 5-325 mg tablet 1 tab PO Q6H PRN (Reason: pain) Qty: 10 0RF ondansetron 4 mg tablet,disintegrating 4 mg PO Q6H PRN (Reason: nausea and vomiting) Qty: 10 0RF No Action multivitamin Tablet 1 tab PO DAILY calcium carbonate [Calcium 600] 600 mg calcium (1,500 mg) tablet 1,200 mg PO DAILY ascorbic acid (vitamin C) 500 mg tablet extended release 500 mg PO DAILY oxybutynin chloride 10 mg tablet extended release 24hr 10 mg PO DAILY 90 Days Qty: 90 1RF tadalafil [Cialis] 5 mg tablet 5 mg PO DAILY Qty: 30 2RF tamsulosin [Flomax] 0.4 mg capsule 0.4 mg PO DAILY Qty: 30 3RF fluticasone furoate-vilanterol [Breo Ellipta] 200-25 mcg/dose blister with device 1 inh inhalation DAILY 90 Days Qty: 90 2RF nicotine (polacrilex) 4 mg lozenge 4 mg buccal Q6H PRN (Reason: nicotine cravings) Qty: 72 0RF vitamin E (dl, acetate) 450 mg (1,000 unit) capsule 800 mg PO DAILY coenzyme Q10 [Co Q-10] 200 mg capsule 200 mg PO DAILY ipratropium-albuterol 0.5 mg-3 mg(2.5 mg base)/3 mL solution for nebulization 3 ml inhalation QID PRN (Reason: shortness of breath or wheezing) 90 Days Qty: 270 3RF azithromycin [Zithromax Z-Ravindra] 250 mg tablet See Rx Instructions PO .COMPLEX Qty: 6 0RF Rx Instructions: For 250 mg dose pack: take 500 mg today (day 1), then 250 mg for 4 days (days 2-5) PO albuterol sulfate 90 mcg/actuation HFA aerosol inhaler 2 puff inhalation 6XD PRN (Reason: shortness of breath or wheezing) Qty: 8.5 0RF levocetirizine [Xyzal] 5 mg tablet 5 mg PO DAILY Qty: 90 3RF guaifenesin [Mucinex] 600 mg tablet extended release 12hr 600 mg PO Q12H PRN (Reason: cough) Qty: 30 0RF nortriptyline 10 mg capsule See Rx Instructions .ROUTE .COMPLEX Qty: 90 1RF Dose Instruction: TAKE ONE CAPSULE BY MOUTH AT BEDTIME Rx Instructions: TAKE ONE CAPSULE BY MOUTH AT BEDTIME Gemtesa 75 mg tablet 75 mg PO DAILY Qty: 30 2RF fluticasone propionate 50 mcg/actuation spray,suspension See Rx Instructions .ROUTE .COMPLEX Qty: 16 5RF Dose Instruction: USE 2 SPRAYS IN EACH NOSTRIL ONCE A DAY FOR ALLERGIES Rx Instructions: USE 2 SPRAYS IN EACH NOSTRIL ONCE A DAY FOR ALLERGIES clopidogrel [Plavix] 75 mg tablet 75 mg PO DAILY Qty: 90 1RF losartan 25 mg tablet See Rx Instructions .ROUTE .COMPLEX Qty: 90 1RF Dose Instruction: TAKE ONE TABLET BY MOUTH ONCE A DAY Rx Instructions: TAKE ONE TABLET BY MOUTH ONCE A DAY atorvastatin 80 mg tablet See Rx Instructions .ROUTE .COMPLEX Qty: 90 3RF Dose Instruction: TAKE ONE TABLET BY MOUTH ONCE A DAY Rx Instructions: TAKE ONE TABLET BY MOUTH ONCE A DAY ezetimibe 10 mg tablet See Rx Instructions .ROUTE .COMPLEX Qty: 90 3RF Dose Instruction: TAKE ONE TABLET BY MOUTH ONCE A DAY Rx Instructions: TAKE ONE TABLET BY MOUTH ONCE A DAY diclofenac sodium 1 % gel 2 g topical QID Rx Instructions: apply to bilateral hands to includes palm/fingers/back of hand aspirin 81 mg tablet,delayed release (DR/EC) 81 mg PO DAILY famotidine 40 mg tablet 40 mg PO DAILY Qty: 14 0RF Rx Instructions: Do not take with omeprazole, taken for GERD type symptoms once daily Referrals Follow up/Referrals: Krissy Khan APRN [Primary Care Provider] - See instructions Clinical Impressions Clinical Impression: Hematoma, Muscle tear Print Language Print Language: Com[place] Discharge ED Provider: Caridad Lindquist General Adult HPI <NAOMY Musa - Last Filed: 07/27/24 22:08> General Chief complaint: PAIN Stated complaint: AO 07/26/24 fell, inj to right leg and pelvic area Time Seen by Provider: 07/27/24 14:37 Mode of Arrival: Ambulatory Source of Information: Patient Limitations: No Limitations Description of Symptoms (Recalled from ER Triage Doc. by RN): PT REPORTS SLIP AND FALL LANGING ON A CHAIR, REPORTS RIGHT GROIN PAIN AND BRUISING History of Present Illness HPI narrative: Patient presents for evaluation of a fall. Patient states that he was standing on a rolling swivel chair to reach something on a high shelf and the chair rolled underneath him causing him to lose his balance. Patient ended up straddling the back of the chair injuring his right medial thigh. He then subsequently fell backwards landing flat on his back. He denies striking his head or losing consciousness. Patient had minimal injuries last night and actually thought he was not hurt. However when he awoke this morning he had significant amount of pain and swelling in the medial aspect of his right lower thigh. It is worse when sitting better when standing or laying flat. Patient is on aspirin and Plavix for stents both in his lower extremity as well as his heart. He denies any numbness tingling loss of motor or sensory reports painful range of motion of the entire right lower extremity. He denies any fever chills hemoptysis hematochezia melena nausea vomiting diarrhea headache or focal neurologic deficits. Related Data Home Medications ?Medication ?Instructions ?Recorded ?Confirmed multivitamin 1 tab PO DAILY Supplement 10/05/22 07/21/24 ascorbic acid (vitamin C) 500 mg 500 mg PO DAILY Supplement 10/25/22 07/21/24 tablet,extended release aspirin 81 mg tablet,delayed 81 mg PO DAILY [facility] 11/06/22 07/21/24 release calcium carbonate (Calcium 600) 1,200 mg PO DAILY Supplement 11/14/22 07/21/24 coenzyme Q10 200 mg capsule (Co 200 mg PO DAILY Supplement 11/14/22 07/21/24 Q-10) vitamin E (dl, acetate) 450 mg 800 mg PO DAILY Supplement 11/14/22 07/21/24 (1,000 unit) capsule diclofenac sodium 1 % topical gel 2 g topical QID Pain 12/28/22 07/21/24 Previous Rx's ?Medication ?Instructions ?Recorded ipratropium 0.5 mg-albuterol 3 mg 3 ml inhalation QID PRN shortness 01/07/23 (2.5 mg base)/3 mL nebulization of breath or wheezing 90 days #270 soln mL oxybutynin chloride 10 mg 10 mg PO DAILY 90 days #90 tabs 12/23/23 tablet,extended release 24 hr tadalafil 5 mg tablet (Cialis) 5 mg PO DAILY #30 tabs 12/23/23 tamsulosin 0.4 mg capsule (Flomax) 0.4 mg PO DAILY #30 caps 12/23/23 nortriptyline 10 mg capsule See Rx Instructions .Route 03/28/24 .COMPLEX #90 caps famotidine 40 mg tablet 40 mg PO DAILY #14 tabs 03/31/24 vibegron 75 mg tablet (Gemtesa) 75 mg PO DAILY #30 tabs 04/06/24 clopidogrel 75 mg tablet (Plavix) 75 mg PO DAILY Blood thinner #90 05/04/24 tabs fluticasone propionate 50 See Rx Instructions .Route 05/04/24 mcg/actuation nasal .COMPLEX #16 grams spray,suspension fluticasone furoate 200 1 inh inhalation DAILY 90 days #90 05/25/24 mcg-vilanterol 25 mcg/dose ea inhalation powder (Breo Ellipta) nicotine (polacrilex) 4 mg buccal 4 mg buccal Q6H PRN nicotine 05/25/24 lozenge cravings #72 ea atorvastatin 80 mg tablet See Rx Instructions .Route 06/08/24 .COMPLEX #90 tabs ezetimibe 10 mg tablet See Rx Instructions .Route 06/08/24 .COMPLEX #90 tabs losartan 25 mg tablet See Rx Instructions .Route 06/08/24 .COMPLEX #90 tabs albuterol sulfate 90 mcg/actuation 2 puff inhalation 6XD PRN 07/21/24 aerosol inhaler shortness of breath or wheezing #8.5 grams azithromycin 250 mg tablet See Rx Instructions PO .COMPLEX #6 07/21/24 (Zithromax Z-Ravindra) tabs guaifenesin 600 mg tablet, 600 mg PO Q12H PRN cough #30 tabs 07/21/24 extended release 12 hr (Mucinex) levocetirizine 5 mg tablet (Xyzal) 5 mg PO DAILY #90 tabs 07/21/24 hydrocodone 5 mg-acetaminophen 325 1 tab PO Q6H PRN pain #10 tabs 07/28/24 mg tablet ondansetron 4 mg disintegrating 4 mg PO Q6H PRN nausea and 07/28/24 tablet vomiting #10 tabs Allergies Allergy/AdvReac Type Severity Reaction Status Date / Time Penicillins Allergy Severe Anaphylaxis Verified 07/21/24 09:45 milk Allergy Intermediate Verified 07/21/24 09:45 codeine (CODEINE) Allergy Mild Rash Verified 07/21/24 09:45 [facility] <NAOMY Musa - Last Filed: 07/27/24 22:08> [facility] Disclaimer: The information contained in this section may have been updated after the patient was seen, as this information can be updated by other users. Medical History (Updated 07/27/24 @ 19:13 by NAOMY Musa) Asthma exacerbation Abnormal nuclear cardiac imaging test Upper respiratory infection Broken or cracked tooth, nontraumatic Pain of molar Low back pain Myofascial pain TMJ (temporomandibular joint disorder) Asthma Otalgia of right ear History of amphetamine abuse Mastoid pain Headache Bleeding from right ear Trauma of ear canal External otitis of right ear Dyspnea on exertion Nodule of left lung Multiple lung nodules on CT History of asthma Family history of asthma Pulmonary emphysema Pulmonary hypertension Angina pectoris Abnormal cardiovascular stress test Pulmonary nodules Bilateral hand pain Encounter for pre-operative cardiovascular clearance Abnormal leg movement Living will, counseling/discussion Screening for AAA (abdominal aortic aneurysm) Screening for lung cancer Screening for prostate cancer Screening for colon cancer Annual physical exam Eustachian tube dysfunction Tinnitus TMJ dysfunction Hearing loss Otalgia, right ear Abnormal ankle brachial index (ROSIO) Rheumatoid arthritis Arteriosclerosis of coronary artery Chest pain Chronic obstructive pulmonary disease Coronary artery disease Hyperlipidemia Hypertension Recurrent falls Dehydration Diastolic dysfunction Pulmonary hypertension COPD (chronic obstructive pulmonary disease) Alcoholic encephalopathy Methamphetamine intoxication Surgical History (Updated 07/21/24 @ 09:52 by Emelia Cardoza CMA) History of right hip replacement History of hip surgery Hx of tonsillectomy S/P colonoscopy History of coronary artery bypass surgery Family History Father Heart attack Hyperlipidemia Coronary artery disease Diabetes Mother Cancer brain Stroke Social History Smoking Status: Current every day smoker tobacco type: cigarettes packs per day: 1 years smoked: 57 alcohol intake: current alcohol intake frequency: 3 or more drinks per day substance use type: marijuana current occupational status: other Travel in the last 8 weeks: None household members: none housing: other marital status: number of children: 3 caffeine: Yes Have you lived/traveled outside [place] in past 30 days?: No Contact w/someone who lives/traveled outside US past 30 days?: No Exposure to someone with infectious disease in past 14 days?: No Do you have a fever (greater than 100.4 F or 38 C)?: No Have you tested positive for COVID-19: No Exposed to someone with COVID-19 in past 14 days?: No Do you have a sore throat?: No Do you have a cough?: No Do you have any weakness?: No Do you have any diarrhea?: No Are you experiencing any unusual bleeding?: No Do you have any muscle aches/pain?: No Do you have any abdominal pain?: No Are you experiencing loss of taste or smell?: No Other Medical History Have you received the Flu Vaccine for this season: No Have you received the Pneumonia Vaccine: Yes <NAOMY Musa - Last Filed: 07/27/24 22:08> ROS Obtained: Yes Systems reviewed as appropriate & no additional complaints except as documented Physical Exam <NAOMY Musa - Last Filed: 07/27/24 22:08> General General appearance: alert and in no apparent distress Neck Neck exam: Absent lymphadenopathy Respiratory Respiratory exam: Present normal lung sounds bilaterally Cardiovascular Cardiovascular exam: Present regular rate, normal rhythm and +S2 Neurological Exam Neurological exam: Present alert and oriented X3 Medical Decision Making <NAOMY Musa - Last Filed: 07/27/24 22:08> Medical Records Medical records reviewed: Yes I reviewed the patient's medical records. Screening: Per USPSTF and CDC recommendations, given the prevalence of disease in our region, it is our hospital?s policy to screen for HIV and viral Hepatitis for all patients aged 18 and over and those with ongoing risk factors. Juve Inquiry Pt receiving controlled substance: No Vital Signs: 07/27/24 14:20 07/27/24 14:33 07/27/24 14:51 Temperature 98.0 F Temperature Source Oral Pulse Rate 94 H 98 H Pulse Rate [Radial] 84 Respiratory Rate 18 Blood Pressure 154/105 H Blood Pressure [Right Arm] 131/68 Blood Pressure Mean Blood Pressure Mean [Right Arm] 89 Blood Pressure Source [Right Arm] Automatic Cuff Blood Pressure Position [Right Arm] Sitting 02 Sat by Pulse Oximetry 96 94 L 96 Oxygen Delivery Method Room Air 07/27/24 15:00 07/27/24 15:15 07/27/24 15:30 Temperature Temperature Source Pulse Rate 92 H 91 H 95 H Pulse Rate [Radial] Respiratory Rate Blood Pressure 123/83 Blood Pressure [Right Arm] Blood Pressure Mean Blood Pressure Mean [Right Arm] Blood Pressure Source [Right Arm] Blood Pressure Position [Right Arm] 02 Sat by Pulse Oximetry 93 L 94 L 94 L Oxygen Delivery Method 07/27/24 16:19 07/27/24 16:30 07/27/24 16:31 Temperature Temperature Source Pulse Rate 101 H 92 H 97 H Pulse Rate [Radial] Respiratory Rate Blood Pressure 112/48 L Blood Pressure [Right Arm] Blood Pressure Mean Blood Pressure Mean [Right Arm] Blood Pressure Source [Right Arm] Blood Pressure Position [Right Arm] 02 Sat by Pulse Oximetry 95 87 L 93 L Oxygen Delivery Method 07/27/24 16:45 07/27/24 17:00 07/27/24 17:15 Temperature Temperature Source Pulse Rate 97 H 94 H 97 H Pulse Rate [Radial] Respiratory Rate Blood Pressure 106/63 L Blood Pressure [Right Arm] Blood Pressure Mean Blood Pressure Mean [Right Arm] Blood Pressure Source [Right Arm] Blood Pressure Position [Right Arm] 02 Sat by Pulse Oximetry 95 95 93 L Oxygen Delivery Method 07/27/24 17:30 07/27/24 17:45 07/27/24 18:00 Temperature Temperature Source Pulse Rate 94 H 97 H Pulse Rate [Radial] Respiratory Rate Blood Pressure 116/71 117/66 Blood Pressure [Right Arm] Blood Pressure Mean 80 Blood Pressure Mean [Right Arm] Blood Pressure Source [Right Arm] Blood Pressure Position [Right Arm] 02 Sat by Pulse Oximetry 93 L 91 L Oxygen Delivery Method 07/27/24 18:15 07/27/24 18:30 07/27/24 18:45 Temperature Temperature Source Pulse Rate 92 H 75 94 H Pulse Rate [Radial] Respiratory Rate Blood Pressure 108/71 L Blood Pressure [Right Arm] Blood Pressure Mean Blood Pressure Mean [Right Arm] Blood Pressure Source [Right Arm] Blood Pressure Position [Right Arm] 02 Sat by Pulse Oximetry 93 L 92 L 94 L Oxygen Delivery Method 07/27/24 19:00 07/27/24 19:30 07/27/24 20:04 Temperature 98.4 F Temperature Source Pulse Rate 91 H 87 Pulse Rate [Radial] Respiratory Rate 18 Blood Pressure 119/62 105/70 L 107/67 L Blood Pressure [Right Arm] Blood Pressure Mean Blood Pressure Mean [Right Arm] Blood Pressure Source [Right Arm] Blood Pressure Position [Right Arm] 02 Sat by Pulse Oximetry 92 L 95 Oxygen Delivery Method Room Air Lab Data Lab results reviewed: Yes I reviewed the patient's lab results. Lab Results 07/27/24 15:15: WBC 8.5, RBC 4.81, Hgb 14.0 L, Hct 42.2, MCV 87.7, MCH 29.1, MCHC 33.2, RDW 15.3, Plt Count 235, MPV 8.8, Neut % (Auto) 65.3, Lymph % (Auto) 19.7, Zavala % (Auto) 13.1 H, Eos % (Auto) 0.5, Baso % (Auto) 0.8, Neut # (Auto) 5.6, Lymph # (Auto) 1.7, Zavala # (Auto) 1.1 H, Eos # (Auto) 0.0, Baso # (Auto) 0.1, PT 10.9, INR 0.99, Sodium 132 L, Potassium 3.7, Chloride 104, Carbon Dioxide 25, Anion Gap 6.7, BUN 11, Creatinine 0.80, Estimated Creat Clear 94, Estimated GFR 96, Est GFR ( Amer) 117, Glucose 114 H, Calcium 9.1, Total Bilirubin 1.1, AST 30, ALT 28, Alkaline Phosphatase 74, Total Protein 7.0, Albumin 4.3, Globulin 2.7, Albumin/Globulin Ratio 1.6, HCV Ab JONE w/Rflx PCR Qn Negative, HIV Ag/Ab Combo Qual Negative, Blood Type A Positive, Antibody Screen Negative 07/27/24 15:30: Urine Color Yellow, Urine Appearance Clear, Urine pH 6.0, Ur Specific Ranson 1.010, Urine Protein Negative, Urine Glucose (UA) Negative, Urine Ketones Negative, Urine Blood Negative, Urine Nitrate Negative, Urine Bilirubin Negative, Urine Urobilinogen 0.2, Ur Leukocyte Esterase Negative, Urine RBC None, Urine WBC Occasional, Ur Squamous Epith Cells None, Urine Bacteria Trace 07/27/24 15:15 07/27/24 15:15 Orders (Tests/Meds): ED MEDICATIONS Discontinued Medications Generic Name Dose Route Start Last Admin Trade Name Freq PRN Reason Stop Dose Admin Acetaminophen 1,000 mg 07/27/24 14:51 07/27/24 15:25 Acetaminophen 500mg Tab PO 07/27/24 14:52 1,000 mg ONCE ONE Administration Doxycycline Hyclate 100 mg 07/27/24 18:41 07/27/24 19:11 Doxycycline Hycl 100 Mg Tablet PO 07/27/24 18:42 Not Given ONCE ONE Furosemide 80 mg 07/27/24 18:40 07/27/24 19:11 Furosemide 40mg/4ml Vial IV 07/27/24 18:41 Not Given ONCE ONE Hydromorphone HCl 1 mg 07/27/24 14:53 07/27/24 15:26 Hydromorphone 2mg/Ml Syringe IV 07/27/24 14:54 1 mg ONCE ONE Administration Lactated Ringer's 1,000 mls @ 999 mls/hr 07/27/24 14:51 07/27/24 15:25 Lactated Ringer's 1000 Ml Bag IV 07/27/24 15:51 999 mls/hr .Q1H1M ONE Administration Iopamidol 200 ml 07/27/24 15:58 07/27/24 15:59 Iopamidol-370 (76%);100ml Bottle IV 07/27/24 15:59 200 ml ONCE ONE Administration Ondansetron HCl 4 mg 07/27/24 15:22 07/27/24 15:25 Ondansetron 4mg/2ml Vial IV 07/27/24 15:23 4 mg ONCE ONE Administration Sodium Chloride 10 ml 07/27/24 15:58 07/27/24 15:59 Sodium Chloride 0.9% 10ml Syr (Rad Only) IV 07/27/24 15:59 10 ml ONCE ONE Administration Sodium Chloride 50 ml 07/27/24 15:58 07/27/24 15:59 0.9 % Sodium Chloride 50 Ml Vial IV 07/27/24 15:59 50 ml ONCE ONE Administration ORDERS Category Date Time Status Type and Screen Stat BBK 07/27/24 15:[address] angio abdomen/femoral Stat Cat Scan 07/27/24 14:[address] angio chest - dissection Stat Cat Scan 07/27/24 14:[address] angio head Stat Cat Scan 07/27/24 14:[address] angio neck Stat Cat Scan 07/27/24 14:[address] bony pelvis Stat Cat Scan 07/27/24 14:[address] cervical spine wo con Stat Cat Scan 07/27/24 14:[address] head/brain wo con Stat Cat Scan 07/27/24 14:[address] lumbar spine wo con Stat Cat Scan 07/27/24 14:[address] thoracic spine wo con Stat Cat Scan 07/27/24 14:55 Completed CBC w/Auto Diff [Complete Blood Count Auto Diff] Stat Lab 07/27/24 15:15 Completed CMP [Comprehensive Metabolic Panel] Stat Lab 07/27/24 15:15 Completed HIV Combo Stat Lab 07/27/24 15:15 Completed Hepatitis C Ab Qual. W/ RFX Stat Lab 07/27/24 15:15 Completed INR [Prothrombin Time INR] Stat Lab 07/27/24 15:15 Completed UA [Urinalysis and Microscopic] Stat Lab 07/27/24 15:30 Completed Medical Decision Narrative: In summary patient is a 69-year-old male who presents to the emergency department for evaluation of a fall. Patient is hemodynamically stable with a blood pressure 131/68 heart rate 84 with normal sinus rhythm on the bedside monitor breathing 18 times a minute satting at 96% on room air upon arrival, and afebrile at 98.0. Physical exam is remarkable for no dorsal spine tenderness no palpable bony deformity in the dorsal spine no C-spine tenderness with full range of motion and patient is cleared by [place] C-spine and head injury rules. Examination of abdomen reveals to be soft nontender without rebound guarding or rigidity. Normal bowel sounds. Breath sounds are clear and equal bilaterally to the bases. There is no chest wall tenderness. Examination of the extremities revealed the bilateral upper extremities are intact wrist exam full range of motion the left lower extremity is intact grossly to exam with full range of motion neurovascular intact distally the right lower extremity has reduced range of motion due to pain in the medial thigh. Examination of that reveals a large hematoma occupying the majority of his medial thigh from the groin to the knee extending nearly 180 degrees anteriorly to posteriorly medially. I marked the borders with an ink pen on examination. It does not cross the inguinal ligament. Patient has no saddle anesthesia. External genitalia exam reveals normal scrotum with no evidence of trauma of the penis or scrotum patient has no bony deformity noted in the right lower extremity and has full range of motion of the knee and ankle is neurovascular intact distally with palpable PT and DP.. Differential diagnosis includes C-spine injury versus dorsal spine injury versus pelvic fracture versus vascular injury versus hematoma versus compartment syndrome versus femur fracture on the right etc. Initial workup will be conducted with trauma scans hematologic labs urinalysis.. Initial interventions include Tylenol Robaxin Dilaudid. Initial workup reviewed by me shows that his hematologic labs are nonactionable including normal H&H and coags and my informal interpretation of his imaging shows no acute bony injury of the head or dorsal spine pelvis or lower extremity. My informal interpretation of his CTAs reviewed by myself shows no intercranial thoracic or abdominal abnormalities from a vascular standpoint however patient has a very large hematoma in the medial thigh arising from the gracilis muscle. The insertion and origin appear to be intact however the hematoma arises from the mid gracilis but there is not evidence of complete disruption prior to radiology read.. Given the significant injury had interactive discussion with Dr. Sorenson of orthopedics regarding patient [place] and findings and patient management. Given that he is approximately 24 hours out from the time of injury, there has been no evidence in his 4-hour stay here in the ER of expansion of his hematoma, there was no evidence on imaging of contrast extravasation the suggestion his bleeding is now controlled. Plan is for close observation for any increased swelling, ice to the affected area for the rest of tonight, temporary hold of his Plavix and aspirin for today and tomorrow and he will be reevaluated by Dr. Sorenson in clinic. Patient has had good pain control and is actually able to bear weight again in the emergency department and his medial thigh compartments remain soft. Given this patient is appropriate for discharge with prescription for opiates and Zofran with strict return precautions for expanding hematoma. Patient verbalized understanding and agreement. <Michael Lee MD - Last Filed: 07/28/24 15:56> Vital Signs: 07/27/24 14:20 07/27/24 14:33 07/27/24 14:51 Temperature 98.0 F Temperature Source Oral Pulse Rate 94 H 98 H Pulse Rate [Radial] 84 Respiratory Rate 18 Blood Pressure 154/105 H Blood Pressure [Right Arm] 131/68 Blood Pressure Mean Blood Pressure Mean [Right Arm] 89 Blood Pressure Source [Right Arm] Automatic Cuff Blood Pressure Position [Right Arm] Sitting 02 Sat by Pulse Oximetry 96 94 L 96 Oxygen Delivery Method Room Air 07/27/24 15:00 07/27/24 15:15 07/27/24 15:30 Temperature Temperature Source Pulse Rate 92 H 91 H 95 H Pulse Rate [Radial] Respiratory Rate Blood Pressure 123/83 Blood Pressure [Right Arm] Blood Pressure Mean Blood Pressure Mean [Right Arm] Blood Pressure Source [Right Arm] Blood Pressure Position [Right Arm] 02 Sat by Pulse Oximetry 93 L 94 L 94 L Oxygen Delivery Method 07/27/24 16:19 07/27/24 16:30 07/27/24 16:31 Temperature Temperature Source Pulse Rate 101 H 92 H 97 H Pulse Rate [Radial] Respiratory Rate Blood Pressure 112/48 L Blood Pressure [Right Arm] Blood Pressure Mean Blood Pressure Mean [Right Arm] Blood Pressure Source [Right Arm] Blood Pressure Position [Right Arm] 02 Sat by Pulse Oximetry 95 87 L 93 L Oxygen Delivery Method 07/27/24 16:45 07/27/24 17:00 07/27/24 17:15 Temperature Temperature Source Pulse Rate 97 H 94 H 97 H Pulse Rate [Radial] Respiratory Rate Blood Pressure 106/63 L Blood Pressure [Right Arm] Blood Pressure Mean Blood Pressure Mean [Right Arm] Blood Pressure Source [Right Arm] Blood Pressure Position [Right Arm] 02 Sat by Pulse Oximetry 95 95 93 L Oxygen Delivery Method 07/27/24 17:30 07/27/24 17:45 07/27/24 18:00 Temperature Temperature Source Pulse Rate 94 H 97 H Pulse Rate [Radial] Respiratory Rate Blood Pressure 116/71 117/66 Blood Pressure [Right Arm] Blood Pressure Mean 80 Blood Pressure Mean [Right Arm] Blood Pressure Source [Right Arm] Blood Pressure Position [Right Arm] 02 Sat by Pulse Oximetry 93 L 91 L Oxygen Delivery Method 07/27/24 18:15 07/27/24 18:30 07/27/24 18:45 Temperature Temperature Source Pulse Rate 92 H 75 94 H Pulse Rate [Radial] Respiratory Rate Blood Pressure 108/71 L Blood Pressure [Right Arm] Blood Pressure Mean Blood Pressure Mean [Right Arm] Blood Pressure Source [Right Arm] Blood Pressure Position [Right Arm] 02 Sat by Pulse Oximetry 93 L 92 L 94 L Oxygen Delivery Method 07/27/24 19:00 07/27/24 19:30 07/27/24 20:04 Temperature 98.4 F Temperature Source Pulse Rate 91 H 87 Pulse Rate [Radial] Respiratory Rate 18 Blood Pressure 119/62 105/70 L 107/67 L Blood Pressure [Right Arm] Blood Pressure Mean Blood Pressure Mean [Right Arm] Blood Pressure Source [Right Arm] Blood Pressure Position [Right Arm] 02 Sat by Pulse Oximetry 92 L 95 Oxygen Delivery Method Room Air Lab Data Lab Results 07/27/24 15:15: WBC 8.5, RBC 4.81, Hgb 14.0 L, Hct 42.2, MCV 87.7, MCH 29.1, MCHC 33.2, RDW 15.3, Plt Count 235, MPV 8.8, Neut % (Auto) 65.3, Lymph % (Auto) 19.7, Zavala % (Auto) 13.1 H, Eos % (Auto) 0.5, Baso % (Auto) 0.8, Neut # (Auto) 5.6, Lymph # (Auto) 1.7, Zavala # (Auto) 1.1 H, Eos # (Auto) 0.0, Baso # (Auto) 0.1, PT 10.9, INR 0.99, Sodium 132 L, Potassium 3.7, Chloride 104, Carbon Dioxide 25, Anion Gap 6.7, BUN 11, Creatinine 0.80, Estimated Creat Clear 94, Estimated GFR 96, Est GFR ( Amer) 117, Glucose 114 H, Calcium 9.1, Total Bilirubin 1.1, AST 30, ALT 28, Alkaline Phosphatase 74, Total Protein 7.0, Albumin 4.3, Globulin 2.7, Albumin/Globulin Ratio 1.6, HCV Ab JONE w/Rflx PCR Qn Negative, HIV Ag/Ab Combo Qual Negative, Blood Type A Positive, Antibody Screen Negative 07/27/24 15:30: Urine Color Yellow, Urine Appearance Clear, Urine pH 6.0, Ur Specific Ranson 1.010, Urine Protein Negative, Urine Glucose (UA) Negative, Urine Ketones Negative, Urine Blood Negative, Urine Nitrate Negative, Urine Bilirubin Negative, Urine Urobilinogen 0.2, Ur Leukocyte Esterase Negative, Urine RBC None, Urine WBC Occasional, Ur Squamous Epith Cells None, Urine Bacteria Trace Orders (Tests/Meds): ED MEDICATIONS Discontinued Medications Generic Name Dose Route Start Last Admin Trade Name Freq PRN Reason Stop Dose Admin Acetaminophen 1,000 mg 07/27/24 14:51 07/27/24 15:25 Acetaminophen 500mg Tab PO 07/27/24 14:52 1,000 mg ONCE ONE Administration Doxycycline Hyclate 100 mg 07/27/24 18:41 07/27/24 19:11 Doxycycline Hycl 100 Mg Tablet PO 07/27/24 18:42 Not Given ONCE ONE Furosemide 80 mg 07/27/24 18:40 07/27/24 19:11 Furosemide 40mg/4ml Vial IV 07/27/24 18:41 Not Given ONCE ONE Hydromorphone HCl 1 mg 07/27/24 14:53 07/27/24 15:26 Hydromorphone 2mg/Ml Syringe IV 07/27/24 14:54 1 mg ONCE ONE Administration Lactated Ringer's 1,000 mls @ 999 mls/hr 07/27/24 14:51 07/27/24 15:25 Lactated Ringer's 1000 Ml Bag IV 07/27/24 15:51 999 mls/hr .Q1H1M ONE Administration Iopamidol 200 ml 07/27/24 15:58 07/27/24 15:59 Iopamidol-370 (76%);100ml Bottle IV 07/27/24 15:59 200 ml ONCE ONE Administration Ondansetron HCl 4 mg 07/27/24 15:22 07/27/24 15:25 Ondansetron 4mg/2ml Vial IV 07/27/24 15:23 4 mg ONCE ONE Administration Sodium Chloride 10 ml 07/27/24 15:58 07/27/24 15:59 Sodium Chloride 0.9% 10ml Syr (Rad Only) IV 07/27/24 15:59 10 ml ONCE ONE Administration Sodium Chloride 50 ml 07/27/24 15:58 07/27/24 15:59 0.9 % Sodium Chloride 50 Ml Vial IV 07/27/24 15:59 50 ml ONCE ONE Administration ORDERS Category Date Time Status Type and Screen Stat BBK 07/27/24 15:[address] angio abdomen/femoral Stat Cat Scan 07/27/24 14:[address] angio chest - dissection Stat Cat Scan 07/27/24 14:[address] angio head Stat Cat Scan 07/27/24 14:[address] angio neck Stat Cat Scan 07/27/24 14:[address] bony pelvis Stat Cat Scan 07/27/24 14:[address] cervical spine wo con Stat Cat Scan 07/27/24 14:[address] head/brain wo con Stat Cat Scan 07/27/24 14:[address] lumbar spine wo con Stat Cat Scan 07/27/24 14:[address] thoracic spine wo con Stat Cat Scan 07/27/24 14:55 Completed CBC w/Auto Diff [Complete Blood Count Auto Diff] Stat Lab 07/27/24 15:15 Completed CMP [Comprehensive Metabolic Panel] Stat Lab 07/27/24 15:15 Completed HIV Combo Stat Lab 07/27/24 15:15 Completed Hepatitis C Ab Qual. W/ RFX Stat Lab 07/27/24 15:15 Completed INR [Prothrombin Time INR] Stat Lab 07/27/24 15:15 Completed UA [Urinalysis and Microscopic] Stat Lab 07/27/24 15:30 Completed Medical Decision Narrative: In summary patient is a 69-year-old male who presents to the emergency department for evaluation of a fall. Patient is hemodynamically stable with a blood pressure 131/68 heart rate 84 with normal sinus rhythm on the bedside monitor breathing 18 times a minute satting at 96% on room air upon arrival, and afebrile at 98.0. Physical exam is remarkable for no dorsal spine tenderness no palpable bony deformity in the dorsal spine no C-spine tenderness with full range of motion and patient is cleared by [facility] C-spine and head injury rules. Examination of abdomen reveals to be soft nontender without rebound guarding or rigidity. Normal bowel sounds. Breath sounds are clear and equal bilaterally to the bases. There is no chest wall tenderness. Examination of the extremities revealed the bilateral upper extremities are intact wrist exam full range of motion the left lower extremity is intact grossly to exam with full range of motion neurovascular intact distally the right lower extremity has reduced range of motion due to pain in the medial thigh. Examination of that reveals a large hematoma occupying the majority of his medial thigh from the groin to the knee extending nearly 180 degrees anteriorly to posteriorly medially. I marked the borders with an ink pen on examination. It does not cross the inguinal ligament. Patient has no saddle anesthesia. External genitalia exam reveals normal scrotum with no evidence of trauma of the penis or scrotum patient has no bony deformity noted in the right lower extremity and has full range of motion of the knee and ankle is neurovascular intact distally with palpable PT and DP.. Differential diagnosis includes C-spine injury versus dorsal spine injury versus pelvic fracture versus vascular injury versus hematoma versus compartment syndrome versus femur fracture on the right etc. Initial workup will be conducted with trauma scans hematologic labs urinalysis.. Initial interventions include Tylenol Robaxin Dilaudid. Initial workup reviewed by me shows that his hematologic labs are nonactionable including normal H&H and coags and my informal interpretation of his imaging shows no acute bony injury of the head or dorsal spine pelvis or lower extremity. My informal interpretation of his CTAs reviewed by myself shows no intercranial thoracic or abdominal abnormalities from a vascular standpoint however patient has a very large hematoma in the medial thigh arising from the gracilis muscle. The insertion and origin appear to be intact however the hematoma arises from the mid gracilis but there is not evidence of complete disruption prior to radiology read.. Given the significant injury had interactive discussion with Dr. Sorenson of orthopedics regarding patient [place] and findings and patient management. Given that he is approximately 24 hours out from the time of injury, there has been no evidence in his 4-hour stay here in the ER of expansion of his hematoma, there was no evidence on imaging of contrast extravasation the suggestion his bleeding is now controlled. Plan is for close observation for any increased swelling, ice to the affected area for the rest of tonight, temporary hold of his Plavix and aspirin for today and tomorrow and he will be reevaluated by Dr. Sorenson in clinic. Patient has had good pain control and is actually able to bear weight again in the emergency department and his medial thigh compartments remain soft. Given this patient is appropriate for discharge with prescription for opiates and Zofran with strict return precautions for expanding hematoma. Patient verbalized understanding and agreement. I was consulted by the BRENDA, and we discussed the complexity of the problems being addressed. I approved the treatment and management plan for this patient's care in the Emergency Department, thus performing a substantive portion of the medical decision making. Michael Lee MD Critical Care <NAOMY Musa - Last Filed: 07/27/24 22:08> Critical Care Time Critical Care Time: Yes Attestation: On 07/27/24, the high probability of a clinically significant, sudden or life threatening deterioration of the following system(s) required my full and direct attention, intervention and personal management. The time I documented below is in addition to time spent performing reported procedures but includes the following listed in this critical care notation. Total Time Total Critical Care Time: 35
--- NOTE | 2024-07-27 14:54 | CT_ITS ---
PROCEDURE INFORMATION: Exam: CTA Abdominal Aorta and Bilateral Lower Extremities (Run-off) With Contrast Exam date and time: 07/27/2024 4:11 PM Age: 69 years old Clinical indication: Injury or trauma; Fall; Blunt trauma; Lower abdominal or back area; Bilateral; Additional info: Fall, trauma TECHNIQUE: Imaging protocol: Computed tomographic angiography of the of the abdominal aorta, pelvis and bilateral lower extremities with contrast. 3D rendering (Not supervised by radiologist): MIP and/or 3D reconstructed images were created by the technologist. Radiation optimization: All CT scans at this facility use at least one of these dose optimization techniques: automated exposure control; mA and/or kV adjustment per patient size (includes targeted exams where dose is matched to clinical indication); or iterative reconstruction. Contrast material: ISOVUE 370; Contrast volume: 80 ml; Contrast route: INTRAVENOUS (IV); COMPARISON: CT ANGIO CHEST 07/27/2024 4:11 PM FINDINGS: Aorta: No aortic aneurysm. No aortic dissection. Aorto bi-iliac endovascular stents are patent. Scattered atherosclerotic calcifications Celiac trunk and mesenteric arteries: No occlusion or significant stenosis. Renal arteries: No occlusion or significant stenosis. Right iliac arteries: No occlusion or significant stenosis. Right femoral/popliteal arteries: No occlusion or significant stenosis. Right infrapopliteal arteries: No occlusion or significant stenosis. Left iliac arteries: No occlusion or significant stenosis. Left femoral/popliteal arteries: No occlusion or significant stenosis. Left infrapopliteal arteries: No occlusion or significant stenosis. Liver: No mass. Gallbladder and biliary ducts: No calcified stones. No ductal dilation. Pancreas: No mass. No ductal dilation. Spleen: No splenomegaly. No masses or surrounding fluid. Adrenal glands: No mass. Kidneys and ureters: No mass. No calcified stones or hydroureteronephrosis. Stomach and bowel: No obstruction. No mucosal or wall thickening. No masses. Appendix: No evidence of appendicitis. Urinary bladder: No mass or wall thickening. Reproductive: No abnormalities. Intraperitoneal space: No free air. No significant fluid collection. Lymph nodes: No lymphadenopathy. Bones/joints: No acute fracture or bone lesions. Right hip prosthesis has no evidence of loosening and causes mild streak artifact across the pelvis Soft tissues: 10 x 7 x 4.5 cm intramuscular mass in the proximal and medial right thigh is slightly hyperdense to skeletal muscle. Stranding of subcutaneous fat is present throughout the medial right thigh and has overlying skin thickening. No skin wounds or radiopaque foreign bodies. No soft tissue gas Other findings: . . IMPRESSION: 1. No acute findings on CTA abdomen, pelvis and lower extremities. Scattered calcified atherosclerotic plaque causes no significant stenoses. Three-vessel runoff to the feet. No evidence of active bleeding. 2. A 10 x 7 x 4.5 cm muscle hematoma in the proximal medial right thigh with stranding fat throughout the medial right thigh and overlying skin thickening. Abscess could have a similar appearance.
--- NOTE | 2024-07-27 14:55 | CT_ITS ---
PROCEDURE INFORMATION: Exam: CT Head Without Contrast Exam date and time: 07/27/2024 3:44 PM Age: 69 years old Clinical indication: Injury or trauma; Fall; Blunt trauma (contusions or hematomas); Additional info: Trauma, critical injury suspected TECHNIQUE: Imaging protocol: Computed tomography of the head without contrast. Radiation optimization: All CT scans at this facility use at least one of these dose optimization techniques: automated exposure control; mA and/or kV adjustment per patient size (includes targeted exams where dose is matched to clinical indication); or iterative reconstruction. COMPARISON: CT HEAD/BRAIN WO/W CON 03/29/2023 9:21 AM FINDINGS: Brain: No hemorrhage. No intra-axial or extra-axial lesions or masses. No midline shift. Cerebral ventricles: No ventriculomegaly. Paranasal sinuses: Visualized sinuses are well aerated. No fluid levels. Mastoid air cells: Visualized mastoid air cells are well aerated. Bones: No acute fractures or bone lesions. Old depressed fracture of the right zygomatic arch is unchanged. Left mastoid is under pneumatized compared to the right. Soft tissues: No abnormalities. IMPRESSION: No acute intracranial abnormalities. . No interval changes since 03/29/2023.
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
--- NOTE | 2024-07-27 14:55 | CT_ITS ---
PROCEDURE INFORMATION: Exam: CTA Neck With Contrast Exam date and time: 07/27/2024 3:58 PM Age: 69 years old Clinical indication: Injury or trauma; Fall; Blunt trauma; Head; Additional info: Trauma, critical injury suspected TECHNIQUE: Imaging protocol: Computed tomographic angiography of the neck with contrast. Exam focused on the cervical segments of the vasculature. 3D rendering (Not supervised by radiologist): MIP and/or 3D reconstructed images were created by the technologist. Radiation optimization: All CT scans at this facility use at least one of these dose optimization techniques: automated exposure control; mA and/or kV adjustment per patient size (includes targeted exams where dose is matched to clinical indication); or iterative reconstruction. Contrast material: ISO 370; Contrast volume: 80 ml; Contrast route: INTRAVENOUS (IV); COMPARISON: CT CERVICAL SPINE WO CON 07/27/2024 3:47 PM FINDINGS: Right common carotid artery: No stenosis. No dissection or occlusion. Right internal carotid artery: Greater than 70% stenosis in the proximal extracranial segment due to calcified plaque. Right external carotid artery: No occlusion or stenosis of the origin. Left common carotid artery: No stenosis. No dissection or occlusion. Left internal carotid artery: No significant stenosis of the extracranial segment. No dissection or occlusion. Calcified plaque causes less than 50% stenosis. Left external carotid artery: No occlusion or stenosis of the origin. Right vertebral artery: No significance stenosis. No dissection or occlusion. Scattered calcified plaque causes less than 50% stenosis. Left vertebral artery: No stenosis. No dissection or occlusion. Paranasal sinuses: Fluid in the left maxillary sinus. Other visualized sinuses are well aerated. Soft tissues: No masses or edema. Bones/joints: No acute fracture, subluxations, or bone lesions. Degenerative disc space narrowing and facet hypertrophy at multiple levels of the cervical spine. IMPRESSION: 1. Greater than 70% stenosis in the proximal right internal carotid artery. 2. No other significant arterial stenoses or occlusions in the neck. 3. Acute sinusitis in the left maxillary sinus. REFERENCES: NASCET CRITERIA. The degree of stenosis in the cervical segment of the internal carotid artery is based on NASCET criteria. Normal is no stenosis. Mild is less than 50% stenosis. Moderate is 50-69% stenosis. Severe is 70% to 99% stenosis. Total occlusion is no detectable patent lumen.
--- NOTE | 2024-07-27 14:55 | CT_ITS ---
PROCEDURE INFORMATION: Exam: CT Pelvis Without Contrast, Skeleton Exam date and time: 07/27/2024 3:55 PM Age: 69 years old Clinical indication: Injury or trauma; Fall; Blunt trauma (contusions or hematomas); Bilateral; Pelvic region; Additional info: Trauma, critical injury suspected TECHNIQUE: Imaging protocol: Computed tomography of the pelvis without contrast. Exam focused on the skeleton. Radiation optimization: All CT scans at this facility use at least one of these dose optimization techniques: automated exposure control; mA and/or kV adjustment per patient size (includes targeted exams where dose is matched to clinical indication); or iterative reconstruction. COMPARISON: CT ABDOMEN PELVIS W CON 12/13/2019 4:58 AM FINDINGS: Bones/joints: No evidence of acute fracture or malalignment. Pubic symphysis and bilateral sacroiliac joints are congruent. Status post right total hip arthroplasty. Hardware appears intact with no evidence of loosening. Soft tissues: Large soft tissue hematoma in the medial compartment of the upper right thigh arising from the gracilis, incompletely imaged. Hematoma measures at least 11 cm in length and approximately 3.5 x 4.5 cm in transverse and AP dimensions. IMPRESSION: 1. No evidence of acute osseous abnormality in the pelvis. 2. Large soft tissue hematoma in the medial compartment of the upper right thigh arising from the gracilis, incompletely imaged. Findings concerning for at least partial muscular tear. 3. Status post right total hip arthroplasty with no evidence of hardware malfunction/failure.
--- NOTE | 2024-07-27 14:55 | CT_ITS ---
PROCEDURE INFORMATION: Exam: CT Cervical Spine Without Contrast Exam date and time: 07/27/2024 3:47 PM Age: 69 years old Clinical indication: Injury or trauma; Fall; Blunt trauma; Additional info: Trauma, critical injury suspected TECHNIQUE: Imaging protocol: Computed tomography of the cervical spine without contrast. Radiation optimization: All CT scans at this facility use at least one of these dose optimization techniques: automated exposure control; mA and/or kV adjustment per patient size (includes targeted exams where dose is matched to clinical indication); or iterative reconstruction. COMPARISON: CT CERVICAL SPINE WO CON 07/27/2024 3:47 PM FINDINGS: Bones: No acute fracture. Normal alignment. No significant disc bulge or herniation. Disc space narrowing and posterior osteophytes at C5-C6 and C6-C7. No severe spinal canal stenosis. No significant neural foraminal narrowing. Lungs: Lung apices are normal. Soft tissues: No paraspinal or prevertebral soft tissue masses. IMPRESSION: No acute findings in the cervical spine.
--- NOTE | 2024-07-27 14:55 | CT_ITS ---
PROCEDURE INFORMATION: Exam: CTA Head With Contrast, Arteriography Exam date and time: 07/27/2024 3:58 PM Age: 69 years old Clinical indication: Injury or trauma; Fall; Blunt trauma; Head; Additional info: Trauma, critical injury suspected TECHNIQUE: Imaging protocol: Computed tomographic angiography of the head with contrast. Exam focused on the arteries. 3D rendering (Not supervised by radiologist): MIP and/or 3D reconstructed images were created by the technologist. Radiation optimization: All CT scans at this facility use at least one of these dose optimization techniques: automated exposure control; mA and/or kV adjustment per patient size (includes targeted exams where dose is matched to clinical indication); or iterative reconstruction. Contrast material: ISOVUE 370; Contrast volume: 80 ml; Contrast route: INTRAVENOUS (IV); COMPARISON: CT ANGIO HEAD 07/27/2024 3:58 PM FINDINGS: ANTERIOR CIRCULATION: Right internal carotid artery: Severe 75% stenosis of the brachiocephalic artery ostium at the arch. Severe stenosis of the right ICA proximal cervical segment estimated 90% or greater. Petrous segment is unremarkable. Cavernous segment demonstrates moderate calcific plaque without significant stenosis. Supraclinoid segment demonstrates moderate-severe calcific plaque with severe 70-80% stenosis. Right middle cerebral artery: Unremarkable. No occlusion or significant stenosis. No aneurysm. Right anterior cerebral artery: Small/hypoplastic right A1 segment, anatomic variant. No occlusion or significant stenosis. No aneurysm. The anterior communicating artery is unremarkable. Left internal carotid artery: The left ICA petrous segment is unremarkable. Of the cavernous segment demonstrates moderate calcific plaque without stenosis. Supraclinoid segment demonstrates severe calcific plaque with moderate 60-70% stenosis. Left middle cerebral artery: Unremarkable. No occlusion or significant stenosis. No aneurysm. Left anterior cerebral artery: Left A1 segment is dominant. No occlusion or significant stenosis. No aneurysm. POSTERIOR CIRCULATION: Right vertebral artery: Moderate-severe calcific plaque in the V1 segment producing moderate short segment 50-60% stenosis. Moderate calcific plaque in the V3 and V4 segments. No occlusion or significant stenosis. No aneurysm. Left vertebral artery: Anatomic variant origin of the left vertebral artery directly from the aortic arch. No occlusion or significant stenosis. No aneurysm. Basilar artery: Unremarkable. No occlusion or significant stenosis. No aneurysm. Right posterior cerebral artery: Unremarkable. No occlusion or significant stenosis. No aneurysm. Left posterior cerebral artery: Short segment moderate 60% stenosis in the left OIL GAUGER P2 segment. No occlusion. No aneurysm. Veins: Technically limited exam due to bolus timing, emphasizing venous enhancement. The dural venous sinuses and major cortical veins enhance appropriately without evidence of thrombosis. Brain: No enhancing brain lesions or vascular malformations are identified. Mild generalized cerebral/cerebellar atrophy. Cerebral ventricles: No ventriculomegaly. Paranasal sinuses: Low-density small volume sinus fluid in the left maxillary sinus with mild mucosal thickening, favor mild sinusitis. Bones/joints: Prior median sternotomy. Moderate cervical spondylosis. Moderate canal stenosis C5-C6. Soft tissues: Unremarkable. IMPRESSION: 1. No evidence of large vessel occlusion. No evidence of arterial dissection or aneurysm/pseudoaneurysm. 2. Right ICA supraclinoid segment demonstrates moderate-severe calcific plaque with severe 70-80% stenosis. 3. Left ICA supraclinoid segment demonstrates severe calcific plaque with moderate 60-70% stenosis. 4. The brachiocephalic artery demonstrates severe ostial/post ostial calcific plaque producing severe 75% stenosis. 5. The right ICA proximal cervical segment demonstrates severe calcific plaque producing severe stenosis of 90% or greater. 6. The left OIL GAUGER P2 segment demonstrates short segment moderate stenosis of 60%. 7. The right vertebral artery V1 segment demonstrates moderate short segment stenosis of 50-60%. 8. Mild technical limitation to the exam due to bolus timing which emphasized venous enhancement. 9. Additional nonemergent findings detailed above.
--- NOTE | 2024-07-27 14:55 | CT_ITS ---
PROCEDURE INFORMATION: Exam: CT Thoracic Spine Without Contrast Exam date and time: 07/27/2024 3:49 PM Age: 69 years old Clinical indication: Injury or trauma; Fall; Blunt trauma (contusions or hematomas); Additional info: Trauma, critical injury suspected TECHNIQUE: Imaging protocol: Computed tomography of the thoracic spine without contrast. Radiation optimization: All CT scans at this facility use at least one of these dose optimization techniques: automated exposure control; mA and/or kV adjustment per patient size (includes targeted exams where dose is matched to clinical indication); or iterative reconstruction. COMPARISON: CT THORACIC SPINE WO CON 07/27/2024 3:49 PM FINDINGS: Bones/joints: No evidence of acute fracture or malalignment. Soft tissues: Unremarkable. IMPRESSION: No evidence of acute osseous abnormality in the thoracic spine.
--- NOTE | 2024-07-27 14:55 | CT_ITS ---
PROCEDURE INFORMATION: Exam: CT Lumbar Spine Without Contrast Exam date and time: 07/27/2024 3:52 PM Age: 69 years old Clinical indication: Injury or trauma; Fall; Blunt trauma (contusions or hematomas); Additional info: Trauma, critical injury suspected TECHNIQUE: Imaging protocol: Computed tomography of the lumbar spine without contrast. Radiation optimization: All CT scans at this facility use at least one of these dose optimization techniques: automated exposure control; mA and/or kV adjustment per patient size (includes targeted exams where dose is matched to clinical indication); or iterative reconstruction. COMPARISON: CT THORACIC SPINE WO CON 07/27/2024 3:49 PM FINDINGS: Bones/joints: There are 5 [id number] vertebral bodies in the lumbar spine. No evidence of acute fracture or malalignment. Soft tissues: Unremarkable. IMPRESSION: No evidence of acute osseous abnormality in the lumbar spine.
[2024-07-27] MEDS: LACTATED RINGERS 1000ML 1,000 ML 999 ML IV (15:25)
[2024-07-27] MEDS: ONDANSETRON 4MG/2ML VIAL 4 MG IV (15:25)
[2024-07-27] MEDS: ACETAMINOPHEN 500MG TAB 1000 MG PO (15:25)
[2024-07-27] MEDS: HYDROMORPHONE 2MG/ML SYRINGE 1 MG IV (15:26)
[2024-07-27 15:27] LABS: Basophils # 0.1 K/mm3 (0-0.2); Basophils % 0.8 % (0.1-2.0); Eosinophils % 0.5 % (0.1-12.0); Hematocrit 42.2 % (42.0-52.0); Lymphocytes # 1.7 K/mm3 (0.7-4.5); Lymphocytes % 19.7 % (10-50); Mean Corpuscular HGB Conc 33.2 g/dL (31.8-35.4); Mean Corpuscular Hemoglobin 29.1 pg (27.0-31.2); Mean Corpuscular Volume 87.7 fl (80-94); Mean Platelet Volume 8.8 fl (7.4-10.4); Monocytes # 1.1 K/mm3 (0.1-1.0); Monocytes % 13.1 % (1.7-9.3); Neutrophils # 5.6 K/mm3 (1.8-7.8); Neutrophils % 65.3 % (37.0-80.0); Platelet Count 235 K/mm3 (142-424); Red Blood Count 4.81 M/mm3 (4.60-6.20); Red Cell Distribution Width 15.3 % (11.5-17.5); White Blood Count 8.5 K/mm3 (4.8-10.8)
[2024-07-27 15:36] LABS: Alanine Aminotransferase 28 U/L (12-78); Albumin Level 4.3 g/dl (3.5-5.0); Albumin/Globulin Ratio 1.6 (1.1-1.8); Alkaline Phosphatase 74 U/L (38-126); Aspartate Amino Transferase 30 U/L (17-59); Bilirubin,Total 1.1 mg/dl (0.2-1.3); Blood Urea Nitrogen 11 mg/dl (9-20); Calcium 9.1 mg/dl (8.4-10.2); Carbon Dioxide 25 mmol/L (22.0-30.0); Chloride 104 mmol/L (98-107); Creatinine Clearance Estimated 94 mL/min (50-200); Estimated Glomerular Filt Rate 96 ml/min (>60); GFR (African American) 117 ML/MIN (>60); Globulin 2.7 g/dL (1.3-3.2); Glucose 114 mg/dl (74-100); Potassium 3.7 mmoL/L (3.5-5.1)
[2024-07-27 15:37] LABS: Microscopic, Urine URINE MICROSCOPIC (MICROSCOPIC)
[2024-07-27 15:39] LABS: Appearance,Urine CLEAR (Clear); Bilirubin,Urine Negative (Negative); Blood, Urine Negative (Negative); Color,Urine YELLOW (Yellow); Glucose,Urine (UA) Negative (Negative); Ketones,Urine Negative (Negative); Leukocyte Esterase,Urine Negative (Negative); Nitrate,Urine Negative (Negative); Protein,Urine Negative (Negative); Urobilinogen,Urine 0.2 EU/dl (0.2)
[2024-07-27 15:46] LABS: Anion Gap 6.7 mEq/L (5-15); Sodium 132 mmol/L (136-145)
[2024-07-27 15:53] LABS: INR 0.99 (0.9-1.1); Prothrombin Time 10.9 seconds (10.1-12.5)
[2024-07-27] MEDS: SODIUM CHLORIDE 0.9% 10ML SYR (RAD ONLY) 10 ML IV (15:59)
[2024-07-27] MEDS: 0.9 % SODIUM CHLORIDE 50 ML VIAL IV (15:59)
[2024-07-27] MEDS: IOPAMIDOL-370 (76%);100ML BOTTLE 200 ML IV (15:59)
[2024-07-27 16:22] LABS: Bacteria,Urine Trace /lpf; WBC,Urine Occasional #/hpf (0-3)
[2024-07-27 16:39] LABS: HIV Combo NEGATIVE (Negative)
[2024-07-27 16:47] LABS: Hepatitis C Ab Qual. W/ RFX NEGATIVE (Negative)
--- NOTE | 2024-07-27 18:55 | PC.NURSE ---
DR ARAMBULA AT BEDSIDE
== END 2024-07-27 20:16 | disposition home or self-care (01) ==
PROVIDERS: Physician Assistant; Emergency Provider Emergency Medicine; PCP Nurse Practitioner Family
DX: T14.8XXA Other injury of unspecified body region, initial encounter (principal); R10.813 Right lower quadrant abdominal tenderness; M79.604 Pain in right leg; W07.XXXA Fall from chair, initial encounter; Y93.89 Activity, other specified; Y92.008 Other place in unspecified non-institutional (private) residence as the place of occurrence of the external cause
CPT/HCPCS: 70450; 70496; 70498; 71275; 72125; 72128; 72131; 72192; 75635; 80053; 81001; 85025; 85610; 86803; 86850; 87389; 96361; 96374; 96375; 99285; J1171; J2405; J7120; Q9967

== ENCOUNTER 2024-08-06 15:42 | Outpatient (CLI) | payer MEDICARE, MEDICAID, SELFPAY ==
--- NOTE | 2024-08-06 15:45 | CA_ITS ---
FINAL REPORT TECHNIQUE: Multiple transverse and longitudinal images were performed of the right femoral-popliteal deep venous system with augmentation and compression maneuvers. CLINICAL HISTORY: PT FELL SEVERAL WEEKS AGO,BRUISING NOTED TO PROX TO DISTAL RLE,PAIN AND EDEMA,PT ON PLAVIX FINDINGS: Right lower extremity duplex ultrasound demonstrates normal flow in the deep venous system. There is no abnormal echogenicity to suggest thrombus. There is normal compression and augmentation. Moderate subcutaneous edema is noted. IMPRESSION: No evidence of right DVT. Reviewed, Interpreted and Dictated by Jose Rafael Perez MD Transcribed by Mera Alejo Authenticated and [facility]
== END 2024-08-06 23:59 | disposition home or self-care (01) ==
LOC: RT 15:43
PROVIDERS: PCP Nurse Practitioner Family; Visit Provider Orthopaedic Surgery
DX: M79.604 Pain in right leg (principal)
CPT/HCPCS: 93971

== ENCOUNTER 2024-09-24 08:36 | Outpatient (CLI) | payer MEDICARE, MEDICAID, SELFPAY ==
[2024-09-24 09:46] LABS: Blood Urea Nitrogen 12 mg/dl (9-20); Estimated Glomerular Filt Rate 84 ml/min (>60); GFR (African American) 102 ML/MIN (>60)
[2024-09-25 08:13] LABS: PSA, Free 0.88 ng/mL
== END 2024-09-24 23:59 | disposition home or self-care (01) ==
LOC: LAB 08:37
PROVIDERS: PCP Nurse Practitioner Family; Visit Provider Urology
DX: T14.8XXA Other injury of unspecified body region, initial encounter (principal); R97.20 Elevated prostate specific antigen [PSA]; N52.9 Male erectile dysfunction, unspecified
CPT/HCPCS: 36415; 82565; 84153; 84154; 84520

== ENCOUNTER 2024-10-12 10:03 | Outpatient (CLI) | payer MEDICARE, MEDICAID, SELFPAY ==
[2024-10-13 11:18] LABS: PSA, Free 0.88 ng/mL; Prostate Specific Ag 2.2 ng/mL (0.0-4.0)
== END 2024-10-12 23:59 | disposition home or self-care (01) ==
LOC: LAB 10:04
PROVIDERS: PCP Nurse Practitioner Family; Visit Provider Urology
DX: R97.20 Elevated prostate specific antigen [PSA] (principal)
CPT/HCPCS: 36415; 84153; 84154

== ENCOUNTER 2024-12-02 19:38 | Emergency (ER) | payer MEDICARE, MEDICAID, SELFPAY ==
[2024-12-02 20:45] VITALS: BP 130/76; PULSE 94; RESP 16; O2SAT 97; BMI 31.6
--- NOTE | 2024-12-02 21:26 | HMH.EDGENADL ---
Discharge Plan Disposition Patient Disposition: Home, Self-Care Prescriptions Prescriptions: New clindamycin HCl [Cleocin HCl] 150 mg capsule 450 mg PO Q8H 7 Days Qty: 63 0RF No Action multivitamin Tablet 1 tab PO DAILY calcium carbonate [Calcium 600] 600 mg calcium (1,500 mg) tablet 1,200 mg PO DAILY ascorbic acid (vitamin C) 500 mg tablet extended release 500 mg PO DAILY oxybutynin chloride 10 mg tablet extended release 24hr 10 mg PO DAILY 90 Days Qty: 90 1RF atorvastatin 80 mg tablet 80 mg PO DAILY ezetimibe 10 mg tablet 10 mg PO DAILY fluticasone propionate 50 mcg/actuation spray,suspension 2 spray intranasal DAILY nortriptyline 10 mg capsule 10 mg PO HS famotidine 20 mg tablet 20 mg PO BID Qty: 60 3RF irbesartan 300 mg tablet 300 mg PO DAILY Qty: 90 3RF pantoprazole 20 mg tablet,delayed release (DR/EC) 20 mg PO DAILY Qty: 30 3RF vitamin E (dl, acetate) 450 mg (1,000 unit) capsule 800 mg PO DAILY coenzyme Q10 [Co Q-10] 200 mg capsule 200 mg PO DAILY ipratropium-albuterol 0.5 mg-3 mg(2.5 mg base)/3 mL solution for nebulization 3 ml inhalation QID PRN (Reason: shortness of breath or wheezing) 90 Days Qty: 270 3RF albuterol sulfate 90 mcg/actuation HFA aerosol inhaler 2 puff inhalation 6XD PRN (Reason: shortness of breath or wheezing) Qty: 8.5 0RF levocetirizine [Xyzal] 5 mg tablet 5 mg PO DAILY Qty: 90 3RF guaifenesin [Mucinex] 600 mg tablet extended release 12hr 600 mg PO Q12H PRN (Reason: cough) Qty: 30 0RF montelukast 10 mg tablet 10 mg PO QPM 90 Days Qty: 90 2RF Gemtesa 75 mg tablet 75 mg PO DAILY Patient Comments: TAKE 1 TABLET BY MOUTH EVERY DAY diclofenac sodium 1 % gel 2 g topical QID Qty: 100 3RF Rx Instructions: apply to knee fluticasone furoate-vilanterol [Breo Ellipta] 200-25 mcg/dose blister with device 1 inh inhalation DAILY 90 Days Qty: 90 2RF clopidogrel [Plavix] 75 mg tablet 75 mg PO DAILY Qty: 90 1RF ondansetron 4 mg tablet,disintegrating 4 mg PO Q6H PRN (Reason: nausea and vomiting) Qty: 10 0RF aspirin 81 mg tablet,delayed release (DR/EC) 81 mg PO DAILY Referrals Follow up/Referrals: Krissy Khan APRN [Primary Care Provider, Family Practice] - See instructions Activity Restrictions/Add. Instructions Additional Instructions/Restrictions: You were evaluated in the emergency department today. At this time, it is felt that you are appropriate for discharge. Please follow-up closely with your primary care provider over the next week. Return to the emergency department for new or worsening symptoms. Clinical Impressions Clinical Impression: Laceration of toe Qualifiers: Encounter type: initial encounter Toe: great toe Damage to nail status: with damage Foreign body presence: without foreign body Laterality: left Qualified Code(s): S91.212A - Laceration without foreign body of left great toe with damage to nail, initial encounter Instructions Patient Instructions: DI for Skin Abscess Print Language Print Language: Tajik Discharge ED Provider: Syd Sullivan General Adult HPI General Chief complaint: Skin/Abscess/Foreign Body Stated complaint: Cut Tip of Toe off R Big Toe Time Seen by Provider: 12/02/24 21:26 Mode of Arrival: Ambulatory Source of Information: Patient Description of Symptoms (Recalled from ER Triage Doc. by RN): patient was cutting toe with a garden tool. Cut the end of toe History of Present Illness HPI narrative: 69-year-old male with history obesity, emphysema, peripheral artery disease, hypertension presents for injury to the left great toe. He was cutting his toenail with a garden tool when he excellently sliced off the tip of the great toe. Patient reports pain is tolerable. Injury happened earlier today. He got a tetanus shot already. Related Data Home Medications ?Medication ?Instructions ?Recorded ?Confirmed multivitamin 1 tab PO DAILY Supplement 10/05/22 12/02/24 ascorbic acid (vitamin C) 500 mg 500 mg PO DAILY Supplement 10/25/22 12/02/24 tablet,extended release aspirin 81 mg tablet,delayed 81 mg PO DAILY [facility] 11/06/22 12/02/24 release calcium carbonate (Calcium 600) 1,200 mg PO DAILY Supplement 11/14/22 12/02/24 coenzyme Q10 200 mg capsule (Co 200 mg PO DAILY Supplement 11/14/22 12/02/24 Q-10) vitamin E (dl, acetate) 450 mg 800 mg PO DAILY Supplement 11/14/22 12/02/24 (1,000 unit) capsule atorvastatin 80 mg tablet 80 mg PO DAILY 11/12/24 12/02/24 ezetimibe 10 mg tablet 10 mg PO DAILY 11/12/24 12/02/24 fluticasone propionate 50 2 spray intranasal DAILY 11/12/24 12/02/24 mcg/actuation nasal spray,suspension nortriptyline 10 mg capsule 10 mg PO HS 11/12/24 12/02/24 vibegron 75 mg tablet (Gemtesa) 75 mg PO DAILY 11/26/24 12/02/24 Previous Rx's ?Medication ?Instructions ?Recorded ipratropium 0.5 mg-albuterol 3 mg 3 ml inhalation QID PRN shortness 01/07/23 (2.5 mg base)/3 mL nebulization of breath or wheezing 90 days #270 soln mL albuterol sulfate 90 mcg/actuation 2 puff inhalation 6XD PRN 07/21/24 aerosol inhaler shortness of breath or wheezing #8.5 grams guaifenesin 600 mg tablet, 600 mg PO Q12H PRN cough #30 tabs 07/21/24 extended release 12 hr (Mucinex) levocetirizine 5 mg tablet (Xyzal) 5 mg PO DAILY #90 tabs 07/21/24 ondansetron 4 mg disintegrating 4 mg PO Q6H PRN nausea and 07/28/24 tablet vomiting #10 tabs diclofenac sodium 1 % topical gel 2 g topical QID Pain #100 grams 09/03/24 fluticasone furoate 200 1 inh inhalation DAILY 90 days #90 09/15/24 mcg-vilanterol 25 mcg/dose ea inhalation powder (Breo Ellipta) montelukast 10 mg tablet 10 mg PO QPM 90 days #90 tabs 09/17/24 oxybutynin chloride 10 mg 10 mg PO DAILY 90 days #90 tabs 10/26/24 tablet,extended release 24 hr famotidine 20 mg tablet 20 mg PO BID #60 tabs 11/12/24 irbesartan 300 mg tablet 300 mg PO DAILY #90 tabs 11/12/24 pantoprazole 20 mg tablet,delayed 20 mg PO DAILY #30 tabs 11/12/24 release clopidogrel 75 mg tablet (Plavix) 75 mg PO DAILY Blood thinner #90 11/13/24 tabs clindamycin HCl 150 mg capsule 450 mg (3 x 150 mg) PO Q8H 7 days 12/02/24 (Cleocin HCl) #63 caps Allergies Allergy/AdvReac Type Severity Reaction Status Date / Time Penicillins Allergy Severe Anaphylaxis Verified 12/02/24 18:59 milk Allergy Intermediate Verified 12/02/24 18:59 codeine (CODEINE) Allergy Mild Rash Verified 12/02/24 18:59 PFS PFS Disclaimer: The information contained in this section may have been updated after the patient was seen, as this information can be updated by other users. Medical History (Updated 12/02/24 @ 21:52 by Caridad Lindquist DO) Toe injury Back pain Bursitis of right hip Encounter for screening examination for sexually transmitted disease Pre-operative clearance Acute right hip pain Acute maxillary sinusitis Acute bronchitis Hematoma Muscle tear Asthma exacerbation Abnormal nuclear cardiac imaging test Upper respiratory infection Broken or cracked tooth, nontraumatic Pain of molar Low back pain Myofascial pain TMJ (temporomandibular joint disorder) Asthma Otalgia of right ear History of amphetamine abuse Mastoid pain Headache Bleeding from right ear Trauma of ear canal External otitis of right ear Dyspnea on exertion Nodule of left lung Multiple lung nodules on CT History of asthma Family history of asthma Pulmonary emphysema Pulmonary hypertension Angina pectoris Abnormal cardiovascular stress test Pulmonary nodules Bilateral hand pain Encounter for pre-operative cardiovascular clearance Abnormal leg movement Living will, counseling/discussion Screening for AAA (abdominal aortic aneurysm) Screening for lung cancer Screening for prostate cancer Screening for colon cancer Annual physical exam Eustachian tube dysfunction Tinnitus TMJ dysfunction Hearing loss Otalgia, right ear Abnormal ankle brachial index (ROSIO) Rheumatoid arthritis Arteriosclerosis of coronary artery Chest pain Chronic obstructive pulmonary disease Coronary artery disease Hyperlipidemia Hypertension Recurrent falls Dehydration Diastolic dysfunction Pulmonary hypertension COPD (chronic obstructive pulmonary disease) Alcoholic encephalopathy Methamphetamine intoxication Surgical History History of right hip replacement History of hip surgery Hx of tonsillectomy S/P colonoscopy History of coronary artery bypass surgery Family History Father Heart attack Hyperlipidemia Coronary artery disease Diabetes Mother Cancer brain Stroke Social History Smoking Status: Never smoker years smoked: 57 alcohol intake: current alcohol intake frequency: 3 or more drinks per day substance use type: marijuana current occupational status: retired and disabled Travel in the last 8 weeks?: None household members: none housing: other marital status: number of children: 3 caffeine: Yes Have you lived/traveled outside US in past 30 days?: No Contact w/someone who lives/traveled outside US past 30 days?: No Exposure to someone with infectious disease in past 14 days?: No Do you have a fever (greater than 100.4 F or 38 C)?: No Have you tested positive for COVID-19?: No Exposed to someone with COVID-19 in past 14 days?: No Do you have a sore throat?: No Do you have a cough?: No Do you have any weakness?: No Do you have any diarrhea?: No Are you experiencing any unusual bleeding?: No Do you have any muscle aches/pain?: No Do you have any abdominal pain?: No Are you experiencing loss of taste or smell?: No Other Medical History Have you received the Flu Vaccine for this season: No Have you received the Pneumonia Vaccine: Yes ROS Obtained: Yes All systems reviewed & no additional complaints except as documented Physical Exam General General appearance: alert and in no apparent distress Head Head exam: atraumatic and normocephalic Eye Eye exam: Present normal appearance, PERRL and EOMI ENT ENT exam: Present normal oropharynx and normal external ear exam Neck Neck exam: Present normal inspection and full ROM Chest Chest inspection: Present normal inspection and symmetric chest wall rise; Absent tenderness Respiratory Respiratory exam: Present normal lung sounds bilaterally; Absent respiratory distress Cardiovascular Cardiovascular exam: Present regular rate and normal rhythm Abdominal Exam Abdominal exam: Present soft; Absent distention, tenderness or guarding Extremities Exam Extremities exam: Present other (Laceration/flap of skin over the left great toe tip. Hemostatic, no exposed bone.) Back Exam Back exam: Present normal inspection; Absent tenderness Neurological Exam Neurological exam: Present alert and oriented X3; Absent motor sensory deficit Psychiatric Psychiatric exam: Present normal affect and normal mood Skin Skin exam: Present warm, dry and normal color Lymphatic Lymphatic Findings: no adenopathy Medical Decision Making Medical Records Medical records reviewed: Yes I reviewed the patient's medical records. Screening: Per USPSTF and CDC recommendations, given the prevalence of disease in our region, it is our hospital?s policy to screen for HIV and viral Hepatitis for all patients aged 18 and over and those with ongoing risk factors. Juve Inquiry Pt receiving controlled substance: No Juve was queried for this patient: No Vital Signs: 12/02/24 20:45 12/02/24 22:31 Temperature 98.2 F Temperature Source Oral Pulse Rate 92 H Pulse Rate [Right Brachial] 94 H Respiratory Rate 16 20 Blood Pressure 130/76 Blood Pressure [Right Arm] 130/76 Blood Pressure Mean [Right Arm] 94 Blood Pressure Source Automatic Cuff Blood Pressure Source [Right Arm] Automatic Cuff Blood Pressure Position Sitting Blood Pressure Position [Right Arm] Sitting 02 Sat by Pulse Oximetry 97 Oxygen Delivery Method Room Air Room Air Lab Data Lab results reviewed: Yes I reviewed the patient's lab results. Orders (Tests/Meds): ED MEDICATIONS Discontinued Medications Generic Name Dose Route Start Last Admin Trade Name Freq PRN Reason Stop Dose Admin Clindamycin HCl 450 mg 12/02/24 21:50 12/02/24 22:08 Clindamycin 150mg Capsule PO 12/02/24 21:51 450 mg ONCE ONE Administration Medical Decision Narrative: 69-year-old male with history of peripheral artery disease, alcohol use, tobacco use, hypertension, emphysema presents with laceration to the distal portion of the left great toe.. History was obtained via interactive discussion with patient. On arrival, patient is [afebrile, hemodynamically stable, satting appropriately, alert, oriented x4, GCS 15], moving all extremities spontaneously. Full physical exam performed and significant for Laceration/flap of skin over the left great toe tip. Hemostatic, no exposed bone. Skin flap is retained and is pale, does not appear viable. I considered suturing, but I do not think that that the tissue is viable, it will serve as a biologic Band-Aid. X-ray was considered but deemed unnecessary given no exposed bone. I considered removing the nail, but I do not see any obvious hematoma under the nail nor a significant nailbed laceration. The wound was copiously irrigated and covered with nonadherent bandage. Patient was given clindamycin for antibiotic prophylaxis given anaphylactic penicillin allergy. Patient was instructed to follow-up with his PCP for wound checks as soon as possible. Patient was discharged with prescription for clindamycin. Procedures Risk/Benefits of Procedure(s) Were Explained: Yes Critical Care Critical Care Time Critical Care Time: No
[2024-12-02] MEDS: CLINDAMYCIN 150MG CAPSULE 450 MG PO (22:08)
[2024-12-02 22:31] VITALS: BP 130/76; PULSE 92; RESP 20; TEMP 36.8; O2SAT 97
== END 2024-12-02 22:32 | disposition home or self-care (01) ==
PROVIDERS: Emergency Provider Emergency Medicine; PCP Nurse Practitioner Family
DX: S91.212A Laceration without foreign body of left great toe with damage to nail, initial encounter (principal); W27.1XXA Contact with garden tool, initial encounter
CPT/HCPCS: 99283

== ENCOUNTER 2025-01-05 08:09 | Outpatient (CLI) | payer MEDICARE, MEDICAID, SELFPAY ==
--- OUTSIDE RECORDS SUMMARY | 2025-01-05 08:12 | XMS_ITS | Clinical Summary ---
Author Organization Healthcare Address [address] [place] [address] Care Team Providers Care Lending Consultant Name Role Phone Eris Amezcua MD Primary Care Provider [phone] Family History Medical History Relation Name Comments Cardiac disorder Father Diabetes Father Hypertension Father Emphysema Mother Other cancer Mother Emphysema Other Relation Name Status Comments Father Mother Other Social History Tobacco Use Types Packs/Day Years Used Date Smoking Tobacco: Every Day Sex and Gender Information Value Date Recorded Sex Assigned at Not on file Legal Sex Male 6:06 PM EDT Gender Identity Not on file Sexual Orientation Not on file Last Filed Vital Signs Vital Sign Reading Time Taken Comments Blood Pressure 136/75 11/28/2022 7:47 AM EDT Pulse - - Temperature - - Respiratory Rate - - Oxygen Saturation - - Inhaled Oxygen Concentration - - Weight 78.9 kg (174 lb) 11/28/2022 7:47 AM EDT Height 172.7 cm (5' 8 ) 11/28/2022 7:47 AM EDT Body Mass Index 26.46 11/28/2022 7:47 AM EDT Plan of Treatment Health Maintenance Due Date Last Done Comments [facility]-Depression Screening 1957 [facility]-Hepatitis C Screening 1957 [facility]-Medicare Annual Wellness (AWV) 1957 [facility]-/Child/Adol SDOH Screenings 1957 [facility]-Obesity Intervention 1963 [facility]- SDOH Screenings 1975 [facility]-Adult SDOH Screenings 1975 CT Colonography 2002 Colonoscopy 2002 FIT-DNA 2002 FIT 2002 FOBT 2002 Sigmoidoscopy 2002 [facility]-Colorectal Cancer Screening 2002 [facility]-Zoster Vaccines (1 of 2) 2007 [id number] Vaccine ( season) 2024 11/03/2020, 10/06/2020 [facility]-Influenza Vaccine (Seas[place] n Ended) 2025 05/10/2022, 06/24/2019 [facility]-DTaP,Tdap,and Td Vaccine s (2 - Td or Tdap) 06/16/2031 06/16/2021 [facility]-RSV Vaccine: 60+ Years o r (1 - 1-dose 75+ series) 2032 [facility]-Hepatitis A Vaccines Aged Out 02/16/2019 No longer eligible based on patient's age to complete this topic [facility]-Pneumococcal Vaccine: 50 + Years Completed 05/10/2022, 05/02/2016 HPV Vaccines Aged Out No longer eligi ble based on patient's age to complete this topic [facility]-HIB Vaccines Aged Out No longer e ligible based on patient's age to complete this topic [facility]-IPV Vaccines Aged Out No longer e ligible based on patient's age to complete this topic [facility]-Rotavirus Vaccines Aged Out No lo nger eligible based on patient's age to complete this topic Insurance [place] [id number] [employer] [id number] Member Subscriber Plan / Payer (Ef fective 2022-Present) Name:Esteban Ramires Relation to Subscriber:Self Name:Esteban Ramires Payer ID:Not on file Group ID:Not on file Type:Medicaid Address: [address] [address] [employer] Care Teams Lending Consultant Relationship Specialty Start Date End Date Eris Amezcua MD [address] [place] [address] PCP - General 11/18/20
[2025-01-05 08:34] LABS: Hematocrit 46.4 % (42.0-52.0); Hemoglobin 14.9 g/dL (14.1-18.0); Immature Granulocytes % 0.3 %; Mean Corpuscular HGB Conc 32.1 g/dL (31.8-35.4); Mean Corpuscular Hemoglobin 29.8 pg (27.0-31.2); Mean Corpuscular Volume 92.8 fl (80-94); Nucleated Red Blood Cells % 0 %; Platelet Count 258 K/mm3 (142-424); Red Blood Count 5.00 M/mm3 (4.60-6.20); Red Cell Distribution Width-SD 55.5 fL; White Blood Count 6.8 K/mm3 (4.8-10.8)
[2025-01-05 08:54] LABS: Alanine Aminotransferase 22 U/L (12-78); Albumin Level 4.5 g/dl (3.5-5.0); Alkaline Phosphatase 61 U/L (38-126); Anion Gap 12.8 mEq/L (5-15); Aspartate Amino Transferase 29 U/L (17-59); Bilirubin,Direct 0.4 mg/dl (0.0-0.4); Bilirubin,Indirect 0.4 mg/dL (0.0-0.9); Bilirubin,Total 0.8 mg/dl (0.2-1.3); Bilirubin,Unconjugated 0.4 mg/dL (0.0-1.1); Blood Urea Nitrogen 10 mg/dl (9-20); Calcium 9.4 mg/dl (8.4-10.2); Carbon Dioxide 30 mmol/L (22.0-30.0); Chloride 100 mmol/L (98-107); Cholesterol 71 mg/dl (140-200); Creatinine,Serum 0.80 mg/dl (0.66-1.25); Estimated Glomerular Filt Rate 96 ml/min (>60); GFR (African American) 117 ML/MIN (>60); Glucose 112 mg/dl (74-100); HDL Cholesterol 50 mg/dl (40-60); Magnesium 2.1 mg/dl (1.6-2.3); Potassium 4.8 mmoL/L (3.5-5.1); Sodium 138 mmol/L (136-145); Total Protein,Serum 7.3 g/dl (6.3-8.2); Triglycerides 89 mg/dl (30-150)
[2025-01-05 09:10] LABS: Free T4 (Free Thyroxine) 1.11 ng/dl (0.78-2.19)
[2025-01-05 09:24] LABS: Thyroid Stimulating Hormone 3.26 uIU/mL (0.465-4.68)
[2025-01-06 08:41] LABS: PSA, Free 0.38 ng/mL
== END 2025-01-05 23:59 | disposition home or self-care (01) ==
PROVIDERS: Physician Assistant; PCP Nurse Practitioner Family; Visit Provider Urology
DX: R73.03 Prediabetes (principal); R53.83 Other fatigue; I25.10 Atherosclerotic heart disease of native coronary artery without angina pectoris; R97.20 Elevated prostate specific antigen [PSA]; N52.9 Male erectile dysfunction, unspecified; I11.9 Hypertensive heart disease without heart failure
CPT/HCPCS: 36415; 80048; 80061; 80076; 83735; 84153; 84154; 84439; 84443; 85025

== ENCOUNTER 2025-01-13 12:56 | Outpatient (CLI) | payer MEDICARE, MEDICAID, SELFPAY ==
--- OUTSIDE RECORDS SUMMARY | 2025-01-13 13:03 | XMS_ITS ---
Laboratory report Created on: January 08, 2025 NOEMI TERRY : 1955 Sex: Male Author Organization Unknown PROBLEMS Problems List Code Description RESULTS Laboratory Orders Date Order Code Test 2025-01-05 707370 PSA TOTAL+% FREE Laboratory Results Date LOINC Test Value Unit Reference Range Interpre tation 2025-01-05 2857-1 PROSTATE SPECIFIC AG 1.1 NG/ML 0.0-4.0 2025-01-05 60483-1 PSA, FREE .38 NG/ML N/A 2025-01-05 38886-4 % FREE PSA 34.5 %
--- OUTSIDE RECORDS SUMMARY | 2025-01-13 13:03 | XMS_ITS | Data Portability ---
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 Medical History Condition Response Vision or Eye Problems Y Arthritis Y High Cholesterol Y Rheumatoid Arthritis Y Ear or Hearing Problems Y Congestive Heart Failure (CHF) Y Back Problems Y Hypertension Y Immunizations Vaccine Type Date Status Note Provider Nam e and Address Organization Details Recorded Time Influenza, split virus, quadrivalent, preservative 9 completed Paula Eloina null, [place] [facility] [place] & [place] 01/17/2024 10:21:59 Influenza, high-dose, quadrivalent, PF 2 completed Paula El[place] [facility] [place] 01/17/2024 10:22:00 COVID-19, mRNA, LNP-S, PF, 30 mcg/0.3 mL dose 1 completed Paula El[place] null[place] [facility] [place] 01/17/2024 10:22:00 COVID-19, mRNA, LNP-S, PF, 30 mcg/0.3 mL dose 1 completed Paula El[place] [facility] [place] 01/17/2024 10:22:00 Pneumococcal conjugate PCV20, polysaccharide [id number] conjugate, adjuvant, PF 2 completed Paula El[place] null[place] 01/17/2024 10:22:00 pneumococcal polysaccharide PPV23 6 completed Paula El[place] null[place] 01/17/2024 10:22:00 Tdap 1 completed Paula El[place] null[place] [facility] [place] 01/17/2024 10:22:00 Hep A, adult 9 completed Paula El[place] null[place] [facility] [place] 01/17/2024 10:22:00 Past Encounters Encounter ID Performer Location Encounter Start Date Encounter Closed Date Diagnosis/Indication Diagnosis SNOMED-CT Code Diagnosis ICD10 Code Diagnosis Note [id number] DO [facility] [address] [address] 10/21/2023 13:50:21 10/21/2023 16:08:12 Osteonecrosis of head of femur 291172187 M87.859 Low back pain 030504444 M54.50 [id number] SILVER LYONS [facility] [place] [address] 12/11/2023 13:02:15 12/11/2023 13:31:22 Osteonecrosis of hip 553402539 M87.560 [id number] SILVER LYONS [facility] [place] [address] 01/17/2024 10:08:16 01/17/2024 10:50:34 History of total replacement of right hip joint 0214304170 96020 Z96.641 Follow-up orthopedic assessment 607103385 Z47.89 [id number] SILVER LYONS [facility] [place] [address] 02/14/2024 09:53:48 02/14/2024 10:14:12 History of total replacement of right hip joint 8947477377 25012 Z96.641 Follow-up orthopedic assessment 718057951 Z47.89 [id number] SILVER LYONS [facility] [place] [address] 03/27/2024 09:42:04 03/27/2024 10:55:00 History of total replacement of right hip joint [id number] 93449 Z96.641 Follow-up orthopedic assessment 157534489 Z47.89 [id number] SILVER LYONS [facility] [place] [address] 06/26/2024 09:44:55 06/26/2024 10:06:22 History of total replacement of right hip joint 3109680169 74306 Z96.641 Follow-up orthopedic assessment [id number] Z47.89 Health Concerns Section Related Observation LastModified by Organization Detai ls LastModified Time None Recorded Concern Status LastModified by Organization Details LastModified Time None Recorded Advance Directives Directive N: Payers Insurance Date Sequence Insurance Name Policy Number Policy Duong Covered Member ID Duong Member ID Guarantor Name 01/25/2024 1 [employer] [place] /[place]ANT[place] - HMO) [id number] Esteban Lamarsunil [id number] Esteban Aguirredebbi 03/17/2019 2 [place] Esteban Lamarsunil [id number] Esteban Aguirredebbi 07/23/2024 1 [employer] (MEDICARE REPLACEMENT /ADVANTAGE - PPO) [id number] Esteban Bentley Adantomdebbi [id number] Esteban Arellanoaaron 08/20/2024 2 MEDICAID-[facility] CHOICES - FFS/TRADITI ONAL Esteban Aguirredebbi [id number] Esteban Aguirredebbi Notes Date Note Type Note Provider Name and Address Organization Details Recorded Time 4 text/html 68 y/o male here today to reschedule right total hip. E1AP SILVER LYONS [address], [place], [address], [facility] & [place] 12/11/2023 13:23:18 4 text/html Pt is here for 2 week post op rt anterior hip replacement. His incision is w/o s/s of infection. Home Health is coming to his home twice a week. He is also on Plavix and ASA. Doing well-E1SF SILVER LYONS [address], [place], [address], [facility] & [place] 01/20/2024 07:53:34 4 text/html 6 weeks post op; DOS: 6.27.24 Right anterior Total Hip arthroplastyPatient is improvingOutpatient PT going wellAmbulating with caneTaking Ibu PRNXR IN OFFICE TODAY 8.9.24E4AP SILVER LYONS [address], [place], [address], [facility] & [place] 02/14/2024 11:30:09 4 text/html Pt presents today for 12 week follow up of total replacement of right hip joint. Patient continues to improve and doing well.. Pt takes ibuprofen and tylenol PRN. Pt is still continuing to do physical therapy 2 days a week and states he thinks it helps with pain. Pt stopped using cane on 02.17.24.[place] [address] [place] [address],[address], [place], [address], [facility] & [place] 03/30/2024 10:15:32 4 text/html Patient is here today for 6 months postop Right anterior Total Hip arthroplasty. States he is doing well, [place] [address] [place] [address] Drive,[address], [place], [address], [facility] & [place] 06/29/2024 07:40:52
--- OUTSIDE RECORDS SUMMARY | 2025-01-13 13:03 | XMS_ITS | Clinical Summary ---
Author Organization Healthcare Address [address] [place] [address] Care Team Providers Care Panel Beater Name Role Phone Eris Amezcua MD Primary Care Provider [phone] Family History Medical History Relation Name Comments [...] 2002 [facility]-Zoster Vaccines (1 of 2) 2007 [facility]A-TVSAS-19 Vaccine ( season) 2024 11/03/2020, 10/06/2020 [facility]-Influenza Vaccine (#1) 03/08/202505/10, 06/24/2019 [facility]-DTaP,Tdap,and Td Vaccine s (2 - [...] patient's age to complete [place] [id number] [employer] [place] [facility] MEDICARE Care Teams Panel Beater Relationship Specialty Start Date End Date Eris Amezcua MD [address] [place] [id number] PCP - General 11/18/20
[2025-01-13 13:45] VITALS: PULSE 74; PULSE 78
[2025-01-13] MEDS: ALBUTEROL 0.083% 2.5 MG/3 ML NEB IH (13:45)
== END 2025-01-13 23:59 | disposition home or self-care (01) ==
LOC: RT 12:56
PROVIDERS: PCP Nurse Practitioner Family; Visit Provider Internal Medicine Pulmonary Disease
DX: R06.09 Other forms of dyspnea (principal); R06.02 Shortness of breath
CPT/HCPCS: 94010; 94618; 94640

== ENCOUNTER 2025-03-18 06:45 | Day surgery (SDC) | payer MEDICARE, MEDICAID, SELFPAY ==
--- NOTE | 2025-03-16 17:17 | EXP.HP ---
History of Present Illness *Admission Date: 03/18/25 *History of present illness: Mr. Ramires is a 69-year-old gentleman who is here for diagnostic EGD and colonoscopy. The patient has had heartburn and reflux for the last several months and has been taking famotidine, omeprazole and pantoprazole with some improvement but not resolution. He has had chronic hoarseness chronic cough and frequent clearance of the throat. The patient also reports incomplete bowel evacuation with excessive bloating and gassiness and lower abdominal discomfort. He reports no family history of colon cancer or digestive cancers. His last colonoscopy was over 10 years ago and he has never had an endoscopy. The examination is deemed medically necessary for diagnostic EGD and colonoscopy. The patient has been seen, interviewed and examined prior to the procedure by both myself and the anesthesia provider. [facility] Disclaimer: The information contained in this section may have been updated after the patient was seen, as this information can be updated by other users. Medical History Belching Toe injury Back pain Bursitis of right hip Encounter for screening examination for sexually transmitted disease Pre-operative clearance Acute right hip pain Acute maxillary sinusitis Acute bronchitis Hematoma Muscle tear Asthma exacerbation Abnormal nuclear cardiac imaging test Upper respiratory infection Broken or cracked tooth, nontraumatic Pain of molar Low back pain Myofascial pain TMJ (temporomandibular joint disorder) Asthma Otalgia of right ear History of amphetamine abuse Mastoid pain Headache Bleeding from right ear Trauma of ear canal External otitis of right ear Dyspnea on exertion Nodule of left lung Multiple lung nodules on CT History of asthma Family history of asthma Pulmonary emphysema Pulmonary hypertension Angina pectoris Abnormal cardiovascular stress test Pulmonary nodules Bilateral hand pain Encounter for pre-operative cardiovascular clearance Abnormal leg movement Living will, counseling/discussion Screening for AAA (abdominal aortic aneurysm) Screening for lung cancer Screening for prostate cancer Screening for colon cancer Annual physical exam Eustachian tube dysfunction Tinnitus TMJ dysfunction Hearing loss Otalgia, right ear Abnormal ankle brachial index (ROSIO) Rheumatoid arthritis Arteriosclerosis of coronary artery Chest pain Chronic obstructive pulmonary disease Coronary artery disease Hyperlipidemia Hypertension Recurrent falls Dehydration Diastolic dysfunction Pulmonary hypertension COPD (chronic obstructive pulmonary disease) Alcoholic encephalopathy Methamphetamine intoxication Surgical History History of right hip replacement History of hip surgery Hx of tonsillectomy S/P colonoscopy History of coronary artery bypass surgery Family History Father Heart attack Hyperlipidemia Coronary artery disease Diabetes Mother Cancer brain Stroke Social History (Updated 03/18/25 @ 07:18 by Kelli Alfaro RN) Smoking Status: Former smoker years smoked: 57 alcohol intake: current alcohol intake frequency: 3 or more drinks per day substance use type: marijuana current occupational status: retired and disabled Travel in the last 8 weeks?: None household members: none housing: other marital status: number of children: 3 caffeine: Yes Have you lived/traveled outside US in past 30 days?: No Contact w/someone who lives/traveled outside US past 30 days?: No Exposure to someone with infectious disease in past 14 days?: No Do you have a fever (greater than 100.4 F or 38 C)?: No Have you tested positive for COVID-19?: No Exposed to someone with COVID-19 in past 14 days?: No Do you have a sore throat?: No Do you have a cough?: No Do you have any weakness?: No Are you experiencing any nausea/vomitting?: No Do you have any diarrhea?: No Are you experiencing any unusual bleeding?: No Do you have any muscle aches/pain?: No Do you have any abdominal pain?: No Are you experiencing loss of taste or smell?: No Other Medical History Have you received the Flu Vaccine for this season: No Have you received the Pneumonia Vaccine: Yes Review of Systems Review of Systems Review of systems (narrative): Negative *Cardiovascular Comments: Negative *Gastrointestinal Comments: Negative *Genitourinary Comments: Negative *Musculoskeletal Comments: Negative *Neurologic Comments: Negative Meds Home Medications and Allergies Home Medications ?Medication ?Instructions ?Recorded ?Confirmed ?Type multivitamin 1 tab PO DAILY Supplement 10/05/22 02/16/25 History ascorbic acid (vitamin C) 500 mg 500 mg PO DAILY Supplement 10/25/22 02/16/25 History tablet,extended release aspirin 81 mg tablet,delayed 81 mg PO DAILY [facility] 11/06/22 03/18/25 History release calcium carbonate (Calcium 600) 1,200 mg PO DAILY Supplement 11/14/22 02/16/25 History coenzyme Q10 200 mg capsule (Co 200 mg PO DAILY Supplement 11/14/22 02/16/25 History Q-10) vitamin E (dl, acetate) 450 mg 800 mg PO DAILY Supplement 11/14/22 02/16/25 History (1,000 unit) capsule ipratropium 0.5 mg-albuterol 3 mg 3 ml inhalation QID PRN shortness 01/07/23 02/16/25 Rx (2.5 mg base)/3 mL nebulization of breath or wheezing 90 days #270 soln mL albuterol sulfate 90 mcg/actuation 2 puff inhalation 6XD PRN 07/21/24 02/16/25 Rx aerosol inhaler shortness of breath or wheezing #8.5 grams guaifenesin 600 mg tablet, 600 mg PO Q12H PRN cough #30 tabs 07/21/24 02/16/25 Rx extended release 12 hr (Mucinex) levocetirizine 5 mg tablet (Xyzal) 5 mg PO DAILY #90 tabs 07/21/24 02/16/25 Rx diclofenac sodium 1 % topical gel 2 g topical QID Pain #100 grams 09/03/24 02/16/25 Rx montelukast 10 mg tablet 10 mg PO QPM 90 days #90 tabs 09/17/24 02/16/25 Rx atorvastatin 80 mg tablet 80 mg PO DAILY 11/12/24 02/16/25 History ezetimibe 10 mg tablet 10 mg PO DAILY 11/12/24 02/16/25 History fluticasone propionate 50 2 spray intranasal DAILY 11/12/24 02/16/25 History mcg/actuation nasal spray,suspension irbesartan 300 mg tablet 300 mg PO DAILY #90 tabs 11/12/24 02/16/25 Rx nortriptyline 10 mg capsule 10 mg PO HS 11/12/24 02/16/25 History clopidogrel 75 mg tablet (Plavix) 75 mg PO DAILY Blood thinner #90 11/13/24 03/18/25 Rx tabs oxybutynin chloride 10 mg 10 mg PO DAILY 90 days #90 tabs 12/14/24 02/16/25 Rx tablet,extended release 24 hr tamsulosin 0.4 mg capsule (Flomax) 0.4 mg PO DAILY 90 days #90 caps 12/14/24 02/16/25 Rx vibegron 75 mg tablet (Gemtesa) 75 mg PO DAILY 90 days #90 tabs 12/14/24 02/16/25 Rx tizanidine 2 mg capsule 2 mg PO QHS PRN muscle spasticity 12/23/24 02/16/25 Rx #30 caps azelastine 205.5 mcg (0.15 %) 2 spray intranasal HS 90 days #30 01/13/25 02/16/25 Rx nasal spray (Astepro Allergy) mL budesonide 160 mcg-glycopyr 9 2 inh inhalation BID 90 days #10.7 01/13/25 02/16/25 Rx mcg-formot 4.8 mcg/actuation HFA grams inhaler (Breztri Aerosphere) evolocumab 140 mg/mL subcutaneous 140 mg SQ Q2W #2 mL 01/14/25 02/16/25 Rx syringe (Repatha Syringe) famotidine 20 mg tablet See Rx Instructions .Route 03/04/25 Rx .COMPLEX #60 tabs pantoprazole 20 mg tablet,delayed See Rx Instructions .Route 03/04/25 Rx release .COMPLEX #30 tabs sodium,potassium,mag sulfates 17.5 See Rx Instructions PO .COMPLEX 03/04/25 Rx gram-3.13 gram-1.6 gram oral soln #354 mL (Suprep Bowel Prep Kit) New Prescriptions to Start Prescriptions: Allergies Allergy/AdvReac Type Severity Reaction Status Date / Time Penicillins Allergy Severe Anaphylaxis Verified 03/18/25 07:30 milk Allergy Intermediate Diarrhea Verified 03/18/25 07:30 codeine (CODEINE) Allergy Mild Rash Verified 03/18/25 07:30 Exam *Routine HEENT Exam Head: Present normocephalic Eye: Present EOMI and PERRL ENT: Present mucous membranes moist *Routine Neck Exam Neck: Present supple *Routine Respiratory Exam Respiratory: Present CTA bilaterally *Routine Cardiovascular Exam Cardiovascular: Present RRR *Routine Abdominal Exam Abdominal: Present soft and normoactive bowel sounds; Absent tenderness *Routine Rectal Exam Rectal:: deferred *Routine Genitalia Exam Genitalia:: deferred *Routine Extremities Exam Extremities: Absent cyanosis, clubbing or edema *Routine Skin Exam Skin: Present warm; Absent rash *Routine Neurological Exam Neurological: Present alert and oriented X3 Assessment and Plan *Assessment and plan (1) Heartburn: Status: Acute Category: Medical Code(s): R12 - Heartburn (2) Dysphagia: Status: Acute Category: Medical Code(s): R13.10 - Dysphagia, unspecified (3) Hoarseness: Status: Acute Category: Medical Code(s): R49.0 - Dysphonia (4) Throat clearing: Status: Acute Category: Medical Code(s): R09.89 - Other specified symptoms and signs involving the circulatory and respiratory systems (5) Bloating: Status: Acute Category: Medical Code(s): R14.0 - Abdominal distension (gaseous) (6) Belching: Status: Acute Category: Medical Code(s): R14.2 - Eructation (7) Incomplete defecation: Status: Acute Category: Medical Code(s): R15.0 - Incomplete defecation (8) GERD (gastroesophageal reflux disease): Status: Acute Category: Medical Code(s): K21.9 - Gastro-esophageal reflux disease without esophagitis (9) Bilateral lower abdominal discomfort: Status: Acute Category: Medical Code(s): R10.31 - Right lower quadrant pain; R10.32 - Left lower quadrant pain Plan A/P: 1. Heartburn, belching, bloating, hoarseness and frequent clearance of the throat and chronic cough for upper endoscopy and incomplete defecation, bloating and lower abdominal discomfort for colonoscopy is the preprocedural diagnosis. The patient will be anesthetized/sedated using MAC sedation. The patient has been seen and examined. Cardiac and lung assessment prior to the examination is stable. Proceed with planned diagnostic EGD and colonoscopy.
[2025-03-18 07:17] VITALS: BP 159/95; PULSE 70; RESP 18; TEMP 36.3; O2SAT 95; BMI 31.9
[2025-03-18] MEDS: LACTATED RINGERS 1000ML 1,000 ML 50 ML IV (07:37)
--- NOTE | 2025-03-18 07:48 | P.PNANES_ITS ---
[facility] Disclaimer: The information contained in this section may have been updated after the patient was seen, as this information can be updated by other users. Medical History Belching Toe injury Back pain Bursitis of right hip Encounter for screening examination for sexually transmitted disease Pre-operative clearance Acute right hip pain Acute maxillary sinusitis Acute bronchitis Hematoma Muscle tear Asthma exacerbation Abnormal nuclear cardiac imaging test Upper respiratory infection Broken or cracked tooth, nontraumatic Pain of molar Low back pain Myofascial pain TMJ (temporomandibular joint disorder) Asthma Otalgia of right ear History of amphetamine abuse Mastoid pain Headache Bleeding from right ear Trauma of ear canal External otitis of right ear Dyspnea on exertion Nodule of left lung Multiple lung nodules on CT History of asthma Family history of asthma Pulmonary emphysema Pulmonary hypertension Angina pectoris Abnormal cardiovascular stress test Pulmonary nodules Bilateral hand pain Encounter for pre-operative cardiovascular clearance Abnormal leg movement Living will, counseling/discussion Screening for AAA (abdominal aortic aneurysm) Screening for lung cancer Screening for prostate cancer Screening for colon cancer Annual physical exam Eustachian tube dysfunction Tinnitus TMJ dysfunction Hearing loss Otalgia, right ear Abnormal ankle brachial index (ROSIO) Rheumatoid arthritis Arteriosclerosis of coronary artery Chest pain Chronic obstructive pulmonary disease Coronary artery disease Hyperlipidemia Hypertension Recurrent falls Dehydration Diastolic dysfunction Pulmonary hypertension COPD (chronic obstructive pulmonary disease) Alcoholic encephalopathy Methamphetamine intoxication Surgical History History of right hip replacement History of hip surgery Hx of tonsillectomy S/P colonoscopy History of coronary artery bypass surgery Family History Father Heart attack Hyperlipidemia Coronary artery disease Diabetes Mother Cancer brain Stroke Social History (Updated 03/18/25 @ 07:18 by Kelli Alfaro RN) Smoking Status: Former smoker years smoked: 57 alcohol intake: current alcohol intake frequency: 3 or more drinks per day substance use type: marijuana current occupational status: retired and disabled Travel in the last 8 weeks?: None household members: none housing: other marital status: number of children: 3 caffeine: Yes Have you lived/traveled outside US in past 30 days?: No Contact w/someone who lives/traveled outside US past 30 days?: No Exposure to someone with infectious disease in past 14 days?: No Do you have a fever (greater than 100.4 F or 38 C)?: No Have you tested positive for COVID-19?: No Exposed to someone with COVID-19 in past 14 days?: No Do you have a sore throat?: No Do you have a cough?: No Do you have any weakness?: No Are you experiencing any nausea/vomitting?: No Do you have any diarrhea?: No Are you experiencing any unusual bleeding?: No Do you have any muscle aches/pain?: No Do you have any abdominal pain?: No Are you experiencing loss of taste or smell?: No [facility] Anesthesia Checklist Patient Identification Patient Identification: Arm Band and Verbal (Name & ) Structural Data Admitted From: Home Planned Operative Procedure/s: EGD and colonoscopy Verified Documents: Surgical Consent NPO Status Verified Time NPO: 00:00 Chart Verification Results Verified: ECG Additional verifications Anesthesia Reactions: No Hx Blood Transfusions: No Blood Transfusion Reaction: No Airway Assessment Mallampati Score:: Class II C-Spine Mobility Assessed: Yes TMJ Mobility Assessed: Yes Dentition: Poor Dentition (Multiple loose teeth) Neurological Assessment Level of Consciousness: Awake, Alert and Appropriate Hx Seizures: No Numbness or tingling in extremities: No Anesthesia Plan Anesthesia Risk discussed: Yes Anesthesia Plan: Verified ASA Class: III Anesthesia Type: MAC
--- NOTE | 2025-03-18 08:14 | P.PCN_ITS ---
[facility] Procedure Note Date: 03/18/25 Time: 08:39 Procedure Note:: Upper Endoscopy Procedure Report: Esophagogastroduodenoscopy with cold biopsies and TTS balloon dilation Endoscopost: Deng Herring II, MD Referring Physician: CHAVEZ Alford Date of Procedure: March 18, 2025 Equipment: Olympus GIF-1100 standard upper endoscope Sedation: MAC sedation Indications: Mr. Ramires is a 69-year-old gentleman who is here for diagnostic EGD and colonoscopy. The patient has had heartburn and reflux for the last several months and has been taking famotidine and pantoprazole with some improvement but not resolution. He sometimes has to use famotidine 3 times daily. He has had chronic hoarseness chronic cough and frequent clearance of the throat. The patient also reports incomplete bowel evacuation with excessive bloating and gassiness and lower abdominal discomfort. He has minor belching. He has occasional dysphagia. He reports no nausea or abdominal pain. He reports no rectal bleeding, weight loss or family history of colon cancer or digestive cancers. His last colonoscopy was over 10 years ago and he has never had an endoscopy. The examination is deemed medically necessary for diagnostic EGD and colonoscopy. Procedure: Prior to the procedure, a history and physical exam was performed, and patient's medications and allergies were reviewed. The risks, benefits and alternatives of the sedation and procedure were discussed with the patient. All questions were answered and informed consent was obtained. The patient was brought to the procedure room. Patient identification and proposed procedure were verified by the physician and the nurse. The patient was placed in a left lateral decubitus position and the scope was passed under direct vision. Throughout the procedure, the patient's blood pressure, pulse, and oxygen saturations were monitored continuously. The upper GI endoscopy was accomplished without difficulty. The patient tolerated the procedure well. Findings: The scope was passed directly into the upper esophagus and advanced t o the third portion of the duodenum. The post bulbar duodenum and duodenal bulb were normal with normal mucosa and conniventes. A cold biopsy was taken from the second portion of the duodenum for the disaccharidase assay. There was a single 3 to 4 mm polyp in the duodenal bulb removed via cold biopsy. The scope was withdrawn through a normal pylorus into the stomach. There was some bile reflux with mild linear reactive gastropathy of the antrum and body. Cold biopsies were taken from the antrum. Upon retroflexion the fundus of the stomach was normal and there was no hiatal hernia. The scope was then withdrawn into the esophagus. There was no evidence of reflux esophagitis or Whittington's. There was a mildly serrated Z-line. There was evidence of esophageal dysmotility with tertiary contractions. There were no rings, strictures, corrugation or webs. The remainder of the esophageal mucosa was normal. Impression: 1. Nonerosive GERD with mild esophageal dysmotility 2. Bile reflux with mild linear reactive gastropathy 3. Small 3 to 4 mm duodenal bulb polyp Plan: I will follow-up the biopsies and disaccharidase assay. We will discuss treatment options. I do feel that he has primarily functional GERD.
--- NOTE | 2025-03-18 08:15 | P.PCN_ITS ---
[facility] Procedure Note Date: 03/18/25 Time: 09:02 Procedure Note:: Colonoscopy Procedure Report: Colonoscopy with cold snare polypectomy Endoscopist: Deng Herring II, MD Referring physician: CHAVEZ Alford Date of Procedure: March 18, 2025 Equipment: Olympus [id number] adult colonoscope Sedation: MAC sedation Indication: Mr. Ramires is a 69-year-old gentleman who is here for diagnostic EGD and colonoscopy. The patient has had heartburn and reflux for the last several months and has been taking famotidine and pantoprazole with some improvement but not resolution. He sometimes has to use famotidine 3 times daily. He has had chronic hoarseness chronic cough and frequent clearance of the throat. The patient also reports incomplete bowel evacuation with excessive bloating and gassiness and lower abdominal discomfort. He has minor belching. He has occasional dysphagia. He reports no nausea or abdominal pain. He reports no rectal bleeding, weight loss or family history of colon cancer or digestive cancers. His last colonoscopy was over 10 years ago and he has never had an endoscopy. The examination is deemed medically necessary for diagnostic EGD and colonoscopy. Procedure: Prior to the procedure, a history and physical exam was performed, and patient's medications and allergies were reviewed. The risks, benefits and alternatives of the sedation and procedure were discussed with the patient. All questions were answered and informed consent was obtained. The patient was brought to the procedure room. Patient identification and proposed procedure were verified by the physician and the nurse. The patient was placed in a left lateral decubitus position and the scope was passed under direct vision. Throughout the procedure, the patient's blood pressure, pulse, and oxygen saturations were monitored continuously. The colonoscopy was accomplished without difficulty. The patient tolerated the procedure well. Findings: On digital rectal examination there was normal rectal tone. There were no external hemorrhoids. The colonoscope was introduced through the anal canal to the rectum and advanced to the cecum. The ileocecal valve and appendiceal orifice were identified. The scope was advanced a short distance into the ileum which appeared grossly normal. The scope was then withdrawn into the colon. There were 9 colon polyps (ascending x 1 (2 mm), transverse x 3 (3, 3 and 4 mm), descending x 1 (6 to 7 mm) and sigmoid x 4 (3, 3, 4 and 4 mm)). These were all removed via cold snare polypectomy. The remaining cecum, ascending and transverse colon and mucosa were grossly normal. There were mildly scattered diverticuli throughout the descending and sigmoid colon (LEFT colon). The rectum itself was normal. Upon retroflexion within the rectum there were grade 1-2 internal hemorrhoids. The preparation was excellent throughout with [facility] Preparation Score of 9. The cecal time was 12 minutes. Impression: 1. Diminutive colonic polyps x 9 2. Mild left-sided diverticulosis 3. Grade 1-2 internal hemorrhoids Plan: I will follow-up the polyp histology and recommend repeat screening/surveillance colonoscopy again in 3 to 5 years based upon the pathology. We will discuss treatment options for his bloating and obstipation.
[2025-03-18 09:07] VITALS: BP 135/100; PULSE 97; RESP 18; TEMP 36.1; O2SAT 96
[2025-03-18 09:17] VITALS: BP 150/86; PULSE 94; RESP 18; TEMP 36.1; O2SAT 95
[2025-03-18 09:27] VITALS: BP 148/78; PULSE 92; RESP 18; TEMP 36.1; O2SAT 93
[2025-03-18 09:37] VITALS: BP 147/93; PULSE 94; RESP 18; TEMP 36.1; O2SAT 94
[2025-03-22 15:02] LABS: Interpretation Notes (.); Lactase 2.11 (>/= 14.0); Maltase 335.5 (>/= 110.0); Palatinase 25.36 (>/= 8.5); Reference Notes (.); Sucrase 107.24 (>/= 25.0)
== END 2025-03-18 09:37 | disposition home or self-care (01) ==
PROVIDERS: PCP Nurse Practitioner Family; Visit Provider Internal Medicine Gastroenterology
PROC: 0DJ08ZZ Inspection of Upper Intestinal Tract, Via Natural or Artificial Opening Endoscopic (ICD-10-PCS; CPT 45378; principal; 2025-03-18 08:30)
DX: Z12.11 Encounter for screening for malignant neoplasm of colon (principal); D12.2 Benign neoplasm of ascending colon; D12.3 Benign neoplasm of transverse colon; D12.4 Benign neoplasm of descending colon; K57.30 Diverticulosis of large intestine without perforation or abscess without bleeding; K64.1 Second degree hemorrhoids; K64.0 First degree hemorrhoids; K63.5 Polyp of colon; K29.80 Duodenitis without bleeding; K29.50 Unspecified chronic gastritis without bleeding; K31.89 Other diseases of stomach and duodenum; R13.10 Dysphagia, unspecified; R49.0 Dysphonia; R14.0 Abdominal distension (gaseous); R14.2 Eructation; R05.3 Chronic cough; R15.0 Incomplete defecation; K21.9 Gastro-esophageal reflux disease without esophagitis; M54.50 Low back pain, unspecified; I10 Essential (primary) hypertension; I25.119 Atherosclerotic heart disease of native coronary artery with unspecified angina pectoris; J44.89 Other specified chronic obstructive pulmonary disease; E78.5 Hyperlipidemia, unspecified; Z91.81 History of falling; Z96.641 Presence of right artificial hip joint; Z95.5 Presence of coronary angioplasty implant and graft; Z87.891 Personal history of nicotine dependence; Z79.899 Other long term (current) drug therapy; Z79.82 Long term (current) use of aspirin; Z79.51 Long term (current) use of inhaled steroids; Z88.0 Allergy status to penicillin; Z88.5 Allergy status to narcotic agent; Z91.011 Allergy to milk products
CPT/HCPCS: 43239; 45385; 82657; C1726; J2003; J2704; J7120

== ENCOUNTER 2025-06-11 16:21 | Outpatient (CLI) | payer MEDICARE, MEDICAID, SELFPAY ==
[2025-06-11 16:37] LABS: Hematocrit 44.2 % (42.0-52.0); Hemoglobin 15.1 g/dL (14.1-18.0); Immature Granulocytes % 0.1 %; Mean Corpuscular HGB Conc 34.2 g/dL (31.8-35.4); Mean Corpuscular Hemoglobin 31.6 pg (27.0-31.2); Mean Corpuscular Volume 92.5 fl (80-94); Nucleated Red Blood Cells % 0 %; Platelet Count 240 K/mm3 (142-424); Red Blood Count 4.78 M/mm3 (4.60-6.20); Red Cell Distribution Width-SD 42.7 fL; White Blood Count 6.8 K/mm3 (4.8-10.8)
[2025-06-16 15:12] LABS: I006-IgE Cockroach, German <0.10 kU/L (Class 0); T006-IgE Cedar, Mountain <0.10 kU/L (Class 0); T007-IgE Oak, White 0.11 kU/L (Class 0/I); T008-IgE Elm, American <0.10 kU/L (Class 0); T015-IgE Ash, White <0.10 kU/L (Class 0); T022-IgE Pecan, Hickory <0.10 kU/L (Class 0); W001-IgE Ragweed, Short <0.10 kU/L (Class 0); W011-IgE Thistle, Russian <0.10 kU/L (Class 0); W014-IgE Pigweed, Common <0.10 kU/L (Class 0)
== END 2025-06-11 23:59 | disposition home or self-care (01) ==
LOC: LAB 16:22
PROVIDERS: PCP Nurse Practitioner Family; Visit Provider Internal Medicine Pulmonary Disease
DX: J45.909 Unspecified asthma, uncomplicated (principal)
CPT/HCPCS: 36415; 82785; 85025; 86003